=== PATIENT | male | born 1970 | race Hispanic/Latino ===

== ENCOUNTER 2020-02-16 02:05 | Emergency (ER) | payer SELFPAY, OTHER ==
[2020-02-16 03:30] LABS: Absolute Lymphocytes (CBC) 2.7 K/uL (0.7-4.9); Basophils % 0.9 % (0-1.3); Hematocrit 44.5 % (39.6-49.0); Lymphocytes % 39.4 % (15.3-44.8); MPV 8.4 fL (7.6-11.3); RBC Red Blood Cell Count 5.27 M/uL (4.33-5.43)
[2020-02-16 04:00] LABS: Arterial Blood Carboxyhemoglob 1.2 % (0-1.5); Blood Gas Oxyhemoglobin 93.9 % (94-97); Blood O2 Saturation 96.7 % (92-98.5)
[2020-02-16] MEDS ORDERED: DIPHENOX/ATROP SULF 1 TAB PO ONE (04:16)
[2020-02-16] MEDS ORDERED: NA CHLORIDE 0.9% 1,000 ML ONE (04:17)
--- NOTE | 2020-02-16 05:28 | ER ---
Nurse's Notes [facility] Name: Randolph Javier Age: 49 yrs Sex: Male : 1970 Arrival Date: 02/16/2020 Time: 02:11 Bed 5 Private MD: Diagnosis: Other viral enteritis Presentation: 02/15 02:49 Chief complaint: Patient states: having abdominal pain , diarrhea 10x today, nauseous rr5 and Shortness of breath started 3 days ago. Coronavirus screen: Surgical mask placed on patient. Patient moved to private room, placed in contact and droplet isolation with eye protection until further assessment. Patient reports shortness of breath or difficulty breathing. Patient reports contact with known and/or suspected case of COVID-19. Prior COVID test collected on: 02-09-20 covid result negative. Ebola Screen: Patient negative for fever greater than or equal to 101.5 degrees Fahrenheit, and additional compatible Ebola Virus Disease symptoms Patient denies exposure to infectious person. Patient denies travel to an Ebola-affected area in the 21 days before illness onset. Initial Sepsis Screen: Does the patient meet any 2 criteria? No. Patient's initial sepsis screen is negative. Does the patient have a suspected source of infection? Yes: Acute abdominal pain. Risk Assessment: Do you want to hurt yourself or someone else? Patient reports no desire to harm self or others. Onset of symptoms was February 13, 2020. 02:49 Method Of Arrival: Ambulatory rr5 02:49 Acuity: SHILPI 3 rr5 Historical: - Allergies: 02:53 No Known Allergies; rr5 - Home Meds: 02:53 for gout medication [Active]; rr5 - PMHx: 02:53 Gout; rr5 - PSHx: 02:53 polyps removal; rr5 - Immunization history:: Adult Immunizations up to date. - Social history:: Smoking status: unknown Patient/guardian denies using alcohol, street drugs, tobacco products. Screenin:15 Abuse screen: Denies threats or abuse. Denies injuries from another. Nutritional rr5 screening: No deficits noted. Tuberculosis screening: No symptoms or risk factors identified. Fall Risk IV access (20 points). Total Gorman Fall Scale indicates No Risk (0-24 pts). Assessment: 02:40 General: Appears in no apparent distress. comfortable, Behavior is calm, cooperative, rr5 appropriate for age. Pain: Complains of pain in epigastric area Pain radiates to abdomen Pain currently is 4 out of 10 on a pain scale. Quality of pain is described as aching, Pain began gradually, Is intermittent. Neuro: Level of Consciousness is awake, alert, obeys commands, Oriented to person, place, time, situation, Appropriate for age. Cardiovascular: Capillary refill < 3 seconds Patient's skin is warm and dry. Respiratory: Reports shortness of breath cough that is Airway is patent Respiratory effort is even, unlabored, Respiratory pattern is regular, symmetrical. GI: Abdomen is round non-distended, Reports lower abdominal pain, upper abdominal pain, diarrhea, intolerance of fluids, intolerance of food, nausea. : No signs and/or symptoms were reported regarding the genitourinary system. EENT: No signs and/or symptoms were reported regarding the EENT system. Derm: Skin is intact, is healthy with good turgor, Skin temperature is warm. Musculoskeletal: Circulation, motion, and sensation intact. Capillary refill < 3 seconds. 03:45 Reassessment: Patient appears in no apparent distress at this time. No changes from rr5 previously documented assessment. Patient is alert, oriented x 3, equal unlabored respirations, skin warm/dry/pink. awaiting for results. 04:30 Reassessment: Patient appears in no apparent distress at this time. Patient and/or rr5 family updated on plan of care and expected duration. Pain level reassessed. Patient is alert, oriented x 3, equal unlabored respirations, skin warm/dry/pink. Patient states symptoms have improved. 05:30 Reassessment: Patient appears in no apparent distress at this time. Patient is alert, rr5 oriented x 3, equal unlabored respirations, skin warm/dry/pink. discharge instruction given and explained without complaints made. Patient states feeling better. Patient states symptoms have improved. Vital Signs: 02:49 BP 141 / 112; Pulse 90; Resp 19; Temp 98.4; Pulse Ox 100% ; Weight 95.25 kg; Height 5 rr5 ft. 6 in. (167.64 cm); Pain 4/10; 03:55 BP 125 / 99; Pulse 88; Resp 18; Pulse Ox 99% on R/A; rv 04:30 BP 131 / 84; Pulse 79; Resp 15; Pulse Ox 98% on R/A; rr5 05:30 BP 121 / 75; Pulse 85; Resp 19; Temp 98.6; Pulse Ox 99% ; rr5 02:49 Body Mass Index 33.89 (95.25 kg, 167.64 cm) rr5 ED Course: 02:11 Patient arrived in ED. ag3 02:37 Gerber Prieto, RN is Primary Nurse. rr5 02:50 Patient has correct armband on for positive identification. Bed in low position. Call rr5 light in reach. Pulse ox on. NIBP on. 02:52 Triage completed. rr5 02:53 Arm band placed on right wrist. rr5 03:07 Chau Harrison MD is Attending Physician. tw4 03:15 Flu and/or RSV swab sent to lab. Strep swab sent to lab. covid 19. rr5 03:19 Inserted saline lock: 18 gauge in right antecubital area, using aseptic technique. rr5 Blood collected. 03:38 CXR XRAY In Process Unspecified. EDMS 04:05 ABG drawn. by RT staff, on room air. rr5 05:41 No provider procedures requiring assistance completed. IV discontinued, intact, rr5 bleeding controlled, No redness/swelling at site. Pressure dressing applied. Administered Medications: 04:16 Drug: NS 0.9% 1000 ml Route: IV; Rate: 1 bolus; Site: right antecubital; rr5 05:10 Follow up: Response: No adverse reaction rr5 05:30 Follow up: IV Status: Completed infusion; IV Intake: 1000ml rr5 04:16 Drug: LoMOTIL 2 tabs Route: PO; rr5 05:41 Follow up: Response: No adverse reaction rr5 Intake: 05:30 IV: 1000ml; Total: 1000ml. rr5 Outcome: 05:27 Discharge ordered by . tw4 05:30 Discharged to home ambulatory. rr5 05:30 Condition: stable 05:30 Discharge instructions given to patient, Instructed on discharge instructions, follow up and referral plans. medication usage, Demonstrated understanding of instructions, follow-up care, medications, Prescriptions given X 2. 05:43 Patient left the ED. rr5 Addendum: 02/21/2020 09:39 Addendum: COVID-19 Result: Negative result given to RN to notify pt. Notified pt of e b negative COVID 19 swab results. Pt advised that even with a negative test result they should remain in isolation until symptom free for 3 days without medication. Pt also advised to return to the ED for worsening symptoms. Signatures: Dispatcher [employer] Chau España MD MD tw4 Beth Rivera Ronaldo RN RN rv Seay, Emelina [email or web address] Gerber Prieto RN RN rr5
--- NOTE | 2020-02-16 05:28 | EDPHYS ---
Physician Documentation [facility] Name: Randolph Javier Age: 49 yrs Sex: Male : 1970 Arrival Date: 02/16/2020 Time: 02:11 Bed 5 Private MD: ED Physician Chau Harrison HPI: 02/15 03:57 This 49 yrs old Male presents to ER via Ambulatory with complaints of Diarrhea.tw4 03:57 The patient presents to the emergency department with diarrhea, 10 times since the tw4 onset of symptoms. Onset: The symptoms/episode began/occurred today. Possible causes: unknown. The symptoms are aggravated by nothing. The symptoms are alleviated by nothing. Associated signs and symptoms: Pertinent positives: SOB. Severity of symptoms: At their worst the symptoms were moderate in the emergency department the symptoms are unchanged. The patient has not experienced similar symptoms in the past. Historical: - Allergies: 02:53 No Known Allergies; rr5 - Home Meds: 02:53 for gout medication [Active]; rr5 - PMHx: 02:53 Gout; rr5 - PSHx: 02:53 polyps removal; rr5 - Immunization history:: Adult Immunizations up to date. - Social history:: Smoking status: unknown Patient/guardian denies using alcohol, street drugs, tobacco products. ROS: 03:57 Constitutional: Negative for fever, chills, and weight loss, Eyes: Negative for injury, tw4 pain, redness, and discharge, Cardiovascular: Negative for chest pain, palpitations, and edema, Back: Negative for injury and pain, MS/Extremity: Negative for injury and deformity, Skin: Negative for injury, rash, and discoloration, Neuro: Negative for headache, weakness, numbness, tingling, and seizure. 03:57 Respiratory: Positive for shortness of breath. 03:57 Abdomen/GI: Positive for diarrhea, Negative for abdominal pain, nausea and vomiting, nausea, vomiting, and diarrhea, nausea, vomiting, abdominal cramps, abdominal distension, anorexia, dysphagia, hematemesis, black/tarry stool, rectal pain, rectal bleeding. Exam: 03:57 Constitutional: This is a well developed, well nourished patient who is awake, alert, tw4 and in no acute distress. Head/Face: Normocephalic, atraumatic. Chest/axilla: Normal chest wall appearance and motion. Nontender with no deformity. No lesions are appreciated. Cardiovascular: Regular rate and rhythm with a normal S1 and S2. No gallops, murmurs, or rubs. Normal PMI, no JVD. No pulse deficits. Respiratory: Lungs have equal breath sounds bilaterally, clear to auscultation and percussion. No rales, rhonchi or wheezes noted. No increased work of breathing, no retractions or nasal flaring. Abdomen/GI: Soft, non-tender, with normal bowel sounds. No distension or tympany. No guarding or rebound. No evidence of tenderness throughout. Back: No spinal tenderness. No costovertebral tenderness. Full range of motion. MS/ Extremity: Pulses equal, no cyanosis. Neurovascular intact. Full, normal range of motion. Neuro: Awake and alert, GCS 15, oriented to person, place, time, and situation. Cranial nerves II-XII grossly intact. Motor strength 5/5 in all extremities. Sensory grossly intact. Cerebellar exam normal. Normal gait. Vital Signs: 02:49 BP 141 / 112; Pulse 90; Resp 19; Temp 98.4; Pulse Ox 100% ; Weight 95.25 kg; Height 5 rr5 ft. 6 in. (167.64 cm); Pain 4/10; 03:55 BP 125 / 99; Pulse 88; Resp 18; Pulse Ox 99% on R/A; rv 04:30 BP 131 / 84; Pulse 79; Resp 15; Pulse Ox 98% on R/A; rr5 05:30 BP 121 / 75; Pulse 85; Resp 19; Temp 98.6; Pulse Ox 99% ; rr5 02:49 Body Mass Index 33.89 (95.25 kg, 167.64 cm) rr5 MDM: 03:36 Patient medically screened. tw4 03:57 Differential diagnosis: Nonspecific abd pain, gastritis, cholecystitis, pancreatitis, tw4 diverticulitis. Data reviewed: vital signs, nurses notes. Data interpreted: Pulse oximetry: Interpretation: normal. Counseling: I had a detailed discussion with the patient and/or guardian regarding: the historical points, exam findings, and any diagnostic results supporting the discharge/admit diagnosis, lab results. 05:26 Medication response: lomotil. Response to treatment: the patient's symptoms have tw4 resolved after treatment, and as a result, I will discharge patient. Special discussion: Based on the patient's Hx, exam, and Dx evaluation, there is no indication for emergent surgery or inpatient Tx. It is understood by the patient/guardian that if the Sx's persist or worsen they need to return immediately for re-evaluation. I discussed with the patient/guardian in detail that at this point there is no indication for admission to the hospital. It is understood, however, that if the symptoms persist or worsen the patient needs to return immediately for re-evaluation. 02/15 03:04 Order name: Basic Metabolic Panel tw4 02/15 03:04 Order name: CBC with Diff tw4 02/15 03:04 Order name: Hepatic Function tw4 02/15 03:04 Order name: Lipase tw4 02/15 03:07 Order name: Flu 5 02/15 03:07 Order name: Strep [facility] 02/15 03:09 Order name: CXR XRAY tw4 02/15 03:09 Order name: COVID-19 tw4 02/15 03:10 Order name: Influenza Screen (A EDOH 02/15 03:42 Order name: ABG sg 02/15 04:11 Order name: Throat Culture EDOH 02/15 03:04 Order name: IV Saline Lock; Complete Time: 03:19 tw4 02/15 03:04 Order name: Labs collected and sent; Complete Time: 03:19 tw4 02/15 03:07 Order name: Document PUI#; Complete Time: 03:56 rr5 02/15 03:07 Order name: Droplet/Contact Precautions; Complete Time: 03:08 rr5 02/15 03:07 Order name: Labs collected and sent; Complete Time: 03:57 rr5 02/15 03:07 Order name: Notify Health Dept [phone]/ ; Complete Time: 03:57 rr5 02/15 03:07 Order name: O2 Per Protocol; Complete Time: 03:08 rr5 Administered Medications: 04:16 Drug: NS 0.9% 1000 ml Route: IV; Rate: 1 bolus; Site: right antecubital; rr5 05:10 Follow up: Response: No adverse reaction rr5 05:30 Follow up: IV Status: Completed infusion; IV Intake: 1000ml rr5 04:16 Drug: LoMOTIL 2 tabs Route: PO; rr5 05:41 Follow up: Response: No adverse reaction rr5 Disposition: 02/16/20 05:27 Discharged to Home. Impression: Other viral enteritis. - Condition is Stable. - Discharge Instructions: Food Choices to Help Relieve Diarrhea, Adult, Diarrhea, Adult, Viral Gastroenteritis, Adult, [id number]. - Prescriptions for Bentyl 20 mg Oral Tablet - take 1 tablet by ORAL route every 6 hours As needed; 20 tablet. Lomotil 2.5- 0.025 mg Oral Tablet - take 2 tablet by ORAL route once daily As needed; 20 tablet. - Medication Reconciliation Form, Thank You Letter, Antibiotic Education, Prescription Opioid Use form. - Follow up: Private Physician; When: Upon discharge from the Emergency Department; Reason: Recheck today's complaints, Continuance of care, Re-evaluation by your physician. - Problem is new. - Symptoms have improved. Signatures: Dispatcher [employer] EDChau Lance MD MD tw4 Gerber Prieto RN RN rr5 Corrections: (The following items were deleted from the chart) 05:43 05:27 02/16/2020 05:27 Discharged to Home. Impression: Other viral enteritis. Condition rr5 is Stable. Forms are Medication Reconciliation Form, Thank You Letter, Antibiotic Education, Prescription Opioid Use. Follow up: Private Physician; When: Upon discharge from the Emergency Department; Reason: Recheck today's complaints, Continuance of care, Re-evaluation by your physician. Problem is new. Symptoms have improved. tw4
[2020-02-16 05:52] LABS: ALT/SGPT 225 U/L (12-78); AST/SGOT 65 U/L (15-37); Albumin 3.4 g/dL (3.4-5.0); Alkaline Phosphatase 101 U/L (45-117); BUN Blood Urea Nitrogen 16 mg/dL (7-18); Bicarbonate 21 mmol/L (21-32); Bilirubin Direct < 0.1 mg/dL (0-0.2); Bilirubin Total 0.2 mg/dL (0.2-1.0); Glucose Level 173 mg/dL (74-106); Lipase 195 U/L (73-393); Potassium 4.1 mmol/L (3.5-5.1); Protein, Total 7.9 g/dL (6.4-8.2); Sodium Level 137 mmol/L (136-145)
[2020-02-16 05:56] VITALS: BP 121/75; TEMP 98.6; O2SAT 99
--- NOTE | 2020-02-16 11:57 | RAD REPORT ---
EXAM DESCRIPTION: RAD - Chest Single View - 02/16/2020 3:38 am CLINICAL HISTORY: COUGH Chest pain. COMPARISON: CHEST SINGLE VIEW dated 06/03/2010 FINDINGS: Portable technique limits examination quality. The lungs are grossly clear. The heart is normal in size. No displaced fractures. IMPRESSION: No acute intrathoracic process suspected.
== END 2020-02-16 05:43 | disposition home or self-care (01) ==
LOC: ER 02:05
DX: A08.39 Other viral enteritis (principal); Z20.828 Contact with and (suspected) exposure to other viral communicable diseases
CPT/HCPCS: 36415; 71045; 80048; 80076; 82805; 83690; 85025; 87070; 87081; 87804; 96360; 99284; J7030; U0001

== ENCOUNTER 2020-09-17 23:19 | Inpatient (IN) | payer SELFPAY, OTHER ==
--- OUTSIDE RECORDS SUMMARY | 2020-09-17 23:20 | XMS REPORT | Continuity of Care Document ---
:1970 Author Organization [facility] t Address [address] [place] [address] Care Team Providers Name Role Phone José Miguel GIL, Burke Attending Clinician Unavailable Pamela RODNEY Attending Clinician Omari RODNEY Attending Clinician Geovanni RODNEY Attending Clinician Diego GIL Attending Clinician Unavailable Yandy Gallego Attending Clinician Doctor Unassigned, Name Attending Clinician Unavailable Michela Sena Attending Clinician Grey GIL, T Attending Clinician Unavailable Geovanni RODNEY Admitting Clinician Problems This patient has no known problems. Allergies, Adverse Reactions, Alerts This patient has no known allergies or adverse reactions. Medications This patient has no known medications. Procedures This patient has no known procedures. Encounters Start End Encounter Admission Attending Care Care Encounter Source Date/Time Date/Time Type Type Clinicians Facility Department ID 2020-05-23 2020-05-23 Nurse VISHNU Valdez [id number] 00:00:00 00:00:00 Triage Jeannette SANTAMARIA [id number] [facility] [id number] [id number] 2020-05-19 2020-05-19 Telemedici RICARDO Santiago [id number] 09:12:55 09:27:55 ne Visit Ck Floyd1.13.10 [facility] 4.2.7.2.68[facility] [id number] BLDG. 144 2020-05-17 2020-05-18 Emergency Joseph Salcido [facility] 1.2.840. [id number] 07:55:00 13:15:00 Kuldeep Galarza [id number] [place] 4.2.7.2.686 [place] [address] [id number] 2020-05-17 2020-05-17 Nurse Wanda Cortez [id number] 00:00:00 00:00:00 Triage HINA [id number]68[facility] [id number] 2020-03-18 2020-03-18 Wanda Art [id number] 00:00:00 00:00:00 Triage HINA [id number]68[facility] [id number] 2020-02-09 2020-02-09 Emergency [facility] [id number] 00:28:27 01:06:00 Shira Dowling [id number]686 [place] [address] [id number] 2020-02-09 2020-02-09 Orders Doctor MARES [id number] 00:00:00 00:00:00 Only Unassigned, HINA [id number] [place] [facility] [id number] [id number] 2020-02-04 2020-02-04 Emergency Ja Ellis [facility] [id number] 15:18:35 19:14:00 Michela Dowling [id number] [place] 4.2.7.2.686 [place] [address] [id number] 2020-02-04 2020-02-04 Nurse VISHNU Edmonds [id number] 00:00:00 00:00:00 Triage Martha [place] HINA [id number] [facility] [id number] [id number] 2019-10-02 2019-10-02 Telephone Pamela [facility] [id number] 00:00:00 00:00:00 [facility] [id number] [place] 4.2.7.2.686 [facility] [id number] Primary & 144 Specialty Care Results This patient has no known results.
[2020-09-17] MEDS ORDERED: FAMOTIDINE 20 MG/2 ML VIAL IV ONE (23:54)
[2020-09-17] MEDS ORDERED: NA CHLORIDE 0.9% 500 ML ONE (23:54)
[2020-09-17] MEDS ORDERED: ASPIRIN 81 MG CHEWABLE TABLET ONE (23:54)
[2020-09-18 00:08] LABS: Absolute Lymphocytes (CBC) 1.7 K/uL (0.7-4.9); Basophils % 0.9 % (0-1.3); Hematocrit 42.8 % (39.6-49.0); Lymphocytes % 31.3 % (15.3-44.8); MPV 8.8 fL (7.6-11.3); RBC Red Blood Cell Count 5.09 M/uL (4.33-5.43)
[2020-09-18 00:10] LABS: Protime INR 0.97
[2020-09-18 00:30] LABS: ALT/SGPT 96 U/L (12-78); Albumin 3.4 g/dL (3.4-5.0); Alkaline Phosphatase 84 U/L (45-117); BUN Blood Urea Nitrogen 21 mg/dL (7-18); Bicarbonate 27 mmol/L (21-32); Bilirubin Direct < 0.1 mg/dL (0-0.2); Bilirubin Total 0.4 mg/dL (0.2-1.0); Glucose Level 241 mg/dL (74-106); Lipase 180 U/L (73-393); NT PRO-BNP 51 pg/mL (<125); Protein, Total 7.3 g/dL (6.4-8.2); Sodium Level 139 mmol/L (136-145); Troponin (Emerg Dept Use Only) < 0.02 ng/mL (0.0-0.045)
[2020-09-18] MEDS ORDERED: METOPROLOL TAR 50 MG TAB ONE (00:31)
[2020-09-18] MEDS ORDERED: ENOXAPARIN 100 MG/ML SYR SQ ONE (00:32)
[2020-09-18 00:34] LABS: AST/SGOT 41 U/L (15-37); Potassium 3.5 mmol/L (3.5-5.1)
--- NOTE | 2020-09-18 00:52 | ER ---
Nurse's Notes [facility] Name: Randolph Javier Age: 49 yrs Sex: Male : 1970 Arrival Date: 09/17/2020 Time: 23:22 Bed 5 Private MD: Diagnosis: Chest pain, unspecified;Obesity, unspecified;Type 2 diabetes mellitus Presentation: 09/17 23:26 Chief complaint: Patient states: SHARP CHEST PAINS ON THE LEFT SIDE, WITH NAUSEA AND rv LIGHT HEADEDNESS. FAMILY CHECKED BLOOD PRESSURE, WITH SYSTOLIC OF 156. CLAIMS TO HAVE HISTORY OF ANXIETY. PATIENT DENIES CHEST PAIN UPON ARRIVAL. Coronavirus screen: Client denies travel out of the [place] in the last 14 days. At this time, the client does not indicate any symptoms associated with coronavirus-19. Ebola Screen: Patient negative for fever greater than or equal to 101.5 degrees Fahrenheit, and additional compatible Ebola Virus Disease symptoms Patient denies exposure to infectious person. Patient denies travel to an Ebola-affected area in the 21 days before illness onset. Initial Sepsis Screen: Does the patient meet any 2 criteria? No. Patient's initial sepsis screen is negative. Does the patient have a suspected source of infection? No. Patient's initial sepsis screen is negative. Risk Assessment: Do you want to hurt yourself or someone else? Patient reports no desire to harm self or others. Onset of symptoms was September 17, 2020. 23:26 Method Of Arrival: EMS: [facility] 23:26 Acuity: SHILPI 3 rv Triage Assessment: 23:29 General: Appears comfortable, Behavior is calm, cooperative. Pain: Complains of pain in rv chest Pain does not radiate. Pain currently is 0 out of 10 on a pain scale. Quality of pain is described as sharp, Pain began 1 hour ago. EENT: No signs and/or symptoms were reported regarding the EENT system. Neuro: Level of Consciousness is awake, alert, obeys commands, Oriented to person, place, time, situation. Cardiovascular: Patient's skin is warm and dry. Respiratory: Airway is patent Respiratory effort is even, unlabored, Breath sounds are clear bilaterally. Derm: Skin is intact. Historical: - Allergies: 23:29 No Known Allergies; rv - PMHx: : Gout; Anxiety; rv - PSHx: 23:29 None; rv - Immunization history:: Adult Immunizations up to date. - Social history:: Smoking status: Patient denies any tobacco usage or history of. - Family history:: not pertinent. Screenin:31 Abuse screen: Denies threats or abuse. Denies injuries from another. Nutritional rv screening: No deficits noted. Tuberculosis screening: No symptoms or risk factors identified. Fall Risk None identified. Assessment: 23:30 General: Appears in no apparent distress. Behavior is calm, cooperative, appropriate wh for age. Pain: Complains of pain in chest Pain does not radiate. Neuro: Level of Consciousness is awake, alert, obeys commands, Oriented to person, place, time, situation, Appropriate for age. Cardiovascular: Heart tones S1 S2. Cardiovascular: Rhythm is regular. Respiratory: Reports shortness of breath Airway is patent Respiratory effort is even, unlabored, Respiratory pattern is regular, symmetrical, Breath sounds are clear bilaterally. GI: Abdomen is round non-distended. : No signs and/or symptoms were reported regarding the genitourinary system. EENT: No signs and/or symptoms were reported regarding the EENT system. Derm: Skin is intact, is healthy with good turgor, Skin is pink, warm \T\ dry. normal. Musculoskeletal: Circulation, motion, and sensation intact. 09/18 01:00 Reassessment: Patient appears in no apparent distress at this time. No changes from previously documented assessment. Patient and/or family updated on plan of care and expected duration. Pain level reassessed. Patient is alert, oriented x 3, equal unlabored respirations, skin warm/dry/pink. 01:30 Reassessment: Hospitalist at bedside explaining POC need for admit. 02:30 Reassessment: Patient appears in no apparent distress at this time. Patient and/or family updated on plan of care and expected duration. Pain level reassessed. Patient is alert, oriented x 3, equal unlabored respirations, skin warm/dry/pink. Vital Signs: 09/17 23:26 BP 128 / 96; Pulse 95; Resp 18; Temp 98.6; Pulse Ox 94% ; Weight 104.33 kg; Pain 0/10; rv 04 00:33 BP 118 / 89; Pulse 93; Resp 18; Pulse Ox 96% ; rv 01:30 BP 130 / 89; Pulse 82; Resp 18; Pulse Ox 96% on R/A; 02:30 BP 109 / 92; Pulse 70; Resp 18; Pulse Ox 98% on R/A; ED Course: 03 23:22 Patient arrived in ED. mw2 23:26 Yousuf Galo, LOUISE is Primary Nurse. rv 23:27 Troy Urbano MD is Attending Physician. jd 23:29 Triage completed. rv 23:30 Arm band placed on right wrist. Patient placed in the treatment room, on a stretcher, rv Patient notified of wait time. 23:31 Patient has correct armband on for positive identification. bottom polisher on. Pulse rv ox on. NIBP on. 23:31 No provider procedures requiring assistance completed. Maintain EMS IV. Dressing rv intact. Good blood return noted. Site clean \T\ dry. Gauge \T\ site: G20 RIGHT ARM. 23:48 XRAY Chest (1 view) In Process Unspecified. EDMS 09/18 00:46 Gerber Reynaga MD is Hospitalizing Provider. jd 02:57 Patient admitted, IV remains in place. Administered Medications: 09/17 23:42 Drug: NS 0.9% 1000 ml Route: IV; Rate: 125 ml/hr; Site: right antecubital; rv 02/04 02:51 Follow up: Response: No adverse reaction; IV Status: Completed infusion 09/17 23:42 Drug: Pepcid 20 mg Route: IVP; Site: right antecubital; rv 02/04 02:51 Follow up: Response: No adverse reaction / 23:43 Drug: Aspirin Chewable Tablet 324 mg Route: PO; rv 02/04 02:51 Follow up: Response: No adverse reaction 00:22 Drug: Lopressor (metoprolol TARTRATE) 50 mg Route: PO; 00:33 Follow up: Response: No adverse reaction rv 02:52 Follow up: Response: No adverse reaction 00:23 Drug: Lovenox 100 mg Route: Sub-Q; Site: left lower abdomen; 02:52 Follow up: Response: No adverse reaction Outcome: 00:51 Decision to Hospitalize by Provider. jd 02:56 Admitted to Med/surg accompanied by tech, via wheelchair, room 232, with chart, Report called to Iram Mills RN 02:56 Condition: stable 02:56 Instructed on the need for admit. 03:00 Patient left the ED. Signatures: Dispatcher [employer] Troy Hodge MD MD cha Habalo, Winsy, RN RN Fidelina Matute 2 Yousuf Galo RN RN rv Corrections: (The following items were deleted from the chart) 02:54 02 23:30 Respiratory: Airway is patent Respiratory effort is even, unlabored, Respiratory pattern is regular, symmetrical, Breath sounds are clear bilaterally.
--- NOTE | 2020-09-18 00:52 | EDPHYS ---
Physician Documentation [facility] Name: Randolph Javier Age: 49 yrs Sex: Male : 1970 Arrival Date: 09/17/2020 Time: 23:22 Bed 5 Private MD: ED Physician Troy Urbano HPI: 09/18 00:02 This 49 yrs old Male presents to ER via EMS with complaints of chest pain and jd sob. 00:02 The patient has shortness of breath at rest, with light activity. Onset: The jd symptoms/episode began/occurred just prior to arrival. Duration: The symptoms are continuous, but are steadily getting better. The patient's shortness of breath has no apparent modifying factors. The patient or guardian reports chest pain that is located primarily in the substernal area, anterior chest wall, left. Onset: just prior to arrival. The pain does not radiate. Associated signs and symptoms: Pertinent positives: diaphoresis, dizziness. Severity of symptoms: At their worst the symptoms were mild in the emergency department the symptoms are unchanged. The chest pain is described as sharp. Historical: - Allergies: 09/17 23:29 No Known Allergies; rv - PMHx: 23:29 Gout; Anxiety; rv - PSHx: 23:29 None; rv - Immunization history:: Adult Immunizations up to date. - Social history:: Smoking status: Patient denies any tobacco usage or history of. - Family history:: not pertinent. ROS: 09/18 00:02 Constitutional: Negative for fever, chills, and weight loss, Eyes: Negative for injury, jd pain, redness, and discharge, ENT: Negative for injury, pain, and discharge, Neck: Negative for injury, pain, and swelling, Respiratory: Negative for shortness of breath, cough, wheezing, and pleuritic chest pain, Abdomen/GI: Negative for abdominal pain, nausea, vomiting, diarrhea, and constipation, Back: Negative for injury and pain, : Negative for injury, bleeding, discharge, and swelling, MS/Extremity: Negative for injury and deformity, Skin: Negative for injury, rash, and discoloration, Neuro: Negative for headache, weakness, numbness, tingling, and seizure. Cardiovascular: Positive for chest pain. Exam: 00:02 Constitutional: This is a well developed, well nourished patient who is awake, alert, jd and in no acute distress. Head/Face: Normocephalic, atraumatic. Eyes: Pupils equal round and reactive to light, extra-ocular motions intact. Lids and lashes normal. Conjunctiva and sclera are non-icteric and not injected. Cornea within normal limits. Periorbital areas with no swelling, redness, or edema. ENT: Nares patent. No nasal discharge, no septal abnormalities noted. Tympanic membranes are normal and external auditory canals are clear. Oropharynx with no redness, swelling, or masses, exudates, or evidence of obstruction, uvula midline. Mucous membranes moist. Neck: Trachea midline, no thyromegaly or masses palpated, and no cervical lymphadenopathy. Supple, full range of motion without nuchal rigidity, or vertebral point tenderness. No Meningismus. Chest/axilla: Normal chest wall appearance and motion. Nontender with no deformity. No lesions are appreciated. Cardiovascular: Regular rate and rhythm with a normal S1 and S2. No gallops, murmurs, or rubs. Normal PMI, no JVD. No pulse deficits. Respiratory: Lungs have equal breath sounds bilaterally, clear to auscultation and percussion. No rales, rhonchi or wheezes noted. No increased work of breathing, no retractions or nasal flaring. Abdomen/GI: Soft, non-tender, with normal bowel sounds. No distension or tympany. No guarding or rebound. No evidence of tenderness throughout. Back: No spinal tenderness. No costovertebral tenderness. Full range of motion. Skin: Warm, dry with normal turgor. Normal color with no rashes, no lesions, and no evidence of cellulitis. MS/ Extremity: Pulses equal, no cyanosis. Neurovascular intact. Full, normal range of motion. Neuro: Awake and alert, GCS 15, oriented to person, place, time, and situation. Cranial nerves II-XII grossly intact. Motor strength 5/5 in all extremities. Sensory grossly intact. Cerebellar exam normal. Normal gait. Psych: Awake, alert, with orientation to person, place and time. Behavior, mood, and affect are within normal limits. 00:02 Musculoskeletal/extremity: ROM: no acute changes, intact in all extremities, Circulation is intact in all extremities. Sensation intact. Compartment Syndrome exam of affected extremity: is normal. DVT Exam: No signs of deep vein thrombosis. no pain, no swelling, no tenderness, negative Homans' sign noted on exam, no appreciated bluish discoloration, no erythema, no increased warmth. Vital Signs: 09/17 23:26 BP 128 / 96; Pulse 95; Resp 18; Temp 98.6; Pulse Ox 94% ; Weight 104.33 kg; Pain 0/10; rv 09/18 00:33 BP 118 / 89; Pulse 93; Resp 18; Pulse Ox 96% ; rv 01:30 BP 130 / 89; Pulse 82; Resp 18; Pulse Ox 96% on R/A; wh 02:30 BP 109 / 92; Pulse 70; Resp 18; Pulse Ox 98% on R/A; wh MDM: 09/17 23:28 Patient medically screened. jd 09/18 00:07 Differential diagnosis: Anxiety Reaction CHF exacerbation, acute myocardial infarction, jd anxiety, cholecystitis, Cholelithiasis gastritis, hiatal hernia, pancreatitis, pneumonia, pulmonary embolus, stable angina, Myocardial Infarction pulmonary edema, Pulmonary Embolism reactive airway disease. Antibiotic administration: Not indicated. HEART Score: History: Slightly Suspicious (0), ECG: Normal (0), Age: > 45 and < 65 years (1), Risk Factors: > or = 3 Risk factors for atherosclerotic disease (2), [Hypercholesterolemia] [Hypertension] [DM] [+ Family HX] [Obesity] Troponin: < or = 1 x Normal Limit (0). The patient was given aspirin in the Emergency Department. The patient's Wells Deep Vein Thrombosis Score was calculated as follows: Total Score: 0. This patient was found to be at low risk for a deep vein thrombosis by using the Well's assessment criteria Total Score: 0-2 Pts- Low Risk. The patient's pulmonary embolism risk score was calculated as follows: Total Score: 0-2 points. This patient was found to be at low risk for a pulmonary embolism by using the Well's assessment criteria Total Score: 0-2 points. This patient was found to be at low risk for a pulmonary embolism by using the Well's assessment criteria. AZAR Risk Score: 1 - Three or more CAD risk factors, TOTAL SCORE = 1. Immunization status: Influenza vaccine: Not up to date. Data reviewed: vital signs, nurses notes, lab test result(s), EKG, radiologic studies. Data interpreted: playground monitor: rate is 95 beats/min, rhythm is regular, Pulse oximetry: on room air is 94 %. Test interpretation: by ED physician or midlevel provider: ECG, plain radiologic studies. 09/17 23:28 Order name: Basic Metabolic Panel [facility] 09/17 23:28 Order name: CBC with Diff [facility] 09/17 23:28 Order name: LFT's [facility] 09/17 23:28 Order name: Magnesium [facility] 09/17 23:28 Order name: NT PRO-BNP; Complete Time: 00:46 [facility] 09/17 23:28 Order name: PT-INR; Complete Time: 00:23 [facility] 09/17 23:28 Order name: Troponin (emerg Dept Use Only); Complete Time: 00:46 [facility] 09/17 23:28 Order name: Lipase; Complete Time: 00:46 [facility] 09/17 23:28 Order name: D-Dimer; Complete Time: 00:23 [facility] 09/17 23:28 Order name: Basic Metabolic Panel; Complete Time: 00:45 [facility] 09/17 23:28 Order name: CBC with Automated Diff; Complete Time: 00:23 [facility] 09/17 23:28 Order name: Liver (Hepatic) Function; Complete Time: 00:45 [facility] 09/17 23:28 Order name: Magnesium; Complete Time: 00:46 [facility] 09/17 23:28 Order name: XRAY Chest (1 view) [facility] 09/17 23:28 Order name: EKG; Complete Time: 23:29 [facility] 09/17 23:28 Order name: Cardiac monitoring; Complete Time: 23:32 [facility] 09/17 23:28 Order name: EKG - Nurse/Tech; Complete Time: 23:32 [facility] 09/17 23:28 Order name: IV Saline Lock; Complete Time: 23:32 [facility] 09/17 23:28 Order name: Labs collected and sent; Complete Time: 23:32 [facility] 09/17 23:28 Order name: O2 Per Protocol; Complete Time: 23:32 [facility] 09/17 23:28 Order name: O2 Sat Monitoring; Complete Time: 23:32 [facility] 09/18 00:09 Order name: Thyroid Stimulating Hormone; Complete Time: 00:46 [facility] 09/18 01:47 Order name: SARS-COV-2 RT PCR EDMS Administered Medications: 09/17 23:42 Drug: NS 0.9% 1000 ml Route: IV; Rate: 125 ml/hr; Site: right antecubital; rv 09/18 02:51 Follow up: Response: No adverse reaction; IV Status: Completed infusion 09/17 23:42 Drug: Pepcid 20 mg Route: IVP; Site: right antecubital; rv 09/18 02:51 Follow up: Response: No adverse reaction 09/17 23:43 Drug: Aspirin Chewable Tablet 324 mg Route: PO; rv 09/18 02:51 Follow up: Response: No adverse reaction 00:22 Drug: Lopressor (metoprolol TARTRATE) 50 mg Route: PO; 00:33 Follow up: Response: No adverse reaction rv 02:52 Follow up: Response: No adverse reaction 00:23 Drug: Lovenox 100 mg Route: Sub-Q; Site: left lower abdomen; 02:52 Follow up: Response: No adverse reaction Disposition: 09/18/20 00:51 Hospitalization ordered by Gerber Reynaga for Observation. Preliminary diagnosis are Chest pain, unspecified, Obesity, unspecified, Type 2 diabetes mellitus. - Bed requested for Telemetry/MedSurg (observation). - Status is Observation. - Condition is Stable. - Problem is new. - Symptoms have improved. Signatures: Dispatcher [employer] EDSandy Nye RN RN Troy Austin MD MD cha Habalo, Winsy, RN RN Yousuf Galo RN RN rv Corrections: (The following items were deleted from the chart) 00:08 00:02 THYROID STIMULAT HORMONE+C.LAB.BRZ ordered. [facility] EDMS 00:40 00:02 CORONAVIRUS+MR.LAB.BRZ ordered. [facility] 02:37 00:51 Hospitalization Ordered by Gerber Reynaga MD for Observation. Preliminary diagnosis is Chest pain, unspecified; Obesity, unspecified; Type 2 diabetes mellitus. Bed requested for Telemetry/MedSurg (observation). Status is Observation. Condition is Stable. Problem is new. Symptoms have improved. [facility] 03:00 02:37 09/18/2020 00:51 Hospitalization Ordered by Gerber Reynaga MD for Observation. Preliminary diagnosis is Chest pain, unspecified; Obesity, unspecified; Type 2 diabetes mellitus. Bed requested for Telemetry/MedSurg (observation). Status is Observation. Condition is Stable. Problem is new. Symptoms have improved. dw
--- NOTE | 2020-09-18 01:15 | P.HP ---
Certification for Inpatient Patient admitted to: Observation With expected LOS: <2 Midnights Patient will require the following post-hospital care: None Practitioner: I am a practitioner with admitting privileges, knowledge of patient current condition, hospital course, and medical plan of care. Services: Services provided to patient in accordance with Admission requirements found in Title 42 Section 412.3 of the Code of Federal Regulations <Jamshid Macedo - Last Filed: 09/18/20 01:12> Patient History Date of Service: 09/18/20 Primary Care Provider: none Reason for admission: Chest pain History of Present Illness: 49-year-old male with history of gout, anxiety presents to the emergency department for chest pain, shortness of breath. Patient reports that last night while he was at home relaxing speaking with his son he developed chest pain, describes pain as sharp, nonradiating with some associated shortness of breath. The patient was evaluated in the emergency department, chest x-ray unremarkable. EKG without acute changes labs significant for elevated blood glucose 241, not previously known diabetic, initial troponin negative. Patient with family history, father with heart disease. ED provider wishes to admit patient for further evaluation and management. When I saw the patient in the ER he was awake, alert, oriented x3. Patient not currently having any chest pain. - Past Medical/Surgical History -: Gout -: Anxiety -: Suspect diabetes mellitus type 2 -: none Psychosocial/ Personal History: Patient currently unemployed, lives with family. - Family History Father -: Heart disease - Social History Smoking Status: Never smoker Alcohol use: No CD- Drugs: No Caffeine use: Yes Place of Residence: Home <Jamshid Macedo - Last Filed: 09/18/20 01:12> Date of Service: 09/29/20 <Gerber Reynaga - Last Filed: 09/29/20 20:33> Allergies No Known Allergies Allergy (Unverified 09/18/20 03:24) Home Medications: Colchicine [Colcrys *] 0.6 mg PO DAILY 09/18/20 Fenofibrate [Tricor] 48 mg PO DAILY 30 Days #30 tab 09/18/20 Metformin HCl [Glucophage] 500 mg PO BID 30 Days #60 tablet 09/18/20 Review of Systems 10-point ROS is otherwise unremarkable Respiratory: Shortness of Breath Cardiovascular: Chest Pain <Jamshid Macedo - Last Filed: 09/18/20 01:12> Physical Examination - Physical Exam General: Alert, In no apparent distress HEENT: Atraumatic, PERRLA, Mucous membr. moist/pink Neck: Supple, 2+ carotid pulse no bruit, No LAD Respiratory: Clear to auscultation bilaterally, Normal air movement Cardiovascular: Regular rate/rhythm, Normal S1 S2 Gastrointestinal: Normal bowel sounds, No tenderness Musculoskeletal: No tenderness Integumentary: No rashes Neurological: Normal speech, Normal strength at 5/5 x4 extr, Normal tone, Normal affect - Studies Laboratory Data (last 24 hrs) 09/17/20 23:35: PT 11.2, INR 0.97 09/17/20 23:35: WBC 5.60, Hgb 14.5, Hct 42.8, Plt Count 211 09/17/20 23:35: Sodium 139, Potassium 3.5, BUN 21 H, Creatinine 1.27, Glucose 241 H, Magnesium 2.0, Total Bilirubin 0.4, AST 41 H, ALT 96 H, Alkaline Phosphatase 84, Lipase 180 <Jamshid Macedo - Last Filed: 09/18/20 01:12> Assessment and Plan - Plan Assessment Chest pain rule out ACS Hyperglycemia suspect underlying diabetes mellitus type 2-undiagnosed Plan Chest pain rule out ACS: Monitor on telemetry, trend troponins, cardiology consult in place. Continue daily aspirin, metoprolol. NPO until evaluation by cardiology. DVT prophylaxis Lovenox 40 mg subcutaneous once daily. Appreciate further input from cardiology Hyperglycemia suspect underlying diabetes mellitus type 2-undiagnosed: Blood sugar 241, patient not known diabetic, A1c with morning labs. A.c. HS Accu- Cheks, sliding scale insulin therapy. Discharge Plan: Home Plan to discharge in: 24 Hours - Advance Directives Does patient have a Living Will: No Does patient have a Durable POA for Healthcare: No - Code Status/Comfort Care Code Status Assessed: Yes (Full code) Critical Care: No Time Spent Managing Pts Care (In Minutes): 55 <Jamshid Macedo - Last Filed: 09/18/20 01:12> - Plan Plan of care discussed with Jamshid Macedo, and I agree with the management plan as noted above. <Gerber Reynaga - Last Filed: 09/29/20 20:33>
[2020-09-18] MEDS ORDERED: ONDANSETRON 4 MG/2 ML VIAL IV PRN (02:54)
[2020-09-18 03:56] VITALS: BMI 34.3
[2020-09-18] MEDS ORDERED: METOPROLOL TAR 25 MG TAB PO SCH (06:00)
[2020-09-18 06:55] LABS: HDL Cholesterol 26 mg/dL (40-60); Troponin I < 0.02 ng/mL (0.0-0.045)
[2020-09-18 07:09] LABS: LDL, Direct 97 mg/dL (100-129)
[2020-09-18] MEDS: INSULIN -REGULAR HUMAN 50 UNIT/0.5 ML ML SQ SCH ×2 (07:30→11:30)
--- NOTE | 2020-09-18 07:42 | RAD REPORT ---
EXAM DESCRIPTION: Víctor Single View09/17/2020 11:48 pm CLINICAL HISTORY: Chest pain COMPARISON: February 2020 FINDINGS: The lungs appear clear of acute infiltrate. The heart is normal size IMPRESSION: No acute abnormalities displayed
[2020-09-18] MEDS ORDERED: ENOXAPARIN 40 MG/0.4 ML SQ SCH (09:00)
[2020-09-18] MEDS ORDERED: ASPIRIN EC 81 MG TAB PO SCH (09:00)
[2020-09-18] MEDS ORDERED: INFLUENZA VACCINE (for 3y+) 0.5 ML DOSE IMVAC ONE (09:00)
[2020-09-18 13:53] VITALS: TEMP 97.8
[2020-09-18 17:06] VITALS: BP 131/77
[2020-09-18 18:40] VITALS: O2SAT 100
--- NOTE | 2020-09-18 20:57 | P.DS ---
Admission Date: 09/18/20 Discharge Date: 09/18/20 Primary Care Provider: none Disposition: ROUTINE DISCHARGE Discharge Condition: GOOD Reason for Admission: Chest pain Consultations: Cardiology - Dr. Peralta Procedures: CXR (09/18): no acute abnormalities Problem List: Chest Pain Hypertriglyceridemia Hyperglycemia suspect underlying diabetes mellitus type 2-undiagnosed Brief History of Present Illness: 49-year-old male with history of gout, anxiety presents to the emergency department for chest pain, shortness of breath. Patient reports that last night while he was at home relaxing speaking with his son he developed chest pain, describes pain as sharp, nonradiating with some associated shortness of breath. Pian lasted a few seconds. The patient was evaluated in the emergency department, chest x-ray unremarkable. EKG without acute changes labs significant for elevated blood glucose 241, not previously known diabetic, initial troponin negative. Patient with family history, father with heart disease. ED provider wishes to admit patient for further evaluation and management. Hospital Course: Cardiology was consulted. Troponins were negative x 3. HgbA1c: 7.0, Triglycerides: 1125. He did not have recurrence of his pain. He was discharged home. He is to f/u with Cardiology next week for stress test. He was discharged with metformin and Tricor. He was advised on strict low fat diet. Vital Signs/Physical Exam: Temp Pulse Resp BP Pulse Ox 97.8 F 79 18 131/77 95 09/18/20 16:00 09/18/20 16:00 09/18/20 16:00 09/18/20 16:00 09/18/20 16:00 General: Alert, In no apparent distress, Oriented x3 HEENT: Sclerae nonicteric Respiratory: Clear to auscultation bilaterally, Normal air movement Cardiovascular: No edema, Regular rate/rhythm, No murmurs Gastrointestinal: Soft and benign, Non-distended, No tenderness Musculoskeletal: No tenderness Integumentary: No rashes Neurological: Normal speech, Normal affect Laboratory Data at Discharge: WBC 5.60 K/uL (4.3-10.9) 09/17/20 23:35 Hgb 14.5 g/dL (13.6-17.9) 09/17/20 23:35 Hct 42.8 % (39.6-49.0) 09/17/20 23:35 Plt Count 211 K/uL (152-406) 09/17/20 23:35 PT 11.2 SECONDS (9.5-12.5) 09/17/20 23:35 INR 0.97 09/17/20 23:35 Sodium 139 mmol/L (136-145) 09/17/20 23:35 Potassium 3.5 mmol/L (3.5-5.1) 09/17/20 23:35 BUN 21 mg/dL (7-18) H 09/17/20 23:35 Creatinine 1.27 mg/dL (0.55-1.3) 09/17/20 23:35 Glucose 241 mg/dL (74-106) H 09/17/20 23:35 Magnesium 2.0 mg/dL (1.8-2.4) 09/17/20 23:35 Total Bilirubin 0.4 mg/dL (0.2-1.0) 09/17/20 23:35 AST 41 U/L (15-37) H 09/17/20 23:35 ALT 96 U/L (12-78) H 09/17/20 23:35 Alkaline Phosphatase 84 U/L (45-117) 09/17/20 23:35 Troponin I < 0.02 ng/mL (0.0-0.045) 09/18/20 11:59 Triglycerides 1125 mg/dL (<150) H 09/18/20 06:03 Cholesterol 259 mg/dL (<200) H 09/18/20 06:03 LDL Cholesterol Direct 97 mg/dL (100-129) L 09/18/20 06:03 HDL Cholesterol 26 mg/dL (40-60) L 09/18/20 06:03 Cholesterol/HDL Ratio 9.96 09/18/20 06:03 Lipase 180 U/L (73-393) 09/17/20 23:35 Home Medications: Colchicine [Colcrys *] 0.6 mg PO DAILY 09/18/20 Fenofibrate [Tricor] 48 mg PO DAILY 30 Days #30 tab 09/18/20 Metformin HCl [Glucophage] 500 mg PO BID 30 Days #60 tablet 09/18/20 New Medications: Metformin HCl [Glucophage] 500 mg PO BID 30 Days #60 tablet Fenofibrate [Tricor] 48 mg PO DAILY 30 Days #30 tab Physician Discharge Instructions: Your chest pain was evaluated, you had normal EKG and troponins (cadiac enzymes), which makes it unlikely to be due to your heart. You will need to follow up with Cardiology (Dr. Peralta) in the next 1-2 weeks to have a stress test done for further evaluation. You were found to have a Hgb A1c of 7.0, which meets criteria for diabetes. You also had a high level of triglycerides: 1125 (fat/cholesterol) in your blood. You are discharged with 2 medications: TriCor and metformin. You will also need to follow up with her PCP in the next 1-2 weeks. You will need to follow a diabetic and low fat diet. Diet: ADA (low fat) Activity: Ad emmanuelle Followup: NONE,NONE [Primary Care Provider] - Gaurav Peralta MD [ACTIVE - CAN ADMIT] - Time spent managing pt's care (in minutes): 40
== END 2020-09-18 18:39 | disposition home or self-care (01) | DRG 313 ==
LOC: ER 23:19 → ERHOLD 09-18 01:11 → OBSVTOIN 09-18 01:11 → 2ND 09-18 02:53
PROVIDERS: ADMIT Hospitalist; ATTEND Hospitalist
DX: R07.9 Chest pain, unspecified (principal); E11.65 Type 2 diabetes mellitus with hyperglycemia; E78.1 Pure hyperglyceridemia; M10.9 Gout, unspecified; Z56.0 Unemployment, unspecified; Z79.84 Long term (current) use of oral hypoglycemic drugs; Z79.899 Other long term (current) drug therapy; Z20.822 Contact with and (suspected) exposure to COVID-19
CPT/HCPCS: 36415; 71045; 80048; 80061; 80076; 82947; 83036; 83690; 83735; 83880; 84443; 84484; 85025; 85379; 85610; 93005; 96361; 96372; 96374; 99285; J1650; J7040; U0003

== ENCOUNTER 2020-10-15 13:32 | Inpatient (IN) | payer OTHER, SELFPAY ==
--- OUTSIDE RECORDS SUMMARY | 2020-10-15 13:36 | XMS REPORT | Continuity of Care Document ---
:1970 Author Organization [facility] t Address [address] [place] [address] Care Team Providers Name Role Phone José [...] ID 2020-05-23 2020-05-23 Nurse VISHNU Valdez [id number] 00:00:00 00:00:00 Triage Jeannette SANTAMARIA [id number] [facility] [id number] 2020-05-19 2020-05-19 Telemedici RICARDO Santiago [id number] 09:12:55 09:27:55 ne Visit Ck Floyd1.13.10 [facility] [id number] [id number] BLDG. 144 2020-05-17 2020-05-18 Emergency Joseph Salcido [facility] [id number]. [id number] 07:55:00 13:15:00 Kuldeep Galarza [id number] [place] [id number] [place] [address] [id number] 2020-05-17 2020-05-17 Nurse Wanda Cortez [id number] 00:00:00 00:00:00 Triage HINA [id number]68[facility] [id number] 2020-03-18 2020-03-18 Wanda Art [id number] 00:00:00 00:00:00 Triage HINA [id number]68[facility] [id number] 2020-02-09 2020-02-09 Emergency [facility] [id number] 00:28:27 01:06:00 Shira Dowling [id number]2.686 [place] [address] [id number] 2020-02-09 2020-02-09 Orders Doctor MARES [id number] 00:00:00 00:00:00 Only Unassigned, HINA [id number] [place] [facility] [id number] [id number] 2020-02-04 2020-02-04 Emergency Ja Ellis [facility] [id number] 15:18:35 19:14:00 Michela Dowling [id number] [place] [id number] [place] [address] [id number] 2020-02-04 2020-02-04 Nurse VISHNU Edmonds [id number] 00:00:00 00:00:00 Triage Martha [place] HINA [id number] [facility] [id number] [id number] 2019-10-02 2019-10-02 Telephone Pamela [facility] [id number] 00:00:00 00:00:00 [facility] [id number] [place] [id number] [facility] [id number] Primary & 144 Specialty Care Results This patient has no known results.
[2020-10-15 14:11] LABS: Basophils % 0.6 % (0-1.3); Lymphocytes % 43.8 % (15.3-44.8); MPV 8.6 fL (7.6-11.3); RBC Red Blood Cell Count 5.37 M/uL (4.33-5.43)
[2020-10-15] MEDS ORDERED: ASPIRIN 81 MG CHEWABLE TABLET ONE (14:17)
[2020-10-15 14:19] LABS: Protime INR 0.96
[2020-10-15] MEDS ORDERED: ONDANSETRON 4 MG/2 ML VIAL ONE (14:21)
[2020-10-15] MEDS ORDERED: MORPHINE 4 MG/ML SYR ONE (14:21)
--- NOTE | 2020-10-15 14:43 | RAD REPORT ---
EXAM DESCRIPTION: Víctor Single View10/15/2020 2:30 pm CLINICAL HISTORY: Chest pain COMPARISON: September 2020 FINDINGS: The lungs appear clear of acute infiltrate. The heart is normal size IMPRESSION: No acute abnormalities displayed
[2020-10-15 14:59] LABS: ALT/SGPT 59 U/L (12-78); Albumin 3.7 g/dL (3.4-5.0); Alkaline Phosphatase 69 U/L (45-117); BUN Blood Urea Nitrogen 20 mg/dL (7-18); Bicarbonate 27 mmol/L (21-32); Bilirubin Direct < 0.1 mg/dL (0-0.2); Bilirubin Total 0.3 mg/dL (0.2-1.0); Glucose Level 115 mg/dL (74-106); NT PRO-BNP 54 pg/mL (<125); Protein, Total 7.7 g/dL (6.4-8.2); Sodium Level 140 mmol/L (136-145); Troponin (Emerg Dept Use Only) < 0.02 ng/mL (0.0-0.045)
[2020-10-15 15:01] LABS: AST/SGOT 26 U/L (15-37); Magnesium 1.9 mg/dL (1.8-2.4); Potassium 4.2 mmol/L (3.5-5.1)
--- NOTE | 2020-10-15 16:37 | EDPHYS ---
Physician Documentation [facility] Name: Randolph Javier Age: 49 yrs Sex: Male : 1970 Arrival Date: 10/15/2020 Time: 13:34 Bed 5 Private MD: ED Physician Raffaele Emanuel HPI: 10/15 13:56 This 49 yrs old Male presents to ER via Ambulatory with complaints of Chest jmm Pain. 13:56 The patient or guardian reports chest pain that is located primarily in the substernal jmm area. Onset: acutely, today, .5 hour(s) ago. The pain radiates to the left arm, the left shoulder. The chest pain is described as aching, a pressure. Duration: The patient or guardian reports a single episode, that is still ongoing, that lasted 20 minute(s). Modifying factors: The symptoms are alleviated by nothing. the symptoms are aggravated by nothing. This is a 49 year old male with a history of anxiety, gout that presents to the ED with complaints of left sided chest pain which began approx 20 minutes ago. Pain is worse than previous episode. . Historical: - Allergies: 13:46 No Known Allergies; ll1 - PMHx: 13:46 Anxiety; Gout; ll1 - PSHx: 13:46 None; ll1 - Immunization history:: Flu vaccine is up to date. - Social history:: Smoking status: Patient denies any tobacco usage or history of. ROS: 13:56 Constitutional: Negative for fever, chills, and weight loss, Respiratory: Negative for jmm shortness of breath, cough, wheezing, and pleuritic chest pain. 13:56 Cardiovascular: Positive for chest pain. 13:56 All other systems are negative. Exam: 13:56 Constitutional: This is a well developed, well nourished patient who is awake, alert, jmm and in no acute distress. Head/Face: atraumatic. Eyes: EOMI, no conjunctival erythema appreciated ENT: Moist Mucus Membranes Neck: Trachea midline, Supple Chest/axilla: Normal chest wall appearance and motion. Cardiovascular: Regular rate and rhythm. No edema appreciated Respiratory: Normal respirations, no respiratory distress appreciated Abdomen/GI: Non distended, soft Back: Normal ROM Skin: General appearance color normal MS/ Extremity: Moves all extremities, no obvious deformities appreciated, no edema noted to the lower extremities Neuro: Awake and alert, normal gait Psych: Behavior is normal, Mood is normal, Patient is cooperative and pleasant 14:05 ECG was reviewed by the Attending Physician. [facility] Vital Signs: 13:45 BP 155 / 111; Pulse 89; Resp 17; Temp 98.3; Pulse Ox 98% ; Weight 97.52 kg; Height 5 ll1 ft. 7 in. (170.18 cm); Pain 8/10; 14:06 BP 135 / 98; Pulse 82; Resp 20; Pulse Ox 98% on R/A; mh5 14:45 BP 124 / 95; Pulse 83; Resp 16; Pulse Ox 99% on R/A; Pain 6/10; ss 13:45 Body Mass Index 33.67 (97.52 kg, 170.18 cm) ll1 MDM: 13:55 Patient medically screened. [facility] 16:36 The patient was given aspirin in the Emergency Department. Data reviewed: vital signs, [facility] nurses notes, lab test result(s), EKG, radiologic studies, plain films. ED course: I discussed the patient with Dr. Santos whom accepted admission. . 10/15 13:56 Order name: Basic Metabolic Panel [facility] 10/15 13:56 Order name: CBC with Diff [facility] 10/15 13:56 Order name: LFT's [facility] 10/15 13:56 Order name: Magnesium [facility] 10/15 13:56 Order name: NT PRO-BNP [facility] 10/15 13:56 Order name: PT-INR [facility] 10/15 13:56 Order name: Troponin (emerg Dept Use Only) [facility] 10/15 14:12 Order name: CBC with Automated Diff; Complete Time: 14:15 [facility] 10/15 14:20 Order name: Protime (+INR); Complete Time: 14:25 [facility] 10/15 15:01 Order name: Basic Metabolic Panel; Complete Time: 15:03 [facility] 10/15 15:01 Order name: Liver (Hepatic) Function; Complete Time: 15:03 [facility] 10/15 15:01 Order name: Troponin (Emerg Dept Use Only); Complete Time: 15:03 [facility] 10/15 15:01 Order name: NT PRO-BNP; Complete Time: 15:03 [facility] 10/15 15:01 Order name: Magnesium; Complete Time: 15:03 [facility] 10/15 13:56 Order name: XRAY Chest (1 view) [facility] 10/15 13:56 Order name: EKG; Complete Time: 13:57 [facility] 10/15 13:56 Order name: Cardiac monitoring; Complete Time: 14:02 [facility] 10/15 13:56 Order name: EKG - Nurse/Tech; Complete Time: 14:02 [facility] 10/15 13:56 Order name: IV Saline Lock; Complete Time: 14:02 [facility] 10/15 13:56 Order name: Labs collected and sent; Complete Time: 14:03 [facility] 10/15 13:56 Order name: O2 Per Protocol; Complete Time: 14:03 [facility] 10/15 13:56 Order name: O2 Sat Monitoring; Complete Time: 14:03 [facility] 10/15 14:43 Order name: RAD; Complete Time: 14:44 [facility] 10/15 15:18 Order name: CORONAVIRUS [facility] 10/15 15:57 Order name: SARS-COV-2 RT PCR; Complete Time: 15:58 [facility] EC:05 Rate is 79 beats/min. Rhythm is regular, RBBB. Left axis deviation noted. SC interval jmm is normal. QRS interval is normal. QT interval is normal. Q waves are Present in leads aVL, V2. T waves are Inverted in leads III, aVF, aVR. No ST changes noted. Reviewed by me. Administered Medications: 14:02 Drug: Aspirin Chewable Tablet 324 mg Route: PO; ss 18:15 Follow up: Response: No adverse reaction ss 14:08 Drug: Zofran (Ondansetron) 4 mg Route: IVP; Site: right antecubital; ss 18:15 Follow up: Response: No adverse reaction ss 14:09 Drug: morphine 4 mg Route: IVP; Site: right antecubital; ss 18:15 Follow up: Response: No adverse reaction; Pain is decreased ss Disposition: 10/16 07:20 Co-signature as Attending Physician, Raffaele Emanuel MD I agree with the assessment and kdr plan of care. Disposition: 10/15/20 16:37 Hospitalization ordered by Delano Santos for Observation. Preliminary diagnosis is Chest pain, unspecified. - Bed requested for Telemetry/MedSurg (observation). - Status is Observation. ss - Condition is Stable. - Problem is an acute exacerbation. - Symptoms have improved. Signatures: Dispatcher [employer] EDNM Sandy Pope, LOUISE GIL Raffaele Emanuel MD MD kdr Mickail, Joel, PA PA [facility] Mayra Mcgraw RN RN ss Shabbir Murphy RN RN ll1 Corrections: (The following items were deleted from the chart) 10/15 16:15 15:06 CORONAVIRUS+MR.LAB.BRZ ordered. [facility] EDNM 17:38 16:37 Hospitalization Ordered by Delano Santos DO for Observation. Preliminary dw diagnosis is Chest pain, unspecified. Bed requested for Telemetry/MedSurg (observation). Status is Observation. Condition is Stable. Problem is an acute exacerbation. Symptoms have improved. [facility] 18:35 17:38 10/15/2020 16:37 Hospitalization Ordered by Delano Santos DO for Observation. Preliminary diagnosis is Chest pain, unspecified. Bed requested for Telemetry/MedSurg (observation). Status is Observation. Condition is Stable. Problem is an acute exacerbation. Symptoms have improved. dw
--- NOTE | 2020-10-15 16:37 | ER ---
Nurse's Notes [facility] Name: Randolph Javier Age: 49 yrs Sex: Male : 1970 Arrival Date: 10/15/2020 Time: 13:34 Bed 5 Private MD: Diagnosis: Chest pain, unspecified Presentation: 10/15 13:45 Chief complaint: Patient states: L CP for 15 min [employer] while waiting for a haircut. + ll1 SOB. Had stress test ordered last week, skipped appointment. Coronavirus screen: Client denies travel out of the [place] in the last 14 days. At this time, the client does not indicate any symptoms associated with coronavirus-19. Ebola Screen: Patient denies travel to an Ebola-affected area in the 21 days before illness onset. Initial Sepsis Screen: Does the patient meet any 2 criteria? No. Patient's initial sepsis screen is negative. Does the patient have a suspected source of infection? Yes: Other: chest pain. Risk Assessment: Do you want to hurt yourself or someone else? Patient reports no desire to harm self or others. Onset of symptoms was October 15, 2020. 13:45 Method Of Arrival: Ambulatory ll1 13:45 Acuity: SHILPI 3 ll1 Historical: - Allergies: 13:46 No Known Allergies; ll1 - PMHx: 13:46 Anxiety; Gout; ll1 - PSHx: 13:46 None; ll1 - Immunization history:: Flu vaccine is up to date. - Social history:: Smoking status: Patient denies any tobacco usage or history of. Screenin:45 Abuse screen: Denies threats or abuse. Denies injuries from another. Nutritional ss screening: No deficits noted. Tuberculosis screening: Never had TB. Fall Risk None identified. Assessment: 13:50 General: Appears uncomfortable, Behavior is calm, cooperative, Denies fever, feeling ss ill, fatigue, chills. Pain: Complains of pain in chest Pain radiates to left arm Pain currently is 7 out of 10 on a pain scale. Quality of pain is described as pressure, squeezing, Pain began just prior to arrival, approximately 20 minutes [employer] Is continuous. Neuro: Level of Consciousness is awake, alert, obeys commands, Oriented to person, place, time, situation, Bolt Man are equal bilaterally. Cardiovascular: Capillary refill < 3 seconds is brisk in bilateral fingers Patient's skin is warm and dry. Respiratory: Airway is patent Respiratory effort is even, unlabored, Respiratory pattern is regular, symmetrical. GI: No signs and/or symptoms were reported involving the gastrointestinal system. Patient currently denies diarrhea, nausea, vomiting. : No signs and/or symptoms were reported regarding the genitourinary system. Derm: Skin is intact, is healthy with good turgor, Skin is pink, warm \T\ dry. normal. 14:45 Reassessment: Patient appears in no apparent distress at this time. Patient and/or ss family updated on plan of care and expected duration. Pain level reassessed. Patient is alert, oriented x 3, equal unlabored respirations, skin warm/dry/pink. Patient states feeling better. Patient states symptoms have improved. Vital Signs: 13:45 BP 155 / 111; Pulse 89; Resp 17; Temp 98.3; Pulse Ox 98% ; Weight 97.52 kg; Height 5 ll1 ft. 7 in. (170.18 cm); Pain 8/10; 14:06 BP 135 / 98; Pulse 82; Resp 20; Pulse Ox 98% on R/A; mh5 14:45 BP 124 / 95; Pulse 83; Resp 16; Pulse Ox 99% on R/A; Pain 6/10; ss 13:45 Body Mass Index 33.67 (97.52 kg, 170.18 cm) ll1 ED Course: 13:34 Patient arrived in ED. am2 13:46 Triage completed. ll1 13:46 Arm band placed on Patient placed in an exam room, on a stretcher. 1 13:48 Iron Nicholas PA is PHCP. [facility] 13:48 Raffaele Emanuel MD is Attending Physician. [facility] 13:52 Mayra Mcgraw RN is Primary Nurse. ss 14:05 Initial lab(s) drawn, by md, sent to lab. EKG done, by ED staff, reviewed by Raffaele Emanuel MD. Inserted saline lock: 20 gauge in right antecubital area, using aseptic technique. Blood collected. 14:06 Patient has correct armband on for positive identification. Placed in gown. Bed in low mh5 position. Call light in reach. Side rails up X 1. Warm blanket given. Pillow given. court recording monitor on. Pulse ox on. NIBP on. 14:45 Patient maintains SpO2 saturation greater than 95% on room air. ss 16:15 CORONAVIRUS Sent. sv 16:15 Basic Metabolic Panel Sent. sv 16:15 CBC with Diff Sent. sv 16:15 LFT's Sent. sv 16:15 Magnesium Sent. sv 16:15 NT PRO-BNP Sent. sv 16:15 PT-INR Sent. sv 16:15 Troponin (emerg Dept Use Only) Sent. sv 16:15 XRAY Chest (1 view) Sent. sv 16:36 Delano Santos DO is Hospitalizing Provider. luis Administered Medications: 14:02 Drug: Aspirin Chewable Tablet 324 mg Route: PO; ss 18:15 Follow up: Response: No adverse reaction ss 14:08 Drug: Zofran (Ondansetron) 4 mg Route: IVP; Site: right antecubital; ss 18:15 Follow up: Response: No adverse reaction ss 14:09 Drug: morphine 4 mg Route: IVP; Site: right antecubital; ss 18:15 Follow up: Response: No adverse reaction; Pain is decreased Outcome: 16:37 Decision to Hospitalize by Provider. [facility] 18:35 Patient left the ED. Signatures: Letha Asher RN RN Iron Nicholas PA PA jmm Smirch, Shelby RN [facility] Whitley Gardner 2 Shabbir Murphy RN RN ll1 Corrections: (The following items were deleted from the chart) 13:47 13:45 Chief complaint: Patient states: L CP for 15 min [employer] while waiting for a haircut. ll1 + SOB. ll1
--- NOTE | 2020-10-15 17:08 | P.HP ---
Certification for Inpatient Patient admitted to: Observation With expected LOS: <2 Midnights Patient will require the following post-hospital care: None Practitioner: I am a practitioner with admitting privileges, knowledge of patient current condition, hospital course, and medical plan of care. Services: Services provided to patient in accordance with Admission requirements found in Title 42 Section 412.3 of the Code of Federal Regulations Patient History Date of Service: 10/15/20 Primary Care Provider: None Reason for admission: Chest pain History of Present Illness: 49-year-old male with history of diabetes, hypertriglyceridemia. Patient presented with left-sided chest pain. Pain radiated to the left shoulde r. Pain was 8/10 in intensity. He was at the [employer] shop at that time. He was associated with some shortness of breath. He had reported increasing blood pressures at home. Patient was recently hospitalized in early September. He was seen for chest pain at that time. He was to follow up with cardiology for cardiac stress test. Patient has not been able to get this done.Patient denies any fever, chills. No sick contacts noted. In the ER patient was evaluated. EKG shows no significant ST elevation. Initial cardiac enzymes unremarkable. Lab reviewed. Patient admitted for further evaluation and treatment. I saw the patient ER, patient reports he is taking aspirin, blood sugar medication and medication for cholesterol. He does not smoke. Patient stop drinking 6 months ago. Patient reports increase anxiety with chest pain. Family history of heart disease noted. Allergies No Known Allergies Allergy (Unverified 09/18/20 03:24) Home medications list reviewed: Yes Home Medications: Colchicine [Colcrys *] 0.6 mg PO DAILY 09/18/20 Fenofibrate [Tricor] 48 mg PO DAILY 30 Days #30 tab 09/18/20 Metformin HCl [Glucophage] 500 mg PO BID 30 Days #60 tablet 09/18/20 - Past Medical/Surgical History Diabetic: Yes -: Gout -: Anxiety -: Diabetes mellitus type 2 -: Hypertriglyceridemia -: none Psychosocial/ Personal History: Patient currently unemployed, lives with family. - Family History Father -: Heart disease - Social History Smoking Status: Never smoker Alcohol use: Yes CD- Drugs: No Caffeine use: Yes Place of Residence: Home Review of Systems General: As per HPI Eyes: Unremarkable ENT: Unremarkable Respiratory: Shortness of Breath, As per HPI Cardiovascular: Chest Pain, As per HPI Gastrointestinal: Unremarkable Genitourinary: Unremarkable Musculoskeletal: Unremarkable Integumentary: Unremarkable Neurological: Unremarkable Lymphatics: Unremarkable Physical Examination - Physical Exam General: Alert, In no apparent distress, Oriented x3, Oriented x1 HEENT: Atraumatic, Normocephalic, Mucous membr. moist/pink Neck: Supple Respiratory: Clear to auscultation bilaterally, Normal air movement Cardiovascular: Normal pulses, Regular rate/rhythm Gastrointestinal: Normal bowel sounds, Soft and benign, Non-distended, No tende rness, No masses, No rebound, No guarding Musculoskeletal: No erythema, No tenderness, No warmth Integumentary: No tenderness/swelling, No erythema, No warmth, No cyanosis Neurological: Normal speech, Normal strength at 5/5 x4 extr, Normal tone, Normal affect Assessment and Plan - Plan Impression: Chest pain with shortness of breath Hypertension: Diabetes mellitus type 2 Hypertriglyceridemia Plan: Chest pain with shortness of breath: Patient will admitted for further evaluation and treatment. Patient was to have outpatient cardiac stress test as an outpatient but not able to. Will order cardiac stress test while in the hospital to further evaluate. Will also order echocardiogram to further address. Continue monitor cardiac enzymes and telemetry. Will consult cardiology for further recommendation. Blood pressure elevated. Will start metoprolol. Continue aspirin, metoprolol, cholesterol medication. Hold metformin. Will provide sliding scale. DVT prophylaxis in place. Will also p rovide Protonix. Anticipate improvement over the next 24 hr with possible discharge tomorrow if workup unremarkable. Hypertension: Blood pressure elevated in the emergency room. Will start metoprolol. Will monitor and adjust appropriately. Diabetes mellitus type 2: Hold metformin. Will provide insulin sliding scale. Monitor Accu-Cheks. Hypertriglyceridemia: Will check fasting lipid panel. Continue Lopid and fish oil. Discharge Plan: Home Plan to discharge in: 24 Hours - Advance Directives Does patient have a Living Will: No Does patient have a Durable POA for Healthcare: No - Code Status/Comfort Care Code Status Assessed: Yes (Patient is full code) Time Spent Managing Pts Care (In Minutes): 55
[2020-10-15] MEDS ORDERED: ONDANSETRON 4 MG/2 ML VIAL IV PRN (18:35)
[2020-10-15] MEDS ORDERED: TRAMADOL HCL 50 MG TAB PO PRN (18:35)
[2020-10-15] MEDS ORDERED: NITROGLYCERIN 0.4 MG/TAB SL PRN (18:35)
[2020-10-15] MEDS: METOPROLOL TAR 25 MG TAB PO SCH (20:15)
[2020-10-15] MEDS: gemfibroziL 600 MG TAB PO SCH (20:15)
[2020-10-15] MEDS: DOCOSAHEXANOIC AC/EPA 1000 MG PO SCH (20:15)
[2020-10-15 20:36] LABS: CKMB Creatine Kinase MB 1.2 ng/mL (0.3-3.6); Creatine Phosphokinase 74 U/L (39-308); Troponin I < 0.02 ng/mL (0.0-0.045)
[2020-10-15] MEDS: INSULIN -REGULAR HUMAN 50 UNIT/0.5 ML ML SQ SCH (21:00)
[2020-10-16] MEDS: ACETAMINOPHEN 500 MG TAB PO PRN ×3 (00:35→22:03)
[2020-10-16 01:13] LABS: Creatine Phosphokinase 76 U/L (39-308); Troponin I < 0.02 ng/mL (0.0-0.045)
[2020-10-16] MEDS: METOPROLOL TAR 25 MG TAB PO SCH ×2 (06:00→17:21)
[2020-10-16] MEDS: PANTOPRAZOLE 40MG TABLET PO SCH (06:11)
[2020-10-16 06:35] LABS: Absolute Lymphocytes (CBC) 2.4 K/uL (0.7-4.9); Basophils % 0.7 % (0-1.3); Hematocrit 44.5 % (39.6-49.0); Lymphocytes % 47.6 % (15.3-44.8); MPV 8.8 fL (7.6-11.3); RBC Red Blood Cell Count 5.21 M/uL (4.33-5.43)
[2020-10-16] MEDS: INSULIN -REGULAR HUMAN 50 UNIT/0.5 ML ML SQ SCH ×4 (07:30→20:33)
[2020-10-16 07:31] LABS: Blood Morphology Comment NOT SEEN (NOT SEEN); Platelet Estimate ADEQ
[2020-10-16 07:35] LABS: BUN Blood Urea Nitrogen 17 mg/dL (7-18); Bicarbonate 28 mmol/L (21-32); Glucose Level 110 mg/dL (74-106); HDL Cholesterol 28 mg/dL (40-60); Magnesium 1.9 mg/dL (1.8-2.4); Potassium 4.1 mmol/L (3.5-5.1); Sodium Level 139 mmol/L (136-145)
[2020-10-16 07:47] LABS: LDL, Direct 77 mg/dL (100-129)
[2020-10-16] MEDS: ENOXAPARIN 40 MG/0.4 ML SQ SCH (09:18)
[2020-10-16] MEDS: gemfibroziL 600 MG TAB PO SCH ×2 (09:19→20:30)
[2020-10-16] MEDS: ASPIRIN EC 81 MG TAB PO SCH (09:19)
[2020-10-16] MEDS: DOCOSAHEXANOIC AC/EPA 1000 MG PO SCH ×2 (09:19→20:30)
[2020-10-16] MEDS ORDERED: REGADENOSON 0.4 MG/5 ML SYR IV ONE (09:37)
--- NOTE | 2020-10-16 09:48 | P.DS ---
Admission Date: 10/16/20 Discharge Date: 10/16/20 Primary Care Provider: None Disposition: ROUTINE DISCHARGE Discharge Condition: GOOD Reason for Admission: Chest pain Consultations: Cardiology-Dr. Cosme Procedures: COVID: Negative Cardiac Stress test: Medical Problem List: Chest pain with shortness of breath Hypertension: Diabetes mellitus type 2 Hypertriglyceridemia Brief History of Present Illness: 49-year-old male with history of diabetes, hypertriglyceridemia. Patient presented with left-sided chest pain. Pain radiated to the left shoulder. Pain was 8/10 in intensity. He was at the [employer] at that time. He was associated with some shortness of breath. He had reported increasing blood pressures at home. Patient was recently hospitalized in early September. He was seen for chest pain at that time. He was to follow up with cardiology for cardiac stress test. Patient has not been able to get this done.Patient denies any fever, chills. No sick contacts noted. In the ER patient was evaluated. EKG shows no significant ST elevation. Initial cardiac enzymes unremarkable. Lab reviewed. Patient admitted for further evaluation and treatment. I saw the patient ER, patient reports he is taking aspirin, blood sugar medication and medication for cholesterol. He does not smoke. Patient stop drinking 6 months ago. Patient reports increase anxiety with chest pain. Family history of heart disease noted. Hospital Course: Patient presented with Chest pain with shortness of breath. Patient had been seen in September for similar reasons. He was to have follow up as an outpatient for cardiac stress test. He has not been able to do this. Patient presented with chest pain yesterday and admitted for further evaluation. Cardiac enzymes unremarkable. Patient seen and evaluated by Cardiology. Cardiology recommended cardiac stress test at this time. Cardiac stress test performed. Patient also had elevated blood pressure. Metoprolol was started. Blood pressure now improved. No further intervention required at this time. At discharge patient will continue with aspirin 81 mg daily and metoprolol 12.5 mg 1 pill twice daily. Recommend to maintain blood pressure less than 130/80. Recommend to monitor blood pressure daily. If blood pressure remains above 140/90 further adjustment may be required. This can be done with the help of his PCP. Patient will be given a list of PCPs to establish care and follow up. Recommend follow up with cardiology in 2-4 weeks. Patient with diabetes mellitus type 2. This seems to be better controlled. At discharge patient will continue with metformin 500 mg 1 pill twice daily. Recommend to maintain blood sugar less than 140 fasting and less than 200 after meals. Further adjustment can be done by his PCP. Patient with hypertriglyceridemia. This has improved. At discharge medications have been adjusted. Patient will no longer take fenofibrate. At discharge patient will continue with Lopid 600 mg twice daily and fish oil 2000 mg twice daily. Recommend to recheck fasting lipid panel in 6-8 weeks to monitor his progress. Further adjustment can be done by his PCP. Patient will continue with 2000 ADA diet. Patient likely with GERD. At discharge patient will continue with Protonix 40 mg daily. Patient would benefit with EGD as an outpatient. This can be done with the help of his PCP. Vital Signs/Physical Exam: Temp Pulse Resp BP Pulse Ox 97.5 F 82 16 125/82 96 10/16/20 08:00 10/16/20 08:00 10/16/20 08:00 10/16/20 08:00 10/16/20 08:00 General: Alert, In no apparent distress, Oriented x3, Cooperative HEENT: Atraumatic Neck: Supple Respiratory: Clear to auscultation bilaterally, Normal air movement Cardiovascular: Normal pulses, Regular rate/rhythm Gastrointestinal: Normal bowel sounds, No tenderness, No masses, No rebound, No guarding Musculoskeletal: No erythema, No tenderness, No warmth Integumentary: No tenderness/swelling, No erythema, No warmth, No cyanosis Neurological: Normal speech, Normal strength at 5/5 x4 extr, Normal tone, Normal affect Laboratory Data at Discharge: WBC 5.00 K/uL (4.3-10.9) 10/16/20 05:55 Hgb 14.5 g/dL (13.6-17.9) 10/16/20 05:55 Hct 44.5 % (39.6-49.0) 10/16/20 05:55 Plt Count 203 K/uL (152-406) 10/16/20 05:55 PT 11.0 SECONDS (9.5-12.5) 10/15/20 14:02 INR 0.96 10/15/20 14:02 Sodium 139 mmol/L (136-145) 10/16/20 07:00 Potassium 4.1 mmol/L (3.5-5.1) 10/16/20 07:00 BUN 17 mg/dL (7-18) 10/16/20 07:00 Creatinine 1.02 mg/dL (0.55-1.3) 10/16/20 07:00 Glucose 110 mg/dL (74-106) H 10/16/20 07:00 Magnesium 1.9 mg/dL (1.8-2.4) 10/16/20 07:00 Total Bilirubin 0.3 mg/dL (0.2-1.0) 10/15/20 14:02 AST 26 U/L (15-37) 10/15/20 14:02 ALT 59 U/L (12-78) 10/15/20 14:02 Alkaline Phosphatase 69 U/L (45-117) 10/15/20 14:02 Troponin I < 0.02 ng/mL (0.0-0.045) 10/16/20 00:43 Triglycerides 508 mg/dL (<150) H 10/16/20 07:00 Cholesterol 202 mg/dL (<200) H 10/16/20 07:00 LDL Cholesterol Direct 77 mg/dL (100-129) L 10/16/20 07:00 HDL Cholesterol 28 mg/dL (40-60) L 10/16/20 07:00 Cholesterol/HDL Ratio 7.21 10/16/20 07:00 Home Medications: Aspirin [Aspirin EC 81 MG] 81 mg PO DAILY #90 tablet. 10/16/20 Docosahexanoic AC/Epa [Fish Oil 1,000 MG CAP] 2 cap PO BID #120 cap 10/16/20 Metformin HCl [Glucophage] 500 mg PO BID #60 tablet 10/16/20 Metoprolol Tartrate [Lopressor*] 12.5 mg PO BID 6AM 6PM #60 tab 10/16/20 Pantoprazole [Protonix Tab*] 40 mg PO DAILYAC #30 tab 10/16/20 gemfibroziL [Lopid*] 600 mg PO BID #60 tab 10/16/20 New Medications: Aspirin [Aspirin EC 81 MG] 81 mg PO DAILY #90 tablet. Docosahexanoic AC/Epa [Fish Oil 1,000 MG CAP] 2 cap PO BID #120 cap Metformin HCl [Glucophage] 500 mg PO BID #60 tablet gemfibroziL [Lopid*] 600 mg PO BID #60 tab Metoprolol Tartrate [Lopressor*] 12.5 mg PO BID 6AM 6PM #60 tab Pantoprazole [Protonix Tab*] 40 mg PO DAILYAC #30 tab Physician Discharge Instructions: Patient presented with Chest pain with shortness of breath. Patient had been seen in September for similar reasons. He was to have follow up as an outpatient for cardiac stress test. He has not been able to do this. Patient presented with chest pain yesterday and admitted for further evaluation. Cardiac enzymes unremarkable. Patient seen and evaluated by Cardiology. Cardiology recommended cardiac stress test at this time. Cardiac stress test performed. Patient also had elevated blood pressure. Metoprolol was started. Blood pressure now improved. No further intervention required at this time. At discharge patient will continue with aspirin 81 mg daily and metoprolol 12.5 mg 1 pill twice daily. Recommend to maintain blood pressure less than 130/80. Recommend to monitor blood pressure daily. If blood pressure remains above 140/90 further adjustment may be required. This can be done with the help of his PCP. Patient will be given a list of PCPs to establish care and follow up. Recommend follow up with cardiology in 2-4 weeks. Patient with diabetes mellitus type 2. This seems to be better controlled. At discharge patient will continue with metformin 500 mg 1 pill twice daily. Recommend to maintain blood sugar less than 140 fasting and less than 200 after meals. Further adjustment can be done by his PCP. Patient with hypertriglyceridemia. This has improved. At discharge medications have been adjusted. Patient will no longer take fenofibrate. At discharge patient will continue with Lopid 600 mg twice daily and fish oil 2000 mg twice daily. Recommend to recheck fasting lipid panel in 6-8 weeks to monitor his progress. Further adjustment can be done by his PCP. Patient will continue with 2000 ADA diet. Patient likely with GERD. At discharge patient will continue with Protonix 40 mg daily. Patient would benefit with EGD as an outpatient. This can be done with the help of his PCP. Diet: ADA Activity: Ad emmanuelle Followup: NONE,NONE [Primary Care Provider] - Time spent managing pt's care (in minutes): 55
[2020-10-16 10:20] VITALS: BMI 33.6
--- NOTE | 2020-10-16 11:37 | RAD REPORT ---
EXAM DESCRIPTION: NM - Rest Stress Cardiac Imaging - 10/16/2020 11:20 am CLINICAL HISTORY: Chest pain COMPARISON: None. TECHNIQUE: The patient was administered 9.9 mCi of Tc 99m Sestamibi prior to resting SPECT imaging o f the heart. The patient was then administered 31.9 mCi of Tc 99m Sestamibi following exercise or pha rmacologic stress. Multiplanar SPECT images were reviewed. FINDINGS: The end diastolic volume is 154 ml, the end systolic volume is 86 ml, and the ejection fra ction is 44 %. A fixed, diminished activity pattern is seen involving the inferior wall base and midportion. This is typically diaphragm attenuation artifact. Scarring is possible. Diminished activity slightly more pr onounced in the inferior apex on stress imaging relative to the rest sequencing. Septal, lateral and anterior grissom show no suspicious findings. IMPRESSION: Small focus of stress-induced ischemia suspected involving the inferior wall apex. Fixed diminished activity in the base and midportion of the inferior wall could be attenuation artifa ct from diaphragm, scarring or a combination. End-diastolic volume 154 milliliters with 44% EF.
--- NOTE | 2020-10-16 11:51 | P.PN ---
Subjective Date of Service: 10/16/20 Primary Care Provider: None Chief Complaint: Chest pain Subjective: Other (Blood pressure improved. Patient without significant chest pain.) Physical Examination - Vital Signs Temperature: 97.5 F Blood Pressure: 125/82 Pulse: 82 Respirations: 16 Pulse Ox (%): 96 - Studies Laboratory Data (last 24 hrs) 10/16/20 07:00: Sodium 139, Potassium 4.1, BUN 17, Creatinine 1.02, Glucose 110 H, Magnesium 1.9, Triglycerides 508 H, Cholesterol 202 H, LDL Cholesterol Direct 77 L, HDL Cholesterol 28 L, Cholesterol/HDL Ratio 7.21 10/16/20 05:55: WBC 5.00, Hgb 14.5, Hct 44.5, Plt Count 10/16/20 00:43: Troponin I < 0.02 10/15/20 19:49: Troponin I < 0.02 10/15/20 14:02: PT 11.0, INR 0.96 10/15/20 14:02: WBC 4.50, Hgb 14.8, Hct 45.0, Plt Count 203 10/15/20 14:02: Sodium 140, Potassium 4.2, BUN 20 H, Creatinine 0.96, Glucose 115 H, Magnesium 1.9, Total Bilirubin 0.3, AST 26, ALT 59, Alkaline Phosphatase 69 Assessment & Plan Discharge Plan: Home Plan to discharge in: 24 Hours Physician Review Additional Text: Physical exam: Patient alert, cooperative. No focal deficits noted. Heart: Regular rate rhythm Lungs: clear to auscultation GI: Soft nontender nondistended Extremities: Good range of motion to the lower extremities. No edema. Impression: Chest pain with shortness of breath, abnormal stress test. Hypertension: Diabetes mellitus type 2 Hypertriglyceridemia Plan: Chest pain with shortness of breath, abnormal stress test: Patient had abnormal stress test showing small focus of stress-induced ischemia to the inferior wall apex. Will discuss stress test findings with cardiology. Patient will require heart catheterization. Will determine with cardiology if this could be done inpatient versus outpatient. Await further recommendations from cardiology. Continue metoprolol. Continue aspirin. Await recommendations by Cardiology. Hypertension: Continue metoprolol. Diabetes mellitus type 2: Continue Accu-Cheks. Sliding scale in place. Hypertriglyceridemia: Continue current medication-Lopid and fish oil. GERD: Continue Protonix. Time Spent Managing Pts Care (In Minutes): 55
--- NOTE | 2020-10-16 20:34 | CON ---
Date of Consultation: 10/16/2020 Reason For Consultation: Chest pain, abnormal stress test. History Of Present Illness: A 50-year-old male with history of diabetes, hypertriglyceridemia, prese nted with chest pain, left-sided, radiates to the left shoulder, 8/10, sharp in nature with some shor tness of breath. This is his second admission to the hospital. He had a stress test with abnormal r esults. Past Medical History: As outlined above in the HPI. Medications: Refer consultation sheet for detailed list. Allergies: NO KNOWN DRUG ALLERGIES. Family History: No premature coronary artery disease or cancer. Social History: He is . Does not smoke. Drinks alcohol on occasion. Does not use any drugs . Family History: No premature coronary artery disease, cancer. Review of Systems: All systems were reviewed and they were negative except what mentioned in the HPI. Physical Examination: Vital Signs: Reviewed. Head and Neck: Pupils are equal, reactive to light. Intact eye movements. No JVD. No cervical lym phadenopathy. Neck: Supple. Thyroid is not enlarged. Lungs: Clear to auscultation bilaterally. Good muscle use. Lungs: Clear to auscultation bilaterally. No rhonchi, rales, or crackles. No accessory muscle use. Heart: Regular rate and rhythm. No extra sounds. Abdomen: Soft, nontender. Bowel sounds positive. No organomegaly. No rigidity or rebound. Extremities: No clubbing or cyanosis. Intact pulses. Skin: No rashes. Neurologic: Alert and oriented x3. No acute focal deficits appreciate. Lymph Nodes: No cervical lymphadenopathy. Investigations: Troponins are negative. Creatinine is 0.69. Assessment And Plan: Unstable angina. Abnormal stress test. Keep n.p.o. Schedule coronary angiogr am tomorrow. Continue aspirin and nitroglycerin for pain control as well as morphine sulfate if need ed. Further plan is to follow post coronary angiogram. Thank you for consultation. /KARO Voice ID: [id number] Report ID: [id number]
[2020-10-17] MEDS: PANTOPRAZOLE 40MG TABLET PO SCH (05:46)
[2020-10-17] MEDS: METOPROLOL TAR 25 MG TAB PO SCH (06:21)
[2020-10-17] MEDS: ASPIRIN EC 81 MG TAB PO SCH (06:23)
[2020-10-17] MEDS: INSULIN -REGULAR HUMAN 50 UNIT/0.5 ML ML SQ SCH ×2 (07:30→11:30)
[2020-10-17] MEDS ORDERED: NA CHLORIDE 0.9% 500 ML ONE (07:50)
[2020-10-17] MEDS ORDERED: LIDOCAINE 1% 20 ML MDV ONE (08:41)
[2020-10-17] MEDS ORDERED: HEPA 1000U/500MLS 2,000 UNIT/1,000 ML BAG IV ONE (08:41)
[2020-10-17] MEDS ORDERED: FENTANYL CITR 100 MCG/2 ML ONE (08:42)
[2020-10-17] MEDS ORDERED: MIDAZOLAM HCL 2 MG/2 ML INJ ONE (08:42)
[2020-10-17] MEDS ORDERED: VERAPAMIL HCL 10 MG/4 ML VIAL IV ONE (08:42)
[2020-10-17] MEDS ORDERED: HEPARIN 5000 UNIT/ML 1 ML VIAL ONE (08:42)
[2020-10-17] MEDS ORDERED: ATROPINE SULF 1 MG/10 ML SYR IV ONE (08:43)
--- NOTE | 2020-10-17 09:54 | P.DS ---
Admission Date: 10/16/20 Discharge Date: 10/17/20 Primary Care Provider: None Disposition: ROUTINE DISCHARGE Discharge Condition: GOOD Reason for Admission: Chest pain Consultations: Cardiology-Dr. Peralta Procedures: COVID: Negative Cardiac Stress Test: FINDINGS: The end diastolic volume is 154 ml, the end systolic volume is 86 ml, and the ejection fraction is 44 %. A fixed, diminished activity pattern is seen involving the inferior wall base and midportion. This is typically diaphragm attenuation artifact. Scarring is possible. Diminished activity slightly more pronounced in the inferior apex on stress imaging relative to the rest sequencing. Septal, lateral and anterior grissom show no suspicious findings. IMPRESSION: Small focus of stress-induced ischemia suspected involving the inferior wall apex. Fixed diminished activity in the base and midportion of the inferior wall could be attenuation artifact from diaphragm, scarring or a combination. End-diastolic volume 154 milliliters with 44% EF. Heart Cath: Normal coronaries Impression: Chest pain with shortness of breath and abnormal cardiac stress test status post heart catheterization showing normal coronaries Hypertension: Diabetes mellitus type 2 Hypertriglyceridemia Suspect underlying obstructive sleep apnea Obesity, BMI 33.7 Brief History of Present Illness: 49-year-old male with history of diabetes, hypertriglyceridemia. Patient presented with left-sided chest pain. Pain radiated to the left s houlder. Pain was 8/10 in intensity. He was at the [employer] at that time. He was associated with some shortness of breath. He had reported increasing blood pressures at home. Patient was recently hospitalized in early September. He was seen for chest pain at that time. He was to follow up with cardiology for cardiac stress test. Patient has not been able to get this done.Patient denies any fever, chills. No sick contacts noted. In the ER patient was evaluated. EKG shows no significant ST elevation. Initial cardiac enzymes unremarkable. Lab reviewed. Patient admitted for further evaluation and treatment. I saw the patient ER, patient reports he is taking aspirin, blood sugar medication and medication for cholesterol. He does not smoke. Patient stop drinking 6 months ago. Patient reports increase anxiety with chest pain. Family history of heart disease noted. Hospital Course: Patient presented with Chest pain with shortness of breath. Patient had been seen in September for similar reasons. He was to have follow up as an outpatient for cardiac stress test. He has not been able to do this. Patient presented with chest pain yesterday and admitted for further evaluation. Cardiac enzymes unremarkable. Patient seen and evaluated by Cardiology. Cardiology recommended cardiac stress test at this time. Cardiac stress test performed, showed stress- induced ischemia to the inferior wall. Patient remained in the hospital for heart catheterization. Heart catheterization performed showed normal coronaries. No need for further intervention. Patient also had elevated blood pressure. Metoprolol was started. Blood pressure now improved. No further intervention required at this time. At discharge patient will continue with aspirin 81 mg daily and metoprolol 12.5 mg 1 pill twice daily. Recommend to maintain blood pressure less than 130/80. Recommend to monitor blood pressure daily. If blood pressure remains above 140/90 further adjustment may be required. This can be done with the help of his PCP. Patient will be given a list of PCPs to establish care and follow up. Recommend follow up with cardiology in 2-4 weeks. Education on hypertension will be provided. Patient with diabetes mellitus type 2. This seems to be better controlled. At discharge patient will continue with metformin 500 mg 1 pill twice daily. Rec ommend to maintain blood sugar less than 140 fasting and less than 200 after meals. Further adjustment can be done by his PCP. The on diabetes will be provided. Patient with hypertriglyceridemia. This has improved. At discharge medications have been adjusted. Patient will no longer take fenofibrate. At discharge patient will continue with Lopid 600 mg twice daily and fish oil 2000 mg twice daily. Recommend to recheck fasting lipid panel in 6-8 weeks to monitor his progress. Further adjustment can be done by his PCP. Patient will continue with 2000 ADA diet. Education on hypertriglyceridemia will be provided. Patient likely with GERD. At discharge patient will continue with Protonix 40 mg daily. Patient would benefit with EGD as an outpatient. This can be done with the help of his PCP. Patient with obesity, BMI 33.7. Lifestyle modification education provided. Patient may have underlying obstructive sleep apnea. Will recommend evaluation with pulmonology as an outpatient to further evaluate. Vital Signs/Physical Exam: Temp Pulse Resp BP Pulse Ox 97.0 F 77 16 122/79 94 10/17/20 07:57 10/17/20 07:57 10/17/20 07:57 10/17/20 07:57 10/17/20 04:00 General: Alert, In no apparent distress, Oriented x3, Cooperative HEENT: Atraumatic Neck: Supple Respiratory: Clear to auscultation bilaterally, Normal air movement Cardiovascular: Normal pulses, Regular rate/rhythm Gastrointestinal: Normal bowel sounds, Soft and benign, Non-distended, No guarding Neurological: Normal speech, Normal strength at 5/5 x4 extr, Normal tone, Normal affect Laboratory Data at Discharge: WBC 5.00 K/uL (4.3-10.9) 10/16/20 05:55 Hgb 14.5 g/dL (13.6-17.9) 10/16/20 05:55 Hct 44.5 % (39.6-49.0) 10/16/20 05:55 Plt Count 203 K/uL (152-406) 10/16/20 05:55 PT 11.0 SECONDS (9.5-12.5) 10/15/20 14:02 INR 0.96 10/15/20 14:02 Sodium 139 mmol/L (136-145) 10/16/20 07:00 Potassium 4.1 mmol/L (3.5-5.1) 10/16/20 07:00 BUN 17 mg/dL (7-18) 10/16/20 07:00 Creatinine 1.02 mg/dL (0.55-1.3) 10/16/20 07:00 Glucose 110 mg/dL (74-106) H 10/16/20 07:00 Magnesium 1.9 mg/dL (1.8-2.4) 10/16/20 07:00 Total Bilirubin 0.3 mg/dL (0.2-1.0) 10/15/20 14:02 AST 26 U/L (15-37) 10/15/20 14:02 ALT 59 U/L (12-78) 10/15/20 14:02 Alkaline Phosphatase 69 U/L (45-117) 10/15/20 14:02 Troponin I < 0.02 ng/mL (0.0-0.045) 10/16/20 00:43 Triglycerides 508 mg/dL (<150) H 10/16/20 07:00 Cholesterol 202 mg/dL (<200) H 10/16/20 07:00 LDL Cholesterol Direct 77 mg/dL (100-129) L 10/16/20 07:00 HDL Cholesterol 28 mg/dL (40-60) L 10/16/20 07:00 Cholesterol/HDL Ratio 7.21 10/16/20 07:00 Home Medications: Aspirin [Aspirin EC 81 MG] 81 mg PO DAILY #90 tablet. 10/16/20 Docosahexanoic AC/Epa [Fish Oil 1,000 MG CAP] 2 cap PO BID #120 cap 10/16/20 Metformin HCl [Glucophage] 500 mg PO BID #60 tablet 10/16/20 Metoprolol Tartrate [Lopressor*] 12.5 mg PO BID 6AM 6PM #60 tab 10/16/20 Pantoprazole [Protonix Tab*] 40 mg PO DAILYAC #30 tab 10/16/20 gemfibroziL [Lopid*] 600 mg PO BID #60 tab 10/16/20 New Medications: Aspirin [Aspirin EC 81 MG] 81 mg PO DAILY #90 tablet. Docjeffryhexanoic AC/Epa [Fish Oil 1,000 MG CAP] 2 cap PO BID #120 cap Metformin HCl [Glucophage] 500 mg PO BID #60 tablet gemfibroziL [Lopid*] 600 mg PO BID #60 tab Metoprolol Tartrate [Lopressor*] 12.5 mg PO BID 6AM 6PM #60 tab Pantoprazole [Protonix Tab*] 40 mg PO DAILYAC #30 tab Physician Discharge Instructions: Patient presented with Chest pain with shortness of breath. Patient had been seen in September for similar reasons. He was to have follow up as an outpatient for cardiac stress test. He has not been able to do this. Patient presented with chest pain yesterday and admitted for further evaluation. Cardiac enzymes unremarkable. Patient seen and evaluated by Cardiology. Cardiology recommended cardiac stress test at this time. Cardiac stress test performed, showed stress-induced ischemia to the inferior wall. Patient remained in the hospital for heart catheterization. Heart catheterization performed showed normal coronaries. No need for further intervention. Patient also had elevated blood pressure. Metoprolol was started. Blood pressure now improved. No further intervention required at this time. At discharge patient will continue with aspirin 81 mg daily and metoprolol 12.5 mg 1 pill twice daily. Recommend to maintain blood pressure less than 130/80. Recommend to monitor blood pressure daily. If blood pressure remains above 140/90 further adjustment may be required. This can be done with the help of his PCP. Patient will be given a list of PCPs to establish care and follow up. Recommend follow up with cardiology in 2-4 weeks. Education on hypertension will be provided. Patient with diabetes mellitus type 2. This seems to be better controlled. At discharge patient will continue with metformin 500 mg 1 pill twice daily. Recommend to maintain blood sugar less than 140 fasting and less than 200 after meals. Further adjustment can be done by his PCP. The on diabetes will be provided. Patient with hypertriglyceridemia. This has improved. At discharge medications have been adjusted. Patient will no longer take fenofibrate. At discharge patient will continue with Lopid 600 mg twice daily and fish oil 2000 mg twice daily. Recommend to recheck fasting lipid panel in 6-8 weeks to monitor his progress. Further adjustment can be done by his PCP. Patient will continue with 2000 ADA diet. Education on hypertriglyceridemia will be provided. Patient likely with GERD. At discharge patient will continue with Protonix 40 mg daily. Patient would benefit with EGD as an outpatient. This can be done with the help of his PCP. Will recommend patient to see pulmonology as an outpatient to consider evaluation for sleep apnea in the future. Diet: ADA Activity: Ad emmanuelle Followup: NONE,NONE [Primary Care Provider] - Time spent managing pt's care (in minutes): 55
--- NOTE | 2020-10-17 09:58 | ECHO ---
HEIGHT: 5 ft 7 in WEIGHT: 215 lb 0 oz DATE OF STUDY: 10/16/[address]: Delano Santos DO 2-DIMENSIONAL: YES M.MODE: YES DOPPLER: YES COLOR FLOW: YES TDS: PORTABLE: DEFINITY: BUBBLE STUDY: DIAGNOSIS: CHEST PAIN CARDIAC HISTORY: CATHERIZATION: NO SURGERY: NO PROSTHETIC VALVE: NO PACEMAKER: NO MEASUREMENTS (cm) DIASTOLIC (NORMALS) SYSTOLIC (NORMALS) IVSd (0.6-1.2) LA Diam (1.9-4.0) LVEF 55-60% LVIDd (3.5-5.7) LVIDs (2.0-3.5) %FS % LVPWd (0.6-1.2) Ao Diam (2.0-3.7) 2 DIMENSIONAL ASSESSMENT: RIGHT ATRIUM: NORMAL LEFT ATRIUM: NORMAL RIGHT VENTRICLE: NORMAL LEFT VENTRICLE: NORMAL TRICUSPID VALVE: NORMAL MITRAL VALVE: NORMAL PULMONIC VALVE: NORMAL AORTIC VALVE: NORMAL PERICARDIAL EFFUSION: NONE AORTIC ROOT: NORMAL LEFT VENTRICULAR WALL MOTION: NORMAL DOPPLER/COLOR FLOW: NORMAL COMMENTS: NORMAL LEFT VENTRICULAR EJECTION FRACTION 55-60%. MILD DIASTOLIC DYSFUNCTION. POOR WINDOWS. TECHNOLOGIST: SASHA MOURA
--- NOTE | 2020-10-17 10:03 | TREADPHA ---
DX: CHEST PAIN Date of Study: 10/16/2020 Ht: 5' 7 " Wt: 215 lb 0 oz Consulting Physician: HAILEE GUDINO MD MEDICATIONS: TYLENOL, ASPIRIN, NOVOLIN-R, LOPRESSOR, NITROSTAT, ZOFRAN, ULTRAM HISTORY: DIABETES MELLITUS, HYPERTENSION, HIGH CHOLESTEROL PHYSICIAL EXAMINATION: RESTING B.P.: 120/88 RESTING H.R.: 75 RESTING EKG: NORMAL SINUS RHYTHM WITH INFERIOR T PROTOCOL: PHARMACOLOGIC EXERCISE TIME: 3:30 B.P. AT PEAK STRESS: 111/78 IMPRESSION: LEXISCAN INJECTED. CARDIOLITE INJECTED. SEE NUCLEAR MEDICINE REPORT. FOUR OUT OF TEN CHEST PAIN. COMPLAINTS OF NAUSEA, SHORTNESS OF BREATH AND HEADACHE. NO SUPRAVENTRICULAR TACHYCARDIA. NO ARRHYTHMIA NOTED. NO ELECTROCARDIOGRAM CHANGES WITH LEXISCAN.
[2020-10-17 10:04] VITALS: TEMP 97.1
--- NOTE | 2020-10-17 10:05 | OP ---
Date of Procedure: 10/17/2020 Surgeon: HAILEE GUDINO Procedure Performed: Selective coronary angiogram. Indication: Unstable angina with abnormal stress test. Access: Right radial artery 6-Greek, closed with TR band. Complications: None. Bleeding: Less than 5 mL. Description Of Procedure: After risks, benefits, and alternatives were explained, the patient agreed to the procedure and signed informed consent. The patient was brought into the cardiac catheterizat ion laboratory, prepped and draped in usual sterile fashion. Then used fentanyl and versed in increm ental doses to achieve adequate moderate sedation. We accessed right radial artery using a pediatric micropuncture kit and then placed a 6-Greek slender sheath and took a 5-Greek Stapleton catheter to th e aortic root over a J-wire, engaged the right coronary artery and then exchanged for 6-Greek JL3.5 catheter over the J-wire and engaged the left main coronary artery, took standard views and then antwan addie the catheter over the wire. Sheath was removed and placed TR band with good hemostasis. Findings: 1.Left main, large and normal. 2.LAD, jsrbkhce-bs-jpyiq size and normal. 3.Left circumflex, moderate-sized vessel, normal. 4.RCA, moderate-sized dominant vessel and normal. Impression: Normal coronary arteries. Noncardiac chest pain. A falsely positive stress test. Plan: Medical management. The patient can be discharged from cardiac standpoint. Follow up with [facility] care physician. /MODL Voice ID: [id number] Report ID: [id number]
[2020-10-17] MEDS: gemfibroziL 600 MG TAB PO SCH (12:00)
[2020-10-17] MEDS: ENOXAPARIN 40 MG/0.4 ML SQ SCH (12:02)
[2020-10-17] MEDS: DOCOSAHEXANOIC AC/EPA 1000 MG PO SCH (12:02)
[2020-10-17 12:17] VITALS: BP 106/76
[2020-10-17 12:47] VITALS: O2SAT 100
== END 2020-10-17 14:06 | disposition home or self-care (01) | DRG 287 ==
LOC: ER 13:32 → ERHOLD 16:53 → 2ND 18:16 → OBSVTOIN 10-16 09:23
PROVIDERS: ADMIT Family Medicine; ATTEND Family Medicine
PROC: 4A023N7 Measurement of Cardiac Sampling and Pressure, Left Heart, Percutaneous Approach (ICD-10-PCS; principal; 2020-10-17)
PROC: B2111ZZ Fluoroscopy of Multiple Coronary Arteries using Low Osmolar Contrast (ICD-10-PCS; 2020-10-17)
DX: R07.9 Chest pain, unspecified (principal); I20.0 Unstable angina; E11.9 Type 2 diabetes mellitus without complications; M10.9 Gout, unspecified; G47.33 Obstructive sleep apnea (adult) (pediatric); K21.9 Gastro-esophageal reflux disease without esophagitis; E78.1 Pure hyperglyceridemia; E66.9 Obesity, unspecified; Z68.33 Body mass index [BMI] 33.0-33.9, adult; Z79.84 Long term (current) use of oral hypoglycemic drugs; Z79.899 Other long term (current) drug therapy; Z56.0 Unemployment, unspecified; Z20.822 Contact with and (suspected) exposure to COVID-19
CPT/HCPCS: 36415; 71045; 78452; 80048; 80061; 80076; 82550; 82553; 82947; 83735; 83880; 84484; 85025; 85610; 93005; 93017; 93306; 93458; 96374; 96375; 99285; A9500; C1893; G0378; J1644; J1650; J2250; J2405; J2785; J3010; J7040; U0003

== ENCOUNTER 2021-01-07 15:29 | Emergency (ER) | payer SELFPAY ==
--- OUTSIDE RECORDS SUMMARY | 2021-01-07 15:31 | XMS REPORT | Continuity of Care Document ---
:1970 Author Organization [facility] t Address [address] [place] [address] Care Team Providers Name Role Phone Carl Ramirez NP Attending Clinician Yandy Gallego Attending Clinician Arian Browne DO Attending Clinician José Miguel GIL, A Attending Clinician Unavailable Pamela RODNEY Attending Clinician Omari RODNEY Attending Clinician Geovanni RODNEY Attending Clinician Diego GIL Attending Clinician Unavailable Doctor Unassigned, Name Attending Clinician Unavailable Michela [...] Date/Time Type Type Clinicians Facility Department ID 2020-12-01 2020-12-01 Emergency Nuria Ramirezjuwan Henry [facility] 1.2.840 .114 [id number] 20:15:00 23:30:00 Shira Vargas [id number] [place] [id number] [place] [id number] 2020-10-28 2020-10-28 Patient [facility] [id number] 00:00:00 00:00:00 Outreach Anthony ALEJANDRO [id number] [facility] [id number] [facility] [id number] 2020-05-23 2020-05-23 Nurse VISHNU Valdez [id number] 00:00:00 00:00:00 Triage Jeannette SANTAMARIA [id number] [facility] [id number] [id number] 2020-05-19 2020-05-19 Telemedici Pamela [facility] [id number] 09:12:55 09:27:55 ne Visit Ck [place] [id number] [facility] 4.2.7.2.68[facility] [id number] BLDG. [id number] 2020-05-17 2020-05-18 Emergency Joseph Salcido [facility] 1.2.840. 114 [id number] 07:55:00 13:15:00 Kuldeep Galarza [id number] [place] 4.2.7.2.6 [place] [address] [id number] 2020-05-17 2020-05-17 Wanda Art 1.2.840.114 [id number] 00:00:00 00:00:00 Triage HINA [id number] [facility] 42.7.2.686 [id number] 2020-03-18 2020-03-18 Wanda Art 1.2.840.114 [id number] 00:00:00 00:00:00 Triage HINA [id number] [facility] 4.2.7.2.686 [id number] 2020-02-09 2020-02-09 Emergency [facility] [id number] 00:28:27 01:06:00 Shira Dowling [id number] [place] 4.2.7.2.686 [place] [address] [id number] 2020-02-09 2020-02-09 Orders Doctor VISHNU 1.2.840.114 [id number] 00:00:00 00:00:00 Only Unassigned, HINA [id number] [place] [address].686 [id number] 2020-02-04 2020-02-04 Emergency CalebJa [facility] 1.2.840.114 [id number] 15:18:35 19:14:00 Michela Dowling [id number] [place] 42.7.2.686 [place] [id number] 2020-02-04 2020-02-04 Nurse VISHNU Edmonds 1.2.840.114 [id number] 00:00:00 00:00:00 Triage Martha CHRISY [id number] [id number] 019 2019-10-02 2019-10-02 Telephone Pamela [facility] 1.2.840.114 [id number] 00:00:00 00:00:00 [facility] [id number] [facility] [phone] Primary & 144 Specialty Care Results This patient has no known results.
--- NOTE | 2021-01-07 16:20 | ER ---
Nurse's Notes [facility] Name: Randolph Javier Age: 50 yrs Sex: Male : 1970 Arrival Date: 01/07/2021 Time: 15:31 Bed 20 Private MD: Diagnosis: Pain in left foot Presentation: 01/07 15:42 Chief complaint: Patient states: left foot pain that started last night, hx of gout, em usually goes to the ED when pain starts and is given medication, denies trauma. Coronavirus screen: Client denies travel out of the [place] in the last 14 days. Ebola Screen: Patient negative for fever greater than or equal to 101.5 degrees Fahrenheit, and additional compatible Ebola Virus Disease symptoms Patient denies exposure to infectious person. Patient denies travel to an Ebola-affected area in the 21 days before illness onset. No symptoms or risks identified at this time. Initial Sepsis Screen: Does the patient meet any 2 criteria? No. Patient's initial sepsis screen is negative. Does the patient have a suspected source of infection? No. Patient's initial sepsis screen is negative. Risk Assessment: Do you want to hurt yourself or someone else? Patient reports no desire to harm self or others. Onset of symptoms was January 07, 2021. 15:42 Method Of Arrival: Ambulatory em 15:42 Acuity: SHILPI 4 em Historical: - Allergies: 15:44 No Known Allergies; em - Home Meds: 15:44 for gout medication [Active]; em - PMHx: 15:44 Anxiety; Gout; em - PSHx: 15:44 None; em - Immunization history:: Adult Immunizations up to date. - Social history:: Smoking status: Patient denies any tobacco usage or history of. Screenin:59 Abuse screen: Denies threats or abuse. Nutritional screening: No deficits noted. ap3 Tuberculosis screening: No symptoms or risk factors identified. Fall Risk No fall in past 12 months (0 pts). No secondary diagnosis (0 pts). No IV (0 pts). Ambulatory Aid- None/Bed Rest/Nurse Assist (0 pts). Gait- Weak (10 pts.). Mental Status- Oriented to own ability (0 pts). Total Gorman Fall Scale indicates No Risk (0-24 pts). Assessment: 15:57 General: Appears in no apparent distress. comfortable, Behavior is calm, cooperative, ap3 appropriate for age. Pain: Complains of pain in left foot Pain radiates to left leg Pain currently is 6 out of 10 on a pain scale. Quality of pain is described as aching, Pain began gradually, 2-3 days ago. Alleviated by rest, Aggravated by increased activity. Neuro: Level of Consciousness is awake, alert, obeys commands, Oriented to person, place, time, situation. Cardiovascular: Capillary refill < 3 seconds Patient's skin is warm and dry. Respiratory: Airway is patent Respiratory effort is even, unlabored, Respiratory pattern is regular, symmetrical. GI: No signs and/or symptoms were reported involving the gastrointestinal system. : No signs and/or symptoms were reported regarding the genitourinary system. EENT: No signs and/or symptoms were reported regarding the EENT system. Derm: No signs and/or symptoms reported regarding the dermatologic system. Musculoskeletal: Reports pain in left foot since 2-3 days. Vital Signs: 15:42 BP 140 / 100; Pulse 85; Resp 16; Temp 98.0; Pulse Ox 98% on R/A; Weight 105.69 kg; em Height 5 ft. 7 in. (170.18 cm); Pain 9/10; 15:42 Body Mass Index 36.49 (105.69 kg, 170.18 cm) em ED Course: 15:31 Patient arrived in ED. ds1 15:39 Margarita Aguirre F[facility]-C [facility]. kb 15:39 Raffaele Emanuel MD is Attending Physician. kb 15:44 Triage completed. em 15:44 Arm band placed on. em 15:57 Whitley King, LOUISE is Primary Nurse. ap3 15:59 Patient has correct armband on for positive identification. Bed in low position. Call ap3 light in reach. Side rails up X 1. Pulse ox on. NIBP on. Door closed. Noise minimized. 16:23 No provider procedures requiring assistance completed. Patient did not have IV access ap3 during this emergency room visit. Administered Medications: 16:10 Drug: TORadol (ketorolac) 60 mg Route: IM; Site: left gluteus; ap3 16:24 Follow up: Response: No adverse reaction; Pain is decreased ap3 16:11 Drug: Colcrys (colchicine) 0.6 mg Route: PO; ap3 16:24 Follow up: Response: No adverse reaction ap3 Outcome: 16:19 Discharge ordered by MD. diggs 16:23 Discharged to home ambulatory. ap3 16:23 Condition: good 16:23 Discharge instructions given to patient, Instructed on discharge instructions, follow up and referral plans. medication usage, Demonstrated understanding of instructions, follow-up care, medications, Prescriptions given X 1. 16:24 Patient left the ED. ap3 Signatures: Margarita Aguirre FNP-C FNP-Blayne Kemp, RN RN Yesenia Li ds1 Whitley King RN RN ap3
--- NOTE | 2021-01-07 16:20 | EDPHYS ---
Physician Documentation [facility] Name: Randolph Javier Age: 50 yrs Sex: Male : 1970 Arrival Date: 01/07/2021 Time: 15:31 Bed 20 Private MD: ED Physician Raffaele Emanuel HPI: 01/07 17:13 This 50 yrs old Male presents to ER via Ambulatory with complaints of Foot kb Pain. 17:13 The patient has not recently seen a physician. kb 17:13 The patient presents with pain, that is acute, tenderness. The complaints affect the kb left foot. Context: The problem was sustained at home, resulted from a chronic condition, "gout", the patient can fully bear weight, the patient is able to ambulate. Onset: The symptoms/episode began/occurred yesterday. Modifying factors: The symptoms are alleviated by nothing, the symptoms are aggravated by weight bearing. Associated signs and symptoms: The patient has no apparent associated signs or symptoms. Severity of symptoms: At their worst the symptoms were moderate, in the emergency department the symptoms are unchanged. The patient has experienced similar episodes in the past, multiple times. Pt reports pain to top of foot that starts at toes and radiates to ankle. States he has had this multiple times before and knows it is gout. States he was diagnosed with gout 4-5 years ago and this is the exact same pain/symptoms. . Historical: - Allergies: 15:44 No Known Allergies; em - Home Meds: 15:44 for gout medication [Active]; em - PMHx: 15:44 Anxiety; Gout; em - PSHx: 15:44 None; em - Immunization history:: Adult Immunizations up to date. - Social history:: Smoking status: Patient denies any tobacco usage or history of. ROS: 17:11 Constitutional: Negative for fever, chills, and weight loss. kb 17:11 MS/extremity: Positive for pain, of the dorsum of left foot, Negative for injury or acute deformity. 17:11 All other systems are negative. Exam: 17:12 Constitutional: This is a well developed, well nourished patient who is awake, alert, kb and in no acute distress. ENT: Moist Mucous membranes Respiratory: Respirations even and unlabored. No increased work of breathing, no retractions or nasal flaring. Skin: Warm, dry with normal turgor. Normal color. Neuro: Awake and alert, GCS 15, oriented to person, place, time, and situation. Moves all extremities. Normal gait. Psych: Awake, alert, with orientation to person, place and time. Behavior, mood, and affect are within normal limits. 17:12 Musculoskeletal/extremity: Extremities: grossly normal except: noted in the dorsum of left foot: pain, tenderness, ROM: intact in all extremities, Circulation is intact in all extremities. Sensation intact. Weight bearing: able to fully bear weight. Vital Signs: 15:42 BP 140 / 100; Pulse 85; Resp 16; Temp 98.0; Pulse Ox 98% on R/A; Weight 105.69 kg; em Height 5 ft. 7 in. (170.18 cm); Pain 9/10; 15:42 Body Mass Index 36.49 (105.69 kg, 170.18 cm) em MDM: 15:47 Patient medically screened. kb 17:09 Data reviewed: vital signs, nurses notes. Data interpreted: Pulse oximetry: on room air kb is 98 %. Interpretation: normal. Counseling: I had a detailed discussion with the patient and/or guardian regarding: the historical points, exam findings, and any diagnostic results supporting the discharge/admit diagnosis, the need for outpatient follow up, a orthopedic surgeon, to return to the emergency department if symptoms worsen or persist or if there are any questions or concerns that arise at home. Administered Medications: 16:10 Drug: TORadol (ketorolac) 60 mg Route: IM; Site: left gluteus; ap3 16:24 Follow up: Response: No adverse reaction; Pain is decreased ap3 16:11 Drug: Colcrys (colchicine) 0.6 mg Route: PO; ap3 16:24 Follow up: Response: No adverse reaction ap3 Disposition: 18:17 Co-signature as Attending Physician, Raffaele Emanuel MD I agree with the assessment and kdr plan of care. Disposition: 01/07/21 16:19 Discharged to Home. Impression: Pain in left foot. - Condition is Stable. - Discharge Instructions: Musculoskeletal Pain, Gout, [id number]. - Prescriptions for indomethacin 25 mg Oral capsule - take 1 capsule by ORAL route 3 times per day As needed with food; 21 capsule. - Medication Reconciliation Form, Thank You Letter, Antibiotic Education, Prescription Opioid Use form. - Follow up: Emergency Department; When: As needed; Reason: Worsening of condition. Follow up: Private Physician; When: 2 - 3 days; Reason: Recheck today's complaints, Continuance of care, Re-evaluation by your physician. Signatures: Margarita Aguirre, FELIBERTO-C AURIST-Raffaele Wooten MD MD kdr Munoz, Edgar, RN RN em Prokisch, Amanda, RN RN ap3 Corrections: (The following items were deleted from the chart) 16:24 16:19 01/07/2021 16:19 Discharged to Home. Impression: Pain in left foot. Condition is ap3 Stable. Forms are Medication Reconciliation Form, Thank You Letter, Antibiotic Education, Prescription Opioid Use. Follow up: Emergency Department; When: As needed; Reason: Worsening of condition. Follow up: Private Physician; When: 2 - 3 days; Reason: Recheck today's complaints, Continuance of care, Re-evaluation by your physician. kb
[2021-01-07] MEDS ORDERED: COLCHICINE 0.6 MG TAB ONE (16:23)
[2021-01-07] MEDS ORDERED: KETOROLAC 30 MG/ML INJ ONE (16:23)
[2021-01-07 18:44] VITALS: BP 140/100; TEMP 98; O2SAT 98
== END 2021-01-07 16:24 | disposition home or self-care (01) ==
LOC: ER 15:29
DX: M79.672 Pain in left foot (principal); F41.9 Anxiety disorder, unspecified; M10.9 Gout, unspecified
CPT/HCPCS: 96372; 99283

== ENCOUNTER 2024-02-16 22:17 | Inpatient (IN) | payer OTHER, SELFPAY ==
--- OUTSIDE RECORDS SUMMARY | 2024-02-16 22:22 | XMS REPORT | Continuity of Care Document ---
Author Name Unknown Address [address] [facility] [address] [place] [address] [facility] Address [address] [facility] [address] [place] [address] Care Team Providers Care Earth Observations Chief Scientist Name Role Phone PCP, PATIENT DOES NOT HAVE A Primary Care Physic minerva Unavailable JUAN LUIS ARELLANO Attending Clinician Unavailable GATITO COPPOLA Attending Clinician Unavailable Gatito Mccartney Attending Clinician +[phone] Doctor Unassigned, [place] Attending Clinician U genevieveailPERCY Shoemaker Attending Clinician Unavailable Percy Ramos MD Attending Clinician [phone] KIMBERLY SORENSON Attending Clinician UnavailKimberly Wagner DO Attending Clinician [phone] RINA MEREDITH Attending Clinician Unavailable EDDI SAHA Attending Clinician Unavailable Eddi Saha DO Attending Clinician +[phone] TERESA JOSEPH Attending Clinician Unava ilable FELI LAYNE Attending Clinician Unavailable Feli Hatfield Attending Clinician [phone] Ana Mello Attending Clinician [phone] Denise Ramirez NP Attending Clinician [phone] Shira Gallego Attending Clinician [phone] Pavan KEANEAnthony Arian Attending Clinician [phone] José Miguel RN, Jeannette Turk Attending Clinician Unavailab janice Arellano MD, Juan Luis Attending Clinician [phone] Joseph Salcido MD Attending Clinician [phone] Geovanni RODNEY, Kuldeep Attending Clinician [phone] Wanda Cortez RN Attending Clinician Unavailable GLORIA LIRIANO Attending Clinician Unavailable Ja Sena Attending Clinician [phone] Grey GIL, Martha [place] Attending Clinician Unavailab janice Mishra Attending Clinician Unavailable REYNA SABA Attending Clinician Christin vailable Tom ACEVEDO, Reyna Salcido Attending Clinician Miriam Hairston MD Attending Clinician [phone] JUAN LUIS ARELLANO Admitting Clinician Unavailable GATITO COPPOLA Admitting Clinician Unavailable PERCY RAMOS Admitting Clinician Unavailable KIMBERLY SORENSON Admitting Clinician Unavailab RINA Damon Admitting Clinician Unavailable FELI LAYNE Admitting Clinician Unavailable Kuldeep Galarza MD Admitting Clinician [phone] Tad Admitting Clinician Unavailable REYNA SABA Admitting Clinician Christin vailable Payers Payer Name Policy Type Policy Number Effective Date Expirati on Date Source MARLOW RULE [id number] 2019 00:00:00 [employer] [id number] 2023 00:00:00 [employer] [id number] 2023 00:00:00 Problems Condition Name Condition Details Condition Category Status Onset Date Resolution Date Last Treatment Date Treating Clinician Comments Source Essential hypertensi on Essential hypertensi on Disease Active 03-03 00:00: 00 [facility] Mixed hyperlipid emia Mixed hyperlipid emia Disease Active 03-03 00:00: 00 [facility] Type 2 diabetes mellitus without complicati on, without long-term current use of insulin Type 2 diabetes mellitus without complicati on, without long-term current use of insulin Disease Active 03-03 00:00: 00 [facility] Chest pain Chest pain Disease Active 03-02 00:00: 00 [facility] COVID-19 virus infection COVID-19 virus infection Disease Active 2019-08 0 00:00: 00 [facility] Cerebral venous sinus thrombosis , acute Cerebral venous sinus thrombosis , acute Disease Active 11-16 00:00: 00 [facility] Obesity (BMI 30-39.9) Obesity (BMI 30-39.9) Disease Active 11-16 00:00: 00 [facility] Respirator y abnormalit y Respirator y abnormalit y Disease Active 11-30 00:00: 00 Overview: Formattin g of this note might be different from the original. 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 Headache Headache Disease Active 11-30 00:00: 00 Overview: Formattin g of this note might be different from the original. 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 Allergies, Adverse Reactions, Alerts Allergy Name Allergy Type Status Severity Reaction(s) Onset Date Inactive Date Treating Clinician Comments Source NO KNOWN ALLERGIE S Drug Class Active [facility] Social History Social Habit Start Date Stop Date Quantity Comments Source Exposure to SARS-CoV-2 (event) Not sure [facility] History SDOH Alcohol Frequency [facility] History SDOH Alcohol Std Drinks [facility] History SDOH Alcohol Binge [facility] Gender identity [facility] Sexual orientation [facility] Alcohol intake 2023-08-11 00:00:00 2023-08-11 00:00:00 Current non-drinker of alcohol (finding) [facility] History of Social function 2020-03-18 00:00:00 2020-03-18 00:00:00 [facility] Tobacco use and exposure 2018-11-16 00:00:00 2018-11-16 00:00:00 Smokeless tobacco non-user [facility] Alcohol Comment 2018-11-16 00:00:00 2018-11-16 00:00:00 one drink every 2-3 months [facility] Sex Assigned At 1970 00:00:00 1970 00:00:00 [facility] Smoking Status Start Date Stop Date Source Never smoked tobacco [facility] Medications Ordered Medication Name Filled Medication Name Start Date Stop Date Current Medication? Ordering Clinician Indication Dosage Frequency Signature (SIG) Comments Components Source cyclobenzap rine (FLEXERIL) tablet 10 mg 10-09 05:05: 00 10-09 05:15 :00 No 10mg 10 mg, Oral, ONCE, 1 dose, On 10/08/23 at 2315, [facility] FENTanyl PF (SUBLIMAZE (PF)) injection 50 mcg 10-09 02:10: 00 10-09 02:39 :00 No 50ug 50 mcg, Slow IV Push, ONCE, 1 dose, On 10/08/23 at 2015, [facility] ketorolac (TORADOL) injection 30 mg 10-09 00:43: 00 10-09 01:36 :00 No 30mg 30 mg, Slow IV Push, ONCE, 1 dose, On 10/08/23 at 1845, [facility] NaCl 0.9% (NS) IV infusion 1,000 mL 10-09 00:30: 00 10-09 02:42 :00 No 1000mL at 999 mL/hr, Intravenou s, ONCE, 1 dose, On 10/08/23 at 1845, [facility] ibuprofen 600 mg tablet 10-08 00:00: 00 Yes [id number] 600mg Take 1 tablet by mouth every 8 (eight) hours as needed for Pain (scale 4-6). [facility] cyclobenzap rine 10 mg tablet 10-08 00:00: 00 Yes [id number] 10mg Take 1 tablet by mouth 2 (two) times daily as needed for Muscle Spasms. [facility] lidocaine 5 % (700 mg/patch) patch 10-08 00:00: 00 Yes [id number] 1{patch } Apply 1 Patch to area(s) in the morning. [facility] ketorolac (TORADOL) injection 30 mg 08-24 19:30: 00 08-24 18:43 :00 No 30mg 30 mg, Intramuscu lar, ONCE, 1 dose, On Tue08/24/23 at 1330, Routine [facility] methocarbam oL (ROBAXIN) tablet 1,000 mg 08-22 20:45: 00 08-22 20:38 :00 No 1000mg 1,000 mg, Oral, ONCE, 1 dose, On Tue08/22/23 at 1445, [facility] HYDROcodone -acetaminop hen (NORCO 5) 5-325 mg tablet 1 tablet 08-22 20:45: 00 08-22 20:39 :00 No 1{tbl} 1 tablet, Oral, ONCE, 1 dose, On Tue08/22/23 at 1445, [facility] methocarbam oL 750 mg tablet 08-22 00:00: 00 Yes [id number] 750mg Take 1 tablet by mouth every 6 (six) hours as needed for Pain (scale 1-3). [facility] indomethaci n (INDOCIN) capsule 50 mg 2022-08 23:15: 00 08-11 22:55 :00 No 50mg 50 mg, Oral, ONCE, 1 dose, On Marry 08/11/23 at 1715, Routine [facility] colchicine (COLCRYS) tablet 1.2 mg 2022-08 23:15: 00 08-11 22:55 :00 No 1.2mg 1.2 mg, Oral, ONCE, 1 dose, On Tue08/11/23 at 1715, Routine [facility] traMADoL (ULTRAM) tablet 50 mg 2022-08 22:30: 00 08-11 22:00 :00 No 50mg 50 mg, Oral, ONCE, 1 dose, On Tue08/11/23 at 1630, Routine [facility] colchicine 0.6 mg tablet 2022-08 00:00: 00 Yes [id number] Colchicine 0.6 mg x 1 dose after picking up your medication today [facility] indomethaci n 50 mg capsule 2022-08 00:00: 00 Yes [id number] 50mg Take 1 capsule by mouth 3 (three) times daily as needed for Pain for up to [address] [facility] allopurinoL 100 mg tablet 2022-08 00:00: 00 09-11 05:59 :00 No [id number] 100mg Take 1 tablet by mouth in the morning for [address] [facility] allopurinoL 100 mg tablet 04-09 00:00: 00 08-11 00:00 :00 No [id number] 100mg Take 1 tablet by mouth in the morning. [facility] colchicine (COLCRYS) tablet 1.2 mg 04-07 14:00: 00 Yes 1.2mg 1.2 mg, Oral, DAILY, First dose on Tue04/07/23 at 0900, Until Discontinu ed, Routine [facility] indomethaci n 50 mg capsule 04-06 00:00: 00 04-12 04:59 :00 No [id number] 50mg Take 1 capsule by mouth in the morning and 1 capsule at noon and 1 capsule in the evening. Take with meals. Do all this for [address] [facility] HYDROcodone -acetaminop hen (NORCO 5) 5-325 mg tablet 1 tablet 09-05 05:00: 00 09-05 04:02 :00 No 1{tbl} 1 tablet, Oral, ONCE, 1 dose, On Tue09/04/21 at 2300, [facility] dexamethaso ne (DECADRON PHOSPHATE) injection 10 mg 09-05 05:00: 00 09-05 04:00 :00 No 10mg 10 mg, Oral, ONCE, 1 dose, On Tue09/04/21 at 2300, [facility] cefdinir (OMNICEF) capsule 300 mg 09-05 05:00: 00 09-05 04:02 :00 No 300mg 300 mg, Oral, ONCE, 1 dose, On Tue09/04/21 at 2300, [facility]
Re ason for Anti-Infec tive: Documented Infection< br>Documen chet Infection Site: Skin / Soft Tissue
Duration of Therapy: Other (see Comments) [facility] FENTanyl PF (SUBLIMAZE (PF)) injection 25 mcg 09-05 02:45: 00 09-05 01:50 :00 No 25ug 25 mcg, Slow IV Push, ONCE, 1 dose, On Tue09/04/21 at 2045, STAT [facility] ketorolac (TORADOL) injection 30 mg 09-05 02:45: 00 09-05 01:50 :00 No 30mg 30 mg, Slow IV Push, ONCE, 1 dose, On Tue09/04/21 at 2045, [facility] predniSONE 20 mg tablet 09-05 00:00: 00 08-11 00:00 :00 No [id number] 40mg Take 2 tablets by mouth daily. [facility] cefdinir 300 mg capsule 09-04 00:00: 00 08-11 00:00 :00 No [id number] 9107 300mg Take 1 capsule by mouth 2 (two) times daily. [facility] ibuprofen 600 mg tablet 09-04 00:00: 00 08-11 00:00 :00 No [id number] 9107 600mg Take 1 tablet by mouth every 6 (six) hours as needed for Pain (scale 4-6). [facility] traMADoL 50 mg tablet 09-04 00:00: 00 08-11 00:00 :00 No [id number] 50mg Take 1 tablet by mouth every 8 (eight) hours as needed for Pain (scale 7-10). Indication s: acute pain [facility] aspirin 81 mg chewable tablet 03-05 00:00: 00 Yes [id number] 81mg Take 1 tablet by mouth daily. [facility] fenofibrate micronized 134 mg capsule 03-05 00:00: 00 04-05 04:59 :00 No [id number] 134mg Take 1 capsule by mouth daily for [address] [facility] lisinopriL 20 mg tablet 03-05 00:00: 00 04-05 04:59 :00 No [id number] 20mg Take 1 tablet by mouth daily for [address] [facility] atorvastati n 40 mg tablet 03-04 00:00: 00 04-04 04:59 :00 No [id number] 40mg Take 1 tablet by mouth at bedtime for [address] [facility] metoprolol tartrate 25 mg tablet 03-04 00:00: 00 04-04 04:59 :00 No [id number] 25mg Take 1 tablet by mouth 2 (two) times daily for [address] [facility] aspirin tablet 325 mg 02-18 05:00: 00 02-18 04:12 :00 No 325mg 325 mg, Oral, ONCE, 1 dose, Tue02/18/21 at 0000, STAT [facility] aspirin chewable tablet 324 mg 12-02 14:00: 00 Yes 324mg 324 mg, Oral, DAILY, First dose on Tue12/02/20 at 0900, Until Discontinu ed, Routine [facility] hydralAZINE (APRESOLINE ) injection 10 mg 12-02 04:15: 00 12-02 03:14 :00 No 10mg 10 mg, Slow IV Push, ONCE, 1 dose, Tue12/01/20 at 2315, STAT
In dication: Hypertensi ve Emergency [facility] metoprolol (LOPRESSOR) injection 5 mg 12-02 03:00: 00 12-02 02:06 :00 No 5mg 5 mg, Slow IV Push, ONCE, 1 dose, Tue12/01/20 at 2200, [facility] ergocalcife rol, vitamin d2, 1,250 mcg (50,000 unit) capsule 2019-0811 00:00: 00 Yes [id number] Take 1 capsule by mouth weekly. [facility] dexAMETHaso ne 6 mg tablet 2019-08 0-05 00:00: 00 05-28 04:59 :00 No [id number] 6mg Take 1 tablet by mouth daily for [address] [facility] HYDROCODONE -ACETAMINOP HEN 7.5-325 MG/15 ML ORAL SOLN 2019-08 0 16:43: 46 05-18 00:00 :00 No 1-[address] [facility] ergocalcife rol (vitamin d2) (CALCIFEROL ) capsule 50,000 Units 2019-08 14:00: 00 Yes [id number] 50,000 Units, Oral, QWEEKLY, First dose on 05/18/20 at 0900, Until Discontinu ed, Routine [facility] ascorbic acid, vitamin C, 500 mg tablet 2019-08 00:00: 00 Yes [id number] 500mg Take 1 tablet by mouth daily. [facility] zinc sulfate 220 (50) mg capsule 2019-08 00:00: 00 Yes [id number] 220mg Take 1 capsule by mouth 2 (two) times daily. [facility] codeine-gua ifenesin 10-100 mg/5 mL solution 2019-08 00:00: 00 05-26 04:59 :00 No 10mL Take 10 mL by mouth every 4 (four) hours as needed for Cough for up to 7 days. Indication s: cough [facility] enoxaparin (LOVENOX) injection 40 mg 2019-08 0 22:00: 00 Yes 40mg 40 mg, Subcutaneo us, DAILY, First dose on 05/17/20 at 1700, Until Discontinu ed, [facility] io[facility] (OMNIPAQUE 350 BULK-100 mL) injection 114 mL 2019-08 0 18:45: 00 05-17 18:33 :00 No 114mL 114 mL, Intravenou s, ONCE, 1 dose, 05/17/20 at 1345, Routine [facility] zinc sulfate (ORAZINC) capsule 220 mg 2019-08 15:00: 00 Yes 220mg 220 mg, Oral, BID, First dose on 05/17/20 at 1000, Until Discontinu ed, Routine [facility] ascorbic acid (vitamin C) (VITAMIN C) tablet 500 mg 2019-08 15:00: 00 Yes 500mg 500 mg, Oral, BID, First dose on 05/17/20 at 1000, Until Discontinu ed, Routine [facility] dexAMETHaso ne (DECADRON) tablet 6 mg 2019-08 15:00: 00 Yes 6mg 6 mg, Oral, DAILY, First dose on 05/17/20 at 1000, Until Discontinu ed, Routine [facility] codeine-gua ifenesin (ROBITUSSIN AC) 10-100 mg/5 mL solution 10 mL 2019-08 14:54: 58 Yes 10mL 10 mL, Oral, Q4HPRN, Starting 05/17/20 at 0954, Until Discontinu ed, Routine, Cough [facility] traMADoL (ULTRAM) tablet 50 mg 2019-08 14:54: 37 05-19 14:53 :37 No 50mg 50 mg, Oral, Q6HPRN, Starting 05/17/20 at 0954, Until 05/19/20 at 0953, Routine, Pain (scale 4-6) [facility] acetaminoph en (TYLENOL) tablet 650 mg 2019-08 14:54: 31 Yes 650mg 650 mg, Oral, Q6HPRN, Starting 05/17/20 at 0954, Until Discontinu ed, Routine, Pain (scale 1-3) [facility] NaCl 0.9% (NS) bolus infusion 1,000 mL 2019-08 14:30: 00 05-17 14:44 :00 No 1000mL at 999 mL/hr, 1,000 mL, IV Piggyback, ONCE, 1 dose, 10/3/20 at 0930, STAT [facility] HYDROcodone -acetaminop hen (NORCO) 10-325 mg tablet 1 tablet 02-04 01:00: 00 02-04 00:06 :00 No 1{tbl} 1 tablet, Oral, ONCE, 1 dose, Tue02/04/20 at 2000, Routine [facility] clindamycin (CLEOCIN HCL) capsule 300 mg 02-04 01:00: 00 02-04 00:06 :00 No 300mg 300 mg, Oral, ONCE, 1 dose, Tue02/04/20 at 2000, [facility]
Re ason for Anti-Infec tive: Empiric Therapy for Suspected Infection< br>Empiric Therapy Site: Skin / Soft tissue
Duration of therapy: 7 days
Re stricted use approved by: ADC PROVIDER [facility] predniSONE (DELTASONE) tablet 40 mg 02-04 01:00: 02-04 00:06 :00 No 40mg 40 mg, Oral, ONCE, 1 dose, Tue02/04/20 at 2000, [facility] ketorolac (TORADOL) injection 60 mg 02-03 22:30: 00 02-03 22:30 :00 No 60mg 60 mg, Intramuscu lar, ONCE, 1 dose, Tue02/04/20 at 1730, [facility]
Fa culty member approving Restricted medication : Ja CAMARENA [facility] clindamycin 150 mg capsule 02-03 00:00: 00 02-14 04:59 :00 No [id number] 300mg Take 2 capsules by mouth 4 (four) times daily for [address] [facility] predniSONE 10 mg tablet 02-03 00:00: 00 02-12 04:59 :00 No [id number] Take 2 tablets by mouth 2 (two) times daily for 2 days, THEN 1 tablet 2 (two) times daily for 3 days, THEN 1 tablet daily for [address] [facility] cefdinir 300 mg capsule 09-06 00:00: 00 05-18 00:00 :00 No [id number] 300mg Take 1 capsule by mouth 2 (two) times daily. [facility] doxycycline 100 mg tablet 09-05 00:00: 00 09-20 05:59 :00 No [id number] 100mg Take 1 tablet by mouth 2 (two) times daily for [address] [facility] indomethaci n (INDOCIN) capsule 50 mg 09-04 08:00: 00 09-04 07:57 :00 No 50mg 50 mg, Oral, ONCE, 1 dose, 09/04/19 at 0200, Routine [facility] colchicine (COLCRYS) tablet 1.2 mg 09-04 07:00: 00 09-04 06:06 :00 No 1.2mg 1.2 mg, Oral, ONCE, 1 dose, 09/04/19 at 0100, Routine [facility] dexamethaso ne (DECADRON PHOSPHATE) injection 10 mg 09-04 07:00: 00 09-04 06:06 :00 No 10mg 10 mg, IV Push, ONCE, 1 dose, 09/04/19 at 0100, STAT [facility] ketorolac (TORADOL) injection 30 mg 09-04 07:00: 00 09-04 06:06 :00 No 30mg 30 mg, Slow IV Push, ONCE, 1 dose, 09/04/19 at 0100, Routine
vulcan crewmember approving Restricted medication : EMERGENCY ROOM, [facility] ondansetron (ZOFRAN (PF)) injection 4 mg 09-04 06:45: 00 09-04 05:46 :00 No 4mg 4 mg, Slow IV Push, ONCE, 1 dose, 09/04/19 at 0045, [facility] morpHINE injection 4 mg 09-04 06:45: 00 09-04 05:47 :00 No 4mg 4 mg, Slow IV Push, ONCE, 1 dose, 09/04/19 at 0045, STAT [facility] acetaminoph en (TYLENOL) tablet 1,000 mg 09-04 05:30: 00 09-04 04:37 :00 No 1000mg 1,000 mg, Oral, ONCE, 1 dose, 09/03/19 at 2330, Routine [facility] diphenhydrA MINE (BENADRYL) injection 25 mg 09-04 05:30: 00 09-04 04:37 :00 No 25mg 25 mg, Slow IV Push, ONCE, 1 dose, 09/03/19 at 2330, STAT [facility] metoclopram nayana HCl (REGLAN) injection 10 mg 09-04 05:30: 00 09-04 04:36 :00 No 10mg 10 mg, Slow IV Push, ONCE, 1 dose, 09/03/19 at 2330, [facility] NaCl 0.9% (NS) bolus infusion 1,000 mL 09-04 05:30: 00 09-04 06:05 :00 No 1000mL at 999 mL/hr, 1,000 mL, IV Infusion, ONCE, 1 dose, 09/03/19 at 2330, STAT [facility] colchicine 0.6 mg tablet 09-04 00:00: 00 Yes [id number] 105 .6mg Take 1 tablet by mouth daily. [facility] indomethaci n 50 mg capsule 09-04 00:00: 00 05-18 00:00 :00 No [id number] 105 50mg Take 1 capsule by mouth 3 (three) times daily with meals. [facility] acetaminoph en-codeine 300-30 mg tablet 09-04 00:00: 00 05-18 00:00 :00 No [id number] 105 1{tbl} Take 1-2 tablets by mouth every 6 (six) hours as needed for Pain (scale 1-3). [facility] amLODIPine 5 mg tablet 11-18 00:00: 00 Yes [id number] 5mg Take 1 tablet by mouth daily. [facility] HYDROCODONE -ACETAMINOP HEN 7.5-325 MG/15 ML ORAL SOLN 11-17 22:26: 04 Yes 1-[address] [facility] valACYclovi r 500 mg tablet 11-17 00:00: 00 Yes [id number] 1g Take 2 tablets by mouth 3 (three) times daily. [facility] artificial tears,hypro mellose, 0.5 % ophthalmic drops 11-17 00:00: 00 Yes [id number] 1[drp] Place 1 Drop in both eyes 4 (four) times daily as needed for Dry eyes. [facility] white petrolatum- mineral oil (PURALUBE) 85-15 % ophthalmic ointment 11-17 00:00: 00 Yes [id number] .5[in_u s] Place 0.5 Inches in both eyes at bedtime. [facility] bacitracin 500 unit/gram ointment 11-17 00:00: 00 05-18 00:00 :00 No [id number] Apply to area(s) 2 (two) times daily. [facility] traMADOL (ULTRAM) 50 mg tablet 2016-08 030 00:00: 00 Yes 50mg Take 1 tablet by mouth every 6 (six) hours as needed for Pain (scale 7-10). [facility] acetaminoph en-codeine (TYLENOL-CO DEINE #3) 300-30 mg tablet 04-26 00:00: 00 05-18 00:00 :00 No 1{tbl} Take 1 Tab by mouth every 4 (four) hours as needed for Pain (scale 4-6). [facility] Vital Signs Vital Name Observation Time Observation Value Comments S ource Systolic blood pressure 2023-10-09 05:00:00 148 mm[Hg] [facility] Diastolic blood pressure 2023-10-09 05:00:00 96 mm[Hg] [facility] Heart rate 2023-10-09 05:00:00 50 /min [facility] Respiratory rate 2023-10-09 05:00:00 17 /min [facility] Oxygen saturation in Arterial blood by Pulse oximetry 2023-10-09 05:00:00 95 /min [facility] Body temperature 2023-10-09 03:00:00 36.78 Kerri [facility] Body height 2023-10-09 00:15:00 170.2 cm [facility] Body weight 2023-10-09 00:15:00 95.255 kg [facility] BMI 2023-10-09 00:15:00 32.89 kg/m2 [facility] Systolic blood pressure 2023-08-24 19:38:53 132 mm[Hg] [facility] Diastolic blood pressure 2023-08-24 19:38:53 87 mm[Hg] [facility] Heart rate 2023-08-24 19:38:53 97 /min [facility] Body temperature 2023-08-24 19:38:53 37 Kerri [facility] Respiratory rate 2023-08-24 19:38:53 20 /min [facility] Oxygen saturation in Arterial blood by Pulse oximetry 2023-08-24 19:38:53 98 /min [facility] Body weight 2023-08-24 16:11:00 95.255 kg [facility] BMI 2023-08-24 16:11:00 32.89 kg/m2 [facility] Systolic blood pressure 2023-08-22 20:27:00 156 mm[Hg] [facility] Diastolic blood pressure 2023-08-22 20:27:00 108 mm[Hg] [facility] Heart rate 2023-08-22 20:27:00 84 /min [facility] Body temperature 2023-08-22 20:27:00 36.5 Kerri [facility] Respiratory rate 2023-08-22 20:27:00 19 /min [facility] Body height 2023-08-22 20:27:00 170.2 cm [facility] Body weight 2023-08-22 20:27:00 95.255 kg [facility] BMI 2023-08-22 20:27:00 32.89 kg/m2 [facility] Oxygen saturation in Arterial blood by Pulse oximetry 2023-08-22 20:27:00 99 /min [facility] Systolic blood pressure 2023-08-11 21:33:00 154 mm[Hg] [facility] Diastolic blood pressure 2023-08-11 21:33:00 99 mm[Hg] [facility] Heart rate 2023-08-11 21:33:00 94 /min [facility] Body temperature 2023-08-11 21:33:00 36.39 Kerri [facility] Respiratory rate 2023-08-11 21:33:00 18 /min [facility] Body height 2023-08-11 21:33:00 170.2 cm [facility] Body weight 2023-08-11 21:33:00 97.523 kg [facility] BMI 2023-08-11 21:33:00 33.67 kg/m2 [facility] Oxygen saturation in Arterial blood by Pulse oximetry 2023-08-11 21:33:00 99 /min [facility] [facility] Systolic blood pressure 2023-04-06 18:58:00 140 mm[Hg] [facility] Diastolic blood pressure 2023-04-06 18:58:00 98 mm[Hg] [facility] Heart rate 2023-04-06 18:58:00 96 /min [facility] Body temperature 2023-04-06 18:58:00 36.78 Kerri [facility] Respiratory rate 2023-04-06 18:58:00 18 /min [facility] Body height 2023-04-06 18:58:00 170.2 cm [facility] Body weight 2023-04-06 18:58:00 95.255 kg [facility] BMI 2023-04-06 18:58:00 32.89 kg/m2 [facility] Oxygen saturation in Arterial blood by Pulse oximetry 2023-04-06 18:58:00 98 /min [facility] Systolic blood pressure 2021-09-05 04:03:51 130 mm[Hg] [facility] Diastolic blood pressure 2021-09-05 04:03:51 82 mm[Hg] [facility] Heart rate 2021-09-05 04:03:51 85 /min [facility] Respiratory rate 2021-09-05 04:03:51 20 /min [facility] Oxygen saturation in Arterial blood by Pulse oximetry 2021-09-05 04:03:51 97 /min [facility] Body temperature 2021-09-05 01:31:00 37.33 Kerri [facility] Body height 2021-09-05 01:31:00 170.2 cm [facility] Body weight 2021-09-05 01:31:00 97.342 kg [facility] BMI 2021-09-05 01:31:00 33.61 kg/m2 [facility] Systolic blood pressure 2021-02-18 05:42:00 130 mm[Hg] [facility] Diastolic blood pressure 2021-02-18 05:42:00 83 mm[Hg] [facility] Heart rate 2021-02-18 05:42:00 91 /min [facility] Respiratory rate 2021-02-18 05:42:00 19 /min [facility] Oxygen saturation in Arterial blood by Pulse oximetry 2021-02-18 05:42:00 94 /min [facility] Body temperature 2021-02-18 03:46:00 36.89 Kerri [facility] Body height 2021-02-18 03:46:00 170.2 cm [facility] Body weight 2021-02-18 03:46:00 97.523 kg [facility] BMI 2021-02-18 03:46:00 33.67 kg/m2 [facility] Systolic blood pressure 2020-12-02 04:10:00 108 mm[Hg] [facility] Diastolic blood pressure 2020-12-02 04:10:00 80 mm[Hg] [facility] Heart rate 2020-12-02 04:10:00 77 /min [facility] Respiratory rate 2020-12-02 04:10:00 20 /min [facility] Oxygen saturation in Arterial blood by Pulse oximetry 2020-12-02 04:10:00 96 /min [facility] Body temperature 2020-12-02 01:13:00 36.72 Kerri [facility] Body height 2020-12-02 01:13:00 170.2 cm [facility] Body weight 2020-12-02 01:13:00 95.255 kg [facility] BMI 2020-12-02 01:13:00 32.89 kg/m2 [facility] Systolic blood pressure 2020-12-02 04:10:00 108 mm[Hg] [facility] Diastolic blood pressure 2020-12-02 04:10:00 80 mm[Hg] [facility] Heart rate 2020-12-02 04:10:00 77 /min [facility] Respiratory rate 2020-12-02 04:10:00 20 /min [facility] Oxygen saturation in Arterial blood by Pulse oximetry 2020-12-02 04:10:00 96 /min [facility] Body temperature 2020-12-02 01:13:00 36.72 Kerri [facility] Body height 2020-12-02 01:13:00 170.2 cm [facility] Body weight 2020-12-02 01:13:00 95.255 kg [facility] BMI 2020-12-02 01:13:00 32.89 kg/m2 [facility] Systolic blood pressure 2020-05-18 17:26:00 117 mm[Hg] [facility] Diastolic blood pressure 2020-05-18 17:26:00 97 mm[Hg] [facility] Heart rate 2020-05-18 17:26:00 81 /min [facility] Respiratory rate 2020-05-18 17:26:00 21 /min [facility] Oxygen saturation in Arterial blood by Pulse oximetry 2020-05-18 17:26:00 95 /min [facility] Body temperature 2020-05-18 17:00:00 36.33 Kerri [facility] Body weight 2020-05-18 08:05:00 93.486 kg [facility] BMI 2020-05-18 08:05:00 32.28 kg/m2 [facility] Body height 2020-05-17 15:00:00 170.2 cm [facility] Systolic blood pressure 2020-05-18 17:26:00 117 mm[Hg] [facility] Diastolic blood pressure 2020-05-18 17:26:00 97 mm[Hg] [facility] Heart rate 2020-05-18 17:26:00 81 /min [facility] Respiratory rate 2020-05-18 17:26:00 21 /min [facility] Oxygen saturation in Arterial blood by Pulse oximetry 2020-05-18 17:26:00 95 /min [facility] Body temperature 2020-05-18 17:00:00 36.33 Kerri [facility] Body weight 2020-05-18 08:05:00 93.486 kg [facility] BMI 2020-05-18 08:05:00 32.28 kg/m2 [facility] Body height 2020-05-17 15:00:00 170.2 cm [facility] Systolic blood pressure 2020-02-09 04:41:00 145 mm[Hg] [facility] Diastolic blood pressure 2020-02-09 04:41:00 85 mm[Hg] [facility] Heart rate 2020-02-09 04:41:00 97 /min [facility] Body temperature 2020-02-09 04:41:00 35.72 Kerri [facility] Respiratory rate 2020-02-09 04:41:00 20 /min [facility] Body weight 2020-02-09 04:41:00 95.255 kg [facility] BMI 2020-02-09 04:41:00 32.89 kg/m2 [facility] Oxygen saturation in Arterial blood by Pulse oximetry 2020-02-09 04:41:00 99 /min [facility] Systolic blood pressure 2020-02-09 04:41:00 145 mm[Hg] [facility] Diastolic blood pressure 2020-02-09 04:41:00 85 mm[Hg] [facility] Heart rate 2020-02-09 04:41:00 97 /min [facility] Body temperature 2020-02-09 04:41:00 35.72 Kerri [facility] Respiratory rate 2020-02-09 04:41:00 20 /min [facility] Body weight 2020-02-09 04:41:00 95.255 kg [facility] BMI 2020-02-09 04:41:00 32.89 kg/m2 [facility] Oxygen saturation in Arterial blood by Pulse oximetry 2020-02-09 04:41:00 99 /min [facility] Systolic blood pressure 2020-02-05 00:03:00 150 mm[Hg] [facility] Diastolic blood pressure 2020-02-05 00:03:00 99 mm[Hg] [facility] Heart rate 2020-02-05 00:03:00 84 /min [facility] Respiratory rate 2020-02-05 00:03:00 20 /min [facility] Oxygen saturation in Arterial blood by Pulse oximetry 2020-02-05 00:03:00 95 /min [facility] Body temperature 2020-02-04 20:16:00 36.83 Kerri [facility] Body height 2020-02-04 20:16:00 170.2 cm [facility] Body weight 2020-02-04 20:16:00 95.255 kg [facility] BMI 2020-02-04 20:16:00 32.89 kg/m2 [facility] Systolic blood pressure 2020-02-05 00:03:00 150 mm[Hg] [facility] Diastolic blood pressure 2020-02-05 00:03:00 99 mm[Hg] [facility] Heart rate 2020-02-05 00:03:00 84 /min [facility] Respiratory rate 2020-02-05 00:03:00 20 /min [facility] Oxygen saturation in Arterial blood by Pulse oximetry 2020-02-05 00:03:00 95 /min [facility] Body temperature 2020-02-04 20:16:00 36.83 Kerri [facility] Body height 2020-02-04 20:16:00 170.2 cm [facility] Body weight 2020-02-04 20:16:00 95.255 kg [facility] BMI 2020-02-04 20:16:00 32.89 kg/m2 [facility] Body temperature 2019-09-25 19:00:00 36.06 Kerri [facility] Body height 2019-09-25 19:00:00 170.2 cm [facility] Body weight 2019-09-25 19:00:00 100.018 kg [facility] BMI 2019-09-25 19:00:00 34.54 kg/m2 [facility] Body temperature 2019-09-05 14:53:00 36 Kerri [facility] Body height 2019-09-05 14:53:00 170.2 cm [facility] Body weight 2019-09-05 14:53:00 100.018 kg [facility] BMI 2019-09-05 14:53:00 34.54 kg/m2 [facility] Systolic blood pressure 2019-09-04 06:23:45 117 mm[Hg] [facility] Diastolic blood pressure 2019-09-04 06:23:45 88 mm[Hg] [facility] Heart rate 2019-09-04 06:23:45 94 /min [facility] Body temperature 2019-09-04 06:23:45 36.5 Kerri [facility] Respiratory rate 2019-09-04 06:23:45 18 /min [facility] Oxygen saturation in Arterial blood by Pulse oximetry 2019-09-04 06:23:45 97 /min [facility] BMI 2019-09-04 04:39:48 33.67 kg/m2 [facility] Body height 2019-09-04 04:39:48 170.2 cm [facility] Body weight 2019-09-04 04:39:48 97.523 kg [facility] Procedures Procedure Date / Time Performed Performing Clinician Source CT ABDOMEN PELVIS WO CONTRAST 2023-10-09 03:45:35 Gatito Coppola [facility] URINALYSIS 2023-10-09 02:10:00 Gatito Coppola [facility] LIPASE 2023-10-09 01:30:00 [facility] HEPATIC FUNCTION PANEL (49840) (ALB,T.PRO,BILI T,BU/BC,ALT,AST,ALK PHOS) 2023-10-09 01:30:00 Gatito Coppola [facility] BASIC METABOLIC PANEL (NA, K, CL, CO2, GLUCOSE, BUN, CREATININE, CA) 2023-10-09 01:30:00 Gatito Coppola [facility] CBC WITH DIFF 2023-10-09 01:30:00 Gatito Coppola [facility] ASSIGNMENT OF BENEFITS 2023-10-09 00:54:53 Docto r Unassigned, [place] [facility] NOTICE OF PRIVACY PRACTICES 2023-10-09 00:12:46 Doctor Unassigned, [place] [facility] CONSENT/REFUSAL FOR DIAGNOSIS AND TREATMENT 2023-10-09 00:11:33 Doctor Unassigned, [place] [facility] URIC ACID 2023-08-24 18:14:00 Percy Ramos [facility] BASIC METABOLIC PANEL (NA, K, CL, CO2, GLUCOSE, BUN, CREATININE, CA) 2023-08-24 18:14:00 Percy Ramos [facility] CBC WITH DIFF 2023-08-24 18:14:00 [facility] XR ANKLE 3+ VW RIGHT 2023-08-24 18:11:40 Percy Ramos [facility] XR FOOT 3+ VW RIGHT 2023-08-24 18:11:40 Percy Ramos [facility] CONSENT/REFUSAL FOR DIAGNOSIS AND TREATMENT 2023-08-24 16:05:19 Doctor Unassigned, [place] [facility] ASSIGNMENT OF BENEFITS 2023-08-22 20:44:26 Docto r Unassigned, [place] [facility] CONSENT/REFUSAL FOR DIAGNOSIS AND TREATMENT 2023-08-22 20:17:42 Doctor Unassigned, [place] [facility] RAPID INFLUENZA A/B 2023-08-11 21:59:00 Keturah Meredith [facility] COVID-19 (ID NOW RAPID TESTING) 2023-08-11 21:59:00 Rina Meredith [facility] XR FOOT 3+ VW RIGHT 2023-08-11 21:58:33 Keturah Meredith [facility] CONSENT/REFUSAL FOR DIAGNOSIS AND TREATMENT 2023-08-11 21:32:58 Doctor Unassigned, [place] [facility] DISABILITY/FMLA 2023-05-05 05:01:00 Doctor Unass igned, [place] [facility] ASSIGNMENT OF BENEFITS 2023-04-06 20:20:21 Docto r Unassigned, [place] [facility] CONSENT/REFUSAL FOR DIAGNOSIS AND TREATMENT 2023-04-06 18:55:16 Doctor Unassigned, [place] [facility] DUPLEX VENOUS LEGS BILATERAL - BY VASCULAR LAB 2021-09-05 03:43:24 Feli Layne [facility] URIC ACID 2021-09-05 01:48:00 [facility] BASIC METABOLIC PANEL (NA, K, CL, CO2, GLUCOSE, BUN, CREATININE, CA) 2021-09-05 01:48:00 Feli Layne [facility] SEDIMENTATION RATE 2021-09-05 01:48:00 Feli Layne [facility] CBC WITH DIFF 2021-09-05 01:48:00 Feli Layne [facility] XR FOOT 3+ VW RIGHT 2021-09-05 01:43:09 Feli Layne [facility] NOTICE OF PRIVACY PRACTICES 2021-09-05 01:07:38 Doctor Unassigned, [place] [facility] CONSENT/REFUSAL FOR DIAGNOSIS AND TREATMENT 2021-09-05 01:07:20 Doctor Unassigned, [place] [facility] EXTERNAL PROVIDER RECORDS 2021-03-23 05:01:00 Doctor Unassigned, [place] [facility] XR CHEST 1 VW 2021-02-18 04:45:53 Ana Samuel [facility] TROPONIN I 2021-02-18 04:08:00 [facility] COMP. METABOLIC PANEL (48546) 2021-02-18 04:08:00 Ana Samuel [facility] CBC WITH DIFF 2021-02-18 04:08:00 Ana Samuel [facility] N-TERMINAL PRO-BNP 2021-02-18 04:08:00 Ana Samuel [facility] NOTICE OF PRIVACY PRACTICES 2021-02-18 03:31:56 Doctor Unassigned, [place] [facility] CONSENT/REFUSAL FOR DIAGNOSIS AND TREATMENT 2021-02-18 03:31:41 Doctor Unassigned, [place] [facility] TROPONIN I 2020-12-02 03:16:00 Denise Ramirez [facility] XR CHEST 1 VW 2020-12-02 02:56:58 Denise Ramirez [facility] LIPASE 2020-12-02 01:45:00 Denise Ramirez [facility] TROPONIN I 2020-12-02 01:45:00 Denise Ramirez [facility] COMP. METABOLIC PANEL (03071) 2020-12-02 01:45:00 Denise Ramirez [facility] CBC WITH DIFF 2020-12-02 01:45:00 Denise Ramirez [facility] PROTHROMBIN TIME / INR 2020-12-02 01:45:00 Nuria Ramirez ala [facility] ACTIVATED PARTIAL THRMPLAS MERY 2020-12-02 01:45:00 Denise Ramirez [facility] CONSENT/REFUSAL FOR DIAGNOSIS AND TREATMENT 2020-12-02 00:57:56 Doctor Unassigned, [place] [facility] BASIC METABOLIC PANEL (NA, K, CL, CO2, GLUCOSE, BUN, CREATININE, CA) 2020-05-18 09:35:00 Kuldeep Galarza [facility] CBC WITH DIFF 2020-05-18 08:14:00 Kuldeep Galarza [facility] LEGIONELLA URINARY ANTIGEN TST 2020-05-17 21:33:00 Kuldeep Galarza [facility] PNEUMOCOCCAL ANTIGEN 2020-05-17 21:32:00 Shahrzad Galarza [facility] CT CHEST PULMONARY ANGIOGRAM 2020-05-17 18:36:13 Kuldeep Galarza [facility] PROCALCITONIN 2020-05-17 15:35:00 Kuldeep Galarza [facility] XR CHEST 1 VW 2020-05-17 13:46:07 Joseph Salcido [facility] CREATINE KINASE 2020-05-17 13:26:00 [facility] 2020-05-17 13:26:00 [facility] HEPATIC FUNCTION PANEL ([id number]) (ALB,T.PRO,BILI T,BU/BC,ALT,AST,ALK PHOS) 2020-05-17 13:26:00 [facility] BASIC METABOLIC PANEL (NA, K, CL, CO2, GLUCOSE, BUN, CREATININE, CA) 2020-05-17 13:26:00 [facility] WITH DIFF 2020-05-17 13:26:00 Joseph Salcido [facility] PROTHROMBIN TIME / INR 2020-05-17 13:26[facility] 2020-05-17 13:26:00 [facility]uldeep [facility] ACTIVATED PARTIAL THRMPLAS MERY 2020-05-17 13:26:00 Omari [facility] N-TERMINAL PRO-BNP 2020-05-17 13:26:00 [facility] ADC,CLC OR LCC ONLY - INFLUENZA A & B DIRECT ANTIGEN 2020-05-17 13:25:00 [facility] COVID-19 (ID NOW RAPID TESTING) 2020-05-17 13:25:00 [facility]12 LEAD 2020-05-17 13:19:38 [facility] EKG-12 LEAD 2020-05-17 13:10:25 [facility] CONSENT/REFUSAL FOR DIAGNOSIS AND TREATMENT 2020-05-17 12:50:12 Doctor Unassigned, [place] [facility] NOTICE OF PRIVACY PRACTICES 2020-02-09 05:16:38 Doctor Unassigned, [place] [facility] CONSENT/REFUSAL FOR DIAGNOSIS AND TREATMENT 2020-02-09 05:16:28 Doctor Unassigned, [place] [facility] NOTICE OF PRIVACY PRACTICES 2020-02-09 04:29:20 Doctor Unassigned, [place] [facility] CONSENT/REFUSAL FOR DIAGNOSIS AND TREATMENT 2020-02-09 04:29:07 Doctor Unassigned, [place] [facility] CONSENT/REFUSAL FOR DIAGNOSIS AND TREATMENT 2020-02-04 19:58:54 Doctor Unassigned, [place] [facility] CT LANDMARK SINUS WO CONTRAST 2019-09-25 15:25:47 Reyna Saba [facility] URIC ACID 2019-09-04 05:17:00 Miriam Hairston [facility] COMP. METABOLIC PANEL (72001) 2019-09-04 05:17:00 [address] Hairst[address] [facility] CT HEAD WO CONTRAST 2019-09-04 05:04:32 Humberto Hairston [facility] XR ANKLE <3 VW RIGHT 2019-09-04 05:04:21 Mika Hairston [facility] SEDIMENTATION RATE 2019-09-04 04:38:00 Lizandro Hairston [facility] CBC WITH DIFFERENTIAL 2019-09-04 04:38:00 Ja Hairston [facility] Encounters Start Date/Time End Date/Time Encounter Type Admission Type Attending [facility] Care Department Encounter ID Source 2021-06-15 09:16:16 Emergency [facility] [id number] [facility] 2021-06-15 06:25:[address] [facility] [id number] [facility] 2021-06-14 13:56:42 Emergency [facility] [id number] [facility] 2021-06-12 20:52:31 [address] [facility] [id number] [facility] 2021-06-12 03:13:29 [address] [facility] [id number] [facility] 2021-06-12 02:13:36 Emergency [facility] [id number] [facility] 2021-06-11 10:38:23 Outpatient R JUAN LUIS ARELLANO [facility] DSU [id number] [facility] 2023-10-08 18:28:00 2023-10-08 23:55:00 Emergency X GATITO COPPOLA [facility] ERT [id number] [facility] 2023-10-08 18:28:00 2023-10-08 23:55:00 Emergency Gatito Coppola [facility] 1.2.840.114 350.1.13.10 4.2.7.2.[id number] [facility] 2023-08-29 00:00:00 2023-08-29 00:00:00 Patient Secure Msg Doctor Unassigned, [place] [facility] 1.2.840.114 350.1.13.10 4.2.7.2.[id number] [facility] 2023-08-24 10:14:00 2023-08-24 13:50:00 Emergency X PERCY RAMOS [facility] ERT [id number] [facility] 2023-08-24 10:14:00 2023-08-24 13:50:00 Emergency Percy Ramos [facility] 1.2.840.114 350.1.13.10 4.2.7.2.[id number] [facility] 2023-08-22 14:34:00 2023-08-22 16:32:00 Emergency X KIMBERLY SORENSON [facility] ERT [id number] [facility] 2023-08-22 14:34:00 2023-08-22 16:32:00 Emergency Kimberly Sorenson [facility] 1.2.840.114 350.1.13.10 4.2.7.2.[id number] [facility] 2023-08-11 15:34:00 2023-08-11 17:13:00 Emergency X RINA MEREDITH [facility] ERT [id number] [facility] 2023-08-11 15:34:00 2023-08-11 17:13:00 Emergency Rina Meredith [facility] 1.2.840.114 350.1.13.10 4.2.7.2.[id number] [facility] 2023-05-05 00:00:00 2023-05-05 00:00:00 Orders Only Doctor Unassigned, [place] [facility] 1.2.840.114 350.1.13.10 4.2.7.2.[id number] [facility] 2023-04-06 13:59:00 2023-04-06 15:26:00 Emergency X EDDI SAHA [facility] ERT [id number] [facility] 2023-04-06 13:59:00 2023-04-06 15:26:00 Emergency Eddi Saha [facility] 1.2.840.114 350.1.13.10 4.2.7.2.[id number] [facility] 2022-07-02 16:59:59 2022-07-02 16:59:59 Outpatient S[facility] [id number] Vinod Jyoti Reggie 2022-06-26 10:08:00 2022-06-26 10:08:00 Outpatient [facility] [id number] Vinod Paredes 2021-09-07 10:00:00 2021-09-07 10:00:00 Outpatient TERESA JOSEPH [id number] Barbara Lyon 2021-09-04 19:33:00 2021-09-04 22:27:00 Emergency X FELI LAYNE [facility] ERT [id number] [facility] 2021-09-04 19:33:00 2021-09-04 22:27:00 Emergency Tristan Rosamariabertram Kebede [facility] 1.2.840.114 350.1.13.10 4.2.7.2.[id number] [facility] 2021-03-23 00:00:00 2021-03-23 00:00:00 Orders Only Doctor Unassigned, [place] [facility] 1.2.840.114 350.1.13.10 4.2.7.2.[id number] [facility] 2021-02-17 22:56:00 2021-02-18 00:56:00 Emergency Ana Samuel S [facility] 1.2.840.114 350.1.13.10 4.2.7.2.[id number] [facility] 2020-12-01 20:15:00 2020-12-01 23:30:00 Emergency Denise Ramirez Megan [facility] 1.2.840.114 350.1.13.10 4.2.7.2.[id number] [facility] 2020-12-01 20:15:00 2020-12-01 23:30:00 Emergency Denise Ramirez Megan [facility] 1.2.840.114 350.1.13.10 4.2.7.2.686 [id number] 2020-10-28 00:00:00 2020-10-28 00:00:00 Patient Outreach Anthony Browne [facility] 1.2.840.114 350.1.13.10 4.2.7.2.[id number] [facility] 2020-10-28 00:00:00 2020-10-28 00:00:00 Patient Outreach Anthony Browne [facility] 1.2.840.114 350.1.13.10 4.2.7.2.686 [id number] 2020-05-27 16:15:00 2020-05-27 16:15:00 Outpatient Yandy ARELLANO [facility] [id number] [facility] 2020-05-23 00:00:00 2020-05-23 00:00:00 Nurse Triage [facility] 1.2.840.114 350.1.13.10 4.2.7.2.[id number] [facility] 2020-05-23 00:00:00 2020-05-23 00:00:00 Nurse Triage [facility] 1.2.840.114 350.1.13.10 4.2.7.2.686 [id number] 2020-05-19 11:15:00 2020-05-19 11:15:00 Outpatient Yandy ARELLANO [facility] [id number] [facility] 2020-05-19 09:12:55 2020-05-19 09:27:55 [facility] 1.2.840.114 350.1.13.10 4.2.7.2.[id number] [facility] 2020-05-19 09:12:55 2020-05-19 09:27:55 [facility] 1.2.840.114 350.1.13.10 4.2.7.2.686 [id number] 2020-05-17 07:55:00 2020-05-18 13:15:00 [facility] 1.2.840.114 350.1.13.10 4.2.7.2.[id number] [facility] 2020-05-17 07:55:00 2020-05-18 13:15:00 Emergency Joseph Salcido [facility] 1.2.840.114 350.1.13.10 4.2.7.2.686 [id number] [id number] 2020-05-17 00:00:00 2020-05-17 00:00:[facility] 1.2.840.114 350.1.13.10 4.2.7.2.[id number] [facility] 2020-05-17 00:00:00 2020-05-17 00:00[facility] 1.2.[facility].114 350.1.13.10 4.2.7.2.686 [id number] [id number] 2020-05-12 14:20:00 2020-05-12 14:20:00 Outpatient R [facility] [id number] [facility] 2020-04-28 18:00:00 2020-04-28 18:00:00 Outpatient R GLORIA LIRIANO [facility] [id number] [facility] 2020-03-18 00:00:00 2020-03-18 00:00:00 Nurse Triage [facility] 1.2.840.114 350.1.13.10 4.2.7.2.[id number] [facility] 2020-03-18 00:00:00 2020-03-18 00:00:00 Nurse Triage [facility] 1.2.840.114 350.1.13.10 4.2.7.2.686 [id number] 019 [id number] 2020-02-09 00:28:27 2020-02-09 01:06:00 Emergency Shira Vargas [facility] 1.2.840.114 350.1.13.10 4.2.7.2.[id number] [facility] 2020-02-09 00:28:27 2020-02-09 01:06:00 Emergency Epifanio Vargasn Yandy [facility] 1.2.840.114 350.1.13.10 4.2.7.2.686 [id number] [id number] 2020-02-09 00:00:00 2020-02-09 00:00:00 Orders Only Doctor Unassigned, [place] [facility] 1.2.840.114 350.1.13.10 4.2.7.2.[id number] [facility] 2020-02-09 00:00:00 2020-02-09 00:00:00 Orders Only Doctor Unassigned, [place] [facility] 1.2.840.114 350.1.13.10 4.2.7.2.686 [id number] [id number] 2020-02-04 15:18:35 2020-02-04 19:14:00 Emergency Ja C[facility] 1.2.840.114 350.1.13.10 4.2.7.2.[id number] [facility] 2020-02-04 15:18:35 2020-02-04 19:14:00 Emergency Ja Camarena [facility] 1.2.840.114 350.1.13.10 4.2.7.2.686 [id number] 084 [id number] 2020-02-04 00:00:00 2020-02-04 00:00:00 Nurse Triage [facility] 1.2.840.114 350.1.13.10 4.2.7.2.[id number] [facility] 2020-02-04 00:00:00 2020-02-04 00:00:00 Nurse Triage [facility] 1.2.840.114 350.1.13.10 4.2.7.2.686 [id number] 019 [id number] 2019-11-21 10:33:00 2019-11-21 10:33:00 Outpatient Raju_P [facility] [id number] [facility] 2019-10-02 00:00:00 2019-10-02 00:00:00 Telephone Pamela [facility] 1.2.840.114 350.1.13.10 4.2.7.2.[id number] [facility] 2019-10-02 00:00:00 2019-10-02 00:00:00 Telephone Pamela [facility] 1.2.840.114 350.1.13.10 4.2.7.2.686 [id number] 2019-09-25 09:08:48 2019-09-25 23:59:00 Outpatient R REYNA SABA [facility] [id number] [facility] 2019-09-25 09:00:00 2019-09-25 23:59:00 Hospital Encounter Reyna Saba [facility] 1.2.840.114 350.1.13.10 4.2.7.2.[id number] [facility] 2019-09-25 12:36:36 2019-09-25 13:51:54 Office Visit Pamela [facility] 1.2.840.114 350.1.13.10 4.2.7.2.[id number] [facility] 2019-09-25 00:00:00 2019-09-25 00:00:00 Letter (Out) Pamela [facility] 1.2.840.114 350.1.13.10 4.2.7.2.[id number] [facility] 2019-09-05 08:39:59 2019-09-05 09:09:59 Office Visit Reyna Saba [facility] [employer] [facility]. 1.2840.114 350.1.13.10 4.2.7.2.[id number] [facility] 2019-09-05 00:00:00 2019-09-05 00:00:00 Telephone Reyna Saba [facility] [employer]. 1.2.840.114 350.1.13.10 4.2.7.2.[id number] [facility] 2019-09-03 22:21:49 2019-09-04 01:58:00 Emergency Miriam [facility] 1..840.114 350.1.13.10 4.2.7.2.[id number] [facility] Results Test Description Test Time Test Comments Results Result Comments Source CT ABDOMEN PELVIS WO CONTRAST 04:52:08 CT ABDOMEN PELVIS WO CONTRAST Indication: Flank pain, kidney stone suspected ? Comparison: None. RL: Ordering Clinician: GATITO COPPOLA Technique: Axial CT images of the abdomen and pelvis were performed withoutIV contrast. Sagittal and coronal reformats were created. Dose reductiontechniques were used (ALARA). Technical Quality: Adequate Discussion:Lines/Device s: None. Chest/Vessels: Normal lung bases. ?No acute abnormality of the aorta. Organs: Fatty liver. ?No gallbladder inflammation. ?The pancreas is normal. No splenic masses. The adrenal glands are normal. : No renal stones or hydronephrosis. The bladder is normal. GI: No inflammation of the colon. ?No small bowel obstruction. ?Normalappendix. Misc.: Subcentimeter lymph nodes are below size criteria. ?No free air orfree fluid. Skeleton: Bilateral L5 pars defects with 4 mm of anterolisthesis. [facility] (NA, K, CL, CO2, GLUCOSE, BUN, CREATININE, CA)2023-10-09 01:58:41* Test Item Value Reference Range Interpretation Comme nts NA (test code = 5689986279) 138 mmol/L 135-145 K (test code = 7125130090) 3.6 mmol/L 3.5-5.0 CL (test code = 1699139693) 106 mmol/L 98-108 CO2 TOTAL (test code = 6874852249) 28 mmol/L 23-31 AGAP (test code = 7176046265) 4 2-16 BUN (test code = 5767011004) 15 mg/dL 7-23 GLUCOSE (test code = 5039399394) 151 mg/dL 70-110 H CREATININE (test code = 2160-0) 0.81 mg/dL 0.60-1.25 CALCIUM (test code = 3358093538) 8.5 mg/dL 8.6-10.6 L eGFR (test code = 60818-8) 105.4 mL/min/1.73m2 CKD-EPI eGFR (2020). Assuming creatinine has been stable day-to-day for at least three months, the eGFR indicates Category G1 (>= 90 mL/min/1.73 m2) Lab Interpretation (test code = 49492-1) [facility]:58[facility]* Test Item Value Reference Range Interpretation Comme nts LIPASE (test code = 9941784760) 130 U/L 0-220 Lab Interpretation (test cod e = 65172-6) [facility] [id number] 01:42:23* Test Item Value Reference Range Interpretation Comme nts WBC (test code = 6690-2) 5.13 4.20-10.70 RBC (test code = 789-8) 4.72 4.26-5.52 HGB (test code = 718-7) 13.4 g/dL 12.2-16.4 HCT (test code = 4544-3) 41.4 % 38.4-49.3 MCV (test code = 787-2) 87.7 fL 81.7-95.6 MCH (test code = 785-6) 28.4 pg 26.1-32.7 MCHC (test code = 786-4) 32.4 g/dL 31.2-35.0 RDW-SD (test code = 56509-8) 41.1 fL 38.5-51.6 RDW-CV (test code = 788-0) 12.8 % 12.1-15.4 PLT (test code = 777-3) 237 150-328 MPV (test code = 31751-6) 9.6 fL 9.8-13.0 L NRBC/100 WBC (test code = 1316506506) 0.0 0.0-10.0 NRBC x10^3 (test code = 5803545866) See_Comment [Automated messa ge] The system which generated this result transmitted reference range: 10*3/?L. The reference range was not used to interpret this result as normal/abnormal. GRAN MAT (NEUT) % (test code = 770-8) 51.4 % IMM GRAN % (test code = 1037211503) 0.40 % LYMPH % (test code = 736-9) 38.4 % MONO % (test code = 5905-5) 7.4 % EOS % (test code = 713-8) 1.8 % BASO % (test code = 706-2) 0.6 % GRAN MAT x10^3(ANC) (test code = 4182729858) 2.64 10*3/uL 1.99-6.95 IMM GRAN x10^3 (test code = 6712524031) 0.00-0.06 LYMPH x10^3 (test code = 731-0) 1.97 10*3/uL 1.09-3.23 MONO x10^3 (test code = 742-7) 0.38 10*3/uL 0.36-1.02 EOS x10^3 (test code = 711-2) 0.09 10*3/uL 0.06-0.53 BASO x10^3 (test code = 704-7) 0.03 10*3/uL 0.01-0.09 Lab Interpretation (test code = 16782-6) [facility] [id number] 19:00:22XR ANKLE 3+ VW RIGHT, XR FOOT 3+ VW RIGHT HISTORY: ?foot/gout? COMPARISON: Radiographs dated 08/11/2023 and 09/03/2019. Findings:The osseous structures are intact. There is fusion of the fifth mid anddistal phalanges. Mild subchondral sclerosis and hook-like osteophytosisaffect the great toe distal interphalangeal joint, unchanged. ?Mildwidening the ankle syndesmosis. Mild first MTP degenerative changes.Mild to moderate soft tissue edema. ?No abnormal soft tissue calcification.[facility] 2023-08-24 19:00:22XR ANKLE 3+ VW RIGHT, XR FOOT 3+ VW RIGHT HISTORY: ?foot/gout? COMPARISON: Radiographs dated 08/11/2023 and 09/03/2019. Findings:The osseous structures are intact. There is fusion of the fifth mid anddistal phalanges. Mild subchondral sclerosis and hook-like osteophytosisaffect the great toe distal interphalangeal joint, unchanged. ?Mildwidening the ankle syndesmosis. Mild first MTP degenerative changes.Mild to moderate soft tissue edema. ?No abnormal soft tissue calcification.[facility] XR FOOT 3+ VW [id number] 22:08:48HISTORY: ?Pain in right second, third, fourth and fifth metatarsal bones. FINDINGS: Comparison has been made with 09/04/2021 study. AP, lateral,oblique views of right foot showed no acute fracture or dislocation. Noaggressive bone lesions seen. No heel spur. Mild degenerative changes notedin first MTP joint. CONCLUSIONS: No acute fracture or dislocation in right foot.[facility], THIRD [id number] 06:30:17* Test Item Value Reference Range Interpretation Comme [facility] TSH, THIRD GENERATION (test code = 2821) 1.270 UIU/ML 0.400-4.100 UNLESS OTHERWISE INDICATED, ALL TESTING PERFORMED [facility] [address] [place] [address] QUALITY CONTROL ASSESSOR: ESTELLE PILLAI M.D. CLIA NUMBER [id number] [facility] [place]. [id number] HEMOGLOBIN [id number] 06:05:11* Test Item Value Reference Range Interpretation Comme [facility] HEMOGLOBIN A1c (test code = 98374) 7.3 % 4.2-5.6 H [employer] [place] GUIDELINES FOR HGB A1C: PREDIABETES/INCREASED RISK . . . . . . . 5.7-6.4% DIAGNOSIS OF DIABETES . . . . . . . . . >=6.5% WITH CONFIRMATION OR APPROPRIATE SYMPTOMS NOTE: ASSAY MAY BE AFFECTED BY HEMOGLOBINOPATHIES (SICKLE CELL ANEMIA, S-C DISEASE, OTHERS) OR ARTIFICIALLY LOWERED BY DECREASED RED CELL SURVIVAL (HEMOLYTIC ANEMIAS, BLOOD LOSS, ETC.). CONSIDER ALTERNATE TESTING OR LABORATORY CONSULTATION. COMPREHENSIVE METABOLIC [id number] 05:26:05* Test Item Value Reference Range Interpretation Comme nts GLUCOSE (test code = 7) 181 MG/DL 70-99 H BUN (test code = 2207) 24 MG/DL 6-20 H CREATININE (test code = 2213) 0.89 MG/DL 0.80-1.40 eGFR (2020 CKD-EPI) (test code = 19959) 104 ML/MIN/1.73 >60 CALC BUN/CREAT (test code = 2234) 27 RATIO 6-28 SODIUM (test code = 223) 136 MEQ/L 133-146 POTASSIUM (test code = 2227) 4.8 MEQ/L 3.5-5.4 CHLORIDE (test code = 2214) 100 MEQ/L 95-107 CARBON DIOXIDE (test code = 2205) 26 MEQ/L 19-31 CALCIUM (test code = 2208) 9.5 MG/DL 8.5-10.5 PROTEIN, TOTAL (test code = 2228) 6.7 G/DL 6.1-8.3 ALBUMIN (test code = 2200) 3.8 G/DL 3.5-5.2 CALC GLOBULIN (test code = 2240) 2.9 G/DL 1.9-3.7 CALC A/G RATIO (test code = 2233) 1.3 RATIO 1.0-2.6 BILIRUBIN, TOTAL (test code = 2206) 0.3 MG/DL See_Comment [Automated me ssage] The system which generated this result transmitted reference range: <=1.2. The reference range was not used to interpret this result as normal/abnormal. ALKALINE PHOSPHATASE (test code = 2203) 91 U/L 40-121 AST (test code = 2218) 33 U/L 9-50 ALT (test code = 2219) 96 U/L 5-50 H LIPID [id number] 05:26:05* Test Item Value Reference Range Interpretation Comme nts CHOLESTEROL (test code = 2210) 261 MG/DL <200 H TRIGLYCERIDES (test code = 2232) 661 MG/DL <150 H HDL CHOLESTEROL (test code = 2220) 31 MG/DL >39 L CALC LDL CHOL (test code = 2237) (NOTE) MG/DL <100 UNABLE TO CALCUL ATE A VALID LDL CHOLESTEROL WHEN THE TRIGLYCERIDEVALUE IS GREATER THAN 400 MG/DL. NOTE: CALCULATED LDL IS BASED ON KARMA-GUILLEN METHOD WHICHINCLUDES ADJUSTABLE TRIGLYCERIDE:VLDL CHOLESTEROL RATIO.THIS FACTOR VARIES BY MEASURED TRIGLYCERIDE AND NON-HDLCHOLESTEROL CONCENTRATIONS WITH INCREASED CALCULATED LDL SEENIN HIGHER TRIGLYCERIDE OR LOWER NON-HDL SPECIMENS. FOR MOREINFORMATION, SEE CLIENT ANNOUNCEMENT AT [email or web address] CalcLDL-C RISK RATIO LDL/HDL (test code = 2238) 4.23 RATIO <3.55 H UNABLE TO JULIUS CULATE CBC W/AUTO DIFF WITH [id number] 05:12:51* Test Item Value Reference Range Interpretation Comme nts WBC (test code = 1001) 8.3 K/UL 3.5-11.0 RBC (test code = 1002) 5.48 M/UL 4.50-6.10 HEMOGLOBIN (test code = 1003) 15.0 G/DL 13.5-17.0 HEMATOCRIT (test code = 1004) 44.3 % 40.0-51.0 MCV (test code = 1005) 80.8 fL 80.0-99.0 MCH (test code = 1006) 27.4 PG 25.0-33.0 MCHC (test code = 1007) 33.9 G/DL 31.0-36.0 RDW (test code = 1038) 12.5 % 11.5-15.0 NEUTROPHILS (test code = 1008) 55.3 % LYMPHOCYTES (test code = 1010) 34.3 % MONOCYTES (test code = 1011) 7.6 % EOSINOPHILS (test code = 1012) 1.6 % BASOPHILS (test code = 1013) 0.5 % IMMATURE GRANULOCYTES (test code = 1036) 0.7 % NUCLEATED RBCS (test code = 1065) 0.0 /100 WBC'S See_Comment [Automated [employer]] The system which generated this result transmitted reference range: 0.0. The reference range was not used to interpret this result as normal/abnormal. PLATELET COUNT (test code = 1015) 265 K/UL 130-400 ABSOLUTE NEUTROPHILS (test code = 1066) 4.59 K/UL 1.50-7.50 ABSOLUTE LYMPHOCYTES (test code = 1067) 2.85 K/UL 1.00-4.00 ABSOLUTE MONOCYTES (test code = 1068) 0.63 K/UL 0.20-1.00 ABSOLUTE EOSINOPHILS (test code = 1040) 0.13 K/UL 0.00-0.50 ABSOLUTE BASOPHILS (test code = 1069) 0.04 K/UL 0.00-0.20 ABS IMMATURE GRANULOCYTES (test code = 1020) 0.06 K/UL 0.00-0.10 ABS NUCLEATED RBCS (test code = 41726) 0.00 K/UL 0.00-0.11 SEDIMENTATION [id number] 03:14:49* Test Item Value Reference Range Interpretation Comme nts ESR (test code = 8021061864) See_Comment [Automated messa ge] The system which generated this result transmitted reference range: 0 - 10 mm/HR. The reference range was not used to interpret this result as normal/abnormal. Lab Interpretation (test code = 44912-0) Normal [facility] METABOLIC PANEL (NA, K, CL, CO2, GLUCOSE, BUN, CREATININE, CA)2021-09-05 02:38:36* Test Item Value Reference Range Interpretation Comme nts NA (test code = 5839334674) 134 mmol/L 135-145 L K (test code = 8566795863) 4.7 mmol/L 3.5-5.0 CL (test code = 3655554519) 101 mmol/L 98-108 CO2 TOTAL (test code = 7385246044) 24 mmol/L 23-31 AGAP (test code = 6781480487) 2-16 BUN (test code = 4127371681) 19 mg/dL 7-23 GLUCOSE (test code = 1768517821) 112 mg/dL 70-110 H CREATININE (test code = 5373101177) 0.94 mg/dL 0.60-1.25 CALCIUM (test code = 2760030756) 8.7 mg/dL 8.6-10.6 eGFR (test code = 4376535695) mL/min/1.73m2 ROCÍO (test code = ROCÍO) Association of Glomerular Filtration Rate (GFR) and Staging of Kidney Disease* + --+ --+ ------+| GFR (mL/min/1.73 m2) ?| With Kidney Damage ?| ?Without Kidney Damage+ --------+ --------+ +| ?>90 ?| ?Stage one ?| ? Normal ?+ ---+ ---+ -------+| ?60-89 ?| ?Stage two ?| ? Decreased GFR ? + --+ --+ ------+| ?30-59 ?| ?Stage three ?| ? Stage three ? + --+ --+ ------+| ?15-29 ?| ?Stage four ? | ? Stage four ?+ ---+ ---+ -------+| ?<15 (or dialysis) ? ?| ?Stage five ? | ? Stage five ?+ ---+ ---+ -------+ *Each stage assumes the associated GFR level has been in effect for at least three months. ?Stages 1 to 5, with or without kidney disease, indicate chronic kidney disease. Notes: Determination of stages one and two (with eGFR >59mL/min/1.73 m2) requires estimation of kidney damage for at least three months as defined by structural or functional abnormalities of the kidney, manifested by either:Pathological abnormalities or Markers of kidney damage (including abnormalities in the composition of the blood or urine or abnormalities in imaging tests). Lab Interpretation (test code = 03727-2) [facility]normal [facility] [id number] 02:38:16* Test Item Value Reference Range Interpretation Comme nts URIC ACID (test code = 4321470282) 2.7 mg/dL 3.6-8.0 L Lab Interpretation (test cod e = 11150-6) Abnormal [facility] WITH [id number] 02:26:17* Test Item Value Reference Range Interpretation Comme nts WBC (test code = 6690-2) See_Comment [Automated [employer]] The system which generated this result transmitted reference range: 4.20 - 10.70 10*3/?L. The reference range was not used to interpret this result as normal/abnormal. RBC (test code = 789-8) See_Comment H [Automated [employer]] The system which generated this result transmitted reference range: 4.26 - 5.52 10*6/?L. The reference range was not used to interpret this result as normal/abnormal. HGB (test code = 718-7) 15.6 g/dL 12.2-16.4 HCT (test code = 4544-3) 48.3 % 38.4-49.3 MCV (test code = 787-2) 85.2 fL 81.7-95.6 MCH (test code = 785-6) 27.5 pg 26.1-32.7 MCHC (test code = 786-4) 32.3 g/dL 31.2-35.0 RDW-SD (test code = 41516-6) 40.1 fL 38.5-51.6 RDW-CV (test code = 788-0) 12.8 % 12.1-15.4 PLT (test code = 777-3) See_Comment [Automated messa ge] The system which generated this result transmitted reference range: 150 - 328 10*3/?L. The reference range was not used to interpret this result as normal/abnormal. MPV (test code = 52447-2) 10.3 fL 9.8-13.0 NRBC/100 WBC (test code = 3786835431) See_Comment [Automated [employer] ssage] The system which generated this result transmitted reference range: 0.0 - 10.0 /100 WBCs. The reference range was not used to interpret this result as normal/abnormal. NRBC x10^3 (test code = 7052643522) <0.01 See_Comment [Automated messa ge] The system which generated this result transmitted reference range: 10*3/?L. The reference range was not used to interpret this result as normal/abnormal. GRAN MAT (NEUT) % (test code = 770-8) 56.1 % IMM GRAN % (test code = 4530347614) 0.50 % LYMPH % (test code = 736-9) 30.9 % MONO % (test code = 5905-5) 10.2 % EOS % (test code = 713-8) 1.7 % BASO % (test code = 706-2) 0.6 % GRAN MAT x10^3(ANC) (test code = 6259443187) 4.60 10*3/uL 1.99-6.95 IMM GRAN x10^3 (test code = 3115516486) 0.04 10*3/uL 0.00-0.06 LYMPH x10^3 (test code = 731-0) 2.54 10*3/uL 1.09-3.23 MONO x10^3 (test code = 742-7) 0.84 10*3/uL 0.36-1.02 EOS x10^3 (test code = 711-2) 0.14 10*3/uL 0.06-0.53 BASO x10^3 (test code = 704-7) 0.05 10*3/uL 0.01-0.09 Lab Interpretation (test code = 00071-2) [facility] [id number] 04:42:06* Test Item Value Reference Range Interpretation Comments TROPONIN I (test code = 5711492832) 0.005 ng/mL See_Comment [Automated message] The system which generated this result transmitted reference range: <=0.034. The reference range was not used to interpret this result as normal/abnormal. ROCÍO (test code = ROCÍO) Reference (Normal) Range (defined by the 99th percentile reference limit): <= 0.034 ng/mL Note: Cardiac troponin begins to rise 3-4 hours after the onset of ischemia. Repeat in 4-6 hours if the sample was drawn within 3-4 hours of the onset of the symptom and found normal. Diagnosis of myocardial injury is made with acute changes in cTn concentrations with at least one serial sample above the 99th percentile upper reference limit (URL), taken together with the patient's clinical presentation. Biotin has been reported to cause a negative bias, interpret results relative to patient's use of biotin. Lab Interpretation (test code = 09890-6) [facility] (81434)2021-02-18 04:41:36* Test Item Value Reference Range Interpretation Comme nts NA (test code = 2169009134) 135 mmol/L 135-145 K (test code = 9099646538) 4.0 mmol/L 3.5-5.0 CL (test code = 1850366611) 102 mmol/L 98-108 CO2 TOTAL (test code = 0148580411) 27 mmol/L 23-31 AGAP (test code = 7873665131) 2-16 BUN (test code = 6983279666) 17 mg/dL 7-23 GLUCOSE (test code = 5231308117) 206 mg/dL 70-110 H CREATININE (test code = 9770507579) 0.92 mg/dL 0.60-1.25 TOTAL BILI (test code = 6731254747) 0.5 mg/dL 0.1-1.1 CALCIUM (test code = 2962943625) 9.2 mg/dL 8.6-10.6 T PROTEIN (test code = 5463530331) 7.6 g/dL 6.3-8.2 ALBUMIN (test code = 7270203347) 4.3 g/dL 3.5-5.0 ALK PHOS (test code = 2867583768) 63 U/L 34-122 ALTv (test code = 1742-6) 57 U/L 5-50 H AST(SGOT) (test code = 2487301086) 41 U/L 13-40 H eGFR (test code = 3501753580) mL/min/1.73m2 ROCÍO (test code = ROCÍO) Association of Glomerular Filtration Rate (GFR) and Staging of Kidney Disease* + --+ --+ ------+| GFR (mL/min/1.73 m2) ?| With Kidney Damage ?| ?Without Kidney Damage+ --------+ --------+ +| ?>90 ?| ?Stage one ?| ? Normal ?+ ---+ ---+ -------+| ?60-89 ?| ?Stage two ?| ? Decreased GFR ? + --+ --+ ------+| ?30-59 ?| ?Stage three ?| ? Stage three ? + --+ --+ ------+| ?15-29 ?| ?Stage four ? | ? Stage four ?+ ---+ ---+ -------+| ?<15 (or dialysis) ? ?| ?Stage five ? | ? Stage five ?+ ---+ ---+ -------+ *Each stage assumes the associated GFR level has been in effect for at least three months. ?Stages 1 to 5, with or without kidney disease, indicate chronic kidney disease. Notes: Determination of stages one and two (with eGFR >59mL/min/1.73 m2) requires estimation of kidney damage for at least three months as defined by structural or functional abnormalities of the kidney, manifested by either:Pathological abnormalities or Markers of kidney damage (including abnormalities in the composition of the blood or urine or abnormalities in imaging tests). Lab Interpretation (test code = 84475-6) [facility]normal [facility] [id number] 04:39:05* Test Item Value Reference Range Interpretation Comme nts NT-proBNP (test code = 7653711119) 77 pg/mL See_Comment [Automated message] The system which generated this result transmitted reference range: <=125. The reference range was not used to interpret this result as normal/abnormal. ROCÍO (test code = ROCÍO) Biotin has been reported to cause a negative bias, interpret results relative to patient's use of biotin. Lab Interpretation (test code = 09039-5) Normal [facility] WITH [id number] 04:19:03* Test Item Value Reference Range Interpretation Comme nts WBC (test code = 6690-2) See_Comment [Automated messa ge] The system which generated this result transmitted reference range: 4.20 - 10.70 10*3/?L. The reference range was not used to interpret this result as normal/abnormal. RBC (test code = 789-8) See_Comment [Automated messa ge] The system which generated this result transmitted reference range: 4.26 - 5.52 10*6/?L. The reference range was not used to interpret this result as normal/abnormal. HGB (test code = 718-7) 14.7 g/dL 12.2-16.4 HCT (test code = 4544-3) 45.3 % 38.4-49.3 MCV (test code = 787-2) 84.8 fL 81.7-95.6 MCH (test code = 785-6) 27.5 pg 26.1-32.7 MCHC (test code = 786-4) 32.5 g/dL 31.2-35.0 RDW-SD (test code = 74752-0) 38.7 fL 38.5-51.6 RDW-CV (test code = 788-0) 12.7 % 12.1-15.4 PLT (test code = 777-3) See_Comment [Automated messa ge] The system which generated this result transmitted reference range: 150 - 328 10*3/?L. The reference range was not used to interpret this result as normal/abnormal. MPV (test code = 63741-0) 10.1 fL 9.8-13.0 NRBC/100 WBC (test code = [id number]) See_Comment [Automated me ssage] The system which generated this result transmitted reference range: 0.0 - 10.0 /100 WBCs. The reference range was not used to interpret this result as normal/abnormal. NRBC x10^3 (test code = [id number]) <0.01 See_Comment [Automated me ssage] The system which generated this result transmitted reference range: 10*3/?L. The reference range was not used to interpret this result as normal/abnormal. GRAN MAT (NEUT) % (test code = 770-8) 66.8 % IMM GRAN % (test code = [id number]) 0.40 % LYMPH % (test code = 736-9) 25.4 % MONO % (test code = 5905-5) 5.7 % EOS % (test code = 713-8) 1.1 % BASO % (test code = 706-2) 0.6 % GRAN MAT x10^3(ANC) (test code = 0515639730) 4.77 10*3/uL 1.99-6.95 IMM GRAN x10^3 (test code = 7026206791) 0.03 10*3/uL 0.00-0.06 LYMPH x10^3 (test code = 731-0) 1.81 10*3/uL 1.09-3.23 MONO x10^3 (test code = 742-7) 0.41 10*3/uL 0.36-1.02 EOS x10^3 (test code = 711-2) 0.08 10*3/uL 0.06-0.53 BASO x10^3 (test code = 704-7) 0.04 10*3/uL 0.01-0.09 [facility] [id number] 04:04:57* Test Item Value Reference Range Interpretation Comme nts TROPONIN I (test code = 5651821572) 0.005 ng/mL See_Comment [Automated message] The system which generated this result transmitted reference range: <=0.034. The reference range was not used to interpret this result as normal/abnormal. ROCÍO (test code = ROCÍO) Equal or Less than 0.034 ng/ml---Normal ?Note: Cardiac troponin begins to rise 3-4 hours after the onset of ischemia. Repeat in 4-6 hours if the sample was drawn within 3-4 hours of the onset of the symptom and found normal. Between 0.035 and 0.120 ng/mL--- Borderline. Questionable myocardial injury or necrosis ? ?Note: Serial measurement may be necessary to confirm or exclude the diagnosis of myocardial injury or necrosis; Clinical correlation (symptoms, EKGs, imaging studies, and others) required; Repeat in 4-6 hours if clinically indicated. ? Equal or Higher than 0.121 ng/mL---Abnormal. Myocardial Injury or Necrosis Likely ? Biotin has been reported to cause a negative bias, interpret results relative to patient's use of biotin. ? Lab Interpretation (test code = 56442-8) [id number] 02:54:24* Test Item Value Reference Range Interpretation Comme nts TROPONIN I (test code = 2763860878) 0.004 ng/mL See_Comment [Automated message] The system which generated this result transmitted reference range: <=0.034. The reference range was not used to interpret this result as normal/abnormal. ROCÍO (test code = ROCÍO) Equal or Less than 0.034 ng/ml---Normal ?Note: Cardiac troponin begins to rise 3-4 hours after the onset of ischemia. Repeat in 4-6 hours if the sample was drawn within 3-4 hours of the onset of the symptom and found normal. Between 0.035 and 0.120 ng/mL--- Borderline. Questionable myocardial injury or necrosis ? ?Note: Serial measurement may be necessary to confirm or exclude the diagnosis of myocardial injury or necrosis; Clinical correlation (symptoms, EKGs, imaging studies, and others) required; Repeat in 4-6 hours if clinically indicated. ? Equal or Higher than 0.121 ng/mL---Abnormal. Myocardial Injury or Necrosis Likely ? Biotin has been reported to cause a negative bias, interpret results relative to patient's use of biotin. ? Lab Interpretation (test code = 45711-5) Normal [facility]. METABOLIC PANEL (02607)2020-12-02 02:42:04* Test Item Value Reference Range Interpretation Comme nts NA (test code = 0226172734) 137 mmol/L 135-145 K (test code = 2949773672) 4.1 mmol/L 3.5-5.0 CL (test code = 5920679147) 101 mmol/L 98-108 CO2 TOTAL (test code = 2201218403) 26 mmol/L 23-31 AGAP (test code = 8553640133) 2-16 BUN (test code = 5185793610) 18 mg/dL 7-23 GLUCOSE (test code = 2986064999) 115 mg/dL 70-110 H CREATININE (test code = 5422757217) 0.92 mg/dL 0.60-1.25 TOTAL BILI (test code = 0228241484) 0.6 mg/dL 0.1-1.1 CALCIUM (test code = 7087979750) 9.4 mg/dL 8.6-10.6 T PROTEIN (test code = 1304710346) 7.5 g/dL 6.3-8.2 ALBUMIN (test code = 0690401062) 4.4 g/dL 3.5-5.0 ALK PHOS (test code = 6626866596) 67 U/L 34-122 ALTv (test code = 1742-6) 44 U/L 5-50 AST(SGOT) (test code = 9634404481) 33 U/L 13-40 eGFR (test code = 3181721751) mL/min/1.73m2 ROCÍO (test code = ROCÍO) Association of Glomerular Filtration Rate (GFR) and Staging of Kidney Disease* + --+ --+ ------+| GFR (mL/min/1.73 m2) ?| With Kidney Damage ?| ?Without Kidney Damage+ --------+ --------+ +| ?>90 ?| ?Stage one ?| ? Normal ?+ ---+ ---+ -------+| ?60-89 ?| ?Stage two ?| ? Decreased GFR ? + --+ --+ ------+| ?30-59 ?| ?Stage three ?| ? Stage three ? + --+ --+ ------+| ?15-29 ?| ?Stage four ? | ? Stage four ?+ ---+ ---+ -------+| ?<15 (or dialysis) ? ?| ?Stage five ? | ? Stage five ?+ ---+ ---+ -------+ *Each stage assumes the associated GFR level has been in effect for at least three months. ?Stages 1 to 5, with or without kidney disease, indicate chronic kidney disease. Notes: Determination of stages one and two (with eGFR >59mL/min/1.73 m2) requires estimation of kidney damage for at least three months as defined by structural or functional abnormalities of the kidney, manifested by either:Pathological abnormalities or Markers of kidney damage (including abnormalities in the composition of the blood or urine or abnormalities in imaging tests). Lab Interpretation (test code = 17932-0) [facility]:14:40* Test Item Value Reference Range Interpretation Comme [facility] APTT Patient (test code = 3173-2) See_Comment [Automated message] The system which generated this result transmitted reference range: 23 - 38 Seconds. The reference range was not used to interpret this result as normal/abnormal. ROCÍO (test code = ROCÍO) The [facility] patient population mean normal value for aPTT is 30 seconds. Lab Interpretation (test code = 55394-9) Normal [facility] / [id number] 02:12:38* Test Item Value Reference Range Interpretation Comme [facility] PROTIME PATIENT (test code = 5964-2) See_Comment [Automated [employer]] The system which generated this result transmitted reference range: 12.0 - 14.7 Seconds. The reference range was not used to interpret this result as normal/abnormal. INR (test code = 6301-6) Normal INR <1.1; Warfarin Therapeutic range 2.0 to 3.0 or 2.5 to 3.5, depending upon the indications. Lab Interpretation (test code = 07827-5) Normal [facility], [id number] 02:04:56* Test Item Value Reference Range Interpretation Comme nts LIPASE (test code = 4840556865) 119 U/L 0-220 Lab Interpretation (test cod e = 04972-7) Normal [facility] WITH [id number] 01:56:13* Test Item Value Reference Range Interpretation Comme nts WBC (test code = 6690-2) See_Comment [Automated messa ge] The system which generated this result transmitted reference range: 4.20 - 10.70 10*3/?L. The reference range was not used to interpret this result as normal/abnormal. RBC (test code = 789-8) See_Comment H [Automated messa ge] The system which generated this result transmitted reference range: 4.26 - 5.52 10*6/?L. The reference range was not used to interpret this result as normal/abnormal. HGB (test code = 718-7) 15.5 g/dL 12.2-16.4 HCT (test code = 4544-3) 47.8 % 38.4-49.3 MCV (test code = 787-2) 84.8 fL 81.7-95.6 MCH (test code = 785-6) 27.5 pg 26.1-32.7 MCHC (test code = 786-4) 32.4 g/dL 31.2-35.0 RDW-SD (test code = 98248-4) 37.4 fL 38.5-51.6 L RDW-CV (test code = 788-0) 12.2 % 12.1-15.4 PLT (test code = 777-3) See_Comment [Automated messa ge] The system which generated this result transmitted reference range: 150 - 328 10*3/?L. The reference range was not used to interpret this result as normal/abnormal. MPV (test code = 15027-0) 10.0 fL 9.8-13.0 NRBC/100 WBC (test code = 4536589276) See_Comment [Automated [employer] ssage] The system which generated this result transmitted reference range: 0.0 - 10.0 /100 WBCs. The reference range was not used to interpret this result as normal/abnormal. NRBC x10^3 (test code = 5009360220) <0.01 See_Comment [Automated messa ge] The system which generated this result transmitted reference range: 10*3/?L. The reference range was not used to interpret this result as normal/abnormal. GRAN MAT (NEUT) % (test code = 770-8) 56.9 % IMM GRAN % (test code = 5669279549) 0.50 % LYMPH % (test code = 736-9) 32.5 % MONO % (test code = 5905-5) 8.5 % EOS % (test code = 713-8) 1.1 % BASO % (test code = 706-2) 0.5 % GRAN MAT x10^3(ANC) (test code = 1231234553) 3.13 10*3/uL 1.99-6.95 IMM GRAN x10^3 (test code = 7194172155) 0.03 10*3/uL 0.00-0.06 LYMPH x10^3 (test code = 731-0) 1.79 10*3/uL 1.09-3.23 MONO x10^3 (test code = 742-7) 0.47 10*3/uL 0.36-1.02 EOS x10^3 (test code = 711-2) 0.06 10*3/uL 0.06-0.53 BASO x10^3 (test code = 704-7) 0.03 10*3/uL 0.01-0.09 Lab Interpretation (test code = 27582-8) Abnormal [facility] Metabolic Panel (NA, K, CL, CO2, GLUCOSE, BUN, CREATININE, CA)2020-05-18 11:10:00* Test Item Value Reference Range Interpretation Comme nts NA (test code = 0260036493) 136 mmol/L 135-145 K (test code = 0253714214) 4.3 mmol/L 3.5-5 CL (test code = 0220726709) 100 mmol/L 98-108 CO2 TOTAL (test code = 9949413782) 28 mmol/L 23-31 AGAP (test code = 2916132464) 2-16 BUN (test code = 6839876937) 16 mg/dL 7-23 GLUCOSE (test code = 9530150030) 230 mg/dL 70-110 H CREATININE (test code = 5324578406) 0.77 mg/dL 0.6-1.25 CALCIUM (test code = 6211235428) 8.8 mg/dL 8.6-10.6 eGFR Calculation (Non-) (test code = 4887543082) mL/min/1.73m2 eGFR Calculation () (test code = 8590625025) mL/min/1.73m2 ROCÍO (test code = ROCÍO) Association of Glomerular Filtration Rate (GFR) and Staging of Kidney Disease* + --+ --+ ------+| GFR (mL/min/1.73 m2) ?| With Kidney Damage ?| ?Without Kidney Damage+ --------+ --------+ +| ?>90 ?| ?Stage one ?| ? Normal ?+ ---+ ---+ -------+| ?60-89 ?| ?Stage two ?| ? Decreased GFR ? + --+ --+ ------+| ?30-59 ?| ?Stage three ?| ? Stage three ? + --+ --+ ------+| ?15-29 ?| ?Stage four ? | ? Stage four ?+ ---+ ---+ -------+| ?<15 (or dialysis) ? ?| ?Stage five ? | ? Stage five ?+ ---+ ---+ -------+ *Each stage assumes the associated GFR level has been in effect for at least three months. ?Stages 1 to 5, with or without kidney disease, indicate chronic kidney disease. Notes: Determination of stages one and two (with eGFR >59mL/min/1.73 m2) requires estimation of kidney damage for at least three months as defined by structural or functional abnormalities of the kidney, manifested by either:Pathological abnormalities or Markers of kidney damage (including abnormalities in the composition of the blood or urine or abnormalities in imaging tests). Lab Interpretation (test code = 09191-6) Abnormal [facility] with [id number] 08:59:00* Test Item Value Reference Range Interpretation Comme nts WBC (test code = 6690-2) See_Comment [Automated [employer]] The system which generated this result transmitted reference range: 4.20 - 10.70 10*3/?L. The reference range was not used to interpret this result as normal/abnormal. RBC (test code = 789-8) See_Comment [Automated [employer]] The system which generated this result transmitted reference range: 4.26 - 5.52 10*6/?L. The reference range was not used to interpret this result as normal/abnormal. HGB (test code = 718-7) 12.9 g/dL 12.2-16.4 HCT (test code = 4544-3) 38.6 % 38.4-49.3 MCV (test code = 787-2) 84.5 fL 81.7-95.6 MCH (test code = 785-6) 28.2 pg 26.1-32.7 MCHC (test code = 786-4) 33.4 g/dL 31.2-35 RDW-SD (test code = 43091-7) 37.1 fL 38.5-51.6 L RDW-CV (test code = 788-0) 12.2 % 12.1-15.4 PLT (test code = 777-3) See_Comment [Automated [employer]] The system which generated this result transmitted reference range: 150 - 328 10*3/?L. The reference range was not used to interpret this result as normal/abnormal. MPV (test code = 80811-9) 10.5 fL 9.8-13 NRBC/100 WBC (test code = 3166914626) See_Comment [Automated [employer] ssage] The system which generated this result transmitted reference range: 0.0 - 10.0 /100 WBCs. The reference range was not used to interpret this result as normal/abnormal. NRBC x10^3 (test code = 8461722466) <0.01 See_Comment [Automated [employer]] The system which generated this result transmitted reference range: 10*3/?L. The reference range was not used to interpret this result as normal/abnormal. GRAN MAT (NEUT) % (test code = 770-8) 62.9 % IMM GRAN % (test code = 2109457532) 2.30 % LYMPH % (test code = 736-9) 27.8 % MONO % (test code = 5905-5) 6.8 % EOS % (test code = 713-8) 0.0 % BASO % (test code = 706-2) 0.2 % GRAN MAT x10^3(ANC) (test code = 4310355517) 2.79 10*3/uL 1.99-6.95 IMM GRAN x10^3 (test code = 0109939839) 0.10 10*3/uL 0-0.06 H LYMPH x10^3 (test code = 731-0) 1.23 10*3/uL 1.09-3.23 MONO x10^3 (test code = 742-7) 0.30 10*3/uL 0.36-1.02 L EOS x10^3 (test code = 711-2) <0.03 0.06-0.53 L BASO x10^3 (test code = 704-7) <0.03 0.01-0.09 Lab Interpretation (test code = 74401-0) [facility]normal [facility]NE[facility]CCAL [id number] 03:05:00* Test Item Value Reference Range Interpretation Comme nts S. pneumoniae antigen (test code = 9070820940) Negative Negative Lab Interpretation (test cod e = 75671-4) Normal [facility] HospitalLEGIONELLA URINARY ANTIGEN [id number] 03:05:00* Test Item Value Reference Range Interpretation Comme nts Legionella Urinary Antigen (test code = 5944185990) Negative Negative ROCÍO (test code = ROCÍO) Negative for L. pneumophilia serogroup I antigen in urine suggesting no recent or current infection. Infection due to Legionella cannot be ruled out since other serogroups and species may cause disease. Furthermore, antigens may not be present in urine during early stage of infection, or the level of antigen present in urine may be below the detection limit of the test. Lab Interpretation (test code = 15214-1) Normal [facility] [id number] 00:34:42No acute pulmonary embolism to the segmental level. Bilateral multifocal airspace opacities concerning for atypical/viralinfection including Covid-19 pneumonia. Correlate clinically. Bilateral trace pleural effusions with associated atelectasis. Small hiatal hernia and distal esophageal wall thicken ing, which can beseen with esophagitis. Severe hepatic steatosis. Splenomegaly. Preliminary Report Dictated by Resident: César Beavers ?MD Harini., havereviewed this study and agree with theabove report.PROCEDURE: CT ANGIO CHEST WITH CONTRAST - PE PROTOCOL CLINICAL INDICATION: PE suspected, intermediate prob, positive D-dimerCOVID pneumonia ? COMPARISON: Same day chest radiograph TECHNIQUE: ?Helical CT was performed and reconstructed at 1.25 mm slicethickness from lung base to apices after the administration of 114 mLOmnipaque-350 intravenous contrast, without complication. ?Display field ofview: 40 cm. FINDINGS: PULMONARY ARTERIESEnhancement is adequate, however respiratory motion limits evaluationbeyond the segmental level.. Within these limitations, no acute pulmonaryembolus is seen. The pulmonary trunk is normal in caliber. CHEST:Lower neck/thyroid: Normal thyroid gland. The visualized lower neck isunremarkable. Lungs/Pleura: Trace bilateral pleural effusions with adjacent atelectasis.Bilateral multifocal consolidative and groundglass opacities involvingupper and lower lobes. Central airway: The central airways are patent. Thoracic aorta and great vessels: Normal in diameter. Heart and pericardium: No detectable coronary arterial calcification.Unremarkable cardiac morphology and pericardium. Mediastinum and lymph nodes: Scattered mildly enlarged mediastinal andhilar lymph nodes, likely reactive. Mildly prominent prevascularlymph nodemeasuring 6 mm in short axis (5:78). Prominent right hilar lymph nodemeasuring 1.8 cm in short axis. Thoracic spine and chest wall: No suspicious or aggressive osseous lesion. Other Lines/Tubes/Devices/Hardware: None Visualized upper abdomen: Severely steatotic liver with relative sparingatthe gallbladder fossa. Splenomegaly measuring approximately 14 cm incraniocaudal dimension. [facility], Radiant Results Inft User - 05/17/2020 7:35 PM CDTPROCEDURE: CT ANGIO CHEST WITH CONTRAST - PE PROTOCOLCLINICAL INDICATION: PE suspected, intermediate prob, positive D-d imerCOVID pneumonia COMPARISON: Same day chest radiographTECHNIQUE: Helical CT was performed and reconstructed at 1.25 mm slicethickness from lung base to apices after the administration of 114 mLOmnipaque-350 intravenous contrast, without complication. Display field ofview: 40 cm.FINDINGS:PULMONARY ARTERIESEnhancement is adequate, however respiratory motion limits evaluationbeyond the segmentallevel.. Within these limitations, no acute pulmonaryembolus is seen. The pulmonary trunk is normal in caliber.CHEST:Lower neck/thyroid: Normal thyroid gland. The visualized lower neck isunremarkable.L ungs/Pleura: Trace bilateral pleural effusions with adjacent atelectasis.Bilateral multifocal consolidative and groundglass opacities involvingupper and lower lobes. Central airway: The central airways are patent.Thoracic aorta and great vessels: Normal in diameter.Heart and pericardium: No detectable coronary arterial calcification.Unremarkable cardiac morphology and pericardium.Mediastinum and lymph nodes: Scattered mildly enlarged mediastinal andhilar lymph nodes, likely reactive. Mildly prominent prevascular lymph nodemeasuring 6 mm in short axis (5:78). Prominent right hilar lymph nodemeasuring 1.8 cm in short axis.Thoracic spine and chest wall: No suspicious or aggressive osseous lesion. Other Lines/Tubes/Devices/Hardware: NoneVisualized upper abdomen: Severely steatotic liver with relative sparing atthe gallbladder fossa. Splenomegaly measuring approximately 14 cm incraniocaudal dimension. IMPRESSIONNo acute pulmonary embolism to the segmental level.Bilateral multifocal airspace opacities concerning for atypical/viralinfection including Covid-19 pneumonia. Correlate clinically.Bilateral trace pleural effusions with associated atelectasis.Small hiatal hernia and distal esophageal wall thickening, which can beseen with esophagitis. Severe hepatic steatosis. Splenomegaly. Preliminary Report Dictated by Resident: César George MD., have reviewed this study and agree with theabove report.[facility] HospitalPROCALCITONIN 2020-05-17 20:08:00* Test Item Value Reference Range Interpretation Comme nts Procalcitonin (test code = 1899964203) 0.04 ng/mL <0.07 ROCÍO (test code = ROCÍO) INTERPRETATION OF PROCALCITONIN RESULTS IN ADULTS >= 18 YEARS OF AGE Initiation and discontinuation of antibiotics on patients with suspected or confirmed Lower Respiratory Tract Infection in Adults >= 18 years of age. + +-------- --------+ + -----+|Procalcitonin |Interpretation ?|Antibiotic ? ? |Considerations ? |ng/mL ? | ?|recommendation | ? + +-------- --------+ + -----+| <0.1 ? | Bacterial ? ? ?| Strongly ? ? ?| ? | ?| infection very | discouraged ? | Overruling: ? | ?| unlikely ? ? ? | ? | ? Clinically unstable ? ? ? + +-------- --------+ + ? High risk for adverse ? ? | <0.25 ?| Bacterial ? ? ?| Discouraged ? | ? outcome ? | ?| infection ? ? ?| ? | ? SEE IMPORTANT NOTE ?| ?| unlikely ? ? ? | ? | ? + +-------- --------+ + -----+| >=0.25 ? ? ? | Bacterial ? ? ?| Encouraged ? ?| ? | ?| infection ? ? ?| ? | ? | ?| likely ? | ? | Consider treatment failure ?+ +------- ---------+ -+ if levels does not decrease | >0.5 ? | Bacterial ? ? ?| Strongly ? ? ?| appropriately ? | ?| infection very | encouraged ? ?| ? | ?| likely ? | ? | ? + +-------- --------+ + -----+ Discontinuation of antibiotics in high-acuity patients with suspected or confirmed sepsis in Adults >= 18 years of age. + +-------- --------+ + -----+|Procalcitonin |Interpretation ?|Antibiotic ? ? |Considerations ? |ng/mL ? | ?|recommendation | ? + +-------- --------+ + -----+| <0.25 ?| Bacterial ? ? ?| Strongly ? ? ?| ? | ?| infection very | discouraged ? | Overruling: ? | ?| unlikely ? ? ? | ? | ? Clinically unstable ? ? ? + +-------- --------+ + ? High risk for adverse ? ? | <0.5 or drop | Bacterial ? ? ?| Discouraged ? | ? outcome ? | >80% from ? ?| infection ? ? ?| ? | ? SEE IMPORTANT NOTE ?| highest PCT ?| unlikely ? ? ? | ? | ? | level ?| ?| ? | ? + +-------- --------+ + -----+| >=0.5 ?| Bacterial ? ? ?| Encouraged ? ?| ? | ?| infection ? ? ?| ? | ? | ?| likely ? | ? | Consider treatment failure ?+ +------- ---------+ -+ if levels does not decrease | >1.0 ? | Bacterial ? ? ?| Strongly ? ? ?| appropriately ? | ?| infection very | encouraged ? ?| ? | ?| likely ? | ? | ? + +-------- --------+ + -----+ Percentage of drop of Procalcitonin calculation for Discontinuation of antibiotics in high-acuity patients with suspected or confirmed sepsis in Adults >= 18 years of age. ? Procalcitonin highest{}-Procalcitonin current{}Delta Procalcitonin = x100% ? Procalcitonin current {} IMPORTANT NOTE: Procalcitonin may be elevated without bacterial infection by physiologic stress related to trauma, garay, chronic dialysis, metastatic cancer, surgery in the past seven days, malaria, some fungal infections, and some forms of vasculitis. The interpretation algorithm may not apply to patients with immunosuppression (equivalent of >10 mg of prednisone daily), HIV with CD4 cell count < 350 cells/mm3, active malignancy on systemic chemotherapy, solid organ transplant or hematopoietic stem cell transplantation, or hospital acquired pneumonia. Additionally, some clinical trials of procalcitonin have excluded patients with shock requiring vasopressor use, acute respiratory failure requiring mechanical ventilation, or those with known lung abscess/empyema. For further information please refer to:[email or web address] Lab Interpretation (test code = 26005-2) Normal [facility] HospitalD-[id number] 15:48:00* Test Item Value Reference Range Interpretation Comments D-DIMER (test code = 9829088049) See_Comment H [Automated message] The system which generated this result transmitted reference range: <0.41 ?g/mL (FEU). The reference range was not used to interpret this result as normal/abnormal. ROCÍO (test code = ROCÍO) This test may be used in conjunction with a clinical pretest probability (PTP) assessment model to exclude venous thromboembolism (VTE) in patients suspected of deep venous thrombosis (DVT) and pulmonary embolism (PE) A D-Dimer value less than 0.50 ?g/ml (FEU) has a negative predicative value of 96 to 100% (95% CI)and 97 to 100% (95% CI) as an aid in the diagnosis of deep vein thrombosis (DVT) and pulmonary embolism when there is low or moderate pretest probability of PE or DVT. D-Dimer values are expressed in initial fibrinogen equivalent units (FEU)" The assay results should be used with other information, including the clinical context, in forming a diagnosis. Lab Interpretation (test code = 02068-3) Abnormal [facility] HospitalCREATINE [id number] 15:43:00* Test Item Value Reference Range Interpretation Comme nts CK (test code = 2113698728) 53 U/L 33-194 Lab Interpretation (test cod e = 35819-9) Normal [facility] HospitalADC,CLC OR [facility] ONLY - INFLUENZA A & B DIRECT [id number] 14:12:00* Test Item Value Reference Range Interpretation Comme nts Influenza A (test code = 87829-2) Negative Negative Influenza B (test code = 48466-4) Negative Negative Lab Interpretation (test cod e = 95159-4) Normal [facility] HospitalCOVID-[facility] (ID NOW RAPID TESTING)2020-05-17 14:07:00* Test Item Value Reference Range Interpretation Comme nts SARS-CoV-2 Rapid ID NOW (test code = 66255-9) Positive Not Detected A ROCÍO (test code = ROCÍO) ID NOW COVID-19 As say is an isothermal nucleic acid amplification test intended for the qualitative detection of nucleic acid from SARS-CoV-2 viral RNA in nasopharyngeal ([facility]LE[employer] FLOOR) specimens. It is used under Emergency Use Authorization (EUA) by FDA. The limit of detection (LOD) of the assay is 125 Genome Equivalents/mL. A positive result is indicative of the presence of SARS-CoV-2 RNA. ?Clinical correlation with patient history and other diagnostic information is necessary to determine patient infection status. A negative (Not Detected) result does not preclude SARS-CoV-2 infection. In patients with clinical symptoms and other tests that are consistent with SARS-CoV-2 infection, negative results should be treated as presumptive negative and a new specimen should be tested with alternative PCR molecular test. Invalid: Please collect a new specimen for repeat patient testing if clinically indicated. Lab Interpretation (test code = 89597-1) [facility]normal [facility] [id number] 14:05:00* Test Item Value Reference Range Interpretation Comme [facility] TROPONIN I (test code = 1949022912) <0.012 See_Comment [Automated message] The system which generated this result transmitted reference range: <=0.034 ng/mL. The reference range was not used to interpret this result as normal/abnormal. ROCÍO (test code = ROCÍO) Equal or Less than 0.034 ng/ml---Normal ?Note: Cardiac troponin begins to rise 3-4 hours after the onset of ischemia. Repeat in 4-6 hours if the sample was drawn within 3-4 hours of the onset of the symptom and found normal. Between 0.035 and 0.120 ng/mL--- Borderline. Questionable myocardial injury or necrosis ? ?Note: Serial measurement may be necessary to confirm or exclude the diagnosis of myocardial injury or necrosis; Clinical correlation (symptoms, EKGs, imaging studies, and others) required; Repeat in 4-6 hours if clinically indicated. ? Equal or Higher than 0.121 ng/mL---Abnormal. Myocardial Injury or Necrosis Likely ? Biotin has been reported to cause a negative bias, interpret results relative to patient's use of biotin. ? Lab Interpretation (test code = 52503-8) Normal [facility] TVJ-DGO2171-09-03 14:02:00* Test Item Value Reference Range Interpretation Comme nts NT-proBNP (test code = 8499049124) 102 pg/mL See_Comment [Automated message] The system which generated this result transmitted reference range: <=125. The reference range was not used to interpret this result as normal/abnormal. ROCÍO (test code = ROCÍO) Biotin has been reported to cause a negative bias, interpret results relative to patient's use of biotin. Lab Interpretation (test code = 53674-0) Normal [facility] 1 Nvki7113-65-20 14:00:13Impression: Streaky opacities left greater than right which may representatypical infection including Covid 19. Disclaimer: Generally, the findings on chest imaging in COVID-19 are notspecific, and overlap with other infections, including influenza, H1N1,SARS and MERS.According to the Centers for Disease Control (CDC) and recent statement ofthe [employer], viral testing remains the only specificmethod of diagnosis. Confirmation with the viral test is required, even ifradiologic findings are suggestive of COVID-[address] Exam: XR CHEST 1 05/17/2020 8:37 AM Clinical History: dyspnea Comparison: None Technique: AP view of the chest Findings:There are streaky opacities greater in the left mid and lower lung zone. Nopleural effusion. ?No pneumothorax. The cardiomediastinal silhouetteappears unchanged. No acute osseous abnormality. [facility], Radiant Results Inft User -05/17/2020 9:01 AM CDTExam: XR CHEST 1 VW 05/17/2020 8:37 AMClinical History: dyspnea Comparison: NoneTechnique: AP view of the chestFindings:There are streaky opacities greater in the left mid and lower lung zone. Nopleural effusion. No pneumothorax. The cardiomediastinal silhouetteappears unchanged. No acute osseous abnormality. IMPRESSIONImpression: Streaky opacities left greater than right which may representatypical infection including Covid 19.Disclaimer: Generally, the findings on chest imaging in COVID-19 are notspecific, and overlap with other infections, including influenza, H1N1,SARS and MERS.According to the Centers for Disease Control (CDC) and recent statement ofthe [employer], viral testing remains the only specificmethod of diagnosis. Confirmation with the viral test is required, even ifradiologic findings are suggestive of COVID-[address] [facility] (NA, K, CL, CO2, GLUCOSE, BUN, CREATININE, CA)2020-05-17 13:53:00* Test Item Value Reference Range Interpretation Comme nts NA (test code = 8822390446) 135 mmol/L 135-145 K (test code = 8323902892) 4.0 mmol/L 3.5-5 CL (test code = 1031838083) 97 mmol/L 98-108 L CO2 TOTAL (test code = 0882672494) 29 mmol/L 23-31 AGAP (test code = 2830111142) 2-16 BUN (test code = 4650964229) 16 mg/dL 7-23 GLUCOSE (test code = 4264879983) 124 mg/dL 70-110 H CREATININE (test code = 8821170046) 0.85 mg/dL 0.6-1.25 CALCIUM (test code = 6199809877) 8.9 mg/dL 8.6-10.6 eGFR Calculation (Non-) (test code = 0776101153) mL/min/1.73m2 eGFR Calculation () (test code = 3379070129) mL/min/1.73m2 ROCÍO (test code = ROCÍO) Association of Glomerular Filtration Rate (GFR) and Staging of Kidney Disease* + --+ --+ ------+| GFR (mL/min/1.73 m2) ?| With Kidney Damage ?| ?Without Kidney Damage+ --------+ --------+ +| ?>90 ?| ?Stage one ?| ? Normal ?+ ---+ ---+ -------+| ?60-89 ?| ?Stage two ?| ? Decreased GFR ? + --+ --+ ------+| ?30-59 ?| ?Stage three ?| ? Stage three ? + --+ --+ ------+| ?15-29 ?| ?Stage four ? | ? Stage four ?+ ---+ ---+ -------+| ?<15 (or dialysis) ? ?| ?Stage five ? | ? Stage five ?+ ---+ ---+ -------+ *Each stage assumes the associated GFR level has been in effect for at least three months. ?Stages 1 to 5, with or without kidney disease, indicate chronic kidney disease. Notes: Determination of stages one and two (with eGFR >59mL/min/1.73 m2) requires estimation of kidney damage for at least three months as defined by structural or functional abnormalities of the kidney, manifested by either:Pathological abnormalities or Markers of kidney damage (including abnormalities in the composition of the blood or urine or abnormalities in imaging tests). Lab Interpretation (test code = 61330-3) [facility]normal [facility] (ALB, T.PRO, BILI T, BU/BC, ALT, AST, ALK PHOS)2020-05-17 13:53:00* Test Item Value Reference Range Interpretation Comme [facility] TOTAL BILI (test code = 8653812143) 0.5 mg/dL 0.1-1.1 BILI UNCON (test code = 9467304308) 0.5 mg/dL 0.1-1.1 BILI CONJ (test code = 2885432390) 0.0 mg/dL 0-0.3 T PROTEIN (test code = 7798036259) 7.3 g/dL 6.3-8.2 ALBUMIN (test code = 2034084393) 3.6 g/dL 3.5-5 ALK PHOS (test code = 2521259780) 101 U/L 34-122 ALTv (test code = 1742-6) 77 U/L 5-50 H AST(SGOT) (test code = 9190971231) 67 U/L 13-40 H Lab Interpretation (test cod e = 89425-3) Abnormal [facility] HospitalaPTT2020-10-03 13:51:00* Test Item Value Reference Range Interpretation Comme nts APTT Patient (test code = 3173-2) See_Comment [Automated message] The system which generated this result transmitted reference range: 23 - 38 Seconds. The reference range was not used to interpret this result as normal/abnormal. ROCÍO (test code = ROCÍO) The [facility] patient population mean normal value for aPTT is 30 seconds. Lab Interpretation (test code = 91293-1) Normal [facility] HospitalProthrombin Time (PT) / BLE0063-15-15 13:49:00 * Test Item Value Reference Range Interpretation Comme [facility] PROTIME PATIENT (test code = 5964-2) See_Comment [Automated Culture Jama ge] The system which generated this result transmitted reference range: 12.0 - 14.7 Seconds. The reference range was not used to interpret this result as normal/abnormal. INR (test code = 6301-6) Normal INR <1.1; Warfarin Therapeutic range 2.0 to 3.0 or 2.5 to 3.5, depending upon the indications. Lab Interpretation (test code = 50957-0) Normal [facility] HospitalCBC with Tnwrfkrcwkxb7023-66-50 13:41:00* Test Item Value Reference Range Interpretation Comme [facility] WBC (test code = 6690-2) See_Comment [Automated messa ge] The system which generated this result transmitted reference range: 4.20 - 10.70 10*3/?L. The reference range was not used to interpret this result as normal/abnormal. RBC (test code = 789-8) See_Comment [Automated Culture [employer]] The system which generated this result transmitted reference range: 4.26 - 5.52 10*6/?L. The reference range was not used to interpret this result as normal/abnormal. HGB (test code = 718-7) 12.8 g/dL 12.2-16.4 HCT (test code = 4544-3) 40.2 % 38.4-49.3 MCV (test code = 787-2) 86.1 fL 81.7-95.6 MCH (test code = 785-6) 27.4 pg 26.1-32.7 MCHC (test code = 786-4) 31.8 g/dL 31.2-35 RDW-SD (test code = 02765-9) 39.0 fL 38.5-51.6 RDW-CV (test code = 788-0) 12.3 % 12.1-15.4 PLT (test code = 777-3) See_Comment [Automated Culture Jama ge] The system which generated this result transmitted reference range: 150 - 328 10*3/?L. The reference range was not used to interpret this result as normal/abnormal. MPV (test code = 79007-9) 9.4 fL 9.8-13 L NRBC/100 WBC (test code = 4269690116) See_Comment [Automated Unipl[employer] ssage] The system which generated this result transmitted reference range: 0.0 - 10.0 /100 WBCs. The reference range was not used to interpret this result as normal/abnormal. NRBC x10^3 (test code = 2225809345) <0.01 See_Comment [Automated Culture Jama ge] The system which generated this result transmitted reference range: 10*3/?L. The reference range was not used to interpret this result as normal/abnormal. GRAN MAT (NEUT) % (test code = 770-8) 56.0 % IMM GRAN % (test code = 3510076641) 1.40 % LYMPH % (test code = 736-9) 32.1 % MONO % (test code = 5905-5) 9.0 % EOS % (test code = 713-8) 1.0 % BASO % (test code = 706-2) 0.5 % GRAN MAT x10^3(ANC) (test code = 5117286494) 3.25 10*3/uL 1.99-6.95 IMM GRAN x10^3 (test code = 0581127367) 0.08 10*3/uL 0-0.06 H LYMPH x10^3 (test code = 731-0) 1.86 10*3/uL 1.09-3.23 MONO x10^3 (test code = 742-7) 0.52 10*3/uL 0.36-1.02 EOS x10^3 (test code = 711-2) 0.06 10*3/uL 0.06-0.53 BASO x10^3 (test code = 704-7) 0.03 10*3/uL 0.01-0.09 Lab Interpretation (test code = 00079-0) Abnormal [facility] HospitalCT [facility]MARK SINUS WO KLGDPMRX8861-49-55 22:54:13Post-surgical changes of FESS with left maxillary uncinectomy. A polypoid mass centered in the posterior nasal cavity extending into thenasopharynx. 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 A coarse calcification centeredin the right olfactory groove has also beenpresent since 2007 Large right mastoid effusion, probably secondary to the above- describedinflammatory process. Trace scattered mucosal thickening within the maxillary sinuses and ethmoidair cells. Otherwise, essentially clear paranasal sinuses and patent sinusoutflow tracts. Preliminary Report Dictated by Resident: Leonel Gross I, Thong Soria MD., have reviewed this study and agree with theabove report.* * * * * * * * ORIGINAL REPORT * * * * * * * *CT LANDMARK SINUS WO CONTRAST HISTORY: nasal obstruction, hx of nasal papillomas COMPARISON: Non-contrast CT dated 09/03/2019, brain MRI dated 11/16/2018 TECHNIQUE: CT images of the paranasal sinuses obtained without IV contrast.Multiplanar reformats submitted for review. FINDINGS: Postsurgical changes of left uncinectomy are noted. The frontal sinuses are clear. The frontal recesses are patent. The anterior ethmoidal air cells are clear.Osseous thickening of the maxillary sinus grissom are noted in keeping withchronic osteitis. Minimal mucoperiosteal thickening is noted bilaterally.The right ostiomeatal unit and left maxillary antrostomy remain patent. The lamina papyracea are intact. The roof of the left ethmoid is cephaladto the right. There is a 4 mm coarse calcification in the right olfactorygroove which has been unchanged from at least the CT sinus dating back [id number]. Thesphenoid septum is rightward deviated. The sphenoid sinuses are clear. Mildly mucoperiosteal thickening narrowsthe right sphenoethmoidal recess. The left sphenoethmoidal recess ispatent.The posteriorethmoidal air cells are clear. Moderate focal leftward deviation of the cartilaginous nasal septum isnoted. Trace leftward deviation of the posterior bony nasal septum with 2mm leftward directed osseous spur. The turbinate morphology isunremarkable. Soft tissue opacification of the visualized nasoph arynx and nasal cavity.Suggestion of underlying polypoid lesions in this region with lineargaseous foci tracking about ovoid regions of soft tissue. No osseousdestructive changes are seen. Appearanceis suggestive forinflammatory/anterochoanal polyps. Suggestion of superimposed layeringfluid withinthe nasal cavity probably reflects retained secretions.Findings appear moderately progressed from most recent prior on 09/03/2019which demonstrated opacification limited to the nasopharynx and posteriornasal cavity. Subtotal opacification of the right mastoid air cells noted, probablysecondary to the above-described inflammatory process. [facility], Radiant Results Inft User - 09/25/2019 4:55 PM SAMPLER PICKUP* * * * * * * * ORIGINAL REPORT * * * * * * * *CT LANDMARK SINUS WO CONTRASTHISTORY: nasal obstruction, hx of nasal papillomas COMPARISON: Non-contrast CT dated 09/03/2019, brain MRI dated 11/16/2018 TECHNIQUE: CT images of the paranasal sinuses obtained without IV contrast.Multiplanar reformats submitted for review.FINDINGS:Postsurgical changes of left uncinectomy are noted.The frontal sinuses are clear. The frontal recesses are patent. The anterior ethmoidal air cells are clear.Osseous thickening of the maxillary sinus grissom are noted in keeping withchronic osteitis. Minimal mucoperiosteal thickening is noted bilaterally.The right ostiomeatal unit and left maxillary antrostomy remain patent.The lamina papyracea are intact. The roof of the left ethmoid is cephaladto the right. There is a 4 mm coarse calcification in the right olfactorygroove which has been unchanged from at least the CT sinus dating back [id number]. The sphenoid septum is rightward deviated.The sphenoid sinuses are clear. Mildlymucoperiosteal thickening narrowsthe right sphenoethmoidal recess. The left sphenoethmoidal recess ispatent.The posterior ethmoidal air cells are clear.Moderate focal leftward deviation of the cartilaginous nasal septum isnoted. Trace leftward deviation of the posterior bony nasal septum with 2mm le ftward directed osseous spur. The turbinate morphology isunremarkable. Soft tissue opacification ofthe visualized nasopharynx and nasal cavity.Suggestion of underlying polypoid lesions in this region with lineargaseous foci tracking about ovoid regions of soft tissue. No osseousdestructive changesare seen. Appearance is suggestive forinflammatory/anterochoanal polyps. Suggestion of superimposedlayeringfluid within the nasal cavity probably reflects retained secretions.Findings appear moderately progressed from most recent prior on 09/03/2019which demonstrated opacification limited to the nasopharynx and posteriornasal cavity. Subtotal opacification of the right mastoid air cells noted, probablysecondary to the above-described inflammatory process.IMPRESSIONPost-surgical changes of FESS with left maxillary uncinectomy.A polypoid mass centered in the posterior nasal cavity extending into thenasopharynx. 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 Otherwise, essentially clear paranasal sinuses and patent sinusoutflow tracts.Preliminary Report Dictated by Resident: Leonel Garrison, Thong Soria MD., have reviewed this study and agree with theabove report.[facility] HospitalSEDIMENTATION [id number] 06:19:00* Test Item Value Reference Range Interpretation Comme nts ESR (test code = 1580637957) See_Comment H [Automated Culture Jama ge] The system which generated this result transmitted reference range: 0 - 10 mm/HR. The reference range was not used to interpret this result as normal/abnormal. Lab Interpretation (test code = 50620-0) Abnormal [facility] HospitalCOMP. METABOLIC PANEL (24506)2019-09-04 05:36:00* Test Item Value Reference Range Interpretation Comme nts NA (test code = 8066997445) 138 mmol/L 135-145 K (test code = 8447508649) 4.1 mmol/L 3.5-5 Slight hemolysis CL (test code = 0417569546) 105 mmol/L 98-108 CO2 TOTAL (test code = 6033906495) 23 mmol/L 23-31 AGAP (test code = 7074359267) 2-16 BUN (test code = 8038873416) 23 mg/dL 7-23 Slight hemolysis GLUCOSE (test code = 5362478658) 181 mg/dL 70-110 H CREATININE (test code = 3049016974) 1.05 mg/dL 0.6-1.25 TOTAL BILI (test code = 7878168032) 0.5 mg/dL 0.1-1.1 CALCIUM (test code = 7039544643) 8.8 mg/dL 8.6-10.6 T PROTEIN (test code = 1050746693) 7.5 g/dL 6.3-8.2 ALBUMIN (test code = 5693422819) 4.0 g/dL 3.5-5 ALK PHOS (test code = 0651390469) 86 U/L 34-122 Slight hemolysis ALTv (test code = 1742-6) 61 U/L 5-50 H AST(SGOT) (test code = 0829429146) 45 U/L 13-40 H Slight hemolysis eGFR Calculation (Non-) (test code = 1190034999) mL/min/1.73m2 eGFR Calculation () (test code = 2206351947) mL/min/1.73m2 ROCÍO (test code = ROCÍO) Association of Glomerular Filtration Rate (GFR) and Staging of Kidney Disease* + -----+ --------+ +| GFR (mL/min/1.73 m2) ?| With Kidney Damage ?| ?Without Kidney Damage+ +------- +---- --+| ?>90 ?| ?Stage one ?| ? Normal ?+ ------+ ---------+--------- +| ?60-89 ?| ?Stage two ?| ? Decreased GFR ? + -----+ --------+ +| ?30-59 ?| ?Stage three ?| ? Stage three ? + -----+ --------+ +| ?15-29 ?| ?Stage four ? | ? Stage four ?+ ------+ ---------+--------- +| ?<15 (or dialysis) ? ?| ?Stage five ? | ? Stage five ?+ ------+ ---------+--------- + *Each stage assumes the associated GFR level has been in effect for at least three months. ?Stages 1 to 5, with or without kidney disease, indicate chronic kidney disease. Notes: Determination of stages one and two (with eGFR >59mL/min/1.73 m2) requires estimation of kidney damage for at least three months as defined by structural or functional abnormalities of the kidney, manifested by either:Pathological abnormalities or Markers of kidney damage (including abnormalities in the composition of the blood or urine or abnormalities in imaging tests). Lab Interpretation (test code = 82572-9) Abnormal [facility] HospitalURIC [id number] 05:36:00* Test Item Value Reference Range Interpretation Comme nts URIC ACID (test code = 6443423825) 9.8 mg/dL 3.6-8 H Lab Interpretation (test cod e = 95214-5) Abnormal [facility] HospitalCBC WITH [id number] 04:46:00* Test Item Value Reference Range Interpretation Comme nts WBC (test code = 6690-2) See_Comment [Automated Culture [employer] Cloudability] The system which generated this result transmitted reference range: 4.20 - 10.70 10*3/?L. The reference range was not used to interpret this result as normal/abnormal. RBC (test code = 789-8) See_Comment [Automated Culture [employer]ability] The system which generated this result transmitted reference range: 4.26 - 5.52 10*6/?L. The reference range was not used to interpret this result as normal/abnormal. HGB (test code = 718-7) 15.3 g/dL 12.2-16.4 HCT (test code = 4544-3) 47.2 % 38.4-49.3 MCV (test code = 787-2) 87.6 fL 81.7-95.6 MCH (test code = 785-6) 28.4 pg 26.1-32.7 MCHC (test code = 786-4) 32.4 g/dL 31.2-35 RDW-SD (test code = 96747-8) 40.4 fL 38.5-51.6 RDW-CV (test code = 788-0) 12.7 % 12.1-15.4 PLT (test code = 777-3) See_Comment [Automated Culture [employer] Cloudability] The system which generated this result transmitted reference range: 150 - 328 10*3/?L. The reference range was not used to interpret this result as normal/abnormal. MPV (test code = 77559-1) 10.0 fL 9.8-13 NRBC/100 WBC (test code = 7481015842) See_Comment [Automated me ssage] The system which generated this result transmitted reference range: 0.0 - 10.0 /100 WBCs. The reference range was not used to interpret this result as normal/abnormal. NRBC x10^3 (test code = 0849115636) <0.01 See_Comment [Automated me ssage] The system which generated this result transmitted reference range: 10*3/?L. The reference range was not used to interpret this result as normal/abnormal. GRAN MAT (NEUT) % (test code = 770-8) 58.1 % IMM GRAN % (test code = 1927742973) 0.50 % LYMPH % (test code = 736-9) 31.2 % MONO % (test code = 5905-5) 8.2 % EOS % (test code = 713-8) 1.4 % BASO % (test code = 706-2) 0.6 % GRAN MAT x10^3(ANC) (test code = 7329495393) 4.85 10*3/uL 1.99-6.95 IMM GRAN x10^3 (test code = 3536837257) 0.04 10*3/uL 0-0.06 LYMPH x10^3 (test code = 731-0) 2.60 10*3/uL 1.09-3.23 MONO x10^3 (test code = 742-7) 0.68 10*3/uL 0.36-1.02 EOS x10^3 (test code = 711-2) 0.12 10*3/uL 0.06-0.53 BASO x10^3 (test code = 704-7) 0.05 10*3/uL 0.01-0.09 [facility] Notes Date/Time Note Provider Source 2023-10-08 23:53:14 0736-36-92J00:53:14 Pt given printed and verbal discharge instructions regarding acute flank pain and muscle strainPrescriptions providedcyclobenzaprine 10 mg tabletibuprofen 600 mg tabletlidocaine 5 % (700 mg/patch) patchDiscussed ibuprofen and to take with food to avoid GI distress.Pt verbalized understanding of instructions, pt awake alert oriented, resp reg unlabored, skin w/d, color appropriate for race, moves all ext well,pt encouraged to follow up with pcpAdvised to seek medical attention for new/prolonged/worsening of symptoms,No adverse reaction to meds given in ER noted upon dischargePIV d'cd, dressing to site, catheter in tact.Awake, alert oriented, resp reg unlabored, skin w/d, pt leaving amb with steady gait, in no apparent distress 74622-5Tyxsgqwkv department KvflLX1530-00-58S96:54:43[facility] department NoteTXT1.2.840.770285.1.13.104.2.7.2.727 879|[id number] for patient glza08438-9LdznVTDDTFLLHCBOysqtegdm C-CDA narrative [id number] E Tyler RN[address] Xd[id number] WAFAJXXGRFQYHUYRFB7275-86-31J82:54:431.2 .840.626680.1.72.3.15|1.2.840.755111.1.1 3.104.2.7.2.727879_[id number] Karen Hansen RN [facility] 2023-10-08 18:15:00 1817-13-73W95:15:00 Patient came in with complaints of right flank pain since an hour ago and burning pain on urination. 30582-1Uriqkiedu department Triage ilyjXK6403-82-75F37:24:37[facility] Triage noteTXT1.2.840.912012.1.13.104.2.7.2.727 879|[id number] for patient sscg05001-0Yyaqwdqtg department NoteLNNARRATIVEFormatted C-CDA narrative [id number] C Rosenthal RN[id number] FTDZYJAYGFXOJWYTBA2013-63-29Q07:24:371.2 .840.251716.1.72.3.15|1.2.840.448600.1.1 3.104.2.7.2.727879_[id number] Autumn Gloria Rosenthal RN [facility] 2023-08-24 10:12:22 5699-46-71L87:12:22 Pt c/o right leg pain, diagnosed here on 08/22 with sciatica, reports pain is not getting any better. Also c/o left foot pain. Denies injury/trauma. Has only taken Robaxin. 18335-1Uzqgwdrjm department Triage ihmdGR8350-81-10H74:14:04[facility] Triage noteTXT1.2.840.416490.1.13.104.2.7.2.727 879|[id number] for patient letg28120-5Vijtnanuj department NoteLNNARRATIVEFormatted C-CDA narrative [id number] N Dewoody RN[id number] HOEPUHIUCBZUKBSUMV9008-86-63R24:14:041.2 .840.246286.1.72.3.15|1.2.840.069682.1.1 3.104.2.7.2.727879_[id number] Shira Nick RN [facility] 2023-08-24 10:05:00 0754-09-01P46:05:00 [facility] Emergency Department NoteDemographicsPatient Name: Cathy Granados of : 1970 52 year oldTreatment Room: [facility]/CUXOWT91Yadlius Record Number: [id number] Care Physician: PATIENT DOES NOT HAVE A PCPPre Hospital CarePatient Escorted by: Family [5]Mode of Arrival: Personal means [1]EMS Treatment Prior to ED Arrival:SQL SERVER CONSULTANT treatment: Medication (comment)SQL SERVER CONSULTANT treatment comments: robaxinED EventsDate/Time Event User Rafyfymi97/10/24 1137 Medical Screening Begins PERCY RAMOS MD --08/24/23 1137 First Provider Evaluation PERCY RAMOS MD --Chief complaintChief ComplaintPatient presents withLeg PainED Triage Shira Johnson RN 08/24/2023 10:14Pt c/o right leg pain, diagnosed here on 08/22 with sciatica, reports pain is not getting any better. Also c/o left foot pain. Denies injury/trauma. Has only taken Robaxin.Chief ComplaintPatient presents withLeg PainHistory of present vetspgtDCZ31 yo man comes to the ED for evaluation of chronic right foot and ankle pain. Patient had been seen in the past and diagnosed with gout as well as sciatica. Pain is localized to ankle and foot. Denies back/hip/thigh pain. No recent injuries, pain is intense to even superficial tough of the foot worse in am when he awakes and tries to walk. No fever, chills, nausea or vomiting. Patient reports similar pain to left foot, ankle and knees as well.BP 132/87 | Pulse 97 | Temp 37 ?C (98.6 ?F) (Oral) | Resp 20 | Wt 95.3 kg (210 lb) | SpO2 98% | BMI 32.89 kg/m?Past Medical and Social HistoryPast Medical History:Diagnosis DateChronic sinusitisPapilloma of nasopharynxTetanus received in last 5 years: UnknownSocial HistoryTobacco UseSmoking status: NeverSmokeless tobacco: NeverSubstance Use TopicsAlcohol use: NoComment: one drink every 2-3 monthsDrug use: NoPast Surgical HistoryPast Surgical History:Procedure Laterality DateNASAL ENDOSCOPY WITH DEBRIDEMENT (SHX) 2007MedicationsMedicationsketorolac (TORADOL) injection 30 mg (30 mg Intramuscular Given 08/24/23 1243)AllergiesNo Known AllergiesReview of SystemsReview of SystemsConstitutional: Negative.HENT: Negative.Eyes: Negative.Respiratory: Negative.Breasts: Negative.Cardiovascular: Negative.Gastrointestinal: Negative.Genitourinary: Negative.Musculoskeletal: Positive for arthralgias, gait problem and joint swelling.Skin: Negative.Psychiatric/Behavioral: Negative.Endocrine: Endocrine negativePhysical ExamBP 132/87 | Pulse 97 | Temp 37 ?C (98.6 ?F) (Oral) | Resp 20 | Wt 95.3 kg (210 lb) | SpO2 98% | BMI 32.89 kg/m?Physical ExamVitals and nursing note reviewed.Constitutional:General: He is not in acute distress.Appearance: He is well-developed. He is not ill-appearing.HENT:Head: Normocephalic and atraumatic.Right Ear: Ear canal and external ear normal.Left Ear: Ear canal and external ear normal.Nose: Nose normal. No congestion or rhinorrhea.Mouth/Throat:Mouth: Mucous membranes are moist.Pharynx: Oropharynx is clear. No oropharyngeal exudate or posterior oropharyngeal erythema.Eyes:General:Right eye: No discharge.Left eye: No discharge.Conjunctiva/sclera: Conjunctivae normal.Pupils: Pupils are equal, round, and reactive to light.Cardiovascular:Rate and Rhythm: Normal rate and regular rhythm.Pulses: Normal pulses.Heart sounds: Normal heart sounds. No murmur heard.No friction rub.Pulmonary:Effort: Pulmonary effort is normal. No respiratory distress.Breath sounds: Normal breath sounds. No stridor. No wheezing or rhonchi.Abdominal:General: Bowel sounds are normal. There is no distension.Palpations: Abdomen is soft. There is no mass.Tenderness: There is no abdominal tenderness.Hernia: No hernia is present.Musculoskeletal:General: Swelling and tenderness (right ankle and foot) present. No deformity or signs of injury. Normal range of motion.Cervical back: Normal range of motion and neck supple. No rigidity or tenderness.Skin:General: Skin is warm and dry.Capillary Refill: Capillary refill takes less than 2 seconds.Coloration: Skin is not jaundiced or pale.Findings: No bruising or erythema.Neurological:General: No focal deficit present.Mental Status: He is alert and oriented to person, place, and time.Cranial Nerves: No cranial nerve deficit.Sensory: No sensory deficit.Motor: No weakness.Coordination: Coordination normal.Psychiatric:Mood and Affect: Mood normal.Behavior: Behavior normal.Thought Content: Thought content normal.Judgment: Judgment normal.Labs and StudiesLab ResultsCBC WITH DIFF - AbnormalResult Value Ref RangeWBC 7.28 4.20 - 10.70 10*3/?LRBC 5.59 (*) 4.26 - 5.52 10*6/?LHGB 15.7 12.2 - 16.4 g/dLHCT 47.1 38.4 - 49.3 %MCV 84.3 81.7 - 95.6 fLMCH 28.1 26.1 - 32.7 pgMCHC 33.3 31.2 - 35.0 g/dLRDW-SD 38.0 (*) 38.5 - 51.6 fLRDW-CV 12.6 12.1 - 15.4 %PLT 208 150 - 328 10*3/?LMPV 9.7 (*) 9.8 - 13.0 fLNRBC/100 WBC 0.0 0.0 - 10.0 /100 WBCsNRBC x10^3 <0.01 10*3/?LGRAN MAT (NEUT) % 62.1 %IMM GRAN % 0.40 %LYMPH % 25.8 %MONO % 9.9 %EOS % 1.1 %BASO % 0.7 %GRAN MAT x10^3(ANC) 4.52 1.99 - 6.95 10*3/uLIMM GRAN x10^3 0.03 0.00 - 0.06 10*3/uLLYMPH x10^3 1.88 1.09 - 3.23 10*3/uLMONO x10^3 0.72 0.36 - 1.02 10*3/uLEOS x10^3 0.08 0.06 - 0.53 10*3/uLBASO x10^3 0.05 0.01 - 0.09 10*3/uLBASIC METABOLIC PANEL (NA, K, CL, CO2, GLUCOSE, BUN, CREATININE, CA) - AbnormalNA 133 (*) 135 - 145 mmol/LK 4.9 3.5 - 5.0 mmol/LCL 98 98 - 108 mmol/LCO2 TOTAL 28 23 - 31 mmol/LAGAP 7 2 - 16BUN 26 (*) 7 - 23 mg/dLGLUCOSE 160 (*) 70 - 110 mg/dLCREATININE 1.12 0.60 - 1.25 mg/dLCALCIUM 9.3 8.6 - 10.6 mg/dLeGFR 78.6 mL/min/1.25p6BURC ACID - NormalURIC ACID 6.7 3.6 - 8.0 mg/dLXR ANKLE 3+ VW RIGHTFinal ResultXR ANKLE 3+ VW RIGHT, XR FOOT 3+ VW RIGHTHISTORY: foot/gout?COMPARISON: Radiographs dated 08/11/2023 and 09/03/2019.Findings:The osseous structures are intact. There is fusion of the fifth mid anddistal phalanges. Mild subchondral sclerosis and hook-like osteophytosisaffect the great toe distal interphalangeal joint, unchanged. Mildwidening the ankle syndesmosis. Mild first MTP degenerative changes.Mild to moderate soft tissue edema. No abnormal soft tissuecalcification.IMPRESSIONNo acute osseous abnormality.Mild widening the ankle syndesmosis, correlate for ligamentous injury.Mild to moderate soft tissue edema.XR FOOT 3+ VW RIGHTFinal ResultXR ANKLE 3+ VW RIGHT, XR FOOT 3+ VW RIGHTHISTORY: foot/gout?COMPARISON: Radiographs dated 08/11/2023 and 09/03/2019.Findings:The osseous structures are intact. There is fusion of the fifth mid anddistal phalanges. Mild subchondral sclerosis and hook-like osteophytosisaffect the great toe distal interphalangeal joint, unchanged. Mildwidening the ankle syndesmosis. Mild first MTP degenerative changes.Mild to moderate soft tissue edema. No abnormal soft tissuecalcification.IMPRESSIONNo acute osseous abnormality.Mild widening the ankle syndesmosis, correlate for ligamentous injury.Mild to moderate soft tissue edema.Orders and TreatmentsOrders Placed This EncounterProceduresXR ANKLE 3+ VW RIGHTXR FOOT 3+ VW RIGHTCbc with DiffBasic Metabolic Panel (NA, K, CL, CO2, GLUCOSE, BUN, CREATININE, CA)Uric AcidOrders Placed This EncounterMedicationsDISCONTD: ketorolac (TORADOL) injection 30 mgketorolac (TORADOL) injection 30 mgPatient's MedicationsSTART taking these medicationsNo medications on fileCONTINUE taking these medications which have NOT CHANGEDASPIRIN 81 MG CHEWABLE TABLET Take 1 tablet by mouth daily.INDOMETHACIN 50 MG CAPSULE Take 1 capsule by mouth 3 (three) times daily as needed for Pain for up to 15 doses.METHOCARBAMOL 750 MG TABLET Take 1 tablet by mouth every 6 (six) hours as needed for Pain (scale 1-3).START taking Modified Medications as PrescribedNo medications on fileSTOP taking these medicationsNo medications on fileProceduresProceduresEvidence CareMDM & NotesPatient was evaluated for an emergency medical condition related to Leg PainHistory and/or review of systems is limited by:History limited: None.Medical Decision Sxxjqf4 yo man comes to the ED for evaluation of right foot and ankle pain. Patient had been seen in the past and diagnosed with gout as well as sciatica. Pain is localized to ankle and foot. Denies back/hip/thigh pain. No recent injuries, pain is intense to even superficial tough of the foot worse in am when he awakes and tries to walk. No fever, chills, nausea or vomiting. Patient reports similar pain to left foot, ankle and knees as well.BP (!) 128/100 | Pulse 111 | Temp 36.6 ?C (97.9 ?F) (Oral) | Resp 18 | Wt 95.3 kg (210 lb) | SpO2 97% | BMI 32.89 kg/m?DDx arthropathy, sciatica, gout, infection, etc.AP: will check labs, cbc, basic and explore renal function, DM or electrolyte abnormalities, will add uric acid for evaluation of gout and x rays to r/o CPPD or injuries.Problems Addressed:Right foot pain: chronic illness or injury with exacerbation, progression, or side effects of treatmentAmount and/or Complexity of Data ReviewedLabs: ordered. Decision-making details documented in ED Course.Radiology: ordered and independent interpretation performed.Discussion of management or test interpretation with external provider(s): Pain is better after Toradol. Intermittent pain and swelling for months. 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 Additional MDM may be found in the ED course. Differential diagnosis considered and final disposition made based on information gathered during evaluation and may not be completely ruled out or specifically listed. Vital signs were rechecked before final disposition and determined to be stable.[id number]. Right foot pain M79.6712. Arthropathy M12.9Disposition and ConditionED DispositionED DispositionDisch - HomeConditionStableComment--Patient's MedicationsSTART taking these medicationsNo medications on fileCONTINUE taking these medications which have NOT CHANGEDASPIRIN 81 MG CHEWABLE TABLET Take 1 tablet by mouth daily.INDOMETHACIN 50 MG CAPSULE Take 1 capsule by mouth 3 (three) times daily as needed for Pain for up to 15 doses.METHOCARBAMOL 750 MG TABLET Take 1 tablet by mouth every 6 (six) hours as needed for Pain (scale 1-3).START taking Modified Medications as PrescribedNo medications on fileSTOP taking these medicationsNo medications on fileJulio C. MD Rachel, FACEP, FAAEMAssistant Professor of Emergency and Internal MedicineMisericordia Hospital#[id number] Ramos MD08/24/23 1345 42071-2[facility] department CbnfBL7749-81-22Z14:45:40Physician Emergency department NoteTXT1.2.840.588177.1.13.104.2.7.2.727 879|[id number] for patient xzui72160-0Csulijwsl department NoteLNNARRATIVEFormatted C-CDA narrative textUT34 Brown StreetCe[id number] JKLKXBGYNZSNTOXORJ8662-85-15U48:45:401.2 .840.962637.1.72.3.15|1.2.840.580826.1.1 3.104.2.7.2.727879_[id number] [facility] 2023-08-22 16:31:18 6443-96-29V25:31:18 Pt given printed and verbal discharge instructions regarding right lower extremity pain and sciatica of the right side, encouraged hydration.Prescriptions provided.Discussed ibuprofen and to take with food to avoid GI distress.Discussed robaxin side affects and to avoid driving/operating machinery/or engaging in activities requiring alertness while taking.Pt verbalized understanding of instructions, pt awake alert oriented, resp reg unlabored, skin w/d, color appropriate for race, moves all ext well, pt encouraged to follow up with pcp.Advised to seek medical attention for new/prolonged/worsening of symptoms.Symptoms addressed.No adverse reaction to meds given in ER noted upon discharge.Pt leaving amb with steady gait, in no apparent distress. Left with family. 84582-8Lryhogjzh department UlxyZR8594-77-37J70:32:26[facility] department NoteTXT1.2.840.550353.1.13.104.2.7.2.727 879|[id number] for patient uiqd23966-3KwmdTVGOTLLFHIAHxfdiwthg C-CDA narrative [id number] M Rivera RNUT[address] Russell [id number] SSICAWGAIJEHOKQBMG8608-17-75Y18:32:261.2 .840.165862.1.72.3.15|1.2.840.999827.1.1 3.104.2.7.2.727879_[id number] Lexie Parsons RN [facility] 2023-08-22 14:23:58 4127-00-36B37:23:58 Pt to ED CO RLE pain and lower back pain x 1 week. Recently seen in ED and DC with medications for gout/pain. States pain is on back of RLE and describes as a burning sensation. Denies injury/trauma. 30515-0Bctgjzjkt department Triage zjuwXL1935-25-89S67:33:46[facility] department Triage noteTXT1.2.840.893741.1.13.104.2.7.2.727 879|[id number] for patient monm30137-5Urirxzyvv department NoteLNNARRATIVEFormatted C-CDA narrative [id number] Mcgill RN[address] [id number] MWLRKSHCCLCSGMKLBC5398-53-75O32:33:461.2 .840.274887.1.72.3.15|1.2.840.111927.1.1 3.104.2.7.2.727879_[id number] Veronique Mcgill RN [facility] 2023-08-22 14:17:00 4871-21-37V53:17:00 [facility] Emergency Department NotePatient Name: Cathy Granados of : 1970 52 year old maleTreatment Room: [facility] Record Number: [id number] Care Physician: PATIENT DOES NOT HAVE A PCPPatient Escorted by: Family [5]Mode of Arrival: Personal means [1]EMS Treatment Prior to ED Arrival:SQL SERVER CONSULTANT treatment: Medication (comment)SQL SERVER CONSULTANT treatment comments: meds for gout/pain per ptTravel and Exposure Screening:SymptomsDoes patient have any of these symptoms?: (not recorded)Exposure ScreeningHas patient had contact with someone with a communicable disease in the last month?: (not recorded)Diseases exposed to:: (not recorded)Is Patient ?: (not recorded)Exposure Date: (not recorded)Chief Complaint:Chief ComplaintPatient presents withLeg PainBack PainHistory of Present Illness:The patient presents from home for evaluation for right leg pain for the past 1 week. He denies any injury or trauma. He states the leg feels swollen to him and feels like his ankle wants to dislocate. He was seen here on August 11 and prescribed both allopurinol and colchicine as well as indomethacin for suspected gout. He reports he has been taking his medications and they are not helping. He states the pain seems to start in his back and goes down his entire leg. No loss of bowel or bladder function. No dysuria or hematuria. He is now using crutches to get around as the pain in his leg is so severe yet he did drive himself here.Here for evaluation.Past Medical History/Immunizations:Past Medical History:Diagnosis DateChronic sinusitisPapilloma of nasopharynxTetanus received in last 5 years: UnknownChildhood immunizations: Wo-kz-fugmMlxopkagq:No Known AllergiesPast Social History:Tobacco UseNever smoked or used smokeless tobacco.Alcohol UseNo.Comments: one drink every 2-3 monthsDrug UseNo.Past Surgical History:Past Surgical History:Procedure Laterality DateNASAL ENDOSCOPY WITH DEBRIDEMENT (SHX) 2008Review of Systems:Review of SystemsConstitutional: Negative for chills and fever.Respiratory: Negative for cough and shortness of breath.Cardiovascular: Negative for chest pain.Gastrointestinal: Negative for abdominal pain and vomiting.Genitourinary: Negative for dysuria.Musculoskeletal: Positive for arthralgias. Negative for neck pain and neck stiffness.Skin: Negative for wound.Neurological: Negative for dizziness.Psychiatric/Behavioral: Negative for agitation.Endocrine: Negative for goiter.Physical Exam:ED Triage Vitals [08/22/23 1427]Weight 95.3 kg (210 lb)Actual or estimated Estimated by patient/family reportHeight 1.702 m (5' 7")BP (!) 156/108Pulse 84Resp 19Temp 36.5 ?C (97.7 ?F)Temp source OralSpO2 99 %Measured on Room airPhysical ExamVitals and nursing note reviewed.Constitutional:Appearance: Normal appearance. He is obese.HENT:Head: Normocephalic and atraumatic.Cardiovascular:Rate and Rhythm: Normal rate and regular rhythm.Pulses: Normal pulses.Pulmonary:Effort: Pulmonary effort is normal. No respiratory distress.Breath sounds: No stridor. No wheezing or rhonchi.Abdominal:General: There is no distension.Palpations: Abdomen is soft. There is no mass.Tenderness: There is no abdominal tenderness. There is no guarding.Musculoskeletal:General: Normal range of motion.Cervical back: Normal range of motion and neck supple.Comments: No vertebral body tenderness to his lumbar spine.He has right-sided paraspinal muscle tenderness to the lumbar area but none on the left.Positive seated leg raise on the right side at about 20 degrees.Decreased range of motion of his right knee and right ankle due to pain. No deformity is noted.There is no erythema or warmth noted to his right leg and his right calf appears the same size as his left 1.Skin:General: Skin is warm and dry.Neurological:General: No focal deficit present.Mental Status: He is alert and oriented to person, place, and time.Radiology:No orders to displayLab Results:Lab Results - No data to displayEKG:If EKG completed, see Procedure Note.Orders and Treatments:No orders of the defined types were placed in this encounter.Orders Placed This EncounterMedicationsHYDROcodone-acetamin ophen (NORCO 5) 5-325 mg tablet 1 tabletmethocarbamoL (ROBAXIN) tablet 1,000 mgmethocarbamoL 750 mg tabletFirst Provider Eval:ED EventsDate/Time Event User Srvexfxu34/08/24 1425 Medical Screening Begins KIMBERLY SORENSON DO --08/22/23 1425 First Provider Evaluation KIMBERLY SORENSON DO --ED COURSEDiagnosis/Impression as of 08/22/23 1606Pain of right lower extremitySciatica of right sideProcedures:ProceduresMDM:Medical Decision MakingThe patient presents from home for evaluation for right leg pain for the past 1 week. Denies any injury or trauma. He was seen here on August 11 and prescribed indomethacin as well as colchicine and allopurinol for gout. He reports is not helping him. He reports the pain is worse when he bends and moves and feels like his leg is trying to dislocate itself. No recent trips or travel over 2 or 3 hours and no recent surgeries. No loss of bowel or bladder function.Vital signs are stable in the ER.He has no vertebral body tenderness to his lumbar spine.He has right-sided paraspinal muscle tenderness to the lumbar area.Decreased range of motion of the right knee and ankle due to pain.There is no swelling, erythema or warmth to his right leg.No concern for fracture or cellulitis based on his presentation.Differential initial includes sciatica, DVT, muscle skeletal pain.Will give the patient pain medication here in the ER and obtain a DVT ultrasound.Anticipate discharge home later.1606 - the patient is doing well here in the ER.His DVT study is negative.His pain has resolved with the medications given here in the ER.Will discharge patient home in stable condition.Advised him to stop the colchicine and allopurinol.PCP follow-up in 1 week.Problems Addressed:Pain of right lower extremity: acute illness or injurySciatica of right side: acute illness or injuryRiskOTC drugs.Prescription drug management.Flowsheet Documentation:Scoring Tools:No data recordedDisposition/Condition:ED DispositionED DispositionDisch - HomeConditionStableComment--Discharge Medications:Patient's MedicationsSTART taking these medicationsMETHOCARBAMOL 750 MG TABLET Take 1 tablet by mouth every 6 (six) hours as needed for Pain (scale 1-3).CONTINUE taking these medications which have NOT CHANGEDASPIRIN 81 MG CHEWABLE TABLET Take 1 tablet by mouth daily.INDOMETHACIN 50 MG CAPSULE Take 1 capsule by mouth 3 (three) times daily as needed for Pain for up to 15 doses.START taking Modified Medications as PrescribedNo medications on fileSTOP taking these medicationsALLOPURINOL 100 MG TABLET Take 1 tablet by mouth in the morning for 30 days.COLCHICINE 0.6 MG TABLET Colchicine 0.6 mg x 1 dose after picking up your medication todayFollow-up:Electronically signed by:Kimberly Sorenson DO08/22/23 1606 41091-1Mcvbnktcn Emergency department YtftSH0956-76-85V16:06:57Physician Emergency department NoteTXT1.2.840.929851.1.13.104.2.7.2.727 879|[id number] for patient fmfg29150-8Xbjogmqvc department NoteLNNARRATIVEFormatted C-CDA narrative textUTMBUT - [address] StreetBwz[id number] JPCMINNGPTCFSJYFEA0123-50-57P96:06:571.2 .840.907908.1.72.3.15|1.2.840.501894.1.1 3.104.2.7.2.727879_[id number] [facility] 2023-08-11 17:12:34 1885-01-66L39:12:34 PT D/C home. GCS15, VS stable. Given D/C paperwork. Pt ambulatory at time of discharge. Pt educated on med usage, follow up care, s/s worsening condition, need for hydration. Pt verbalized understanding. Pt ambulated from ED with crutches in NAD. 73568-8Gvqpmjueo department JiivKP2503-97-40B90:12:52[facility] department NoteTXT1.2.840.677366.1.13.104.2.7.2.727 879|[id number] for patient ntsl33723-2GhxgQLOBVOEAADFOdrxgeiae C-CDA narrative [id number] E Linkes RN[address]Lc[id number] YEBNQVFQNBZSBNLPDV3878-59-58N49:12:521.2 .840.749627.1.72.3.15|1.2.840.542055.1.1 3.104.2.7.2.727879_[id number] Valerei Almonte RN [facility] 2023-08-11 15:33:15 8142-64-38X68:33:15 Previous gout in right first toe. Yesterday morning toe began to hurt again. 85223-9Syhqdisdt department Triage teoaKR9439-82-87V82:33:32[facility] Triage noteTXT1.2.840.646976.1.13.104.2.7.2.727 879|[id number] for patient dsse06939-2Pzvotyajl department NoteLNNARRATIVEFormatted C-CDA narrative [id number] Elijah GIL[id number] TOWNSENDDQWCFORBBKHUGYHUGF2064-97-75X79:33:321.2 .840.756164.1.72.3.15|1.2.840.150299.1.1 3.104.2.7.2.727879_[id number] Mary Lou Nava RN [facility] 2023-04-06 15:12:24 7218-61-53X05:12:24 Pt discharged with diagnosis of acute idiopathic gout of left ankle. Printed and verbal instructions reviewed with and given to patient. Prescriptions given x 2. Pt verbalized understanding of teaching, medications, and recommended follow-up. Denies questions or concerns at this time. Pt ambulatory with crutches at discharge. Appears in no apparent distress. No ataxia noted. 61344-7Zxowrcdxn department AfgdAZ4392-62-87Y94:13:06[facility] department NoteTXT1.2.840.286413.1.13.104.2.7.2.727 879|[id number] for patient vocj92516-2JerqMLQIOJQZGA[address] [id number] TOWNSENDTRGTUHXFOMCKMSDBUV1029-69-69A95:13:061.2 .840.342648.1.72.3.15|1.2.840.499821.1.1 3.104.2.7.2.727879_[id number] [facility] 2023-04-06 13:57:47 1127-02-47E56:57:47 Pt c/o pain to left foot x1 week. Thinks it's gout, states "one time they gave me some little purple pills for gout". 89870-5Gpvdqkuvn department Triage ubvtWO1083-41-41T41:58:29[facility] department Triage noteTXT1.2.840.705680.1.13.104.2.7.2.727 879|[id number] for patient dgvj85108-7Qtspkjesl department [id number] N Dewoody RN[id number] NPFKYCJPCONZPVPKSG1807-30-61K69:58:291.2 .840.857047.1.72.3.15|1.2.840.551637.1.1 3.104.2.7.2.727879_[id number] Shiar Nick RN [facility] 2023-04-06 13:54:00 1500-75-10Y00:54:00 [facility] Emergency Department NotePatient Name: Cathy Granados of : 1970 52 year old maleTreatment Room: [place] [address]Medical Record Number: [id number] Care Physician: PATIENT DOES NOT HAVE A PCPPatient Escorted by: Self [9]Mode of Arrival: Personal means [1]EMS Treatment Prior to ED Arrival: Travel and Exposure Screening:SymptomsDoes patient have any of these symptoms?: (not recorded)Exposure ScreeningHas patient had contact with someone with a communicable disease in the last month?: (not recorded)Diseases exposed to:: (not recorded)Is Patient ?: (not recorded)Exposure Date: (not recorded)Chief Complaint:Chief Complaint Patient presents with Foot Pain Left History of Present Illness:52-year-old male presenting for evaluation of left ankle pain likely secondary to gout attack. Patient is not on preventative medications. He states that he does not drink however engages in eating red meat. States that symptoms started last day or 2 and is now localized to left ankle pain without trauma. Mild erythema. Painful to touch.Past Medical History/Immunizations:Past Medical History: Diagnosis Date Chronic sinusitis Papilloma of nasopharynx Tetanus received in last 5 years: Unknown Allergies:No Known AllergiesPast Social History:Tobacco Use Never smoked or used smokeless tobacco. Alcohol Use No. Comments: one drink every 2-3 months Drug Use No. Past Surgical History:Past Surgical History: Procedure Laterality Date NASAL ENDOSCOPY WITH DEBRIDEMENT (SHX) 2007 Review of Systems: Review of Systems Constitutional: Negative for fever. Respiratory: Negative for chest tightness and shortness of breath. Cardiovascular: Negative for chest pain. Gastrointestinal: Negative for nausea and vomiting. Musculoskeletal: Positive for joint swelling and myalgias. Skin: Positive for color change. Neurological: Negative for dizziness and numbness. Physical Exam: ED Triage Vitals [04/06/23 1358] Weight 95.3 kg (210 lb) Actual or estimated Estimated by patient/family report Height 1.702 m (5' 7") BP (!) 140/98 Pulse 96 Resp 18 Temp 36.8 ?C (98.2 ?F) Temp source Oral SpO2 98 % Measured on Room air Physical ExamVitals and nursing note reviewed. Constitutional: Appearance: He is well-developed. HENT: Head: Normocephalic and atraumatic. Eyes: General: No scleral icterus. Conjunctiva/sclera: Conjunctivae normal. Pupils: Pupils are equal, round, and reactive to light. Neck: Vascular: No JVD. Cardiovascular: Rate and Rhythm: Normal rate and regular rhythm. Heart sounds: Normal heart sounds. Pulmonary: Effort: Pulmonary effort is normal. Breath sounds: Normal breath sounds. No stridor. Abdominal: General: Bowel sounds are normal. Palpations: Abdomen is soft. Musculoskeletal: General: Swelling and tenderness present. No deformity or signs of injury. Normal range of motion. Cervical back: Normal range of motion and neck supple. Comments: Left ankle, appears consistent with known history of gout. Skin: General: Skin is warm and dry. Neurological: Mental Status: He is alert and oriented to person, place, and time. Psychiatric: Behavior: Behavior normal. Thought Content: Thought content normal. Radiology:No orders to display Lab Results:Lab Results - No data to displayEKG:If EKG completed, see Procedure Note. Orders and Treatments:No orders of the defined types were placed in this encounter.Orders Placed This Encounter Medications colchicine (COLCRYS) tablet 1.2 mg indomethacin 50 mg capsule allopurinoL 100 mg tablet First Provider Eval:ED Events Date/Time Event User Comments 04/06/231429 Medical Screening Begins EDDI SAHA -- 04/06/23 143 First Provider Evaluation EDDI SAHA -- No notes of EC Admission Criteria type on file.ED COURSEDiagnosis/Impression as of 04/06/23 1507 Acute idiopathic gout of left ankle Procedures: ProceduresMDM:Medical Decision MakingCathy Gomez is a 52 year old male with suspected gout attack. History of the same. No fever. Start colcrys in ED. Home with indomethacin and start allopurinal in 3 days. Diet restrictions. Unlikely cellulitis. No history of trauma. No risk factors for DVT. Return precautions given if symptoms worsen as documented in the discharge instructions.Problems Addressed:Acute idiopathic gout of left ankle: acute illness or injuryRiskPrescription drug management. Flowsheet Documentation: Scoring Tools: No data recorded Disposition/Condition:ED Disposition ED Disposition Disch - Home Condition Stable Comment -- Discharge Medications:Patient's Medications START taking these medications ALLOPURINOL 100 MG TABLET Take 1 tablet by mouth in the morning. INDOMETHACIN 50 MG CAPSULE Take 1 capsule by mouth in the morning and 1 capsule at noon and 1 capsule in the evening. Take with meals. Do all this for 5 days. CONTINUE taking these medications which have NOT CHANGED ASPIRIN 81 MG CHEWABLE TABLET Take 1 tablet by mouth daily. CEFDINIR 300 MG CAPSULE Take 1 capsule by mouth 2 (two) times daily. IBUPROFEN 600 MG TABLET Take 1 tablet by mouth every 6 (six) hours as needed for Pain (scale 4-6). PREDNISONE 20 MG TABLET Take 2 tablets by mouth daily. TRAMADOL 50 MG TABLET Take 1 tablet by mouth every 8 (eight) hours as needed for Pain (scale 7-10). Indications: acute pain START taking Modified Medications as Prescribed No medications on file STOP taking these medications No medications on file Follow-up:Contact information for follow-up [facility] [address], [address] [place] [id number] Instructions: for follow up of your emergency visit. [facility]-Emergency Department Specialty: Emergency Medicine [address] [facility] [address] Instructions: If symptoms worsen as documented in the discharge Electronically signed by: Eddi Saha DO04/06/23 1507 [id number] Emergency department [id number] Emergency department [id number] for patient [id number] department NoteLNUT[address] [id number] [id number] [facility]
[2024-02-16] MEDS ORDERED: TDAP (DIPHTH,PERTUSS(ACELL),TET VAC) 0.5 ML VIAL IMVAC ONE (22:38)
[2024-02-16] MEDS ORDERED: MORPHINE 4 MG/ML SYR ONE (22:38)
[2024-02-16] MEDS ORDERED: TETRACAINE HCL 0.5% 4ML OPTH ONE (22:38)
--- NOTE | 2024-02-16 22:57 | RAD REPORT ---
EXAM DESCRIPTION: CT - Head Brain Wo Cont - 02/16/2024 10:52 pm CLINICAL HISTORY: TRAUMA COMPARISON: HEAD BRAIN W O CONTRAST dated 03/13/2012; HEAD BRAIN W O CONTRAST dated 07/07/2000 TECHNIQUE: All CT scans are performed using dose optimization technique as appropriate and may inclu de automated exposure control or mA/KV adjustment according to patient size. FINDINGS: No intracranial hemorrhage, hydrocephalus or extra-axial fluid collection.No areas of brai n edema or evidence of midline shift. Partially empty sella, typically a normal variant. Right mastoid effusion. The calvarium is intact. IMPRESSION: No acute intracranial abnormality. Right mastoid effusion.
[2024-02-16 22:58] LABS: Absolute Eosinophils 0.1 K/uL (0-0.5); Absolute Lymphocytes (CBC) 2.6 K/uL (0.7-4.9); Absolute Monocytes 0.5 K/uL (0.1-1.3); Absolute Neutrophil 3.3 K/uL (1.8-8.0); Basophils % 0.6 % (0-1.3); Eosinophils % 1.3 % (0-4.4); Hematocrit 48.5 % (39.6-49.0); Hemoglobin 15.4 g/dL (13.6-17.9); Lymphocytes % 39.6 % (15.3-44.8); MCH 27.2 pg (27.0-35.0); MCHC 31.8 g/dL (32.0-36.0); MCV 85.3 fL (80-100); MPV 8.6 fL (7.6-11.3); Monocytes % 7.3 % (3.3-12.3); Neutrophils % 51.2 % (41.7-73.7); Nucleated Red Blood Cells % 0.1 % (0-0); Platelets 250 thou/uL (152-406); RBC Red Blood Cell Count 5.68 M/uL (4.33-5.43); Red Cell Distribution Width 13.6 % (12.1-15.2)
--- NOTE | 2024-02-16 23:00 | RAD REPORT ---
EXAM DESCRIPTION: CT - CTFB CLINICAL HISTORY: FACIAL PAIN COMPARISON: No comparisons TECHNIQUE: Axial 2 mm thick images of the face were obtained with sagittal and coronal reconstructio n images. All CT scans are performed using dose optimization technique as appropriate and may include automated exposure control or mA/KV adjustment according to patient size. FINDINGS: No acute facial bone fracture is seen.The mandible is intact. Periosteal thickening at the maxillary sinuses likely reflecting chronic sinusitis. Left third maxillary molar has a periapical l ucency and is fractured, both of which are likely chronic findings. The globes and orbital contents are grossly unremarkable.The paranasal sinuses and mastoids are clear . Right mastoid fluid. Trace left mastoid fluid. IMPRESSION: Negative for facial bone fracture.Mastoid effusions, right greater than left.
[2024-02-16] MEDS ORDERED: FLUORESCEIN SODIUM 1 MG/WRAP ONE ×2 (23:06→23:07)
[2024-02-16 23:24] LABS: Anion Gap 12.9 mEq/L (5.0-15.0)
[2024-02-16 23:39] LABS: Potassium 3.9 mEq/L (3.5-5.1)
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
[2024-02-16] MEDS ORDERED: AMOX/K CLAV 875 MG TAB ONE (23:47)
[2024-02-16] MEDS ORDERED: GENTAMICIN 0.3% OPTH DROP 5ML ONE (23:47)
[2024-02-17] MEDS ORDERED: NA CHLORIDE 0.9% 1,000 ML ONE (00:16)
[2024-02-17 00:46] LABS: PT Prothrombin Time 11.6 SECONDS (9.4-12.5); Protime INR 1.06
[2024-02-17 00:57] LABS: ALT/SGPT 43 U/L (16-61); Albumin 3.5 g/dL (3.4-5.0); Albumin/Globulin Ratio 0.9 (1.1-1.8); Alkaline Phosphatase 64 U/L (45-117); Bilirubin Total 0.5 mg/dL (0.2-1.0); Creatine Phosphokinase 391 U/L (39-308); Globulin 3.9 g/dL (2.3-3.5); Protein, Total 7.4 g/dL (6.4-8.2)
[2024-02-17 01:13] LABS: AST/SGOT 31 U/L (15-37); Bilirubin Direct < 0.2 mg/dL (0-0.2); Bilirubin Indirect, Calculated 0.3 mg/dL (0.2-0.8); Magnesium 2.5 mg/dL (1.6-2.4)
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
[2024-02-17] MEDS ORDERED: HYDRALAZINE HCL 20 MG/ML VIAL IV PRN (01:54)
[2024-02-17] MEDS ORDERED: MELATONIN 5 MG TABLET PO PRN (01:54)
[2024-02-17] MEDS ORDERED: ONDANSETRON 4 MG/2 ML VIAL IV PRN (01:58)
[2024-02-17] MEDS: NA CHLORIDE 0.9% 1,000 ML IV SCH (05:15)
[2024-02-17 05:20] VITALS: BMI 32.8
[2024-02-17] MEDS: KETOROLAC 30 MG/ML INJ IV PRN (05:26)
[2024-02-17] MEDS: INSULIN REGULAR (HUMAN) 100 UNIT/ML SQ SCH (06:00)
[2024-02-17 07:43] LABS: Anion Gap 8.8 mEq/L (5.0-15.0); Potassium 3.8 mEq/L (3.5-5.1)
[2024-02-17] MEDS ORDERED: FAMOTIDINE 20 MG TAB PO SCH (09:00)
[2024-02-17] MEDS ORDERED: CEFEPIME 1 GM in NA CHLORIDE 0.9% 100 ML IV SCH (09:00)
[2024-02-17] MEDS: FAMOTIDINE 20 MG TAB PO SCH (09:00)
[2024-02-17] MEDS: ZINC SULFATE 220 MG CAP PO SCH (09:00)
[2024-02-17] MEDS: ENOXAPARIN 40 MG/0.4 ML SQ SCH (10:03)
[2024-02-17] MEDS: CEFEPIME 1 GM in NA CHLORIDE 0.9% 100 ML IV SCH (10:04)
[2024-02-17] MEDS: ASPIRIN EC 81 MG TAB PO SCH (10:04)
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
--- NOTE | 2024-02-17 11:12 | EKG ---
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
--- NOTE | 2024-02-17 11:46 | RAD REPORT ---
EXAM DESCRIPTION: Chest Single View CLINICAL HISTORY: 53 years Male CHEST PAIN COMPARISON: October 15, 2020 TECHNIQUE: AP view of the chest was obtained. FINDINGS: Cardiac size is within normal limits. Central vessels are not increased. No infiltrates or effusions seen. No consolidation. No pneumothorax. IMPRESSION: No active disease. Electronically signed by: Suellen Vazquez MD 02/17/2024 12:42 AM CDT RP Due to temporary technical issues with the PACS/Fluency reporting system, reports are being signed by the in house radiologist without review as a courtesy to ensure prompt reporting. The interpreting r adiologist is fully responsible for the content of the report.
--- NOTE | 2024-02-17 20:16 | RAD REPORT ---
EXAM DESCRIPTION: US - Renal Ultrasound-Complete - 02/17/2024 8:01 pm CLINICAL HISTORY: Acute renal failure COMPARISON: None. FINDINGS: The right kidney measures 11 cm with a normal echotexture The left kidney measures 11 cm with a mildly increased echotexture Hydronephrosis is not seen. No gross abnormality of bladder is noted Fatty liver present IMPRESSION: Mildly increased left renal echotexture may indicate parenchymal disease
[2024-02-17 21:39] VITALS: O2SAT 95
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
[2024-02-18 02:00] LABS: Specific Gravity 1.017 (1.005-1.030); Sqamous Epithelial None Seen /HPF (None Seen); Urine Bacteria None Seen /HPF (<20); Urine Bilirubin NEGATIVE (Negative); Urine Blood Negative (Negative); Urine Clarity Clear (Clear); Urine Color Colorless (Yellow); Urine Culture Reflex Order NOT NEEDED; Urine Glucose NEGATIVE (Negative); Urine Ketones NEGATIVE (Negative); Urine Microscopic Reflex YN ORDER UMIC; Urine Mucus Slight /HPF (None Seen); Urine Nitrite NEGATIVE (Negative); Urine Protein TRACE (Negative); Urine RBC <5 /HPF (None Seen); Urine Urobilinogen Normal (Normal); Urine WBC <5 /HPF (<5)
[2024-02-18 07:41] LABS: Absolute Eosinophils 0.1 K/uL (0-0.5); Absolute Lymphocytes (CBC) 2.4 K/uL (0.7-4.9); Absolute Monocytes 0.5 K/uL (0.1-1.3); Absolute Neutrophil 2.1 K/uL (1.8-8.0); Basophils % 0.9 % (0-1.3); Eosinophils % 2.8 % (0-4.4); Hematocrit 41.4 % (39.6-49.0); Hemoglobin 13.6 g/dL (13.6-17.9); Lymphocytes % 46.2 % (15.3-44.8); MPV 7.9 fL (7.6-11.3); Neutrophils % 41.1 % (41.7-73.7); Nucleated Red Blood Cells % 0.1 % (0-0); Platelets 191 thou/uL (152-406); RBC Red Blood Cell Count 4.86 M/uL (4.33-5.43)
[2024-02-18 07:55] LABS: ALT/SGPT 36 U/L (16-61); Albumin 2.8 g/dL (3.4-5.0); Albumin/Globulin Ratio 0.8 (1.1-1.8); Alkaline Phosphatase 56 U/L (45-117); Anion Gap 6.6 mEq/L (5.0-15.0); BUN Blood Urea Nitrogen 20 mg/dL (7-18); Bicarbonate 28 mEq/L (21-32); Bilirubin Total 0.3 mg/dL (0.2-1.0); Globulin 3.4 g/dL (2.3-3.5); Glomerular Filtration Rate 93 ml/min (=/>90); Glucose Level 113 mg/dL (74-106); HDL Cholesterol 29 mg/dL (40-60); Protein, Total 6.2 g/dL (6.4-8.2); Sodium Level 140 mEq/L (136-145)
[2024-02-18 07:56] LABS: AST/SGOT 23 U/L (15-37); Potassium 4.6 mEq/L (3.5-5.1)
[2024-02-18 08:07] LABS: LDL, Direct 70 mg/dL (100-129)
[2024-02-18] MEDS: INSULIN GLARGINE 100 UNIT/ML SQ SCH (09:07)
[2024-02-18] MEDS: MORPHINE 4 MG/ML SYR IV PRN (11:58)
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
[2024-02-18 17:11] VITALS: BP 144/91; TEMP 97.5
[2024-02-18] MEDS ORDERED: carvediloL 6.25 MG TAB PO SCH (21:00)
== END 2024-02-18 17:28 | disposition home or self-care (01) | DRG 935 ==
LOC: ER 22:17 → ERHOLD 02-17 01:58 → 2ND 02-17 03:32
PROVIDERS: ADMIT Internal Medicine; ATTEND Hospitalist
DX: T20.27XA Burn of second degree of neck, initial encounter (principal); N17.9 Acute kidney failure, unspecified; E87.0 Hyperosmolality and hypernatremia; S05.01XA Injury of conjunctiva and corneal abrasion without foreign body, right eye, initial encounter; T21.21XA Burn of second degree of chest wall, initial encounter; I10 Essential (primary) hypertension; E86.0 Dehydration; H10.9 Unspecified conjunctivitis; E11.65 Type 2 diabetes mellitus with hyperglycemia; M10.9 Gout, unspecified; E86.9 Volume depletion, unspecified; J32.0 Chronic maxillary sinusitis; R00.0 Tachycardia, unspecified; Z56.0 Unemployment, unspecified; Z79.82 Long term (current) use of aspirin; Z79.84 Long term (current) use of oral hypoglycemic drugs; Z79.899 Other long term (current) drug therapy; Z87.891 Personal history of nicotine dependence; W39.XXXA Discharge of firework, initial encounter; Y99.9 Unspecified external cause status; Y93.9 Activity, unspecified; Y92.9 Unspecified place or not applicable
CPT/HCPCS: 36415; 70450; 70486; 71045; 76377; 76770; 80048; 80053; 80061; 80076; 81001; 82550; 82570; 82947; 83036; 83735; 84300; 84443; 84484; 85025; 85610; 86850; 86900; 86901; 93005; 96361; 96372; 96374; 99285; J0692; J1650; J7030

== ENCOUNTER 2024-04-16 13:00 | Emergency (ER) | payer OTHER ==
--- OUTSIDE RECORDS SUMMARY | 2024-04-16 13:13 | XMS REPORT | Continuity of Care Document ---
Author Name Unknown Address [address] [facility] [address] [place] [address] [facility] Address [address] [facility] [address] [place] [address] Care Team Providers Care Production Broacher Name Role Phone PCP, PATIENT DOES NOT HAVE A Primary Care Physic minerva Unavailable JUAN LUIS ARELLANO Attending Clinician Unavailable GATITO COPPOLA Attending Clinician Unavailable Gatito Mccartney Attending Clinician +[phone] Doctor Unassigned, [place] Attending Clinician U PERCY Del Valle Attending Clinician Unavailable Percy Ramos MD Attending Clinician [phone] KIMBERLY SORENSON Attending Clinician UnavailKimberly Wagner DO Attending Clinician +[phone] RIAN MEREDITH Attending Clinician Unavailable EDDI SAHA Attending Clinician Unavailable Eddi Saha DO Attending Clinician [phone] TERESA JOSEPH Attending Clinician UnaFELI Ruiz Attending Clinician Unavailable Feli Hatfield Attending Clinician [phone] Ana Mello Attending Clinician [phone] Denise Ramirez NP Attending Clinician + [phone] Shira Gallego Attending Clinician [phone] Anthony Browne DO Attending Clinician [phone] José Miguel GIL, Jeannette Turk Attending Clinician Unavailab janice Arellano MD, Juan Luis Attending Clinician [phone] Joseph Salcido MD Attending Clinician [phone] Geovanni RODNEY, Kuldeep Attending Clinician +[phone] Wanda Cortez RN Attending Clinician Unavailable GLORIA LIRIANO Attending Clinician Unavailable Ja Sena Attending Clinician +[phone] Grey GIL, Martha Toledo Attending Clinician Unavailab janice Mishra Attending Clinician Unavailable REYNA SABA Attending Clinician Christin vailable Tom ACEVEDO, Reyna Salcido Attending Clinician Miriam Hairston MD Attending Clinician [phone] JUAN LUIS ARELLANO Admitting Clinician Unavailable GATITO COPOPLA Admitting Clinician Unavailable PERCY RAMOS Admitting Clinician Unavailable KIMBERLY SORENSON Admitting Clinician Unavailab RINA Damon Admitting Clinician Unavailable FELI LAYNE Admitting Clinician Unavailable Geovanni RODNEY, Kuldeep Admitting Clinician [phone] Tad Admitting Clinician Unavailable REYNA SABA Admitting Clinician Christin vailable Payers Payer Name Policy Type Policy Number Effective Date Expirati on Date Source MARLOW RULE [id number] 2019 00:00:00 [employer] [id number] 2023 00:00:00 [employer] [id number] 2023 00:00:00 Problems Condition Name Condition Details Condition Category Status Onset Date Resolution Date Last Treatment Date Treating Clinician Comments Source Essential hypertensi on Essential hypertensi on Disease Active 03-03 00:00: 00 [facility] Mixed hyperlipid emia Mixed hyperlipid emia Disease Active 03-03 00:00: 00 [facility] Type 2 diabetes mellitus without complicati on, without long-term current use of insulin Type 2 diabetes mellitus without complicati on, without long-term current use of insulin Disease Active 03-03 00:00: 00 [facility] Chest pain Chest pain Disease Active 03-02 00:00: 00 [facility] COVID-19 virus infection COVID-19 virus infection Disease Active 2019-08 0 00:00: 00 [facility] Cerebral venous sinus thrombosis , acute Cerebral venous sinus thrombosis , acute Disease Active 11-16 00:00: 00 [facility] Obesity (BMI 30-39.9) Obesity (BMI 30-39.9) Disease Active 11-16 00:00: 00 [facility] Respirator y abnormalit y Respirator y abnormalit y Disease Active 11-30 00:00: 00 Overview: Formattin g of this note might be different from the original. "Hard time breathing ."ICD10 Diagnosis Term Line Ordering Clinician Utility [facility] Headache Headache Disease Active 11-30 00:00: 00 Overview: Formattin g of this note might be different from the original. ICD10 Diagnosis Term Line Ordering Clinician Utility [facility] Allergies, Adverse Reactions, Alerts Allergy Name Allergy Type Status Severity Reaction(s) Onset Date Inactive Date Treating Clinician Comments Source NO KNOWN ALLERGIE S Drug Class Active [facility] Social History Social Habit Start Date Stop Date Quantity Comments Source Exposure to SARS-CoV-2 (event) Not sure [facility] History SDOH Alcohol Frequency [facility] History SDOH Alcohol Std Drinks [facility] History SDOH Alcohol Binge [facility] Gender identity [facility] Alcohol intake 2023-08-11 00:00:00 2023-08-11 00:00:00 Current non-drinker of alcohol (finding) [facility] History of Social function 2020-03-18 00:00:00 2020-03-18 00:00:00 [facility] Tobacco use and exposure 2018-11-16 00:00:00 2018-11-16 00:00:00 Smokeless tobacco non-user [facility] Alcohol Comment 2018-11-16 00:00:00 2018-11-16 00:00:00 one drink every 2-3 months [facility] Sex Assigned At 1970 00:00:00 1970 00:00:00 [facility] Smoking Status Start Date Stop Date Source Never smoked tobacco [facility] Medications Ordered Medication Name Filled Medication Name Start Date Stop Date Current Medication? Ordering Clinician Indication Dosage Frequency Signature (SIG) Comments Components Source cyclobenzap rine (FLEXERIL) tablet 10 mg 10-09 05:05: 00 10-09 05:15 :00 No 10mg 10 mg, Oral, ONCE, 1 dose, On 10/08/23 at 2315, [facility] FENTanyl PF (SUBLIMAZE (PF)) injection 50 mcg 10-09 02:10: 00 10-09 02:39 :00 No 50ug 50 mcg, Slow IV Push, ONCE, 1 dose, On 10/08/23 at 2015, [facility] ketorolac (TORADOL) injection 30 mg 10-09 00:43: 00 10-09 01:36 :00 No 30mg 30 mg, Slow IV Push, ONCE, 1 dose, On 10/08/23 at 1845, [facility] NaCl 0.9% (NS) IV infusion 1,000 mL 10-09 00:30: 00 10-09 02:42 :00 No 1000mL at 999 mL/hr, Intravenou s, ONCE, 1 dose, On 10/08/23 at 1845, [facility] ibuprofen 600 mg tablet 10-08 00:00: 00 Yes [id number] 600mg Take 1 tablet by mouth every 8 (eight) hours as needed for Pain (scale 4-6). [facility] cyclobenzap rine 10 mg tablet 10-08 00:00: 00 Yes [id number] 10mg Take 1 tablet by mouth 2 (two) times daily as needed for Muscle Spasms. [facility] lidocaine 5 % (700 mg/patch) patch 10-08 00:00: 00 Yes [id number] 1{patch } Apply 1 Patch to area(s) in the morning. [facility] ketorolac (TORADOL) injection 30 mg 08-24 19:30: 00 08-24 18:43 :00 No 30mg 30 mg, Intramuscu lar, ONCE, 1 dose, On Tue08/24/23 at 1330, Routine [facility] methocarbam oL (ROBAXIN) tablet 1,000 mg 08-22 20:45: 00 08-22 20:38 :00 No 1000mg 1,000 mg, Oral, ONCE, 1 dose, On Tue08/22/23 at 1445, [facility] HYDROcodone -acetaminop hen (NORCO 5) 5-325 mg tablet 1 tablet 08-22 20:45: 00 08-22 20:39 :00 No 1{tbl} 1 tablet, Oral, ONCE, 1 dose, On Tue08/22/23 at 1445, [facility] methocarbam oL 750 mg tablet 08-22 00:00: 00 Yes [id number] 750mg Take 1 tablet by mouth every 6 (six) hours as needed for Pain (scale 1-3). [facility] indomethaci n (INDOCIN) capsule 50 mg 2022-08 23:15: 00 08-11 22:55 :00 No 50mg 50 mg, Oral, ONCE, 1 dose, On Tue08/11/23 at 1715, Routine [facility] colchicine (COLCRYS) tablet 1.2 mg 2022-08 23:15: 00 08-11 22:55 :00 No 1.2mg 1.2 mg, Oral, ONCE, 1 dose, On Tue08/11/23 at 1715, Routine [facility] traMADoL (ULTRAM) tablet 50 mg 2022-08 22:30: 00 08-11 22:00 :00 No 50mg 50 mg, Oral, ONCE, 1 dose, On Tue08/11/23 at 1630, Routine [facility] colchicine 0.6 mg tablet 2022-08 00:00: 00 Yes [id number] Colchicine 0.6 mg x 1 dose after picking up your medication today [facility] indomethaci n 50 mg capsule 2022-08 00:00: 00 Yes [id number] 50mg Take 1 capsule by mouth 3 (three) times daily as needed for Pain for up to 15 doses. [facility] allopurinoL 100 mg tablet 2022-08 00:00: 00 09-11 05:59 :00 No [id number] 100mg Take 1 tablet by mouth in the morning for 30 days. [facility] allopurinoL 100 mg tablet 04-09 00:00: 00 08-11 00:00 :00 No [id number] 100mg Take 1 tablet by mouth in the morning. [facility] colchicine (COLCRYS) tablet 1.2 mg 04-07 14:00: 00 Yes 1.2mg 1.2 mg, Oral, DAILY, First dose on Tue04/07/23 at 0900, Until Discontinu ed, Routine [facility] indomethaci n 50 mg capsule 04-06 00:00: 00 04-12 04:59 :00 No [id number] 50mg Take 1 capsule by mouth in the morning and 1 capsule at noon and 1 capsule in the evening. Take with meals. Do all this for 5 days. [facility] HYDROcodone -acetaminop hen (NORCO 5) 5-325 mg tablet 1 tablet 09-05 05:00: 00 09-05 04:02 :00 No 1{tbl} 1 tablet, Oral, ONCE, 1 dose, On Tue09/04/21 at 2300, [facility] dexamethaso ne (DECADRON PHOSPHATE) injection 10 mg 09-05 05:00: 00 09-05 04:00 :00 No 10mg 10 mg, Oral, ONCE, 1 dose, On Tue09/04/21 at 2300, [facility] cefdinir (OMNICEF) capsule 300 mg 09-05 05:00: 00 09-05 04:02 :00 No 300mg 300 mg, Oral, ONCE, 1 dose, On Tue09/04/21 at 2300, [facility]
Re ason for Anti-Infec tive: Documented Infection< br>Documen chet Infection Site: Skin / Soft Tissue
Duration of Therapy: Other (see Comments) [facility] FENTanyl PF (SUBLIMAZE (PF)) injection 25 mcg 09-05 02:45: 00 09-05 01:50 :00 No 25ug 25 mcg, Slow IV Push, ONCE, 1 dose, On Tue09/04/21 at 2045, STAT [facility] ketorolac (TORADOL) injection 30 mg 09-05 02:45: 00 09-05 01:50 :00 No 30mg 30 mg, Slow IV Push, ONCE, 1 dose, On Tue09/04/21 at 2045, [facility] predniSONE 20 mg tablet 09-05 00:00: 00 08-11 00:00 :00 No [id number] 40mg Take 2 tablets by mouth daily. [facility] cefdinir 300 mg capsule 09-04 00:00: 00 08-11 00:00 :00 No [id number] 300mg Take 1 capsule by mouth 2 (two) times daily. [facility] ibuprofen 600 mg tablet 09-04 00:00: 00 08-11 00:00 :00 No [id number] 600mg Take 1 tablet by mouth every 6 (six) hours as needed for Pain (scale 4-6). [facility] traMADoL 50 mg tablet 09-04 00:00: 00 08-11 00:00 :00 No [id number] 50mg Take 1 tablet by mouth every 8 (eight) hours as needed for Pain (scale 7-10). Indication s: acute pain [facility] aspirin 81 mg chewable tablet 03-05 00:00: 00 Yes [id number] 81mg Take 1 tablet by mouth daily. [facility] fenofibrate micronized 134 mg capsule 03-05 00:00: 00 04-05 04:59 :00 No [id number] 134mg Take 1 capsule by mouth daily for 30 days. [facility] lisinopriL 20 mg tablet 03-05 00:00: 00 04-05 04:59 :00 No [id number] 20mg Take 1 tablet by mouth daily for 30 days. [facility] atorvastati n 40 mg tablet 03-04 00:00: 00 04-04 04:59 :00 No [id number] 40mg Take 1 tablet by mouth at bedtime for 30 days. [facility] metoprolol tartrate 25 mg tablet 03-04 00:00: 00 04-04 04:59 :00 No [id number] 25mg Take 1 tablet by mouth 2 (two) times daily for 30 days. [facility] aspirin tablet 325 mg 02-18 05:00: 00 02-18 04:12 :00 No 325mg 325 mg, Oral, ONCE, 1 dose, Tue02/18/21 at 0000, STAT [facility] aspirin chewable tablet 324 mg 12-02 14:00: 00 Yes 324mg 324 mg, Oral, DAILY, First dose on Tue12/02/20 at 0900, Until Discontinu ed, Routine [facility] hydralAZINE (APRESOLINE ) injection 10 mg 12-02 04:15: 00 12-02 03:14 :00 No 10mg 10 mg, Slow IV Push, ONCE, 1 dose, Tue12/01/20 at 2315, STAT
In dication: Hypertensi ve Emergency [facility] metoprolol (LOPRESSOR) injection 5 mg 12-02 03:00: 00 12-02 02:06 :00 No 5mg 5 mg, Slow IV Push, ONCE, 1 dose, Tue12/01/20 at 2200, [facility] ergocalcife rol, vitamin d2, 1,250 mcg (50,000 unit) capsule 2019-08 011 00:00: 00 Yes [id number] Take 1 capsule by mouth weekly. [facility] dexAMETHaso ne 6 mg tablet 2019-08 0-05 00:00: 00 05-28 04:59 :00 No [id number] 6mg Take 1 tablet by mouth daily for 8 days. [facility] HYDROCODONE -ACETAMINOP HEN 7.5-325 MG/15 ML ORAL SOLN 2019-08 0 16:43: 46 05-18 00:00 :00 No 1-2 tabs PRN [facility] ergocalcife rol (vitamin d2) (CALCIFEROL ) capsule 50,000 Units 2019-08 0 14:00: 00 Yes [id number] 50,000 Units, Oral, QWEEKLY, First dose on 05/18/20 at 0900, Until Discontinu ed, Routine [facility] ascorbic acid, vitamin C, 500 mg tablet 2019-08 0 00:00: 00 Yes [id number] 500mg Take 1 tablet by mouth daily. [facility] zinc sulfate 220 (50) mg capsule 2019-08 00:00: 00 Yes [id number] 220mg Take 1 capsule by mouth 2 (two) times daily. [facility] codeine-gua ifenesin 10-100 mg/5 mL solution 2019-08 0 00:00: 00 05-26 04:59 :00 No 10mL Take 10 mL by mouth every 4 (four) hours as needed for Cough for up to 7 days. Indication s: cough [facility] enoxaparin (LOVENOX) injection 40 mg 2019-08 0 22:00: 00 Yes 40mg 40 mg, Subcutaneo us, DAILY, First dose on 05/17/20 at 1700, Until Discontinu ed, Routine [facility] iohexol (OMNIPAQUE 350 BULK-100 mL) injection 114 mL 2019-08 0 18:45: 00 05-17 18:33 :00 No 114mL 114 mL, Intravenou s, ONCE, 1 dose, 05/17/20 at 1345, Routine [facility] zinc sulfate (ORAZINC) capsule 220 mg 2019-08 15:00: 00 Yes 220mg 220 mg, Oral, BID, First dose on 05/17/20 at 1000, Until Discontinu ed, Routine [facility] ascorbic acid (vitamin C) (VITAMIN C) tablet 500 mg 2019-08 15:00: 00 Yes 500mg 500 mg, Oral, BID, First dose on 05/17/20 at 1000, Until Discontinu ed, Routine [facility] dexAMETHaso ne (DECADRON) tablet 6 mg 2019-08 15:00: 00 Yes 6mg 6 mg, Oral, DAILY, First dose on 05/17/20 at 1000, Until Discontinu ed, Routine [facility] codeine-gua ifenesin (ROBITUSSIN AC) 10-100 mg/5 mL solution 10 mL 2019-08 14:54: 58 Yes 10mL 10 mL, Oral, Q4HPRN, Starting 05/17/20 at 0954, Until Discontinu ed, Routine, Cough [facility] traMADoL (ULTRAM) tablet 50 mg 2019-08 14:54: 37 05-19 14:53 :37 No 50mg 50 mg, Oral, Q6HPRN, Starting 05/17/20 at 0954, Until 05/19/20 at 0953, Routine, Pain (scale 4-6) [facility] acetaminoph en (TYLENOL) tablet 650 mg 2019-08 14:54: 31 Yes 650mg 650 mg, Oral, Q6HPRN, Starting 05/17/20 at 0954, Until Discontinu ed, Routine, Pain (scale 1-3) [facility] NaCl 0.9% (NS) bolus infusion 1,000 mL 2019-08 14:30: 00 05-17 14:44 :00 No 1000mL at 999 mL/hr, 1,000 mL, IV Piggyback, ONCE, 1 dose, 05/17/20 at 0930, STAT [facility] HYDROcodone -acetaminop hen (NORCO) 10-325 mg tablet 1 tablet 02-04 01:00: 02-04 00:06 :00 No 1{tbl} 1 tablet, Oral, ONCE, 1 dose, 02/04/20 at 2000, Routine [facility] clindamycin (CLEOCIN HCL) capsule 300 mg 02-04 01:00: 00 02-04 00:06 :00 No 300mg 300 mg, Oral, ONCE, 1 dose, 02/04/20 at 2000, [facility]
Re ason for Anti-Infec tive: Empiric Therapy for Suspected Infection< br>Empiric Therapy Site: Skin / Soft tissue
Duration of therapy: 7 days
Re stricted use approved by: ADC PROVIDER [facility] predniSONE (DELTASONE) tablet 40 mg 02-04 01:00: 02-04 00:06 :00 No 40mg 40 mg, Oral, ONCE, 1 dose, Tue02/04/20 at 2000, [facility] ketorolac (TORADOL) injection 60 mg 02-03 22:30: 00 02-03 22:30 :00 No 60mg 60 mg, Intramuscu lar, ONCE, 1 dose, Tue02/04/20 at 1730, [facility]
Fa culty member approving Restricted medication : Ja CAMARENA [facility] clindamycin 150 mg capsule 02-03 00:00: 00 02-14 04:59 :00 No [id number] 300mg Take 2 capsules by mouth 4 (four) times daily for 10 days. [facility] predniSONE 10 mg tablet 02-03 00:00: 02-12 04:59 :00 No [id number] Take 2 tablets by mouth 2 (two) times daily for 2 days, THEN 1 tablet 2 (two) times daily for 3 days, THEN 1 tablet daily for 3 days. [facility] cefdinir 300 mg capsule 09-06 00:00: 05-18 00:00 :00 No [id number] 300mg Take 1 capsule by mouth 2 (two) times daily. [facility] doxycycline 100 mg tablet 09-05 00:00: 00 09-20 05:59 :00 No [id number] 100mg Take 1 tablet by mouth 2 (two) times daily for 14 days. [facility] indomethaci n (INDOCIN) capsule 50 mg 09-04 08:00: 09-04 07:57 :00 No 50mg 50 mg, Oral, ONCE, 1 dose, 09/04/19 at 0200, Routine [facility] colchicine (COLCRYS) tablet 1.2 mg 09-04 07:00: 00 09-04 06:06 :00 No 1.2mg 1.2 mg, Oral, ONCE, 1 dose, 09/04/19 at 0100, Routine [facility] dexamethaso ne (DECADRON PHOSPHATE) injection 10 mg 09-04 07:00: 09-04 06:06 :00 No 10mg 10 mg, IV Push, ONCE, 1 dose, 09/04/19 at 0100, STAT [facility] ketorolac (TORADOL) injection 30 mg 09-04 07:00: 00 09-04 06:06 :00 No 30mg 30 mg, Slow IV Push, ONCE, 1 dose, 09/04/19 at 0100, Routine
nutrition faculty member approving Restricted medication : EMERGENCY ROOM, [facility] ondansetron (ZOFRAN (PF)) injection 4 mg 09-04 06:45: 00 09-04 05:46 :00 No 4mg 4 mg, Slow IV Push, ONCE, 1 dose, 09/04/19 at 0045, [facility] morpHINE injection 4 mg 09-04 06:45: 00 09-04 05:47 :00 No 4mg 4 mg, Slow IV Push, ONCE, 1 dose, 09/04/19 at 0045, STAT [facility] acetaminoph en (TYLENOL) tablet 1,000 mg 09-04 05:30: 00 09-04 04:37 :00 No 1000mg 1,000 mg, Oral, ONCE, 1 dose, 09/03/19 at 2330, Routine [facility] diphenhydrA MINE (BENADRYL) injection 25 mg 09-04 05:30: 00 09-04 04:37 :00 No 25mg 25 mg, Slow IV Push, ONCE, 1 dose, 09/03/19 at 2330, STAT [facility] metoclopram nayana HCl (REGLAN) injection 10 mg 09-04 05:30: 00 09-04 04:36 :00 No 10mg 10 mg, Slow IV Push, ONCE, 1 dose, 09/03/19 at 2330, RO[facility] AMRIE [facility] NaCl 0.9% (NS) bolus infusion 1,000 mL 09-04 05:30: 00 09-04 06:05 :00 No 1000mL at 999 mL/hr, 1,000 mL, IV Infusion, ONCE, 1 dose, 09/03/19 at 2330, STAT [facility] colchicine 0.6 mg tablet 09-04 00:00: 00 Yes [id number] 105 .6mg Take 1 tablet by mouth daily. [facility] indomethaci n 50 mg capsule 09-04 00:00: 00 05-18 00:00 :00 No [id number] 105 50mg Take 1 capsule by mouth 3 (three) times daily with meals. [facility] acetaminoph en-codeine 300-30 mg tablet 09-04 00:00: 00 05-18 00:00 :00 No [id number] 105 1{tbl} Take 1-2 tablets by mouth every 6 (six) hours as needed for Pain (scale 1-3). [facility] amLODIPine 5 mg tablet 11-18 00:00: 00 Yes [id number] 5mg Take 1 tablet by mouth daily. [facility] HYDROCODONE -ACETAMINOP HEN 7.5-325 MG/15 ML ORAL SOLN 11-17 22:26: 04 Yes 1-2 tabs PRN [facility] valACYclovi r 500 mg tablet 11-17 00:00: 00 Yes [id number] 1g Take 2 tablets by mouth 3 (three) times daily. [facility] artificial tears,hypro mellose, 0.5 % ophthalmic drops 11-17 00:00: 00 Yes [id number] 1[drp] Place 1 Drop in both eyes 4 (four) times daily as needed for Dry eyes. [facility] white petrolatum- mineral oil (PURALUBE) 85-15 % ophthalmic ointment 11-17 00:00: 00 Yes [id number] .5[in_u s] Place 0.5 Inches in both eyes at bedtime. [facility] bacitracin 500 unit/gram ointment 11-17 00:00: 00 05-18 00:00 :00 No [id number] Apply to area(s) 2 (two) times daily. [facility] traMADOL (ULTRAM) 50 mg tablet 2016-08 030 00:00: 00 Yes 50mg Take 1 tablet by mouth every 6 (six) hours as needed for Pain (scale 7-10). [facility] acetaminoph en-codeine (TYLENOL-CO DEINE #3) 300-30 mg tablet 12 00:00: 00 05-18 00:00 :00 No 1{tbl} Take 1 Tab by mouth every 4 (four) hours as needed for Pain (scale 4-6). [facility] Vital Signs Vital Name Observation Time Observation Value Comments S ource Systolic blood pressure 2023-10-09 05:00:00 148 mm[Hg] [facility] Diastolic blood pressure 2023-10-09 05:00:00 96 mm[Hg] [facility] Heart rate 2023-10-09 05:00:00 50 /min [facility] Respiratory rate 2023-10-09 05:00:00 17 /min [facility] Oxygen saturation in Arterial blood by Pulse oximetry 2023-10-09 05:00:00 95 /min [facility] Body temperature 2023-10-09 03:00:00 36.78 Kerri [facility] Body height 2023-10-09 00:15:00 170.2 cm [facility] Body weight 2023-10-09 00:15:00 95.255 kg [facility] BMI 2023-10-09 00:15:00 32.89 kg/m2 [facility] Systolic blood pressure 2023-08-24 19:38:53 132 mm[Hg] [facility] Diastolic blood pressure 2023-08-24 19:38:53 87 mm[Hg] [facility] Heart rate 2023-08-24 19:38:53 97 /min [facility] Body temperature 2023-08-24 19:38:53 37 Kerri [facility] Respiratory rate 2023-08-24 19:38:53 20 /min [facility] Oxygen saturation in Arterial blood by Pulse oximetry 2023-08-24 19:38:53 98 /min [facility] Body weight 2023-08-24 16:11:00 95.255 kg [facility] BMI 2023-08-24 16:11:00 32.89 kg/m2 [facility] Systolic blood pressure 2023-08-22 20:27:00 156 mm[Hg] [facility] Diastolic blood pressure 2023-08-22 20:27:00 108 mm[Hg] [facility] Heart rate 2023-08-22 20:27:00 84 /min [facility] Body temperature 2023-08-22 20:27:00 36.5 Kerri [facility] Respiratory rate 2023-08-22 20:27:00 19 /min [facility] Body height 2023-08-22 20:27:00 170.2 cm [facility] Body weight 2023-08-22 20:27:00 95.255 kg [facility] BMI 2023-08-22 20:27:00 32.89 kg/m2 [facility] Oxygen saturation in Arterial blood by Pulse oximetry 2023-08-22 20:27:00 99 /min [facility] Systolic blood pressure 2023-08-11 21:33:00 154 mm[Hg] [facility] Diastolic blood pressure 2023-08-11 21:33:00 99 mm[Hg] [facility] Heart rate 2023-08-11 21:33:00 94 /min [facility] Body temperature 2023-08-11 21:33:00 36.39 Kerri [facility] Respiratory rate 2023-08-11 21:33:00 18 /min [facility] Body height 2023-08-11 21:33:00 170.2 cm [facility] Body weight 2023-08-11 21:33:00 97.523 kg [facility] BMI 2023-08-11 21:33:00 33.67 kg/m2 [facility] Oxygen saturation in Arterial blood by Pulse oximetry 2023-08-11 21:33:00 99 /min [facility] Systolic blood pressure 2023-04-06 18:58:00 140 mm[Hg] [facility] Diastolic blood pressure 2023-04-06 18:58:00 98 mm[Hg] [facility] Heart rate 2023-04-06 18:58:00 96 /min [facility] Body temperature 2023-04-06 18:58:00 36.78 Kerri [facility] Respiratory rate 2023-04-06 18:58:00 18 /min [facility] Body height 2023-04-06 18:58:00 170.2 cm [facility] Body weight 2023-04-06 18:58:00 95.255 kg [facility] BMI 2023-04-06 18:58:00 32.89 kg/m2 [facility] Oxygen saturation in Arterial blood by Pulse oximetry 2023-04-06 18:58:00 98 /min [facility] Systolic blood pressure 2021-09-05 04:03:51 130 mm[Hg] [facility] Diastolic blood pressure 2021-09-05 04:03:51 82 mm[Hg] [facility] Heart rate 2021-09-05 04:03:51 85 /min [facility] [facility] Respiratory rate 2021-09-05 04:03:51 20 /min [facility] Oxygen saturation in Arterial blood by Pulse oximetry 2021-09-05 04:03:51 97 /min [facility] Body temperature 2021-09-05 01:31:00 37.33 Kerri [facility] Body height 2021-09-05 01:31:00 170.2 cm [facility] Body weight 2021-09-05 01:31:00 97.342 kg [facility] BMI 2021-09-05 01:31:00 33.61 kg/m2 [facility] Systolic blood pressure 2021-02-18 05:42:00 130 mm[Hg] [facility] Diastolic blood pressure 2021-02-18 05:42:00 83 mm[Hg] [facility] Heart rate 2021-02-18 05:42:00 91 /min Unive [facility] Respiratory rate 2021-02-18 05:42:00 19 /min [facility] Oxygen saturation in Arterial blood by Pulse oximetry 2021-02-18 05:42:00 94 /min [facility] Body temperature 2021-02-18 03:46:00 36.89 Kerri [facility] Body height 2021-02-18 03:46:00 170.2 cm [facility] Body weight 2021-02-18 03:46:00 97.523 kg [facility] BMI 2021-02-18 03:46:00 33.67 kg/m2 [facility] Systolic blood pressure 2020-12-02 04:10:00 108 mm[Hg] [facility] Diastolic blood pressure 2020-12-02 04:10:00 80 mm[Hg] [facility] Heart rate 2020-12-02 04:10:00 77 /min Un[facility] Respiratory rate 2020-12-02 04:10:00 20 /min [facility] Oxygen saturation in Arterial blood by Pulse oximetry 2020-12-02 04:10:00 96 /min [facility] Body temperature 2020-12-02 01:13:00 36.72 Kerri [facility] Body height 2020-12-02 01:13:00 170.2 cm [facility] Body weight 2020-12-02 01:13:00 95.255 kg [facility] BMI 2020-12-02 01:13:00 32.89 kg/m2 [facility] Systolic blood pressure 2020-12-02 04:10:00 108 mm[Hg] [facility] Diastolic blood pressure 2020-12-02 04:10:00 80 mm[Hg] [facility] Heart rate 2020-12-02 04:10:00 77 /min Unive [facility] Respiratory rate 2020-12-02 04:10:00 20 /min [facility] Oxygen saturation in Arterial blood by Pulse oximetry 2020-12-02 04:10:00 96 /min [facility] Body temperature 2020-12-02 01:13:00 36.72 Kerri [facility] Body height 2020-12-02 01:13:00 170.2 cm [facility] Body weight 2020-12-02 01:13:00 95.255 kg [facility] BMI 2020-12-02 01:13:00 32.89 kg/m2 [facility] Systolic blood pressure 2020-05-18 17:26:00 117 mm[Hg] [facility] Diastolic blood pressure 2020-05-18 17:26:00 97 mm[Hg] [facility] Heart rate 2020-05-18 17:26:00 81 /min Unive [facility] Respiratory rate 2020-05-18 17:26:00 21 /min [facility] Oxygen saturation in Arterial blood by Pulse oximetry 2020-05-18 17:26:00 95 /min [facility] Body temperature 2020-05-18 17:00:00 36.33 Kerri [facility] Body weight 2020-05-18 08:05:00 93.486 kg [facility] BMI 2020-05-18 08:05:00 32.28 kg/m2 [facility] Body height 2020-05-17 15:00:00 170.2 cm [facility] Systolic blood pressure 2020-05-18 17:26:00 117 mm[Hg] [facility] Diastolic blood pressure 2020-05-18 17:26:00 97 mm[Hg] [facility] Heart rate 2020-05-18 17:26:00 81 /min Unive [facility] Respiratory rate 2020-05-18 17:26:00 21 /min [facility] Oxygen saturation in Arterial blood by Pulse oximetry 2020-05-18 17:26:00 95 /min [facility] Body temperature 2020-05-18 17:00:00 36.33 Kerri [facility] Body weight 2020-05-18 08:05:00 93.486 kg [facility] BMI 2020-05-18 08:05:00 32.28 kg/m2 [facility] Body height 2020-05-17 15:00:00 170.2 cm [facility] Systolic blood pressure 2020-02-09 04:41:00 145 mm[Hg] [facility] Diastolic blood pressure 2020-02-09 04:41:00 85 mm[Hg] [facility] Heart rate 2020-02-09 04:41:00 97 /min Unive [facility] Body temperature 2020-02-09 04:41:00 35.72 Kerri [facility] Respiratory rate 2020-02-09 04:41:00 20 /min [facility] Body weight 2020-02-09 04:41:00 95.255 kg [facility] BMI 2020-02-09 04:41:00 32.89 kg/m2 [facility] Oxygen saturation in Arterial blood by Pulse oximetry 2020-02-09 04:41:00 99 /min [facility] Systolic blood pressure 2020-02-09 04:41:00 145 mm[Hg] [facility] Diastolic blood pressure 2020-02-09 04:41:00 85 mm[Hg] [facility] Heart rate 2020-02-09 04:41:00 97 /min Un[facility] Body temperature 2020-02-09 04:41:00 35.72 Kerri [facility] Respiratory rate 2020-02-09 04:41:00 20 /min [facility] Body weight 2020-02-09 04:41:00 95.255 kg [facility] BMI 2020-02-09 04:41:00 32.89 kg/m2 [facility] Oxygen saturation in Arterial blood by Pulse oximetry 2020-02-09 04:41:00 99 /min [facility] Systolic blood pressure 2020-02-05 00:03:00 150 mm[Hg] [facility] Diastolic blood pressure 2020-02-05 00:03:00 99 mm[Hg] [facility] Heart rate 2020-02-05 00:03:00 84 /min Unive [facility] Respiratory rate 2020-02-05 00:03:00 20 /min [facility] Oxygen saturation in Arterial blood by Pulse oximetry 2020-02-05 00:03:00 95 /min [facility] Body temperature 2020-02-04 20:16:00 36.83 Kerri [facility] Body height 2020-02-04 20:16:00 170.2 cm [facility] Body weight 2020-02-04 20:16:00 95.255 kg [facility] BMI 2020-02-04 20:16:00 32.89 kg/m2 [facility] Systolic blood pressure 2020-02-05 00:03:00 150 mm[Hg] [facility] Diastolic blood pressure 2020-02-05 00:03:00 99 mm[Hg] [facility] Heart rate 2020-02-05 00:03:00 84 /min Un[facility] Respiratory rate 2020-02-05 00:03:00 20 /min [facility] Oxygen saturation in Arterial blood by Pulse oximetry 2020-02-05 00:03:00 95 /min [facility] Body temperature 2020-02-04 20:16:00 36.83 Kerri [facility] Body height 2020-02-04 20:16:00 170.2 cm [facility] Body weight 2020-02-04 20:16:00 95.255 kg [facility] BMI 2020-02-04 20:16:00 32.89 kg/m2 [facility] Body temperature 2019-09-25 19:00:00 36.06 Kerri [facility] Body height 2019-09-25 19:00:00 170.2 cm [facility] Body weight 2019-09-25 19:00:00 100.018 kg [facility] BMI 2019-09-25 19:00:00 34.54 kg/m2 [facility] Body temperature 2019-09-05 14:53:00 36 Kerri [facility] Body height 2019-09-05 14:53:00 170.2 cm [facility] Body weight 2019-09-05 14:53:00 100.018 kg [facility] BMI 2019-09-05 14:53:00 34.54 kg/m2 [facility] Systolic blood pressure 2019-09-04 06:23:45 117 mm[Hg] [facility] Diastolic blood pressure 2019-09-04 06:23:45 88 mm[Hg] [facility] Heart rate 2019-09-04 06:23:45 94 /min [facility] Body temperature 2019-09-04 06:23:45 36.5 Kerri [facility] Respiratory rate 2019-09-04 06:23:45 18 /min [facility] Oxygen saturation in Arterial blood by Pulse oximetry 2019-09-04 06:23:45 97 /min [facility] BMI 2019-09-04 04:39:48 33.67 kg/m2 [facility] Body height 2019-09-04 04:39:48 170.2 cm [facility] Body weight 2019-09-04 04:39:48 97.523 kg [facility] Procedures Procedure Date / Time Performed Performing Clinician Source CT ABDOMEN PELVIS WO CONTRAST 2023-10-09 03:45:35 Gatito Coppola [facility] URINALYSIS 2023-10-09 02:10:00 Gatito Coppola [facility] LIPASE 2023-10-09 01:30:00 Gatito Coppola [facility] HEPATIC FUNCTION PANEL (64232) (ALB,T.PRO,BILI T,BU/BC,ALT,AST,ALK PHOS) 2023-10-09 01:30:00 Gatito Coppola [facility] BASIC METABOLIC PANEL (NA, K, CL, CO2, GLUCOSE, BUN, CREATININE, CA) 2023-10-09 01:30:00 Gatito Coppola [facility] CBC WITH DIFF 2023-10-09 01:30:00 Gatito Coppola [facility] ASSIGNMENT OF BENEFITS 2023-10-09 00:54:53 Docto r Unassigned, [place] NOTICE OF PRIVACY PRACTICES 2023-10-09 00:12:46 Doctor Unassigned, [place]bster [facility] CONSENT/REFUSAL FOR DIAGNOSIS AND TREATMENT 2023-10-09 00:11:33 Doctor Unassigned, [place]bster [facility] URIC ACID 2023-08-24 18:14:00 [facility] BASIC METABOLIC PANEL (NA, K, CL, CO2, GLUCOSE, BUN, CREATININE, CA) 2023-08-24 18:14:00 Percy Ramos [facility] CBC WITH DIFF 2023-08-24 18:14:00 [facility] XR ANKLE 3+ VW RIGHT 2023-08-24 18:11:40 Percy Ramos [facility] XR FOOT 3+ VW RIGHT 2023-08-24 18:11:40 Percy Ramos [facility] CONSENT/REFUSAL FOR DIAGNOSIS AND TREATMENT 2023-08-24 16:05:19 Doctor Unassigned, [place] [facility] ASSIGNMENT OF BENEFITS 2023-08-22 20:44:26 Docto r Unassigned, [place]bster [facility] CONSENT/REFUSAL FOR DIAGNOSIS AND TREATMENT 2023-08-22 20:17:42 Doctor Unassigned, [place]bster [facility] RAPID INFLUENZA A/B 2023-08-11 21:59:00 Keturah Meredith [facility] COVID-19 (ID NOW RAPID TESTING) 2023-08-11 21:59:00 Rina Meredith [facility] XR FOOT 3+ VW RIGHT 2023-08-11 21:58:33 Keturah Meredith [facility] CONSENT/REFUSAL FOR DIAGNOSIS AND TREATMENT 2023-08-11 21:32:58 Doctor Unassigned, [place] [facility] DISABILITY/FMLA 2023-05-05 05:01:00 Doctor Unass igned, Herbster [facility] ASSIGNMENT OF BENEFITS 2023-04-06 20:20:21 Docto r Unassigned, Herbster [facility] CONSENT/REFUSAL FOR DIAGNOSIS AND TREATMENT 2023-04-06 18:55:16 Doctor Unassigned, [place]bster [facility] DUPLEX VENOUS LEGS BILATERAL - BY VASCULAR LAB 2021-09-05 03:43:24 Feli Layne [facility] URIC ACID 2021-09-05 01:48:00 [facility] BASIC METABOLIC PANEL (NA, K, CL, CO2, GLUCOSE, BUN, CREATININE, CA) 2021-09-05 01:48:00 Feli Layne [facility] SEDIMENTATION RATE 2021-09-05 01:48:00 Feli Layne [facility] CBC WITH DIFF 2021-09-05 01:48:00 Feli Layne [facility] XR FOOT 3+ VW RIGHT 2021-09-05 01:43:09 Feli Layne [facility] NOTICE OF PRIVACY PRACTICES 2021-09-05 01:07:38 Doctor Unassigned, [place]ster [facility] CONSENT/REFUSAL FOR DIAGNOSIS AND TREATMENT 2021-09-05 01:07:20 Doctor Unassigned, [place]bster [facility] EXTERNAL PROVIDER RECORDS 2021-03-23 05:01:00 Doctor Unassigned, [place]bster [facility] XR CHEST 1 VW 2021-02-18 04:45:53 Ana Samuel [facility] TROPONIN I 2021-02-18 04:08:00 Samuel[facility] COMP. METABOLIC PANEL (91483) 2021-02-18 04:08:00 Ana Samuel [facility] CBC WITH DIFF 2021-02-18 04:08:00 Ana Samuel [facility] N-TERMINAL PRO-BNP 2021-02-18 04:08:00 Ana Samuel [facility] NOTICE OF PRIVACY PRACTICES 2021-02-18 03:31:56 Doctor Unassigned, [place] [facility] CONSENT/REFUSAL FOR DIAGNOSIS AND TREATMENT 2021-02-18 03:31:41 Doctor Unassigned, [place]bster [facility] TROPONIN I 2020-12-02 03:16:00 Denise Ramirez [facility] XR CHEST 1 VW 2020-12-02 02:56:58 Denise Ramirez [facility] LIPASE 2020-12-02 01:45:00 Denise Ramirez [facility] TROPONIN I 2020-12-02 01:45:00 Denise Ramirez [facility] COMP. METABOLIC PANEL ([id number]) 2020-12-02 01:45:00 Denise Ramirez [facility] CBC WITH DIFF 2020-12-02 01:45:00 Denise Ramirez [facility] PROTHROMBIN TIME / INR 2020-12-02 01:45:00 Nuria Ramirez ala [facility] ACTIVATED PARTIAL THRMPLAS MERY 2020-12-02 01:45:00 Denise Ramirez [facility] CONSENT/REFUSAL FOR DIAGNOSIS AND TREATMENT 2020-12-02 00:57:56 Doctor Unassigned, [place] [facility] BASIC METABOLIC PANEL (NA, K, CL, CO2, GLUCOSE, BUN, CREATININE, CA) 2020-05-18 09:35:00 Kuldeep Galarza [facility] CBC WITH DIFF 2020-05-18 08:14:00 Kudleep Galarza [facility] LEGIONELLA URINARY ANTIGEN TST 2020-05-17 21:33:00 Kuldeep Galarza [facility] PNEUMOCOCCAL ANTIGEN 2020-05-17 21:32:00 Shahrzad Galarza [facility] CT CHEST PULMONARY ANGIOGRAM 2020-05-17 18:36:13 Kuldeep Galarza [facility] PROCALCITONIN 2020-05-17 15:35:00 Kuldeep Galarza [facility] XR CHEST 1 VW 2020-05-17 13:46:07 Joseph Salcido [facility] CREATINE KINASE 2020-05-17 13:26:00 [facility] 2020-05-17 13:26:00 Joseph Salcido [facility] HEPATIC FUNCTION PANEL ([id number]) (ALB,T.PRO,BILI T,BU/BC,ALT,AST,ALK PHOS) 2020-05-17 13:26:00 Omari [facility] BASIC METABOLIC PANEL (NA, K, CL, CO2, GLUCOSE, BUN, CREATININE, CA) 2020-05-17 [facility]:26[facility] 2020-05-17 13:26:00 Joseph Salcido [facility] PROTHROMBIN TIME / INR 2020-05-17 13:26:00 Gen Salcido [facility] D-DIMER 2020-05-17 13:26:00 [facility] ACTIVATED PARTIAL THRMPLAS MERY 2020-05-17 13:26:00 Omari [facility] N-TERMINAL PRO-BNP 2020-05-17 13:26:00 [facility]CLC OR LCC ONLY - INFLUENZA A & B DIRECT ANTIGEN 2020-05-17 13:25:00 [facility] COVID-19 (ID NOW RAPID TESTING) 2020-05-17 13:25:00 [facility] LEAD 2020-05-17 13:19:38 [facility] EKG-12 LEAD 2020-05-17 13:10:25 [facility] CONSENT/REFUSAL FOR DIAGNOSIS AND TREATMENT 2020-05-17 12:50:12 Doctor Unassigned, [place] [facility] NOTICE OF PRIVACY PRACTICES 2020-02-09 05:16:38 Doctor Unassigned, [place] [facility] CONSENT/REFUSAL FOR DIAGNOSIS AND TREATMENT 2020-02-09 05:16:28 Doctor Unassigned, [place] [facility] NOTICE OF PRIVACY PRACTICES 2020-02-09 04:29:20 Doctor Unassigned, [place] [facility] CONSENT/REFUSAL FOR DIAGNOSIS AND TREATMENT 2020-02-09 04:29:07 Doctor Unassigned, [place]bster [facility] CONSENT/REFUSAL FOR DIAGNOSIS AND TREATMENT 2020-02-04 19:58:54 Doctor Unassigned, [place] [facility] CT LANDMARK SINUS WO CONTRAST 2019-09-25 15:25:47 Reyna Saba [facility] URIC ACID 2019-09-04 05:17:00 Miriam Hairston [facility] COMP. METABOLIC PANEL ([id number]) 2019-09-04 05:17:00 Miriam Hairston [facility] CT HEAD WO CONTRAST 2019-09-04 05:04:32 Humberto Hairston [facility] XR ANKLE <3 VW RIGHT 2019-09-04 05:04:21 Mika Hairston [facility] SEDIMENTATION RATE 2019-09-04 04:38:00 Lizandro Hairston [facility] CBC WITH DIFFERENTIAL 2019-09-04 04:38:00 Ja Hairston [facility] Encounters Start Date/Time End Date/Time Encounter Type Admission Type Attending [facility] Care Facility Care Department Encounter ID Source 2021-06-15 09:16:16 Emergency [facility] [id number] [facility] 2021-06-15 06:25:48 Emergency [facility] [id number] [facility] 2021-06-14 13:56:42 Emergency [facility] [id number] [facility] 2021-06-12 20:52:31 Emergency [facility] [id number] [facility] 2021-06-12 03:13:29 Emergency [facility] [id number] [facility] 2021-06-12 02:13:36 Emergency [facility] [id number] [facility] 2021-06-11 10:38:23 Outpatient R PAMELA JUAN LUIS [facility] DSU [id number] [facility] 2023-10-08 18:28:00 2023-10-08 23:55:00 Emergency X GATITO COPPOLA [facility] ERT [id number] [facility] 2023-10-08 18:28:00 2023-10-08 23:55:00 Emergency Gatito Coppola [facility] 1.2.840.114 350.1.13.10 4.2.7.2.686 [id number] [facility] 2023-08-29 00:00:00 2023-08-29 00:00:00 Patient Secure Msg Doctor Unassigned, [place] 1.2.840.114 350.1.13.10 4.2.7.2.686 [id number] [facility] 2023-08-24 10:14:00 2023-08-24 13:50:00 Emergency X PERCY RAMOS [facility] ERT [id number] [facility] 2023-08-24 10:14:00 2023-08-24 13:50:00 Emergency Percy Ramos [facility] 1.2.840.114 350.1.13.10 4.2.7.2.686 [id number] [facility] 2023-08-22 14:34:00 2023-08-22 16:32:00 Emergency X KIMBERLY SORENSON [facility] ERT [id number] [facility] 2023-08-22 14:34:00 2023-08-22 16:32:00 Emergency Kimberly Sorenson [facility] 1.2.840.114 350.1.13.10 4.2.7.2.686 [id number] [facility] 2023-08-11 15:34:00 2023-08-11 17:13:00 Emergency X RINA MEREDITH [facility] ERT [id number] [facility] 2023-08-11 15:34:00 2023-08-11 17:13:00 Emergency Rina Meredith [facility] 1.2.840.114 350.1.13.10 4.2.7.2.686 [id number] [facility] 2023-05-05 00:00:00 2023-05-05 00:00:00 Orders Only Doctor Unassigned, [place] 1.2.840.114 350.1.13.10 4.2.7.2.686 [id number] [facility] 2023-04-06 13:59:00 2023-04-06 15:26:00 Emergency X EDDI SAHA [facility] ERT [id number] [facility] 2023-04-06 13:59:00 2023-04-06 15:26:00 Emergency Eddi Saha [facility] 1..840.114 350.1.13.10 4.2.7.2.686 [id number] [facility] 2022-07-02 16:59:59 2022-07-02 16:59:59 Outpatient [facility] [id number] Vinod Paredes 2022-06-26 10:08:00 2022-06-26 10:08:00 Outpatient [facility] [id number] Vinod Paredes 2021-09-07 10:00:00 2021-09-07 10:00:00 Outpatient TERESA JOSEPH [id number] [facility] 2021-09-04 19:33:00 2021-09-04 22:27:00 Emergency X FELI LAYNE [facility] ERT [id number] [facility] 2021-09-04 19:33:00 2021-09-04 22:27:00 Emergency Feli Layne R [facility] 1.2.840.114 350.1.13.10 4.2.7.2.686 [id number] [facility] 2021-03-23 00:00:00 2021-03-23 00:00:00 Orders Only Doctor Unassigned, [place] [facility] 1.2.840.114 350.1.13.10 4.2.7.2.686 [id number] [facility] 2021-02-17 22:56:00 2021-02-18 00:56:00 Emergency Ana Samuel S [facility] 1.2.840.114 350.1.13.10 4.2.7.2.686 [id number] [facility] 2020-12-01 20:15:00 2020-12-01 23:30:00 Emergency Denise [facility] 1.2.840.114 350.1.13.10 4.2.7.2.686 [id number] [facility] 2020-12-01 20:15:00 2020-12-01 23:30:00 Emergency MartinhumbertoDenise [facility] 1.2.840.114 350.1.13.10 4.2.7.2.686 [id number] 2020-10-28 00:00:00 2020-10-28 00:00:00 Patient Outreach Anthony Browne [facility] 1.2.840.114 350.1.13.10 4.2.7.2.686 [id number] [facility] 2020-10-28 00:00:00 2020-10-28 00:00:00 Patient Outreach Anthony Browne [facility] 1.2.840.114 350.1.13.10 4.2.7.2.686 [id number] 2020-05-27 16:15:00 2020-05-27 16:15:00 Outpatient Yandy ARELLANO [facility] [id number] [facility] 2020-05-23 00:00:00 2020-05-23 00:00:00 Nurse Triage [facility] 1.2.840.114 350.1.13.10 4.2.7.2.686 [id number] [facility] 2020-05-23 00:00:00 2020-05-23 00:00:00 Nurse Triage [facility] 1.2.840.114 350.1.13.10 4.2.7.2.686 [id number] 2020-05-19 11:15:00 2020-05-19 11:15:00 Outpatient Yandy PAMELA [facility] [id number] [facility] 2020-05-19 09:12:55 2020-05-19 09:27:55 Telemedici ne Visit Pamela [facility]. 1.2.840.114 350.1.13.10 4.2.7.2.686 [id number] [facility] 2020-05-19 09:12:55 2020-05-19 09:27:55 Telemedici ne Visit Pamela [facility]. 1.2.840.114 350.1.13.10 4.2.7.2.686 [id number] 2020-05-17 07:55:00 2020-05-18 13:15:00 Emergency Joseph Salcido Yaman [facility] 1.2.840.114 350.1.13.10 4.2.7.2.686 [id number] [facility] 2020-05-17 07:55:00 2020-05-18 13:15:00 Emergency Joseph Salcido Kuldeep [facility] 1.2.840.114 350.1.13.10 4.2.7.2.686 [id number] 2020-05-17 00:00:00 2020-05-17 00:00:00 Nurse Triage [facility] 1.2.840.114 350.1.13.10 4.2.7.2.686 [id number] [facility] 2020-05-17 00:00:00 2020-05-17 00:00:00 [facility] 1.2.840.114 350.1.13.10 4.2.7.2.686 [id number] 2020-05-12 14:20:00 2020-05-12 14:20:00 Outpatient R [facility] [id number] [facility] 2020-04-28 18:00:00 2020-04-28 18:00:00 Outpatient R GLORIA LIRIANO [facility] [id number] [facility] 2020-03-18 00:00:00 2020-03-18 00:00:00 Nurse Triage [facility] 1.2.840.114 350.1.13.10 4.2.7.2.686 [id number] [facility] 2020-03-18 00:00:00 2020-03-18 00:00:00 Nurse Triage [facility] 1.2.840.114 350.1.13.10 4.2.7.2.686 [id number] 2020-02-09 00:28:27 2020-02-09 01:06:00 Emergency Epifanio Vargascl Kebede [facility] 1.2.840.114 350.1.13.10 4.2.7.2.686 [id number] [facility] 2020-02-09 00:28:27 2020-02-09 01:06:00 Emergency Shira Vargas [facility] 1.2.840.114 350.1.13.10 4.2.7.2.686 [id number] 2020-02-09 00:00:00 2020-02-09 00:00:00 Orders Only Doctor Unassigned, [place] [facility] 1.2.840.114 350.1.13.10 4.2.7.2.686 [id number] [facility] 2020-02-09 00:00:00 2020-02-09 00:00:00 Orders Only Doctor Unassigned, [place] [facility] 1.2.840.114 350.1.13.10 4.2.7.2.686 [id number] 2020-02-04 15:18:35 2020-02-04 19:14:00 Emergency Ja Camarena [facility] 1.2.840.114 350.1.13.10 4.2.7.2.686 [id number] [facility] 2020-02-04 15:18:35 2020-02-04 19:14:00 Emergency Caleb, [facility] 1.2.840.114 350.1.13.10 4.2.7.2.686 [id number] 2020-02-04 00:00:00 2020-02-04 00:00:00 Nurse Triage [facility] 1.2.840.114 350.1.13.10 4.2.7.2.686 [id number] [facility] 2020-02-04 00:00:00 2020-02-04 00:00:00 Nurse Triage [facility] 1.2.840.114 350.1.13.10 4.2.7.2.686 [id number] 2019-11-21 10:33:00 2019-11-21 10:33:00 [facility]patient [facility] [id number] [facility] 2019-10-02 00:00:00 2019-10-02 00:00:00 [facility] 1.2.840.114 350.1.13.10 4.2.7.2.686 [id number] [facility] 2019-10-02 00:00:00 2019-10-02 00:00:00 Telephone [facility] 1.2.840.114 350.1.13.10 4.2.7.2.686 [id number] 2019-09-25 09:08:48 2019-09-25 23:59:00 Outpatient R REYNA SABA [facility] [id number] [facility] 2019-09-25 09:00:00 2019-09-25 23:59:00 Hospital Encounter Reyna Saba [facility] 1.2840.114 350.1.13.10 4.2.7.2.686 [id number] [facility] 2019-09-25 12:36:36 2019-09-25 13:51:54 [facility] 1.2840.114 350.1.13.10 4.2.7.2.686 [id number] [facility] 2019-09-25 00:00:00 2019-09-25 00:00:00 Letter (Out) [facility] 1.2840.114 350.1.13.10 4.2.7.2.686 [id number] [facility] 2019-09-05 08:39:59 2019-09-05 09:09:59 Office Visit Reyna Saba [facility] [employer] [facility]. 1.2840.114 350.1.13.10 4.2.7.2.686 [id number] [facility] 2019-09-05 00:00:00 2019-09-05 00:00:00 Telephone Reyna Saba [facility] [employer] BLDG. 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 [facility] (NA, K, CL, CO2, GLUCOSE, BUN, CREATININE, CA)2023-10-09 01:58:41* Test Item Value Reference Range Interpretation Comme nts NA (test code = 8397466429) 138 mmol/L 135-145 K (test code = 7002542832) 3.6 mmol/L 3.5-5.0 CL (test code = 2278888200) 106 mmol/L 98-108 CO2 TOTAL (test code = 2697693109) 28 mmol/L 23-31 AGAP (test code = 4069780689) 4 2-16 BUN (test code = 4770656223) 15 mg/dL 7-23 GLUCOSE (test code = 3847008594) 151 mg/dL 70-110 H CREATININE (test code = 2160-0) 0.81 mg/dL 0.60-1.25 CALCIUM (test code = 5316327550) 8.5 mg/dL 8.6-10.6 L eGFR (test code = 41003-8) 105.4 mL/min/1.73m2 CKD-EPI eGFR (2020). Assuming creatinine has been stable day-to-day for at least three months, the eGFR indicates Category G1 (>= 90 mL/min/1.73 m2) Lab Interpretation (test code = 79628-3) [facility] 01[facility]58:41* Test Item Value Reference Range Interpretation Comme nts LIPASE (test code = 3662115817) 130 U/L 0-220 Lab Interpretation (test cod e = 73343-1) Normal [facility] WITH [id number] 01:42:23* Test Item Value Reference Range Interpretation [...] 32.4 g/dL 31.2-35.0 RDW-SD (test code = 79649-9) 41.1 fL 38.5-51.6 RDW-CV (test code = 788-0) 12.8 % 12.1-15.4 PLT (test code = 777-3) 237 150-328 MPV (test code = 21803-8) 9.6 fL 9.8-13.0 L NRBC/100 WBC (test code = 2132411047) 0.0 0.0-10.0 NRBC x10^3 (test code = 0816558467) See_Comment [Automated messa ge] The system which generated this result transmitted reference range: 10*3/?L. The reference range was not used to interpret this result as normal/abnormal. GRAN MAT (NEUT) % (test code = 770-8) 51.4 % IMM GRAN % (test code = 6085401341) 0.40 % LYMPH % (test code = 736-9) 38.4 % MONO % (test code = 5905-5) 7.4 % EOS % (test code = 713-8) 1.8 % BASO % (test code = 706-2) 0.6 % GRAN MAT x10^3(ANC) (test code = 6826015379) 2.64 10*3/uL 1.99-6.95 IMM GRAN x10^3 (test code = 0509363610) 0.00-0.06 LYMPH x10^3 (test code = 731-0) 1.97 10*3/uL 1.09-3.23 MONO x10^3 (test code = 742-7) 0.38 10*3/uL 0.36-1.02 EOS x10^3 (test code = 711-2) 0.09 10*3/uL 0.06-0.53 BASO x10^3 (test code = 704-7) 0.03 10*3/uL 0.01-0.09 Lab Interpretation (test code = 66483-9) [facility] VW [id number] 19:00:22XR ANKLE 3+ VW RIGHT, XR FOOT 3+ VW RIGHT HISTORY: ?foot/gout? COMPARISON: Radiographs dated 08/11/2023 and 09/03/2019. Findings:The osseous structures are intact. There is fusion of the fifth mid anddistal phalanges. Mild subchondral sclerosis and hook-like osteophytosisaffect the great toe distal interphalangeal joint, unchanged. ?Mildwidening the ankle syndesmosis. Mild first MTP degenerative changes.Mild to moderate soft tissue edema. ?No abnormal soft tissue calcification.[facility] RIGHT 2023-08-24 19:00:22XR [...] soft tissue edema. ?No abnormal soft tissue calcification.[facility] XR FOOT 3+ VW [id number] 22:08:48HISTORY: ?Pain in right second, third, fourth and fifth metatarsal bones. FINDINGS: Comparison has been made with 09/04/2021 study. AP, lateral,oblique views of right foot showed no acute fracture or dislocation. Noaggressive bone lesions seen. No heel spur. Mild degenerative changes notedin first MTP joint. CONCLUSIONS: No acute fracture or dislocation in right foot.[facility], THIRD [id number] 06:30:17* Test Item Value Reference Range Interpretation Comme [facility] TSH, THIRD GENERATION (test code = 2821) 1.270 UIU/ML 0.400-4.100 UNLESS OTHERWISE INDICATED, ALL TESTING PERFORMED [facility] [address] [place] [address] CANDY FEEDER: ESTELLE PILLAI M.D. [facility] NUMBER [id number] [place]. [id number] HEMOGLOBIN [id number] 06:05:11* Test Item Value Reference Range Interpretation Comme [facility] HEMOGLOBIN A1c (test code = 73375) 7.3 % 4.2-5.6 H [employer] GUIDELINES FOR HGB A1C: [...] ALTERNATE TESTING OR LABORATORY CONSULTATION. COMPREHENSIVE METABOLIC [id number] 05:26:05* Test Item Value Reference Range Interpretation Comme nts GLUCOSE (test code = 2216) 181 MG/DL 70-99 H BUN (test code = 2207) 24 MG/DL 6-20 H CREATININE (test code = 2213) 0.89 MG/DL 0.80-1.40 eGFR (2020 CKD-EPI) (test code = ) 104 ML/MIN/1.73 >60 CALC BUN/CREAT (test code = 2234) 27 RATIO 6-28 SODIUM (test code = 2230) 136 MEQ/L 133-146 POTASSIUM (test code = [...] 91 U/L 40-121 AST (test code = 8) 33 U/L 9-50 ALT (test code = 2219) 96 U/L 5-50 H LIPID [id number] 05:26:05* Test Item Value Reference Range Interpretation Comme nts CHOLESTEROL (test code = 2210) 261 MG/DL <200 H TRIGLYCERIDES (test code = 2232) 661 MG/DL <150 H HDL CHOLESTEROL (test code = 0) 31 MG/DL >39 L CALC LDL CHOL (test code = 2236) (NOTE) MG/DL <100 UNABLE TO CALCUL ATE A VALID LDL CHOLESTEROL WHEN THE TRIGLYCERIDEVALUE IS GREATER THAN 400 MG/DL. NOTE: CALCULATED LDL IS BASED ON KARMA-GUILLEN METHOD WHICHINCLUDES ADJUSTABLE TRIGLYCERIDE:VLDL CHOLESTEROL RATIO.THIS FACTOR VARIES BY MEASURED TRIGLYCERIDE AND NON-HDLCHOLESTEROL CONCENTRATIONS WITH INCREASED CALCULATED LDL SEENIN HIGHER TRIGLYCERIDE OR LOWER NON-HDL SPECIMENS. FOR MOREINFORMATION, SEE CLIENT ANNOUNCEMENT AT [email or web address] CalcLDL-C RISK RATIO LDL/HDL (test code = 2238) 4.23 RATIO <3.55 H UNABLE TO JULIUS CULATE CBC W/AUTO DIFF WITH [id number] 05:12:51* Test Item Value Reference Range Interpretation [...] = 1065) 0.0 /100 WBC'S See_Comment [Automated [employer] ge] The system which generated this result [...] 0.00-0.10 ABS NUCLEATED RBCS (test code = 70031) 0.00 K/UL 0.00-0.11 SEDIMENTATION [id number] 03:14:49* Test Item Value Reference Range Interpretation Comme nts ESR (test code = 0826456637) See_Comment [Automated messa ge] The system which generated this result transmitted reference range: 0 - 10 mm/HR. The reference range was not used to interpret this result as normal/abnormal. Lab Interpretation (test code = 63031-4) Normal [facility] METABOLIC PANEL (NA, K, CL, CO2, GLUCOSE, BUN, CREATININE, CA)2021-09-05 02:38:36* Test Item Value Reference Range Interpretation Comme nts NA (test code = 0739494243) 134 mmol/L 135-145 L K (test code = 9141502885) 4.7 mmol/L 3.5-5.0 CL (test code = 9216088242) 101 mmol/L 98-108 CO2 TOTAL (test code = 1335913905) 24 mmol/L 23-31 AGAP (test code = 7635626179) 2-16 BUN (test code = 4802811530) 19 mg/dL 7-23 GLUCOSE (test code = 7108879134) 112 mg/dL 70-110 H CREATININE (test code = 4859000058) 0.94 mg/dL 0.60-1.25 CALCIUM (test code = 6999590692) 8.7 mg/dL 8.6-10.6 eGFR (test code = 8369578937) mL/min/1.73m2 ROCÍO (test code = ROCÍO) Association [...] imaging tests). Lab Interpretation (test code = 04174-6) Abnormal [facility] HospitalURIC [id number] 02:38:16* Test Item Value Reference Range Interpretation Comme nts URIC ACID (test code = 6858334140) 2.7 mg/dL 3.6-8.0 L Lab Interpretation (test cod e = 63766-1) Abnormal [facility] WITH [id number] 02:26:17* Test Item Value Reference Range Interpretation Comme nts WBC (test code = 6690-2) See_Comment [Automated [email or web address]] The system which generated this result transmitted reference range: 4.20 - 10.70 10*3/?L. The reference range was not used to interpret this result as normal/abnormal. RBC (test code = 789-8) See_Comment H [Automated [email or web address]] The system which generated this result transmitted [...] 32.3 g/dL 31.2-35.0 RDW-SD (test code = 19319-0) 40.1 fL 38.5-51.6 RDW-CV (test code = 788-0) 12.8 % 12.1-15.4 PLT (test code = 777-3) See_Comment [Automated [employer] ge] The system which generated this result transmitted reference range: 150 - 328 10*3/?L. The reference range was not used to interpret this result as normal/abnormal. MPV (test code = 21390-1) 10.3 fL 9.8-13.0 NRBC/100 WBC (test code = 7171799985) See_Comment [Automated [employer] ssage] The system which generated this result transmitted reference range: 0.0 - 10.0 /100 WBCs. The reference range was not used to interpret this result as normal/abnormal. NRBC x10^3 (test code = 2614106770) <0.01 See_Comment [Automated [employer] ge] The system which generated this result transmitted reference range: 10*3/?L. The reference range was not used to interpret this result as normal/abnormal. GRAN MAT (NEUT) % (test code = 770-8) 56.1 % IMM GRAN % (test code = 1501792042) 0.50 % LYMPH % (test code = 736-9) 30.9 % MONO % (test code = 5905-5) 10.2 % EOS % (test code = 713-8) 1.7 % BASO % (test code = 706-2) 0.6 % GRAN MAT x10^3(ANC) (test code = 7903781101) 4.60 10*3/uL 1.99-6.95 IMM GRAN x10^3 (test code = 7456335014) 0.04 10*3/uL 0.00-0.06 LYMPH x10^3 (test code = 731-0) 2.54 10*3/uL 1.09-3.23 MONO x10^3 (test code = 742-7) 0.84 10*3/uL 0.36-1.02 EOS x10^3 (test code = 711-2) 0.14 10*3/uL 0.06-0.53 BASO x10^3 (test code = 704-7) 0.05 10*3/uL 0.01-0.09 Lab Interpretation (test code = 51916-5) Abnormal [facility] [id number] 04:42:06* Test Item Value Reference Range Interpretation Comments TROPONIN I (test code = 2691933907) 0.005 ng/mL See_Comment [Automated message] The system [...] of biotin. Lab Interpretation (test code = 96882-8) Normal [facility] MET[facility]OLIC PAN[facility] (36042)2021-02-18 04:41:36* Test Item Value Reference Range Interpretation Comme nts NA (test code = 8483136569) 135 mmol/L 135-145 K (test code = 9599343276) 4.0 mmol/L 3.5-5.0 CL (test code = 3192440994) 102 mmol/L 98-108 CO2 TOTAL (test code = 8424724887) 27 mmol/L 23-31 AGAP (test code = 1196366857) 2-16 BUN (test code = 4076176016) 17 mg/dL 7-23 GLUCOSE (test code = 7474232053) 206 mg/dL 70-110 H CREATININE (test code = 1484980693) 0.92 mg/dL 0.60-1.25 TOTAL BILI (test code = 2587184853) 0.5 mg/dL 0.1-1.1 CALCIUM (test code = 2508578392) 9.2 mg/dL 8.6-10.6 T PROTEIN (test code = 1474040245) 7.6 g/dL 6.3-8.2 ALBUMIN (test code = 6495627409) 4.3 g/dL 3.5-5.0 ALK PHOS (test code = 0516128261) 63 U/L 34-122 ALTv (test code = 1742-6) 57 U/L 5-50 H AST(SGOT) (test code = 5656216747) 41 U/L 13-40 H eGFR (test code = 7471668458) mL/min/1.73m2 ROCÍO (test code = ROCÍO) Association [...] imaging tests). Lab Interpretation (test code = 40867-7) Abnormal [facility]-TERMINAL [id number] 04:39:05* Test Item Value Reference Range Interpretation Comme nts NT-proBNP (test code = 5177451634) 77 pg/mL See_Comment [Automated message] The system which generated this result transmitted reference range: <=125. The reference range was not used to interpret this result as normal/abnormal. ROCÍO (test code = ROCÍO) Biotin has been reported to cause a negative bias, interpret results relative to patient's use of biotin. Lab Interpretation (test code = 37837-2) Normal [facility] WITH [id number] 04:19:03* Test Item Value Reference Range Interpretation Comme nts WBC (test code = 6690-2) See_Comment [Automated [employer]] The system which generated this result transmitted reference range: 4.20 - 10.70 10*3/?L. The reference range was not used to interpret this result as normal/abnormal. RBC (test code = 789-8) See_Comment [Automated [employer] ge] The system which generated this result [...] 32.5 g/dL 31.2-35.0 RDW-SD (test code = 08805-2) 38.7 fL 38.5-51.6 RDW-CV (test code = 788-0) 12.7 % 12.1-15.4 PLT (test code = 777-3) See_Comment [Automated [employer] ge] The system which generated this result transmitted reference range: 150 - 328 10*3/?L. The reference range was not used to interpret this result as normal/abnormal. MPV (test code = 98010-7) 10.1 fL 9.8-13.0 NRBC/100 WBC (test code = 2552434272) See_Comment [Automated me ssage] The system which generated this result transmitted reference range: 0.0 - 10.0 /100 WBCs. The reference range was not used to interpret this result as normal/abnormal. NRBC x10^3 (test code = 6296632228) <0.01 See_Comment [Automated me ssage] The system which generated this result transmitted reference range: 10*3/?L. The reference range was not used to interpret this result as normal/abnormal. GRAN MAT (NEUT) % (test code = 770-8) 66.8 % IMM GRAN % (test code = 6422564714) 0.40 % LYMPH % (test code = 736-9) 25.4 % MONO % (test code = 5905-5) 5.7 % EOS % (test code = 713-8) 1.1 % BASO % (test code = 706-2) 0.6 % GRAN MAT x10^3(ANC) (test code = 7961059037) 4.77 10*3/uL 1.99-6.95 IMM GRAN x10^3 (test code = 4899781069) 0.03 10*3/uL 0.00-0.06 LYMPH x10^3 (test code = 731-0) 1.81 10*3/uL 1.09-3.23 MONO x10^3 (test code = 742-7) 0.41 10*3/uL 0.36-1.02 EOS x10^3 (test code = 711-2) 0.08 10*3/uL 0.06-0.53 BASO x10^3 (test code = 704-7) 0.04 10*3/uL 0.01-0.09 [facility] [id number] 04:04:57* Test Item Value Reference Range Interpretation Comme nts TROPONIN I (test code = 4325216756) 0.005 ng/mL See_Comment [Automated message] The system [...] biotin. ? Lab Interpretation (test code = 96055-0) Normal [facility] [id number] 02:54:24* Test Item Value Reference Range Interpretation Comme nts TROPONIN I (test code = 7274019595) 0.004 ng/mL See_Comment [Automated message] The system [...] biotin. ? Lab Interpretation (test code = 21014-7) Normal [facility]. METABOLIC PANEL (34084)2020-12-02 02:42:04* Test Item Value Reference Range Interpretation Comme nts NA (test code = 0001955190) 137 mmol/L 135-145 K (test code = 0288236179) 4.1 mmol/L 3.5-5.0 CL (test code = 8370559483) 101 mmol/L 98-108 CO2 TOTAL (test code = 1208293284) 26 mmol/L 23-31 AGAP (test code = 2114537125) 2-16 BUN (test code = 2851079152) 18 mg/dL 7-23 GLUCOSE (test code = 9209174021) 115 mg/dL 70-110 H CREATININE (test code = 6021311599) 0.92 mg/dL 0.60-1.25 TOTAL BILI (test code = 3133133852) 0.6 mg/dL 0.1-1.1 CALCIUM (test code = 4587689414) 9.4 mg/dL 8.6-10.6 T PROTEIN (test code = 0111551524) 7.5 g/dL 6.3-8.2 ALBUMIN (test code = 7531190232) 4.4 g/dL 3.5-5.0 ALK PHOS (test code = 6169487740) 67 U/L 34-122 ALTv (test code = 1742-6) 44 U/L 5-50 AST(SGOT) (test code = 1636487485) 33 U/L 13-40 eGFR (test code = 9293674603) mL/min/1.73m2 ROCÍO (test code = ROCÍO) Association [...] imaging tests). Lab Interpretation (test code = 86244-7) Abnormal [facility] HospitalaPTT2021-04-20 02:14:40* Test Item Value Reference Range Interpretation Comme [facility] APTT Patient (test code = 3173-2) See_Comment [Automated message] The system which generated this result transmitted reference range: 23 - 38 Seconds. The reference range was not used to interpret this result as normal/abnormal. ROCÍO (test code = ROCÍO) The [facility] patient population mean normal value for aPTT is 30 seconds. Lab Interpretation (test code = 74888-7) Normal [facility] HospitalPROTHROMBIN TIME / [id number] 02:12:38* Test Item Value Reference Range Interpretation Comme [facility] PROTIME PATIENT (test code = 5964-2) See_Comment [Automated [employer])] The system which generated this result transmitted reference range: 12.0 - 14.7 Seconds. The reference range was not used to interpret this result as normal/abnormal. INR (test code = 6301-6) Normal INR <1.1; Warfarin Therapeutic range 2.0 to 3.0 or 2.5 to 3.5, depending upon the indications. Lab Interpretation (test code = 68080-8) Normal [facility], [id number] 02:04:56* Test Item Value Reference Range Interpretation Comme nts LIPASE (test code = 1341669770) 119 U/L 0-220 Lab Interpretation (test cod e = 84933-7) Normal [facility] WITH [id number] 01:56:13* Test Item Value Reference Range Interpretation [...] 32.4 g/dL 31.2-35.0 RDW-SD (test code = 98715-9) 37.4 fL 38.5-51.6 L RDW-CV (test code = 788-0) 12.2 % 12.1-15.4 PLT (test code = 777-3) See_Comment [Automated messa ge] The system which generated this result transmitted reference range: 150 - 328 10*3/?L. The reference range was not used to interpret this result as normal/abnormal. MPV (test code = 50943-6) 10.0 fL 9.8-13.0 NRBC/100 WBC (test code = 6182495058) See_Comment [Automated [employer] ssage] The system which generated this result transmitted reference range: 0.0 - 10.0 /100 WBCs. The reference range was not used to interpret this result as normal/abnormal. NRBC x10^3 (test code = 3198644185) <0.01 See_Comment [Automated messa ge] The system which generated this result transmitted reference range: 10*3/?L. The reference range was not used to interpret this result as normal/abnormal. GRAN MAT (NEUT) % (test code = 770-8) 56.9 % IMM GRAN % (test code = 1841829286) 0.50 % LYMPH % (test code = 736-9) 32.5 % MONO % (test code = 5905-5) 8.5 % EOS % (test code = 713-8) 1.1 % BASO % (test code = 706-2) 0.5 % GRAN MAT x10^3(ANC) (test code = 6449090823) 3.13 10*3/uL 1.99-6.95 IMM GRAN x10^3 (test code = 8353404338) 0.03 10*3/uL 0.00-0.06 LYMPH x10^3 (test code = 731-0) 1.79 10*3/uL 1.09-3.23 MONO x10^3 (test code = 742-7) 0.47 10*3/uL 0.36-1.02 EOS x10^3 (test code = 711-2) 0.06 10*3/uL 0.06-0.53 BASO x10^3 (test code = 704-7) 0.03 10*3/uL 0.01-0.09 Lab Interpretation (test code = 86579-8) Abnormal [facility] Metabolic Panel (NA, K, CL, CO2, GLUCOSE, BUN, CREATININE, CA)2020-05-18 11:10:00* Test Item Value Reference Range Interpretation Comme nts NA (test code = 0511848569) 136 mmol/L 135-145 K (test code = 7151470447) 4.3 mmol/L 3.5-5 CL (test code = 8055975347) 100 mmol/L 98-108 CO2 TOTAL (test code = 7654510126) 28 mmol/L 23-31 AGAP (test code = 2973532245) 2-16 BUN (test code = 1242711481) 16 mg/dL 7-23 GLUCOSE (test code = 2800095392) 230 mg/dL 70-110 H CREATININE (test code = 1631067746) 0.77 mg/dL 0.6-1.25 CALCIUM (test code = 3442289056) 8.8 mg/dL 8.6-10.6 eGFR Calculation (Non-) (test code = 5739337709) mL/min/1.73m2 eGFR Calculation () (test code = 9075975808) mL/min/1.73m2 ROCÍO (test code = ROCÍO) Association [...] imaging tests). Lab Interpretation (test code = 33685-1) Abnormal [facility] with Xptpglvujxqw7963-11-10 08:59:00* Test Item Value Reference Range Interpretation Comme nts WBC (test code = 6690-2) See_Comment [Automated [employer] ([employer])] The system which generated this result transmitted reference range: 4.20 - 10.70 10*3/?L. The reference range was not used to interpret this result as normal/abnormal. RBC (test code = 789-8) See_Comment [Automated [employer] ge] The system which generated this result [...] 33.4 g/dL 31.2-35 RDW-SD (test code = 79658-6) 37.1 fL 38.5-51.6 L RDW-CV (test code = 788-0) 12.2 % 12.1-15.4 PLT (test code = 777-3) See_Comment [Automated [employer] ge] The system which generated this result transmitted reference range: 150 - 328 10*3/?L. The reference range was not used to interpret this result as normal/abnormal. MPV (test code = 90844-4) 10.5 fL 9.8-13 NRBC/100 WBC (test code = 4052505998) See_Comment [Automated [employer] ssage] The system which generated this result transmitted reference range: 0.0 - 10.0 /100 WBCs. The reference range was not used to interpret this result as normal/abnormal. NRBC x10^3 (test code = 8515414537) <0.01 See_Comment [Automated [employer] ge] The system which generated this result transmitted reference range: 10*3/?L. The reference range was not used to interpret this result as normal/abnormal. GRAN MAT (NEUT) % (test code = 770-8) 62.9 % IMM GRAN % (test code = 9903295655) 2.30 % LYMPH % (test code = 736-9) 27.8 % MONO % (test code = 5905-5) 6.8 % EOS % (test code = 713-8) 0.0 % BASO % (test code = 706-2) 0.2 % GRAN MAT x10^3(ANC) (test code = 5542784164) 2.79 10*3/uL 1.99-6.95 IMM GRAN x10^3 (test code = 5635368812) 0.10 10*3/uL 0-0.06 H LYMPH x10^3 (test code = 731-0) 1.23 10*3/uL 1.09-3.23 MONO x10^3 (test code = 742-7) 0.30 10*3/uL 0.36-1.02 L EOS x10^3 (test code = 711-2) <0.03 0.06-0.53 L BASO x10^3 (test code = 704-7) <0.03 0.01-0.09 Lab Interpretation (test code = 00365-4) [facility]normal [facility] HospitalPNEUMOCOCCAL [id number] 03:05:00* Test Item Value Reference Range Interpretation Comme nts S. pneumoniae antigen (test code = 6009444354) Negative Negative Lab Interpretation (test cod e = 57769-2) Normal [facility] HospitalLEGIONELLA URINARY ANTIGEN [id number] 03:05:00* Test Item Value Reference Range Interpretation Comme nts Legionella Urinary Antigen (test code = 1055277901) Negative Negative ROCÍO (test code = ROCÍO) [...] the test. Lab Interpretation (test code = 53638-1) [facility] [id number] 00:34:42No acute pulmonary embolism to the segmental [...] Normal thyroid gland. The visualized lower neck isunremarkable.Lashae ngs/Pleura: Trace bilateral pleural effusions with adjacent atelectasis.Bilateral [...] Splenomegaly. Preliminary Report Dictated by Resident: César Georeg MD., have reviewed this study and agree with theabove report.[facility]PROCAL[facility]IN 2020-05-17 20:08:00* Test Item Value Reference Range Interpretation Comme nts Procalcitonin (test code = 0642801686) 0.04 ng/mL <0.07 ROCÍO (test code = [...] lung abscess/empyema. For further information please refer to:[email or web address] Lab Interpretation (test code = 81638-8) Normal [facility] HospitalD-[id number] 15:48:00* Test Item Value Reference Range Interpretation Comments D-DIMER (test code = 6159501776) See_Comment H [Automated message] The system which [...] a diagnosis. Lab Interpretation (test code = 51787-7) [facility]normal [facility] HospitalCREATINE [id number] 15:43:00* Test Item Value Reference Range Interpretation Comme nts CK (test code = 4383445620) 53 U/L 33-194 Lab Interpretation (test cod e = 47179-8) [facility]ADC,CLC OR [facility] ONLY - INFLUENZA A & B DIRECT [id number] 14:12:00* Test Item Value Reference Range Interpretation Comme nts Influenza A (test code = 70281-8) Negative Negative Influenza B (test code = 03993-3) Negative Negative Lab Interpretation (test cod e = 13590-7) [facility] NOW RAPID TESTING)2020-05-17 14:07:00* Test Item Value Reference Range Interpretation Comme nts SARS-CoV-2 Rapid ID NOW (test code = 10801-9) Positive Not Detected A ROCOÍ (test code = ROCÍO) ID NOW COVID-19 As say is an isothermal nucleic acid amplification test intended for the qualitative detection of nucleic acid from SARS-CoV-2 viral RNA in nasopharyngeal (ACCOUNTING TEACHER) specimens. It is used under Emergency Use [...] clinically indicated. Lab Interpretation (test code = 72593-3) Abnormal [facility] HospitalTrop[facility] [id number] 14:05:00* Test Item Value Reference Range Interpretation Comme [facility] TROPONIN I (test code = 9365770163) <0.012 See_Comment [Automated message] The system which [...] biotin. ? Lab Interpretation (test code = 74490-3) Normal [facility] HospitalN-TERMINAL [id number] 14:02:00* Test Item Value Reference Range Interpretation Comme nts NT-proBNP (test code = 6042111810) 102 pg/mL See_Comment [Automated message] The system which generated this result transmitted reference range: <=125. The reference range was not used to interpret this result as normal/abnormal. ROCÍO (test code = ROCÍO) Biotin has been reported to cause a negative bias, interpret results relative to patient's use of biotin. Lab Interpretation (test code = 02150-7) Normal [facility] 1 [id number] 14:00:13Impression: Streaky opacities left greater than right which may representatypical infection including Covid 19. Disclaimer: Generally, the findings on chest imaging in COVID-19 are notspecific, and overlap with other infections, including influenza, H1N1,SARS and MERS.According to the Centers for Disease Control (CDC) and recent statement ofthe [employer], viral testing remains the [...] Disease Control (CDC) and recent statement ofthe [employer], viral testing remains the only specificmethod of diagnosis. Confirmation with the viral test is required, even ifradiologic findings are suggestive of COVID-[address] [facility] (NA, K, CL, CO2, GLUCOSE, BUN, CREATININE, CA)2020-05-17 13:53:00* Test Item Value Reference Range Interpretation Comme nts NA (test code = 3640256139) 135 mmol/L 135-145 K (test code = 0108026466) 4.0 mmol/L 3.5-5 CL (test code = 6823936488) 97 mmol/L 98-108 L CO2 TOTAL (test code = 7663879088) 29 mmol/L 23-31 AGAP (test code = 9766689827) 2-16 BUN (test code = 2644290636) 16 mg/dL 7-23 GLUCOSE (test code = 9523164571) 124 mg/dL 70-110 H CREATININE (test code = 2834036215) 0.85 mg/dL 0.6-1.25 CALCIUM (test code = 6710402768) 8.9 mg/dL 8.6-10.6 eGFR Calculation (Non-) (test code = 5963218489) mL/min/1.73m2 eGFR Calculation () (test code = 5686965859) mL/min/1.73m2 ROCÍO (test code = ROCÍO) Association [...] imaging tests). Lab Interpretation (test code = 05865-6) Abnormal [facility] (ALB, T.PRO, BILI T, BU/BC, ALT, AST, ALK PHOS)2020-05-17 13:53:00* Test Item Value Reference Range Interpretation Comme nts TOTAL BILI (test code = 1776023947) 0.5 mg/dL 0.1-1.1 BILI UNCON (test code = 6333457098) 0.5 mg/dL 0.1-1.1 BILI CONJ (test code = 6904486083) 0.0 mg/dL 0-0.3 T PROTEIN (test code = 9165832131) 7.3 g/dL 6.3-8.2 ALBUMIN (test code = 0425023295) 3.6 g/dL 3.5-5 ALK PHOS (test code = 8685687558) 101 U/L 34-122 ALTv (test code = 1742-6) 77 U/L 5-50 H AST(SGOT) (test code = 6217637594) 67 U/L 13-40 H Lab Interpretation (test cod e = 58289-7) Abnormal [facility] HospitalaPTT2020-10-03 13:51:00* Test Item Value Reference Range Interpretation Comme nts APTT Patient (test code = 3173-2) See_Comment [Automated message] The system which generated this result transmitted reference range: 23 - 38 Seconds. The reference range was not used to interpret this result as normal/abnormal. ROCÍO (test code = ROCÍO) The [facility] patient population mean normal value for aPTT is 30 seconds. Lab Interpretation (test code = 40304-2) Normal [facility] HospitalProthrombin Time (PT) / [id number] 13:49:00 * Test Item Value Reference Range Interpretation Comme [facility] PROTIME PATIENT (test code = 5964-2) See_Comment [Automated [employer] ge] The system which generated this result transmitted reference range: 12.0 - 14.7 Seconds. The reference range was not used to interpret this result as normal/abnormal. INR (test code = 6301-6) Normal INR <1.1; Warfarin Therapeutic range 2.0 to 3.0 or 2.5 to 3.5, depending upon the indications. Lab Interpretation (test code = 99058-8) Normal [facility] HospitalCBC with [id number] 13:41:00* Test Item Value Reference Range Interpretation Comme [facility] WBC (test code = 6690-2) See_Comment [Automated messa ge] The system which generated this result transmitted reference range: 4.20 - 10.70 10*3/?L. The reference range was not used to interpret this result as normal/abnormal. RBC (test code = 789-8) See_Comment [Automated [employer] ge] The system which generated this result [...] 31.8 g/dL 31.2-35 RDW-SD (test code = 11794-9) 39.0 fL 38.5-51.6 RDW-CV (test code = 788-0) 12.3 % 12.1-15.4 PLT (test code = 777-3) See_Comment [Automated messa ge] The system which generated this result transmitted reference range: 150 - 328 10*3/?L. The reference range was not used to interpret this result as normal/abnormal. MPV (test code = 07712-7) 9.4 fL 9.8-13 L NRBC/100 WBC (test code = 2656097806) See_Comment [Automated [employer] ssage] The system which generated this result transmitted reference range: 0.0 - 10.0 /100 WBCs. The reference range was not used to interpret this result as normal/abnormal. NRBC x10^3 (test code = 8913355323) <0.01 See_Comment [Automated [employer] ge] The system which generated this result transmitted reference range: 10*3/?L. The reference range was not used to interpret this result as normal/abnormal. GRAN MAT (NEUT) % (test code = 770-8) 56.0 % IMM GRAN % (test code = 9522000819) 1.40 % LYMPH % (test code = 736-9) 32.1 % MONO % (test code = 5905-5) 9.0 % EOS % (test code = 713-8) 1.0 % BASO % (test code = 706-2) 0.5 % GRAN MAT x10^3(ANC) (test code = 8726556651) 3.25 10*3/uL 1.99-6.95 IMM GRAN x10^3 (test code = 5308862643) 0.08 10*3/uL 0-0.06 H LYMPH x10^3 (test code = 731-0) 1.86 10*3/uL 1.09-3.23 MONO x10^3 (test code = 742-7) 0.52 10*3/uL 0.36-1.02 EOS x10^3 (test code = 711-2) 0.06 10*3/uL 0.06-0.53 BASO x10^3 (test code = 704-7) 0.03 10*3/uL 0.01-0.09 Lab Interpretation (test code = 65683-7) Abnormal [facility] HospitalCT LANDMARK SINUS WO [id number] 22:54: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 Thesphenoid septum is rightward deviated. The sphenoid [...] noted, probablysecondary to the above-described inflammatory process. 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 The sphenoid septum is rightward deviated.The sphenoid [...] reviewed this study and agree with theabove report.[facility] HospitalSEDIMENTATION [id number] 06:19:00* Test Item Value Reference Range Interpretation Comme nts ESR (test code = 9267152931) See_Comment H [Automated messa ge] The system which generated this result transmitted reference range: 0 - 10 mm/HR. The reference range was not used to interpret this result as normal/abnormal. Lab Interpretation (test code = 54211-4) Abnormal [facility] HospitalCOMP. METABOLIC PANEL (73445)2019-09-04 05:36:00* Test Item Value Reference Range Interpretation Comme nts NA (test code = 8693858328) 138 mmol/L 135-145 K (test code = 0235210087) 4.1 mmol/L 3.5-5 Slight hemolysis CL (test code = 4890599999) 105 mmol/L 98-108 CO2 TOTAL (test code = 7407456344) 23 mmol/L 23-31 AGAP (test code = 5968487901) 2-16 BUN (test code = 0443918998) 23 mg/dL 7-23 Slight hemolysis GLUCOSE (test code = 6324219081) 181 mg/dL 70-110 H CREATININE (test code = 8148801433) 1.05 mg/dL 0.6-1.25 TOTAL BILI (test code = 1036666512) 0.5 mg/dL 0.1-1.1 CALCIUM (test code = 9797893692) 8.8 mg/dL 8.6-10.6 T PROTEIN (test code = 6287027346) 7.5 g/dL 6.3-8.2 ALBUMIN (test code = 0930675562) 4.0 g/dL 3.5-5 ALK PHOS (test code = 3191710301) 86 U/L 34-122 Slight hemolysis ALTv (test code = 1742-6) 61 U/L 5-50 H AST(SGOT) (test code = 4422728070) 45 U/L 13-40 H Slight hemolysis eGFR Calculation (Non-) (test code = 1144065644) mL/min/1.73m2 eGFR Calculation () (test code = 4018176263) mL/min/1.73m2 ROCÍO (test code = ROCÍO) Association [...] imaging tests). Lab Interpretation (test code = 71986-3) Abnormal [facility] HospitalURIC [id number] 05:36:00* Test Item Value Reference Range Interpretation Comme nts URIC ACID (test code = 6620144115) 9.8 mg/dL 3.6-8 H Lab Interpretation (test cod e = 99475-3) Abnormal [facility] HospitalCBC WITH [id number] 04:46:00* Test Item Value Reference Range Interpretation Comme nts WBC (test code = 6690-2) See_Comment [Automated [email or web address]] The system which generated this result transmitted reference range: 4.20 - 10.70 10*3/?L. The reference range was not used to interpret this result as normal/abnormal. RBC (test code = 789-8) See_Comment [Automated [email or web address]] The system which generated this result transmitted [...] 32.4 g/dL 31.2-35 RDW-SD (test code = 99025-6) 40.4 fL 38.5-51.6 RDW-CV (test code = 788-0) 12.7 % 12.1-15.4 PLT (test code = 777-3) See_Comment [Automated [email or web address]] The system which generated this result transmitted reference range: 150 - 328 10*3/?L. The reference range was not used to interpret this result as normal/abnormal. MPV (test code = 91241-9) 10.0 fL 9.8-13 NRBC/100 WBC (test code = 3584988754) See_Comment [Automated me ssage] The system which generated this result transmitted reference range: 0.0 - 10.0 /100 WBCs. The reference range was not used to interpret this result as normal/abnormal. NRBC x10^3 (test code = 6470244432) <0.01 See_Comment [Automated me ssage] The system which generated this result transmitted reference range: 10*3/?L. The reference range was not used to interpret this result as normal/abnormal. GRAN MAT (NEUT) % (test code = 770-8) 58.1 % IMM GRAN % (test code = 6551694989) 0.50 % LYMPH % (test code = 736-9) 31.2 % MONO % (test code = 5905-5) 8.2 % EOS % (test code = 713-8) 1.4 % BASO % (test code = 706-2) 0.6 % GRAN MAT x10^3(ANC) (test code = 5473746762) 4.85 10*3/uL 1.99-6.95 IMM GRAN x10^3 (test code = 7442571719) 0.04 10*3/uL 0-0.06 LYMPH x10^3 (test code = 731-0) 2.60 10*3/uL 1.09-3.23 MONO x10^3 (test code = 742-7) 0.68 10*3/uL 0.36-1.02 EOS x10^3 (test code = 711-2) 0.12 10*3/uL 0.06-0.53 BASO x10^3 (test code = 704-7) 0.05 10*3/uL 0.01-0.09 [facility] Notes Date/Time Note Provider Source 2023-10-08 23:53:14 Pt given printed and verbal discharge instructions regarding acute flank pain and muscle strain Prescriptions provided cyclobenzaprine 10 mg tablet ibuprofen 600 mg tablet lidocaine 5 % (700 mg/patch) patch Discussed ibuprofen and to take with food to avoid GI distress. Pt verbalized understanding of instructions, pt awake alert oriented, resp reg unlabored, skin w/d, color appropriate for race, moves all ext well,pt encouraged to follow up with pcp Advised to seek medical attention for new/prolonged/worsening of symptoms, No adverse reaction to meds given in ER noted upon discharge PIV d'cd, dressing to site, catheter in tact. Awake, alert oriented, resp reg unlabored, skin w/d, pt leaving amb with steady gait, in no apparent distress F CUSTOMER OFFICER Karen [facility] 2023-10-08 18:15:00 Patient came in with complaints of right flank pain since an hour ago and burning pain on urination. EEN Rosenthal RN [facility] 2023-08-24 10:12:22 Pt c/o right leg pain, diagnosed here on 08/22 with sciatica, reports pain is not getting any better. Also c/o left foot pain. Denies injury/trauma. Has only taken Robaxin. EEN Nick RN [facility] 2023-08-24 10:05:00 [facility] Emergency Department Note Demographics Patient Name: Cathy Gomez Date of : 1970 52 year old Treatment Room: [facility] [id number] Primary Care Physician: PATIENT DOES NOT HAVE A PCP Pre Hospital Care Patient Escorted by: Family [5] Mode of Arrival: Personal means [1] EMS Treatment Prior to ED Arrival: HEALTH PHYSICS TECHNICIAN treatment: Medication (comment) HEALTH PHYSICS TECHNICIAN treatment comments: robaxin ED Events Date/Time Event User Comments 08/24/23 1137 Medical Screening Begins PERCY RAMOS MD -- 08/24/23 1137 First Provider Evaluation PERCY RAMOS MD -- Chief complaint Chief Complaint Patient presents with Leg Pain ED Triage Notes Shira Nick RN 08/24/2023 10:14 Pt c/o right leg pain, diagnosed here on 08/22 with sciatica, reports pain is not getting any better. Also c/o left foot pain. Denies injury/trauma. Has only taken Robaxin. Chief Complaint Patient presents with Leg Pain History of present illness HPI 52 yo man comes to the ED for [...] to left foot, ankle and knees as well. BP 132/87 | Pulse 97 | Temp 37 ?C (98.6 ?F) (Oral) | Resp 20 | Wt 95.3 kg (210 lb) | SpO2 98% | BMI 32.89 kg/m? Past Medical and Social History Past Medical History: Diagnosis Date Chronic sinusitis Papilloma of nasopharynx Tetanus received in last 5 years: Unknown Social History Tobacco Use Smoking status: Never Smokeless tobacco: Never Substance Use Topics Alcohol use: No Comment: one drink every 2-3 months Drug use: No Past Surgical History Past Surgical History: Procedure Laterality Date NASAL ENDOSCOPY WITH DEBRIDEMENT (SHX) 2007 Medications Medications ketorolac (TORADOL) injection 30 mg (30 mg Intramuscular Given 08/24/23 1243) Allergies No Known Allergies Review of Systems Review of Systems Constitutional: Negative. HENT: Negative. Eyes: Negative. Respiratory: Negative. Breasts: Negative. Cardiovascular: Negative. Gastrointestinal: Negative. Genitourinary: Negative. Musculoskeletal: Positive for arthralgias, gait problem and joint swelling. Skin: Negative. Psychiatric/Behavioral: Negative. Endocrine: Endocrine negative Physical Exam BP 132/87 | Pulse 97 | Temp 37 ?C (98.6 ?F) (Oral) | Resp 20 | Wt 95.3 kg (210 lb) | SpO2 98% | BMI 32.89 kg/m? Physical Exam Vitals and nursing note reviewed. Constitutional: General: He is not in acute distress. Appearance: He is well-developed. He is not ill-appearing. HENT: Head: Normocephalic and atraumatic. Right Ear: Ear canal and external ear normal. Left Ear: Ear canal and external ear normal. Nose: Nose normal. No congestion or rhinorrhea. Mouth/Throat: Mouth: Mucous membranes are moist. Pharynx: Oropharynx is clear. No oropharyngeal exudate or posterior oropharyngeal erythema. Eyes: General: Right eye: No discharge. Left eye: No discharge. Conjunctiva/sclera: Conjunctivae normal. Pupils: Pupils are equal, round, and reactive to light. Cardiovascular: Rate and Rhythm: Normal rate and regular rhythm. Pulses: Normal pulses. Heart sounds: Normal heart sounds. No murmur heard. No friction rub. Pulmonary: Effort: Pulmonary effort is normal. No respiratory distress. Breath sounds: Normal breath sounds. No stridor. No wheezing or rhonchi. Abdominal: General: Bowel sounds are normal. There is no distension. Palpations: Abdomen is soft. There is no mass. Tenderness: There is no abdominal tenderness. Hernia: No hernia is present. Musculoskeletal: General: Swelling and tenderness (right ankle and foot) present. No deformity or signs of injury. Normal range of motion. Cervical back: Normal range of motion and neck supple. No rigidity or tenderness. Skin: General: Skin is warm and dry. Capillary Refill: Capillary refill takes less than 2 seconds. Coloration: Skin is not jaundiced or pale. Findings: No bruising or erythema. Neurological: General: No focal deficit present. Mental Status: He is alert and oriented to person, place, and time. Cranial Nerves: No cranial nerve deficit. Sensory: No sensory deficit. Motor: No weakness. Coordination: Coordination normal. Psychiatric: Mood and Affect: Mood normal. Behavior: Behavior normal. Thought Content: Thought content normal. Judgment: Judgment normal. Labs and Studies Lab Results CBC WITH DIFF - Abnormal Result Value Ref Range WBC 7.28 4.20 - 10.70 10*3/?L RBC 5.59 (*) 4.26 - 5.52 10*6/?L HGB 15.7 12.2 - 16.4 g/dL HCT 47.1 38.4 - 49.3 % MCV 84.3 81.7 - 95.6 fL MCH 28.1 26.1 - 32.7 pg MCHC 33.3 31.2 - 35.0 g/dL RDW-SD 38.0 (*) 38.5 - 51.6 fL RDW-CV 12.6 12.1 - 15.4 % PLT 208 150 - 328 10*3/?L MPV 9.7 (*) 9.8 - 13.0 fL NRBC/100 WBC 0.0 0.0 - 10.0 /100 WBCs NRBC x10 3 <0.01 10*3/?L GRAN MAT (NEUT) % 62.1 % IMM GRAN % 0.40 % LYMPH % 25.8 % MONO % 9.9 % EOS % 1.1 % BASO % 0.7 % GRAN MAT x10 3 (ANC) 4.52 1.99 - 6.95 10*3/uL IMM GRAN x10 3 0.03 0.00 - 0.06 10*3/uL LYMPH x10 3 1.88 1.09 - 3.23 10*3/uL MONO x10 3 0.72 0.36 - 1.02 10*3/uL EOS x10 3 0.08 0.06 - 0.53 10*3/uL BASO x10 3 0.05 0.01 - 0.09 10*3/uL BASIC METABOLIC PANEL (NA, K, CL, CO2, GLUCOSE, BUN, CREATININE, CA) - Abnormal NA 133 (*) 135 - 145 mmol/L K 4.9 3.5 - 5.0 mmol/L CL 98 98 - 108 mmol/L CO2 TOTAL 28 23 - 31 mmol/L AGAP 7 2 - 16 BUN 26 (*) 7 - 23 mg/dL GLUCOSE 160 (*) 70 - 110 mg/dL CREATININE 1.12 0.60 - 1.25 mg/dL CALCIUM 9.3 8.6 - 10.6 mg/dL eGFR 78.6 mL/min/1.73m2 URIC ACID - Normal URIC ACID 6.7 3.6 - 8.0 mg/dL XR ANKLE 3+ VW RIGHT Final Result XR ANKLE 3+ VW RIGHT, XR FOOT 3+ VW RIGHT HISTORY: foot/gout? COMPARISON: Radiographs dated 08/11/2023 and 09/03/2019. Findings: The osseous structures are intact. There is fusion of the fifth mid and distal phalanges. Mild subchondral sclerosis and hook-like osteophytosis affect the great toe distal interphalangeal joint, unchanged. Mild widening the ankle syndesmosis. Mild first MTP degenerative changes. Mild to moderate soft tissue edema. No abnormal soft tissue calcification. IMPRESSION No acute osseous abnormality. Mild widening the ankle syndesmosis, correlate for ligamentous injury. Mild to moderate soft tissue edema. XR FOOT 3+ VW RIGHT Final Result XR ANKLE 3+ VW RIGHT, XR FOOT 3+ VW RIGHT HISTORY: foot/gout? COMPARISON: Radiographs dated 08/11/2023 and 09/03/2019. Findings: The osseous structures are intact. There is fusion of the fifth mid and distal phalanges. Mild subchondral sclerosis and hook-like osteophytosis affect the great toe distal interphalangeal joint, unchanged. Mild widening the ankle syndesmosis. Mild first MTP degenerative changes. Mild to moderate soft tissue edema. No abnormal soft tissue calcification. IMPRESSION No acute osseous abnormality. Mild widening the ankle syndesmosis, correlate for ligamentous injury. Mild to moderate soft tissue edema. Orders and Treatments Orders Placed This Encounter Procedures XR ANKLE 3+ VW RIGHT XR FOOT 3+ VW RIGHT Cbc with Diff Basic Metabolic Panel (NA, K, CL, CO2, GLUCOSE, BUN, CREATININE, CA) Uric Acid Orders Placed This Encounter Medications DISCONTD: ketorolac (TORADOL) injection 30 mg ketorolac (TORADOL) injection 30 mg Patient's Medications START taking these medications No medications on file CONTINUE taking these medications which have NOT CHANGED ASPIRIN 81 MG CHEWABLE TABLET Take 1 tablet by mouth daily. INDOMETHACIN 50 MG CAPSULE Take 1 capsule by mouth 3 (three) times daily as needed for Pain for up to 15 doses. METHOCARBAMOL 750 MG TABLET Take 1 tablet by mouth every 6 (six) hours as needed for Pain (scale 1-3). START taking Modified Medications as Prescribed No medications on file STOP taking these medications No medications on file Procedures Procedures Evidence Care MDM & Notes Patient was evaluated for an emergency medical condition related to Leg Pain History and/or review of systems is limited by:History limited: None. Medical Decision Making 52 yo man comes to the ED for [...] to left foot, ankle and knees as well. BP (!) 128/100 | Pulse 111 | Temp 36.6 ?C (97.9 ?F) (Oral) | Resp 18 | Wt 95.3 kg (210 lb) | SpO2 97% | BMI 32.89 kg/m? DDx arthropathy, sciatica, gout, infection, etc. AP: will check labs, cbc, basic and explore renal function, DM or electrolyte abnormalities, will add uric acid for evaluation of gout and x rays to r/o CPPD or injuries. Problems Addressed: Right foot pain: chronic illness or injury with exacerbation, progression, or side effects of treatment Amount and/or Complexity of Data Reviewed Labs: ordered. Decision-making details documented in ED Course. Radiology: ordered and independent interpretation performed. Discussion of management or test interpretation with external provider(s): Pain is better after Toradol. Intermittent pain and swelling for months. Patient has not been able to f/u with PCP or rheumatology. 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 Advised to continue NSAIDs, f/u with PCP and Rheumatology and return to the ED if worsening of symptoms. Risk Prescription drug management. Diagnosis/Impression as of 08/24/23 1345 Right foot pain Arthropathy Case discussed with: Barriers & Social Determinants of Healthcare: none Limitations to patient care and compliance: none. History, physical exam findings, results of visit, differential diagnosis, medication regimens and plan of future care have been considered. Additional MDM may be found in the ED course. Differential diagnosis considered and final disposition made based on information gathered during evaluation and may not be completely ruled out or specifically listed. Vital signs were rechecked before final disposition and determined to be stable. Diagnoses ICD-10-CM 1. Right foot pain M79.671 2. Arthropathy M12.9 Disposition and Condition ED Disposition ED Disposition Disch - Home Condition Stable Comment -- Patient's Medications START taking these medications No medications on file CONTINUE taking these medications which have NOT CHANGED ASPIRIN 81 MG CHEWABLE TABLET Take 1 tablet by mouth daily. INDOMETHACIN 50 MG CAPSULE Take 1 capsule by mouth 3 (three) times daily as needed for Pain for up to 15 doses. METHOCARBAMOL 750 MG TABLET Take 1 tablet by mouth every 6 (six) hours as needed for Pain (scale 1-3). START taking Modified Medications as Prescribed No medications on file STOP taking these medications No medications on file Percy Ramos MD, F[facility], [facility] Coordinator of Emergency and Internal Medicine [facility], [facility] #[id number] Percy Ramos MD 08/24/23 1345 [facility] 2023-08-22 16:31:18 Pt given printed and verbal discharge instructions regarding right lower extremity pain and sciatica of the right side, encouraged hydration. Prescriptions provided. Discussed ibuprofen and to take with food to avoid GI distress. Discussed robaxin side affects and to avoid driving/operating machinery/or engaging in activities requiring alertness while taking. Pt verbalized understanding of instructions, pt awake alert oriented, resp reg unlabored, skin w/d, color appropriate for race, moves all ext well, pt encouraged to follow up with pcp. Advised to seek medical attention for new/prolonged/worsening of symptoms. Symptoms addressed. No adverse reaction to meds given in ER noted upon discharge. Pt leaving amb with steady gait, in no apparent distress. Left with family. F CUSTOMER OFFICER Lexie Parsons RN [facility] 2023-08-22 14:23:58 Pt to ED CO RLE pain and lower back pain x 1 week. Recently seen in ED and DC with medications for gout/pain. States pain is on back of RLE and describes as a burning sensation. Denies injury/trauma. F CUSTOMER OFFICER Veronique Mcgill RN [facility] 2023-08-22 14:17:00 [facility] Emergency Department Note Patient Name: Cathy Gomez Date of : 1970 52 year old male Treatment Room: [facility] ED RTA BRYON/AMISAH Primary Care Physician: PATIENT DOES NOT HAVE A PCP Patient Escorted by: Family [5] Mode of Arrival: Personal means [1] EMS Treatment Prior to ED Arrival: HEALTH PHYSICS TECHNICIAN treatment: Medication (comment) HEALTH PHYSICS TECHNICIAN treatment comments: meds for gout/pain per pt Travel and Exposure Screening: Symptoms Does patient have any of these symptoms?: (not recorded) Exposure Screening Has patient had contact with someone with a communicable disease in the last month?: (not recorded) Diseases exposed to:: (not recorded) Is Patient ?: (not recorded) Exposure Date: (not recorded) Chief Complaint: Chief Complaint Patient presents with Leg Pain Back Pain History of Present Illness: The patient presents from home for evaluation for [...] so severe yet he did drive himself here. Here for evaluation. Past Medical History/Immunizations: Past Medical History: Diagnosis Date Chronic sinusitis Papilloma of nasopharynx Tetanus received in last 5 years: Unknown Childhood immunizations: Up-to-date Allergies: No Known Allergies Past Social History: Tobacco Use Never smoked or used smokeless tobacco. Alcohol Use No. Comments: one drink every 2-3 months Drug Use No. Past Surgical History: Past Surgical History: Procedure Laterality Date NASAL ENDOSCOPY WITH DEBRIDEMENT (SHX) 2007 Review of Systems: Review of Systems Constitutional: Negative for chills and fever. Respiratory: Negative for cough and shortness of breath. Cardiovascular: Negative for chest pain. Gastrointestinal: Negative for abdominal pain and vomiting. Genitourinary: Negative for dysuria. Musculoskeletal: Positive for arthralgias. Negative for neck pain and neck stiffness. Skin: Negative for wound. Neurological: Negative for dizziness. Psychiatric/Behavioral: Negative for agitation. Endocrine: Negative for goiter. Physical Exam: ED Triage Vitals [08/22/23 1427] Weight 95.3 kg (210 lb) Actual or estimated Estimated by patient/family report Height 1.702 m (5' 7") BP (!) 156/108 Pulse 84 Resp 19 Temp 36.5 ?C (97.7 ?F) Temp source Oral SpO2 99 % Measured on Room air Physical Exam Vitals and nursing note reviewed. Constitutional: Appearance: Normal appearance. He is obese. HENT: Head: Normocephalic and atraumatic. Cardiovascular: Rate and Rhythm: Normal rate and regular rhythm. Pulses: Normal pulses. Pulmonary: Effort: Pulmonary effort is normal. No respiratory distress. Breath sounds: No stridor. No wheezing or rhonchi. Abdominal: General: There is no distension. Palpations: Abdomen is soft. There is no mass. Tenderness: There is no abdominal tenderness. There is no guarding. Musculoskeletal: General: Normal range of motion. Cervical back: Normal range of motion and neck supple. Comments: No vertebral body tenderness to his lumbar spine. He has right-sided paraspinal muscle tenderness to the lumbar area but none on the left. Positive seated leg raise on the right side at about 20 degrees. Decreased range of motion of his right knee and right ankle due to pain. No deformity is noted. There is no erythema or warmth noted to his right leg and his right calf appears the same size as his left 1. Skin: General: Skin is warm and dry. Neurological: General: No focal deficit present. Mental Status: He is alert and oriented to person, place, and time. Radiology: No orders to display Lab Results: Lab Results - No data to display EKG: If EKG completed, see Procedure Note. Orders and Treatments: No orders of the defined types were placed in this encounter. Orders Placed This Encounter Medications HYDROcodone-acetaminophen (NORCO 5) 5-325 mg tablet 1 tablet methocarbamoL (ROBAXIN) tablet 1,000 mg methocarbamoL 750 mg tablet First Provider Eval: ED Events Date/Time Event User Comments 08/22/23 1425 Medical Screening Begins KIMBERLY SORENSON DO -- 08/22/23 1425 First Provider Evaluation KIMBERLY SORENSON DO -- ED COURSE Diagnosis/Impression as of 08/22/23 1606 Pain of right lower extremity Sciatica of right side Procedures: Procedures MDM: Medical Decision Making The patient presents from home for evaluation for [...] surgeries. No loss of bowel or bladder function. Vital signs are stable in the ER. He has no vertebral body tenderness to his lumbar spine. He has right-sided paraspinal muscle tenderness to the lumbar area. Decreased range of motion of the right knee and ankle due to pain. There is no swelling, erythema or warmth to his right leg. No concern for fracture or cellulitis based on his presentation. Differential initial includes sciatica, DVT, muscle skeletal pain. Will give the patient pain medication here in the ER and obtain a DVT ultrasound. Anticipate discharge home later. 1606 - the patient is doing well here in the ER. His DVT study is negative. His pain has resolved with the medications given here in the ER. Will discharge patient home in stable condition. Advised him to stop the colchicine and allopurinol. PCP follow-up in 1 week. Problems Addressed: Pain of right lower extremity: acute illness or injury Sciatica of right side: acute illness or injury Risk OTC drugs. Prescription drug management. Flowsheet Documentation: Scoring Tools: No data recorded Disposition/Condition: ED Disposition ED Disposition Disch - Home Condition Stable Comment -- Discharge Medications: Patient's Medications START taking these medications METHOCARBAMOL 750 MG TABLET Take 1 tablet by mouth every 6 (six) hours as needed for Pain (scale 1-3). CONTINUE taking these medications which have NOT CHANGED ASPIRIN 81 MG CHEWABLE TABLET Take 1 tablet by mouth daily. INDOMETHACIN 50 MG CAPSULE Take 1 capsule by mouth 3 (three) times daily as needed for Pain for up to 15 doses. START taking Modified Medications as Prescribed No medications on file STOP taking these medications ALLOPURINOL 100 MG TABLET Take 1 tablet by mouth in the morning for 30 days. COLCHICINE 0.6 MG TABLET Colchicine 0.6 mg x 1 dose after picking up your medication today Follow-up: Electronically signed by: Kimberly Sorenson DO 08/22/23 1606 [facility] 2023-08-11 17:12:34 PT D/C home. GCS15, VS stable. Given D/C paperwork. Pt ambulatory at time of discharge. Pt educated on med usage, follow up care, s/s worsening condition, need for hydration. Pt verbalized understanding. Pt ambulated from ED with crutches in NAD. F CUSTOMER OFFICER Valerie Almonte RN [facility] 2023-08-11 15:33:15 Previous gout in right first toe. Yesterday morning toe began to hurt again. F CUSTOMER OFFICER Mary Lou Nava RN [facility] 2023-04-06 15:12:24 Formatting of this n ote might be different from the original. Pt discharged with diagnosis of acute idiopathic gout of left ankle. Printed and verbal instructions reviewed with and given to patient. Prescriptions given x 2. Pt verbalized understanding of teaching, medications, and recommended follow-up. Denies questions or concerns at this time. Pt ambulatory with crutches at discharge. Appears in no apparent distress. No ataxia noted. [facility] 2023-04-06 13:57:47 Formatting of this n ote might be different from the original. Pt c/o pain to left foot x1 week. Thinks it's gout, states "one time they gave me some little purple pills for gout". Shira Nick RN [facility] 2023-04-06 13:54:00 Formatting of this n ote is different from the original. [facility] Emergency Department Note Patient Name: Cathy Gomez Date of : 1970 52 year old male Treatment [id number] Primary Care Physician: PATIENT DOES NOT HAVE A PCP Patient Escorted by: Self [9] Mode of Arrival: Personal means [1] EMS Treatment Prior to ED Arrival: Travel and Exposure Screening: Symptoms Does patient have any of these symptoms?: (not recorded) Exposure Screening Has patient had contact with someone with a communicable disease in the last month?: (not recorded) Diseases exposed to:: (not recorded) Is Patient ?: (not recorded) Exposure Date: (not recorded) Chief Complaint: Chief Complaint Patient presents with Foot Pain Left History of Present Illness: 52-year-old male presenting for evaluation of left ankle pain likely secondary to gout attack. Patient is not on preventative medications. He states that he does not drink however engages in eating red meat. States that symptoms started last day or 2 and is now localized to left ankle pain without trauma. Mild erythema. Painful to touch. Past Medical History/Immunizations: Past Medical History: Diagnosis Date Chronic sinusitis Papilloma of nasopharynx Tetanus received in last 5 years: Unknown Allergies: No Known Allergies Past Social History: Tobacco Use Never smoked or used smokeless tobacco. Alcohol Use No. Comments: one drink every 2-3 months Drug Use No. Past Surgical History: Past Surgical History: Procedure Laterality Date NASAL ENDOSCOPY [...] 98 % Measured on Room air Physical Exam Vitals and nursing note reviewed. Constitutional: Appearance: He [...] Behavior normal. Thought Content: Thought content normal. Radiology: No orders to display Lab Results: Lab Results - No data to display EKG: If EKG completed, see Procedure Note. Orders and Treatments: No orders of the defined types were placed in this encounter. Orders Placed This Encounter Medications colchicine (COLCRYS) tablet 1.2 mg indomethacin 50 mg capsule allopurinoL 100 mg tablet First Provider Eval: ED Events Date/Time Event User Comments 04/06/231429 Medical Screening Begins EDDI SAHA -- 04/06/231429 First Provider Evaluation EDDI SAHA -- No notes of EC Admission Criteria type on file. ED COURSE Diagnosis/Impression as of 04/06/23 1507 Acute idiopathic gout of left ankle Procedures: Procedures MDM: Medical Decision Making Cathy Gomez is a 52 year old male with suspected gout attack. History of the same. No fever. Start colcrys in ED. Home with indomethacin and start allopurinal in 3 days. Diet restrictions. Unlikely cellulitis. No history of trauma. No risk factors for DVT. Return precautions given if symptoms worsen as documented in the discharge instructions. Problems Addressed: Acute idiopathic gout of left ankle: acute illness or injury Risk Prescription drug management. Flowsheet Documentation: Scoring Tools: No data recorded Disposition/Condition: ED Disposition ED Disposition Disch - Home Condition Stable Comment -- Discharge Medications: Patient's Medications START taking these medications ALLOPURINOL 100 [...] taking these medications No medications on file Follow-up: Contact information for follow-up [facility], [place] Specialty: Internal Medicine [address], [address] [facility] [id number] Instructions: for follow up of your emergency visit. [facility] Specialty: Emergency Medicine [address] [id number] Instructions: If symptoms worsen as documented in the discharge Electronically signed by: Eddi Saha DO 04/06/23 1507 [facility]
[2024-04-16] MEDS ORDERED: HYDROCODONE/APAP 7.5/325 MG TAB ONE (13:37)
--- NOTE | 2024-04-16 14:59 | RAD REPORT ---
EXAM DESCRIPTION: RAD - Knee Right 3 View - 04/16/2024 2:22 pm CLINICAL HISTORY: PAIN COMPARISON: No comparisons FINDINGS/IMPRESSION: No acute fracture. No malalignment. No significant focal degenerative changes.
--- NOTE | 2024-04-16 15:06 | ER ---
Nurse's Notes [facility] Name: Randolph Javier Age: 53 yrs Sex: Male : 1970 Arrival Date: 04/16/2024 Time: 13:00 Bed 11 Private MD: Diagnosis: Pain in right knee Presentation: 04/16 13:16 Chief complaint: Patient states: RIGHT KNEE PAIN STATES TWISTED RIGHT KNEE OUT WHILE db STEPPING ON STEP STOOL. PAIN GRADUALLY INCREASE WHEN AMBULATING RADIATES UP RIGHT HIP AND DOWN TO FOOT. Coronavirus screen: Client denies travel out of the [place] in the last 14 days. At this time, the client does not indicate any symptoms associated with coronavirus-19. Ebola Screen: Patient negative for fever greater than or equal to 101.5 degrees Fahrenheit, and additional compatible Ebola Virus Disease symptoms Patient denies exposure to infectious person. Patient denies travel to an Ebola-affected area in the 21 days before illness onset. No symptoms or risks identified at this time. Initial Sepsis Screen: Does the patient meet any 2 criteria? No. Patient's initial sepsis screen is negative. Does the patient have a suspected source of infection? No. Patient's initial sepsis screen is negative. Risk Assessment: Do you want to hurt yourself or someone else? Patient reports no desire to harm self or others. Onset of symptoms was April 14, 2024. 13:16 Acuity: SHILPI 4 db 13:16 Method Of Arrival: Ambulatory db Triage Assessment: 13:19 General: Appears in no apparent distress. comfortable, Behavior is calm, cooperative. db Pain: Complains of pain in right leg. Neuro: Level of Consciousness is awake, alert, obeys commands, Oriented to person, place, time, situation. Musculoskeletal: Range of motion: limited in right knee. Historical: - Allergies: 13:19 No Known Allergies; db - Home Meds: 13:48 Allopurinol Oral [Active]; Metformin Oral [Active]; tl4 - PMHx: 13:48 Diabetes mellitus; Gout; tl4 - PSHx: 13:48 None; tl4 - Immunization history:: Adult Immunizations unknown. - Infectious Disease History:: Denies. - Social history:: Smoking status: Patient denies any tobacco usage or history of. - Family history:: not pertinent. Screenin:47 [facility] ED Fall Risk Assessment (Adult) History of falling in the last 3 months, tl4 including since admission Yes- single mechanical fall (1 pt) Confusion or Disorientation No (0 pts) Intoxicated or Sedated No (0 pts) Impaired Gait No (0 pts) Mobility Assist Device Used No (0 pt) Altered Elimination No (0 pt) Score/Fall Risk Level 0 - 2 = Low Risk Oriented to surroundings, Maintained a safe environment, Educated pt \T\ family on fall prevention, incl call for assistance when getting out of bed, Assessed \T\ reinforced patient's understanding of fall precautions. Abuse screen: Denies threats or abuse. Denies injuries from another. Nutritional screening: No deficits noted. Tuberculosis screening: No symptoms or risk factors identified. Assessment: 13:45 General: Appears uncomfortable, Behavior is calm, cooperative. Pain: Complains of pain tl4 in lateral aspect of right knee, right hamstring and posterior aspect of right knee Pain at worst was 8 out of 10 on a pain scale. Neuro: Level of Consciousness is awake, alert, obeys commands, Oriented to person, place, time, situation, Moves all extremities. Full function. Cardiovascular: Capillary refill < 3 seconds Patient's skin is warm and dry. Respiratory: Airway is patent Respiratory effort is even, unlabored, Respiratory pattern is regular, symmetrical. GI: No signs and/or symptoms were reported involving the gastrointestinal system. : No signs and/or symptoms were reported regarding the genitourinary system. EENT: No signs and/or symptoms were reported regarding the EENT system. Derm: No signs and/or symptoms reported regarding the dermatologic system. Musculoskeletal: Reports pain in lateral aspect of right knee, right hamstring and posterior aspect of right knee. 14:50 Reassessment: Patient and/or family updated on plan of care and expected duration. Pain tl4 level reassessed. Patient is alert, oriented x 3, equal unlabored respirations, skin warm/dry/pink. Pt denies any needs. Call ortiz at bedside. Pt updated on status. Will continue to monitor. Vital Signs: 13:16 BP 145 / 99; Pulse 84; Resp 16; Temp 98.3; Pulse Ox 96% ; Weight 95.25 kg; Height 5 ft. db 7 in. ; Pain 8/10; 15:26 BP 139 / 86; Pulse 75; Resp 16; Temp 97.3(TE); Pulse Ox 99% on R/A; tl4 13:16 Body Mass Index 32.89 (95.25 kg, 170.18 cm) db 13:16 Pain Scale: Adult db ED Course: 13:04 Patient arrived in ED. mr 13:05 Roberto Oconenll MD is Attending Physician. rt 13:19 Triage completed. db 13:19 Arm band placed on left wrist. Patient placed in an exam room. db 13:37 Xiang Bullard, LOUISE is Primary Nurse. tl4 13:47 Patient has correct armband on for positive identification. Placed in gown. Bed in low tl4 position. Call light in reach. Side rails up X 1. Provided Education on: call ortiz, ed process. Door closed. Noise minimized. Lights dimmed. Moved to private room. Warm blanket given. 13:48 No provider procedures requiring assistance completed. Patient did not have IV access tl4 during this emergency room visit. 14:24 Knee Right 3 View XRAY In Process Unspecified. EDMS 15:26 Crutch training done. Knee immobilizer applied on right knee. tl4 Administered Medications: 13:43 Drug: Hydrocodone-Acetaminophen PO (7.5 mg-325 mg) 1 tabs PO once Route: PO; tl4 14:48 Follow up: Response: No adverse reaction; Pain is decreased tl4 Medication: 13:47 VIS not applicable for this client. tl4 Outcome: 15:06 Discharge ordered by . rt 15:26 Discharged to home ambulatory, with crutches, tl4 15:26 Condition: stable 15:26 Discharge instructions given to patient, Instructed on discharge instructions, follow up and referral plans. medication usage, crutch walking, splint use Demonstrated understanding of instructions, follow-up care, medications, crutch walking, splint care, Prescriptions given X 1, 15:37 Patient left the ED. tl4 Signatures: Dispatcher [employer] EDCT Helena Parsons, Hugo Reg Elsie Johnson, RN RN Roberto Centeno MD MD rt Xiang Bullard RN RN tl4 Corrections: (The following items were deleted from the chart) 13:51 13:19 PMHx: None; db tl4
--- NOTE | 2024-04-16 15:06 | EDPHYS ---
Physician Documentation [facility] Name: Randolph Javier Age: 53 yrs Sex: Male : 1970 Arrival Date: 04/16/2024 Time: 13:00 Bed 11 Private MD: ED Physician Roberot Oconnell HPI: 04/16 13:36 This 53 yrs old Male presents to ER via Ambulatory with complaints of Knee rt Pain. 13:36 Patient presents to the ED with 2 days of right knee pain. Patient states that he rt twisted it, hyperflexing it when getting up on a stool to get to his truck. Reports mild swelling. Denies other injury, acute complaints, symptoms are aching nature, moderate in severity, no other aggravating relieving factors.. Historical: - Allergies: 13:19 No Known Allergies; db - Home Meds: 13:48 Allopurinol Oral [Active]; Metformin Oral [Active]; tl4 - PMHx: 13:48 Diabetes mellitus; Gout; tl4 - PSHx: 13:48 None; tl4 - Immunization history:: Adult Immunizations unknown. - Infectious Disease History:: Denies. - Social history:: Smoking status: Patient denies any tobacco usage or history of. - Family history:: not pertinent. ROS: 13:36 Constitutional: Negative for fever, chills, and weight loss, Cardiovascular: Negative rt for chest pain, palpitations, and edema, Respiratory: Negative for shortness of breath, cough, wheezing, and pleuritic chest pain, Abdomen/GI: Negative for abdominal pain, nausea, vomiting, diarrhea, and constipation, Skin: Negative for injury, rash, and discoloration, Neuro: Negative for headache, weakness, numbness, tingling, and seizure, 13:36 MS/extremity: Positive for pain, swelling, Exam: 13:36 Constitutional: This is a well developed, well nourished patient who is awake, alert, rt and in no acute distress. Head/Face: Normocephalic, atraumatic. Skin: Warm, dry with normal turgor. Normal color with no rashes, no lesions, and no evidence of cellulitis. Neuro: Awake and alert, GCS 15, oriented to person, place, time, and situation. Cranial nerves II-XII grossly intact. Motor strength 5/5 in all extremities. Sensory grossly intact. Cerebellar exam normal. Normal gait. Psych: Awake, alert, with orientation to person, place and time. Behavior, mood, and affect are within normal limits. 13:36 Musculoskeletal/extremity: Mild swelling, tenderness to the right knee, full range of motion, pulses, motor, sensation. Vital Signs: 13:16 BP 145 / 99; Pulse 84; Resp 16; Temp 98.3; Pulse Ox 96% ; Weight 95.25 kg; Height 5 ft. db 7 in. ; Pain 8/10; 15:26 BP 139 / 86; Pulse 75; Resp 16; Temp 97.3(TE); Pulse Ox 99% on R/A; tl4 13:16 Body Mass Index 32.89 (95.25 kg, 170.18 cm) db 13:16 Pain Scale: Adult db MDM: 13:16 Patient medically screened. rt 15:07 Differential Diagnosis Fracture, contusion, sprain. Data reviewed: vital signs, nurses rt notes, radiologic studies. Independent interpretation of the following test(s) in the Emergency Department X-Ray: My interpretation is No fracture seen on my interpretation of x-ray. Care significantly affected by the following chronic conditions: Diabetes. Counseling: I had a detailed discussion with the patient and/or guardian regarding the historical points, exam findings, and any diagnostic results supporting the discharge/admit diagnosis, radiology results. Response to treatment: the patient's symptoms have mildly improved after treatment. 04/16 13:26 Order name: Knee Right 3 View XRAY; Complete Time: 15:00 rt 04/16 15:05 Order name: Crutches; Complete Time: 15:19 rt 04/16 15:05 Order name: Knee Immobilizer; Complete Time: 15:19 rt Administered Medications: 13:43 Drug: Hydrocodone-Acetaminophen PO (7.5 mg-325 mg) 1 tabs PO once Route: PO; tl4 14:48 Follow up: Response: No adverse reaction; Pain is decreased tl4 Disposition Summary: 04/16/24 15:06 Discharge Ordered Notes: Location: Home rt Problem: new rt Symptoms: have improved rt Condition: Stable rt Diagnosis - Pain in right knee rt Followup: rt - With: Private Physician - When: 2 - 3 days - Reason: Discharge Instructions: - Discharge Summary Sheet rt - Acute Knee Pain, Adult rt Forms: - Medication Reconciliation Form rt - Antibiotic Education rt - Prescription Opioid Use rt - Patient Portal Instructions rt - Leadership Thank You Letter rt Prescriptions: - Tramadol 50 mg Oral Tablet - take 1 tablet ORAL route every 8 hours as needed; 12 tablet; Refills: 0, rt Product Selection Permitted Signatures: Dispatcher [employer] Elsie Admaes RN RN Roberto Centeno MD MD rt Xiang Bullard RN RN tl4 Corrections: (The following items were deleted from the chart) 13:51 13:19 PMHx: None; jamie tl4
[2024-04-16 15:52] VITALS: BP 139/86; TEMP 97.3; O2SAT 99
== END 2024-04-16 15:37 | disposition home or self-care (01) ==
LOC: ER 13:00
DX: M25.561 Pain in right knee (principal)
CPT/HCPCS: 99284

== ENCOUNTER 2024-09-07 16:45 | Emergency (ER) | payer OTHER ==
--- OUTSIDE RECORDS SUMMARY | 2024-09-07 16:51 | XMS REPORT | Continuity of Care Document ---
Author Name Unknown Address [address] [facility] [address] [place] [address] [facility] Address [address] [facility] [address] [place] [address] Care Team Providers Care Oyster Grader Name Role Phone PCP, PATIENT DOES NOT HAVE A Primary Care Physic minerva Unavailable JUAN LUIS ARELLANO Attending Clinician Unavailable GATITO COPPOLA Attending Clinician Unavailable Gatito Mccartney Attending Clinician [phone] Doctor Unassigned, [place] Attending Clinician U PERCY DelV alle Attending Clinician Unavailable Percy Ramos MD Attending Clinician [phone] KIMBERLY SORENSON Attending Clinician UnavailKimberly Wagner DO Attending Clinician [phone] RINA MEREDITH Attending Clinician Unavailable EDDI SAHA Attending Clinician Unavailable Eddi Saha DO Attending Clinician [phone] TERESA JOSEPH Attending Clinician UnaFELI Ruiz Attending Clinician Unavailable Feli Hatfield Attending Clinician [phone] Ana Mello Attending Clinician [phone] Denise Ramirez NP Attending Clinician [phone] Shira Gallego Attending Clinician [phone] Anthony Browne DO Attending Clinician [phone] José Miguel GIL, Jeannette Turk Attending Clinician Unavailab janice Arellano MD, Juan Luis Attending Clinician [phone] Joseph Salcido MD Attending Clinician [phone] Geovanni RODNEY, Kuldeep Attending Clinician [phone] Wanda Cortez RN Attending Clinician Unavailable GLORIA LIRIANO Attending Clinician Unavailable Ja Sena Attending Clinician +[phone] Grey GIL, Martha [place] Attending Clinician Unavailab janice Mishra Attending Clinician Unavailable REYNA SABA Attending Clinician Christin vailable Tom ACEVEDO, Reyna Salcido Attending Clinician Miriam Hairston MD Attending Clinician [phone] JUAN LUIS ARELLANO Admitting Clinician Unavailable GATITO COPPOLA Admitting Clinician Unavailable PERCY RAMOS Admitting Clinician Unavailable KIMBERLY SORENSON Admitting Clinician Unavailab RINA Damon Admitting Clinician Unavailable FELI LAYNE Admitting Clinician Unavailable Geovanni RODNEY, Kuldeep Admitting Clinician [phone] Tad Admitting Clinician Unavailable REYNA SABA Admitting Clinician Christin vailable Payers Payer Name Policy Type Policy Number Effective Date Expirati on Date Source MARLOW RULE [id number] 2019 00:00:00 [employer] [id number] 2023 00:00:00 [facility] [id number] 2023 00:00:00 Problems Condition Name Condition Details Condition Category Status Onset Date Resolution Date Last Treatment Date Treating Clinician Comments Source Essential hypertensi on Essential hypertensi on Disease Active 03-03 00:00: 00 [facility] Mixed hyperlipid emia Mixed hyperlipid emia Disease Active 03-03 00:00: 00 [facility] Type 2 diabetes mellitus without complicati on, without long-term current use of insulin Type 2 diabetes mellitus without complicati on, without long-term current use of insulin Disease Active 03-03 00:00: 00 [facility] Chest pain Chest pain Disease Active 03-02 00:00: 00 [facility] COVID-19 virus infection COVID-19 virus infection Disease Active 2019-08 0 00:00: 00 [facility] Cerebral venous sinus thrombosis , acute Cerebral venous sinus thrombosis , acute Disease Active 11-16 00:00: 00 [facility] Obesity (BMI 30-39.9) Obesity (BMI 30-39.9) Disease Active 11-16 00:00: 00 [facility] Respirator y abnormalit y Respirator y abnormalit y Disease Active 11-30 00:00: 00 Overview: Formattin g of this note might be different from the original. 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 ICD10 Diagnosis Term Public Events [employer]ental [employer] [facility] Allergies, Adverse Reactions, Alerts Allergy Name Allergy Type Status Severity Reaction(s) Onset Date Inactive Date Treating Clinician Comments Source NO KNOWN ALLERGIE S Drug Class Active [facility] Social History Social Habit Start Date Stop Date Quantity Comments Source Exposure to SARS-CoV-2 (event) Not sure [facility] History SDOH Alcohol Frequency [facility] History SDOH Alcohol Std Drinks [facility] History SDOH Alcohol Binge [facility] Gender identity [facility] Alcohol intake 2023-08-11 00:00:00 2023-08-11 00:00:00 Current non-drinker of alcohol (finding) [facility] History of Social function 2020-03-18 00:00:00 2020-03-18 00:00:00 [facility] Tobacco use and exposure 2018-11-16 00:00:00 2018-11-16 00:00:00 Smokeless tobacco non-user [facility] Alcohol Comment 2018-11-16 00:00:00 2018-11-16 00:00:00 one drink every 2-3 months [facility] Sex Assigned At 1970 00:00:00 1970 00:00:00 [facility] Smoking Status Start Date Stop Date Source Never smoked tobacco [facility] Medications Ordered Medication Name Filled Medication Name Start Date Stop Date Current Medication? Ordering Clinician Indication Dosage Frequency Signature (SIG) Comments Components Source cyclobenzap rine (FLEXERIL) tablet 10 mg 10-09 05:05: 00 10-09 05:15 :00 No 10mg 10 mg, Oral, ONCE, 1 dose, On 10/08/23 at 2315, [facility] FENTanyl PF (SUBLIMAZE (PF)) injection 50 mcg 10-09 02:10: 00 10-09 02:39 :00 No 50ug 50 mcg, Slow IV Push, ONCE, 1 dose, On 10/08/23 at 2015, [facility] ketorolac (TORADOL) injection 30 mg 10-09 00:43: 00 10-09 01:36 :00 No 30mg 30 mg, Slow IV Push, ONCE, 1 dose, On 10/08/23 at 1845, [facility] NaCl 0.9% (NS) IV infusion 1,000 mL 10-09 00:30: 00 10-09 02:42 :00 No 1000mL at 999 mL/hr, Intravenou s, ONCE, 1 dose, On 10/08/23 at 1845, [facility] ibuprofen 600 mg tablet 10-08 00:00: 00 Yes [id number] 600mg Take 1 tablet by mouth every 8 (eight) hours as needed for Pain (scale 4-6). [facility] cyclobenzap rine 10 mg tablet 10-08 00:00: 00 Yes [id number] 10mg Take 1 tablet by mouth 2 (two) times daily as needed for Muscle Spasms. [facility] lidocaine 5 % (700 mg/patch) patch 10-08 00:00: 00 Yes [id number] 1{patch } Apply 1 Patch to area(s) in the morning. [facility] ketorolac (TORADOL) injection 30 mg 08-24 19:30: 00 08-24 18:43 :00 No 30mg 30 mg, Intramuscu lar, ONCE, 1 dose, On Tue08/24/23 at 1330, Routine [facility] methocarbam oL (ROBAXIN) tablet 1,000 mg 08-22 20:45: 00 08-22 20:38 :00 No 1000mg 1,000 mg, Oral, ONCE, 1 dose, On Tue08/22/23 at 1445, [facility] HYDROcodone -acetaminop hen (NORCO 5) 5-325 mg tablet 1 tablet 08-22 20:45: 00 08-22 20:39 :00 No 1{tbl} 1 tablet, Oral, ONCE, 1 dose, On Tue08/22/23 at 1445, [facility] methocarbam oL 750 mg tablet 08-22 00:00: 00 Yes [id number] 750mg Take 1 tablet by mouth every 6 (six) hours as needed for Pain (scale 1-3). [facility] indomethaci n (INDOCIN) capsule 50 mg 2022-08 23:15: 00 08-11 22:55 :00 No 50mg 50 mg, Oral, ONCE, 1 dose, On Tue08/11/23 at 1715, Routine [facility] colchicine (COLCRYS) tablet 1.2 mg 2022-08 23:15: 00 08-11 22:55 :00 No 1.2mg 1.2 mg, Oral, ONCE, 1 dose, On Tue08/11/23 at 1715, Routine [facility] traMADoL (ULTRAM) tablet 50 mg 2022-08 22:30: 00 08-11 22:00 :00 No 50mg 50 mg, Oral, ONCE, 1 dose, On Tue08/11/23 at 1630, Routine [facility] colchicine 0.6 mg tablet 2022-08 00:00: 00 Yes [id number] Colchicine 0.6 mg x 1 dose after picking up your medication today [facility] indomethaci n 50 mg capsule 2022-08 00:00: 00 Yes [id number] 50mg Take 1 capsule by mouth 3 (three) times daily as needed for Pain for up to 15 doses. [facility] allopurinoL 100 mg tablet 2022-08 00:00: 00 09-11 05:59 :00 No [id number] 100mg Take 1 tablet by mouth in the morning for 30 days. [facility] allopurinoL 100 mg tablet 04-09 00:00: 00 08-11 00:00 :00 No [id number] 100mg Take 1 tablet by mouth in the morning. [facility] colchicine (COLCRYS) tablet 1.2 mg 04-07 14:00: 00 Yes 1.2mg 1.2 mg, Oral, DAILY, First dose on Tue04/07/23 at 0900, Until Discontinu ed, Routine [facility] indomethaci n 50 mg capsule 04-06 00:00: 00 04-12 04:59 :00 No [id number] 50mg Take 1 capsule by mouth in the morning and 1 capsule at noon and 1 capsule in the evening. Take with meals. Do all this for 5 days. [facility] HYDROcodone -acetaminop hen (NORCO 5) 5-325 mg tablet 1 tablet 09-05 05:00: 00 09-05 04:02 :00 No 1{tbl} 1 tablet, Oral, ONCE, 1 dose, On Tue09/04/21 at 2300, [facility] dexamethaso ne (DECADRON PHOSPHATE) injection 10 mg 09-05 05:00: 00 09-05 04:00 :00 No 10mg 10 mg, Oral, ONCE, 1 dose, On Tue09/04/21 at 2300, [facility] cefdinir (OMNICEF) capsule 300 mg 09-05 05:00: 00 09-05 04:02 :00 No 300mg 300 mg, Oral, ONCE, 1 dose, On Tue09/04/21 at 2300, [facility]
Re ason for Anti-Infec tive: Documented Infection< br>Documen chet Infection Site: Skin / Soft Tissue
Duration of Therapy: Other (see Comments) [facility] FENTanyl PF (SUBLIMAZE (PF)) injection 25 mcg 09-05 02:45: 00 09-05 01:50 :00 No 25ug 25 mcg, Slow IV Push, ONCE, 1 dose, On Tue09/04/21 at 2045, STAT [facility] ketorolac (TORADOL) injection 30 mg 09-05 02:45: 00 09-05 01:50 :00 No 30mg 30 mg, Slow IV Push, ONCE, 1 dose, On Tue09/04/21 at 2045, [facility] predniSONE 20 mg tablet 09-05 00:00: 00 08-11 00:00 :00 No [id number] 40mg Take 2 tablets by mouth daily. [facility] cefdinir 300 mg capsule 09-04 00:00: 00 08-11 00:00 :00 No [id number] 300mg Take 1 capsule by mouth 2 (two) times daily. [facility] ibuprofen 600 mg tablet 09-04 00:00: 00 08-11 00:00 :00 No [id number] 600mg Take 1 tablet by mouth every 6 (six) hours as needed for Pain (scale 4-6). [facility] traMADoL 50 mg tablet 09-04 00:00: 00 08-11 00:00 :00 No [id number] 50mg Take 1 tablet by mouth every 8 (eight) hours as needed for Pain (scale 7-10). Indication s: acute pain [facility] aspirin 81 mg chewable tablet 03-05 00:00: 00 Yes [id number] 81mg Take 1 tablet by mouth daily. [facility] fenofibrate micronized 134 mg capsule 03-05 00:00: 00 04-05 04:59 :00 No [id number] 134mg Take 1 capsule by mouth daily for 30 days. [facility] lisinopriL 20 mg tablet 03-05 00:00: 00 04-05 04:59 :00 No [id number] 20mg Take 1 tablet by mouth daily for 30 days. [facility] atorvastati n 40 mg tablet 03-04 00:00: 00 04-04 04:59 :00 No [id number] 40mg Take 1 tablet by mouth at bedtime for 30 days. [facility] metoprolol tartrate 25 mg tablet 03-04 00:00: 00 04-04 04:59 :00 No [id number] 25mg Take 1 tablet by mouth 2 (two) times daily for 30 days. [facility] aspirin tablet 325 mg 02-18 05:00: 00 02-18 04:12 :00 No 325mg 325 mg, Oral, ONCE, 1 dose, Tue02/18/21 at 0000, STAT [facility] aspirin chewable tablet 324 mg 12-02 14:00: 00 Yes 324mg 324 mg, Oral, DAILY, First dose on Tue12/02/20 at 0900, Until Discontinu ed, Routine [facility] hydralAZINE (APRESOLINE ) injection 10 mg 12-02 04:15: 00 12-02 03:14 :00 No 10mg 10 mg, Slow IV Push, ONCE, 1 dose, Tue12/01/20 at 2315, STAT
In dication: Hypertensi ve Emergency [facility] metoprolol (LOPRESSOR) injection 5 mg 12-02 03:00: 00 12-02 02:06 :00 No 5mg 5 mg, Slow IV Push, ONCE, 1 dose, Tue12/01/20 at 2200, [facility] ergocalcife rol, vitamin d2, 1,250 mcg (50,000 unit) capsule 2019-08 011 00:00: 00 Yes [id number] 22425P Take 1 capsule by mouth weekly. [facility] dexAMETHaso ne 6 mg tablet 2019-08 0-05 00:00: 00 05-28 04:59 :00 No [id number] 6mg Take 1 tablet by mouth daily for 8 days. [facility] HYDROCODONE -ACETAMINOP HEN 7.5-325 MG/15 ML ORAL SOLN 2019-08 0 16:43: 46 05-18 00:00 :00 No 1-2 tabs PRN [facility] ergocalcife rol (vitamin d2) (CALCIFEROL ) capsule 50,000 Units 2019-08 0 14:00: 00 Yes [id number] 50,000 Units, Oral, QWEEKLY, First dose on 05/18/20 at 0900, Until Discontinu ed, Routine [facility] ascorbic acid, vitamin C, 500 mg tablet 2019-08 0 00:00: 00 Yes [id number] 500mg Take 1 tablet by mouth daily. [facility] zinc sulfate 220 (50) mg capsule 2019-08 00:00: 00 Yes [id number] 220mg Take 1 capsule by mouth 2 (two) times daily. [facility] codeine-gua ifenesin 10-100 mg/5 mL solution 2019-08 0 00:00: 00 05-26 04:59 :00 No 10mL Take 10 mL by mouth every 4 (four) hours as needed for Cough for up to 7 days. Indication s: cough [facility] enoxaparin (LOVENOX) injection 40 mg 2019-08 0 22:00: 00 Yes 40mg 40 mg, Subcutaneo us, DAILY, First dose on 05/17/20 at 1700, Until Discontinu ed, Routine [facility] iohexol (OMNIPAQUE 350 BULK-100 mL) injection 114 mL 2019-08 0 18:45: 00 05-17 18:33 :00 No 114mL 114 mL, Intravenou s, ONCE, 1 dose, 05/17/20 at 1345, Routine [facility] zinc sulfate (ORAZINC) capsule 220 mg 2019-08 15:00: 00 Yes 220mg 220 mg, Oral, BID, First dose on 05/17/20 at 1000, Until Discontinu ed, Routine [facility] ascorbic acid (vitamin C) (VITAMIN C) tablet 500 mg 2019-08 15:00: 00 Yes 500mg 500 mg, Oral, BID, First dose on 05/17/20 at 1000, Until Discontinu ed, Routine [facility] dexAMETHaso ne (DECADRON) tablet 6 mg 2019-08 15:00: 00 Yes 6mg 6 mg, Oral, DAILY, First dose on 05/17/20 at 1000, Until Discontinu ed, Routine [facility] codeine-gua ifenesin (ROBITUSSIN AC) 10-100 mg/5 mL solution 10 mL 2019-08 14:54: 58 Yes 10mL 10 mL, Oral, Q4HPRN, Starting 05/17/20 at 0954, Until Discontinu ed, Routine, Cough [facility] traMADoL (ULTRAM) tablet 50 mg 2019-08 14:54: 37 05-19 14:53 :37 No 50mg 50 mg, Oral, Q6HPRN, Starting 05/17/20 at 0954, Until 05/19/20 at 0953, Routine, Pain (scale 4-6) [facility] acetaminoph en (TYLENOL) tablet 650 mg 2019-08 14:54: 31 Yes 650mg 650 mg, Oral, Q6HPRN, Starting 05/17/20 at 0954, Until Discontinu ed, Routine, Pain (scale 1-3) [facility] NaCl 0.9% (NS) bolus infusion 1,000 mL 2019-08 14:30: 00 05-17 14:44 :00 No 1000mL at 999 mL/hr, 1,000 mL, IV Piggyback, ONCE, 1 dose, 05/17/20 at 0930, STAT [facility] HYDROcodone -acetaminop hen (NORCO) 10-325 mg tablet 1 tablet 02-04 01:00: 02-04 00:06 :00 No 1{tbl} 1 tablet, Oral, ONCE, 1 dose, 02/04/20 at 2000, Routine [facility] clindamycin (CLEOCIN HCL) capsule 300 mg 02-04 01:00: 00 02-04 00:06 :00 No 300mg 300 mg, Oral, ONCE, 1 dose, 02/04/20 at 2000, [facility]
Re ason for Anti-Infec tive: Empiric Therapy for Suspected Infection< br>Empiric Therapy Site: Skin / Soft tissue
Duration of therapy: 7 days
Re stricted use approved by: ADC PROVIDER [facility] predniSONE (DELTASONE) tablet 40 mg 02-04 01:00: 02-04 00:06 :00 No 40mg 40 mg, Oral, ONCE, 1 dose, Tue02/04/20 at 2000, [facility] ketorolac (TORADOL) injection 60 mg 02-03 22:30: 00 02-03 22:30 :00 No 60mg 60 mg, Intramuscu lar, ONCE, 1 dose, Tue02/04/20 at 1730, [facility]
Fa culty member approving Restricted medication : Ja CAMARENA [facility] clindamycin 150 mg capsule 02-03 00:00: 00 02-14 04:59 :00 No [id number] 300mg Take 2 capsules by mouth 4 (four) times daily for 10 days. [facility] predniSONE 10 mg tablet 02-03 00:00: 02-12 04:59 :00 No [id number] Take 2 tablets by mouth 2 (two) times daily for 2 days, THEN 1 tablet 2 (two) times daily for 3 days, THEN 1 tablet daily for 3 days. [facility] cefdinir 300 mg capsule 09-06 00:00: 05-18 00:00 :00 No [id number] 300mg Take 1 capsule by mouth 2 (two) times daily. [facility] doxycycline 100 mg tablet 09-05 00:00: 00 09-20 05:59 :00 No [id number] 100mg Take 1 tablet by mouth 2 (two) times daily for 14 days. [facility] indomethaci n (INDOCIN) capsule 50 mg 09-04 08:00: 09-04 07:57 :00 No 50mg 50 mg, Oral, ONCE, 1 dose, 09/04/19 at 0200, Routine [facility] colchicine (COLCRYS) tablet 1.2 mg 09-04 07:00: 00 09-04 06:06 :00 No 1.2mg 1.2 mg, Oral, ONCE, 1 dose, 09/04/19 at 0100, Routine [facility] dexamethaso ne (DECADRON PHOSPHATE) injection 10 mg 09-04 07:00: 09-04 06:06 :00 No 10mg 10 mg, IV Push, ONCE, 1 dose, 09/04/19 at 0100, STAT [facility] ketorolac (TORADOL) injection 30 mg 09-04 07:00: 00 09-04 06:06 :00 No 30mg 30 mg, Slow IV Push, ONCE, 1 dose, 09/04/19 at 0100, Routine
membership correspondent approving Restricted medication : EMERGENCY ROOM, [facility] ondansetron (ZOFRAN (PF)) injection 4 mg 09-04 06:45: 00 09-04 05:46 :00 No 4mg 4 mg, Slow IV Push, ONCE, 1 dose, 09/04/19 at 0045, [facility] morpHINE injection 4 mg 09-04 06:45: 00 09-04 05:47 :00 No 4mg 4 mg, Slow IV Push, ONCE, 1 dose, 09/04/19 at 0045, STAT [facility] acetaminoph en (TYLENOL) tablet 1,000 mg 09-04 05:30: 00 09-04 04:37 :00 No 1000mg 1,000 mg, Oral, ONCE, 1 dose, 09/03/19 at 2330, Routine [facility] diphenhydrA MINE (BENADRYL) injection 25 mg 09-04 05:30: 00 09-04 04:37 :00 No 25mg 25 mg, Slow IV Push, ONCE, 1 dose, 09/03/19 at 2330, STAT [facility] metoclopram nayana HCl (REGLAN) injection 10 mg 09-04 05:30: 00 09-04 04:36 :00 No 10mg 10 mg, Slow IV Push, ONCE, 1 dose, 09/03/19 at 2330, [facility] NaCl 0.9% (NS) bolus infusion 1,000 mL 09-04 05:30: 00 09-04 06:05 :00 No 1000mL at 999 mL/hr, 1,000 mL, IV Infusion, ONCE, 1 dose, 09/03/19 at 2330, STAT [facility] colchicine 0.6 mg tablet 09-04 00:00: 00 Yes [id number] 105 .6mg Take 1 tablet by mouth daily. [facility] indomethaci n 50 mg capsule 09-04 00:00: 00 05-18 00:00 :00 No [id number] 105 50mg Take 1 capsule by mouth 3 (three) times daily with meals. [facility] acetaminoph en-codeine 300-30 mg tablet 09-04 00:00: 00 05-18 00:00 :00 No [id number] 105 1{tbl} Take 1-2 tablets by mouth every 6 (six) hours as needed for Pain (scale 1-3). [facility] amLODIPine 5 mg tablet 11-18 00:00: 00 Yes [id number] 5mg Take 1 tablet by mouth daily. [facility] HYDROCODONE -ACETAMINOP HEN 7.5-325 MG/15 ML ORAL SOLN 11-17 22:26: 04 Yes 1-2 tabs PRN [facility] valACYclovi r 500 mg tablet 11-17 00:00: 00 Yes [id number] 1g Take 2 tablets by mouth 3 (three) times daily. [facility] artificial tears,hypro mellose, 0.5 % ophthalmic drops 11-17 00:00: 00 Yes [id number] 1[drp] Place 1 Drop in both eyes 4 (four) times daily as needed for Dry eyes. [facility] white petrolatum- mineral oil (PURALUBE) 85-15 % ophthalmic ointment 11-17 00:00: 00 Yes [id number] .5[in_u s] Place 0.5 Inches in both eyes at bedtime. [facility] bacitracin 500 unit/gram ointment 11-17 00:00: 00 05-18 00:00 :00 No [id number] Apply to area(s) 2 (two) times daily. [facility] traMADOL (ULTRAM) 50 mg tablet 2016-08 030 00:00: 00 Yes 50mg Take 1 tablet by mouth every 6 (six) hours as needed for Pain (scale 7-10). [facility] acetaminoph en-codeine (TYLENOL-CO DEINE #3) 300-30 mg tablet 12 00:00: 00 05-18 00:00 :00 No 1{tbl} Take 1 Tab by mouth every 4 (four) hours as needed for Pain (scale 4-6). [facility] Vital Signs Vital Name Observation Time Observation Value Comments S ource Systolic blood pressure 2023-10-09 05:00:00 148 mm[Hg] [facility] Diastolic blood pressure 2023-10-09 05:00:00 96 mm[Hg] [facility] Heart rate 2023-10-09 05:00:00 50 /min [facility] Respiratory rate 2023-10-09 05:00:00 17 /min [facility] Oxygen saturation in Arterial blood by Pulse oximetry 2023-10-09 05:00:00 95 /min [facility] Body temperature 2023-10-09 03:00:00 36.78 Kerri [facility] Body height 2023-10-09 00:15:00 170.2 cm [facility] Body weight 2023-10-09 00:15:00 95.255 kg [facility] BMI 2023-10-09 00:15:00 32.89 kg/m2 [facility] Systolic blood pressure 2023-08-24 19:38:53 132 mm[Hg] [facility] Diastolic blood pressure 2023-08-24 19:38:53 87 mm[Hg] [facility] Heart rate 2023-08-24 19:38:53 97 /min [facility] Body temperature 2023-08-24 19:38:53 37 Kerri [facility] Respiratory rate 2023-08-24 19:38:53 20 /min [facility] Oxygen saturation in Arterial blood by Pulse oximetry 2023-08-24 19:38:53 98 /min [facility] Body weight 2023-08-24 16:11:00 95.255 kg [facility] BMI 2023-08-24 16:11:00 32.89 kg/m2 [facility] Systolic blood pressure 2023-08-22 20:27:00 156 mm[Hg] [facility] Diastolic blood pressure 2023-08-22 20:27:00 108 mm[Hg] [facility] Heart rate 2023-08-22 20:27:00 84 /min [facility] Body temperature 2023-08-22 20:27:00 36.5 Kerri [facility] Respiratory rate 2023-08-22 20:27:00 19 /min [facility] Body height 2023-08-22 20:27:00 170.2 cm [facility] Body weight 2023-08-22 20:27:00 95.255 kg [facility] BMI 2023-08-22 20:27:00 32.89 kg/m2 [facility] Oxygen saturation in Arterial blood by Pulse oximetry 2023-08-22 20:27:00 99 /min [facility] Systolic blood pressure 2023-08-11 21:33:00 154 mm[Hg] [facility] Diastolic blood pressure 2023-08-11 21:33:00 99 mm[Hg] [facility] Heart rate 2023-08-11 21:33:00 94 /min [facility] Body temperature 2023-08-11 21:33:00 36.39 Kerri [facility] Respiratory rate 2023-08-11 21:33:00 18 /min [facility] Body height 2023-08-11 21:33:00 170.2 cm [facility] Body weight 2023-08-11 21:33:00 97.523 kg [facility] BMI 2023-08-11 21:33:00 33.67 kg/m2 [facility] Oxygen saturation in Arterial blood by Pulse oximetry 2023-08-11 21:33:00 99 /min [facility] Systolic blood pressure 2023-04-06 18:58:00 140 mm[Hg] [facility] Diastolic blood pressure 2023-04-06 18:58:00 98 mm[Hg] [facility] Heart rate 2023-04-06 18:58:00 96 /min [facility] Body temperature 2023-04-06 18:58:00 36.78 Kerri [facility] Respiratory rate 2023-04-06 18:58:00 18 /min [facility] Body height 2023-04-06 18:58:00 170.2 cm [facility] Body weight 2023-04-06 18:58:00 95.255 kg [facility] BMI 2023-04-06 18:58:00 32.89 kg/m2 [facility] Oxygen saturation in Arterial blood by Pulse oximetry 2023-04-06 18:58:00 98 /min [facility] Systolic blood pressure 2021-09-05 04:03:51 130 mm[Hg] [facility] Diastolic blood pressure 2021-09-05 04:03:51 82 mm[Hg] [facility] Heart rate 2021-09-05 04:03:51 85 /min [facility] Respiratory rate 2021-09-05 04:03:51 20 /min [facility] Oxygen saturation in Arterial blood by Pulse oximetry 2021-09-05 04:03:51 97 /min [facility] Body temperature 2021-09-05 01:31:00 37.33 Kerri [facility] Body height 2021-09-05 01:31:00 170.2 cm [facility] Body weight 2021-09-05 01:31:00 97.342 kg [facility] BMI 2021-09-05 01:31:00 33.61 kg/m2 [facility] Systolic blood pressure 2021-02-18 05:42:00 130 mm[Hg] [facility] Diastolic blood pressure 2021-02-18 05:42:00 83 mm[Hg] [facility] Heart rate 2021-02-18 05:42:00 91 /min [facility] Respiratory rate 2021-02-18 05:42:00 19 /min [facility] Oxygen saturation in Arterial blood by Pulse oximetry 2021-02-18 05:42:00 94 /min [facility] Body temperature 2021-02-18 03:46:00 36.89 Kerri [facility] Body height 2021-02-18 03:46:00 170.2 cm [facility] Body weight 2021-02-18 03:46:00 97.523 kg [facility] BMI 2021-02-18 03:46:00 33.67 kg/m2 [facility] Systolic blood pressure 2020-12-02 04:10:00 108 mm[Hg] [facility] Diastolic blood pressure 2020-12-02 04:10:00 80 mm[Hg] [facility] Heart rate 2020-12-02 04:10:00 77 /min [facility] Respiratory rate 2020-12-02 04:10:00 20 /min [facility] Oxygen saturation in Arterial blood by Pulse oximetry 2020-12-02 04:10:00 96 /min [facility] Body temperature 2020-12-02 01:13:00 36.72 Kerri [facility] Body height 2020-12-02 01:13:00 170.2 cm [facility] Body weight 2020-12-02 01:13:00 95.255 kg [facility] BMI 2020-12-02 01:13:00 32.89 kg/m2 [facility] Systolic blood pressure 2020-12-02 04:10:00 108 mm[Hg] [facility] Diastolic blood pressure 2020-12-02 04:10:00 80 mm[Hg] [facility] Heart rate 2020-12-02 04:10:00 77 /min [facility] Respiratory rate 2020-12-02 04:10:00 20 /min [facility] Oxygen saturation in Arterial blood by Pulse oximetry 2020-12-02 04:10:00 96 /min [facility] Body temperature 2020-12-02 01:13:00 36.72 Kerri [facility] Body height 2020-12-02 01:13:00 170.2 cm [facility] Body weight 2020-12-02 01:13:00 95.255 kg [facility] BMI 2020-12-02 01:13:00 32.89 kg/m2 [facility] Systolic blood pressure 2020-05-18 17:26:00 117 mm[Hg] [facility] Diastolic blood pressure 2020-05-18 17:26:00 97 mm[Hg] [facility] Heart rate 2020-05-18 17:26:00 81 /min [facility] Respiratory rate 2020-05-18 17:26:00 21 /min [facility] Oxygen saturation in Arterial blood by Pulse oximetry 2020-05-18 17:26:00 95 /min [facility] Body temperature 2020-05-18 17:00:00 36.33 Kerri [facility] Body weight 2020-05-18 08:05:00 93.486 kg [facility] BMI 2020-05-18 08:05:00 32.28 kg/m2 [facility] Body height 2020-05-17 15:00:00 170.2 cm [facility] Systolic blood pressure 2020-05-18 17:26:00 117 mm[Hg] [facility] Diastolic blood pressure 2020-05-18 17:26:00 97 mm[Hg] [facility] Heart rate 2020-05-18 17:26:00 81 /min [facility] Respiratory rate 2020-05-18 17:26:00 21 /min [facility] Oxygen saturation in Arterial blood by Pulse oximetry 2020-05-18 17:26:00 95 /min [facility] Body temperature 2020-05-18 17:00:00 36.33 Kerri [facility] Body weight 2020-05-18 08:05:00 93.486 kg [facility] BMI 2020-05-18 08:05:00 32.28 kg/m2 [facility] Body height 2020-05-17 15:00:00 170.2 cm [facility] Systolic blood pressure 2020-02-09 04:41:00 145 mm[Hg] [facility] Diastolic blood pressure 2020-02-09 04:41:00 85 mm[Hg] [facility] Heart rate 2020-02-09 04:41:00 97 /min [facility] Body temperature 2020-02-09 04:41:00 35.72 Kerri [facility] Respiratory rate 2020-02-09 04:41:00 20 /min [facility] Body weight 2020-02-09 04:41:00 95.255 kg [facility] BMI 2020-02-09 04:41:00 32.89 kg/m2 [facility] Oxygen saturation in Arterial blood by Pulse oximetry 2020-02-09 04:41:00 99 /min [facility] Systolic blood pressure 2020-02-09 04:41:00 145 mm[Hg] [facility] Diastolic blood pressure 2020-02-09 04:41:00 85 mm[Hg] [facility] Heart rate 2020-02-09 04:41:00 97 /min [facility] Body temperature 2020-02-09 04:41:00 35.72 Kerri [facility] Respiratory rate 2020-02-09 04:41:00 20 /min [facility] Body weight 2020-02-09 04:41:00 95.255 kg [facility] BMI 2020-02-09 04:41:00 32.89 kg/m2 [facility] Oxygen saturation in Arterial blood by Pulse oximetry 2020-02-09 04:41:00 99 /min [facility] Systolic blood pressure 2020-02-05 00:03:00 150 mm[Hg] [facility] Diastolic blood pressure 2020-02-05 00:03:00 99 mm[Hg] [facility] Heart rate 2020-02-05 00:03:00 84 /min [facility] Respiratory rate 2020-02-05 00:03:00 20 /min [facility] Oxygen saturation in Arterial blood by Pulse oximetry 2020-02-05 00:03:00 95 /min [facility] Body temperature 2020-02-04 20:16:00 36.83 Kerri [facility] Body height 2020-02-04 20:16:00 170.2 cm [facility] Body weight 2020-02-04 20:16:00 95.255 kg [facility] BMI 2020-02-04 20:16:00 32.89 kg/m2 [facility] Systolic blood pressure 2020-02-05 00:03:00 150 mm[Hg] [facility] Diastolic blood pressure 2020-02-05 00:03:00 99 mm[Hg] [facility] Heart rate 2020-02-05 00:03:00 84 /min [facility] Respiratory rate 2020-02-05 00:03:00 20 /min [facility] Oxygen saturation in Arterial blood by Pulse oximetry 2020-02-05 00:03:00 95 /min [facility] Body temperature 2020-02-04 20:16:00 36.83 Kerri [facility] Body height 2020-02-04 20:16:00 170.2 cm [facility] Body weight 2020-02-04 20:16:00 95.255 kg [facility] BMI 2020-02-04 20:16:00 32.89 kg/m2 [facility] Body temperature 2019-09-25 19:00:00 36.06 Kerri [facility] Body height 2019-09-25 19:00:00 170.2 cm [facility] Body weight 2019-09-25 19:00:00 100.018 kg [facility] BMI 2019-09-25 19:00:00 34.54 kg/m2 [facility] Body temperature 2019-09-05 14:53:00 36 Kerri [facility] Body height 2019-09-05 14:53:00 170.2 cm [facility] Body weight 2019-09-05 14:53:00 100.018 kg [facility] BMI 2019-09-05 14:53:00 34.54 kg/m2 [facility] Systolic blood pressure 2019-09-04 06:23:45 117 mm[Hg] [facility] Diastolic blood pressure 2019-09-04 06:23:45 88 mm[Hg] [facility] Heart rate 2019-09-04 06:23:45 94 /min [facility] Body temperature 2019-09-04 06:23:45 36.5 Kerri [facility] Respiratory rate 2019-09-04 06:23:45 18 /min [facility] Oxygen saturation in Arterial blood by Pulse oximetry 2019-09-04 06:23:45 97 /min [facility] BMI 2019-09-04 04:39:48 33.67 kg/m2 [facility] Body height 2019-09-04 04:39:48 170.2 cm [facility] Body weight 2019-09-04 04:39:48 97.523 kg [facility] Procedures Procedure Date / Time Performed Performing Clinician Source CT ABDOMEN PELVIS WO CONTRAST 2023-10-09 03:45:35 Gatito Coppola [facility] URINALYSIS 2023-10-09 02:10:00 Gatito Coppola [facility] LIPASE 2023-10-09 01:30:00 Gatito Coppola [facility] HEPATIC FUNCTION PANEL (62697) (ALB,T.PRO,BILI T,BU/BC,ALT,AST,ALK PHOS) 2023-10-09 01:30:00 Gatito Coppola [facility] BASIC METABOLIC PANEL (NA, K, CL, CO2, GLUCOSE, BUN, CREATININE, CA) 2023-10-09 01:30:00 Gatito Coppola [facility] CBC WITH DIFF 2023-10-09 01:30:00 Gatito Coppola [facility] ASSIGNMENT OF BENEFITS 2023-10-09 00:54:53 Docto r Unassigned, [place] [facility] NOTICE OF PRIVACY PRACTICES 2023-10-09 00:12:46 Doctor Unassigned, [place] [facility] CONSENT/REFUSAL FOR DIAGNOSIS AND TREATMENT 2023-10-09 00:11:33 Doctor Unassigned, [place] [facility] URIC ACID 2023-08-24 18:14:00 [facility] BASIC METABOLIC PANEL (NA, K, CL, CO2, GLUCOSE, BUN, CREATININE, CA) 2023-08-24 18:14:00 Percy Ramos [facility] CBC WITH DIFF 2023-08-24 18:14:00 [facility] XR ANKLE 3+ VW RIGHT 2023-08-24 18:11:40 Percy Ramos [facility] XR FOOT 3+ VW RIGHT 2023-08-24 18:11:40 Percy Ramos [facility] CONSENT/REFUSAL FOR DIAGNOSIS AND TREATMENT 2023-08-24 16:05:19 Doctor Unassigned, [facility] ASSIGNMENT OF BENEFITS 2023-08-22 20:44:26 Docto r Unassigned, [facility] CONSENT/REFUSAL FOR DIAGNOSIS AND TREATMENT 2023-08-22 20:17:42 Doctor Unassigned, [facility] RAPID INFLUENZA A/B 2023-08-11 21:59:00 Keturah Meredith [facility] COVID-19 (ID NOW RAPID TESTING) 2023-08-11 21:59:00 Rina Meredith [facility] XR FOOT 3+ VW RIGHT 2023-08-11 21:58:33 Keturah Meredith [facility] CONSENT/REFUSAL FOR DIAGNOSIS AND TREATMENT 2023-08-11 21:32:58 Doctor Unassigned, [facility] DISABILITY/FMLA 2023-05-05 05:01:00 Doctor Unass igned, [facility] ASSIGNMENT OF BENEFITS 2023-04-06 20:20:21 Docto r Unassigned, [facility] CONSENT/REFUSAL FOR DIAGNOSIS AND TREATMENT 2023-04-06 18:55:16 Doctor Unassigned, [facility] DUPLEX VENOUS LEGS BILATERAL - BY VASCULAR LAB 2021-09-05 03:43:24 Feli Layne [facility] URIC ACID 2021-09-05 01:48:00 [facility] BASIC METABOLIC PANEL (NA, K, CL, CO2, GLUCOSE, BUN, CREATININE, CA) 2021-09-05 01:48:00 Feli Layne [facility] SEDIMENTATION RATE 2021-09-05 01:48:00 Feli Layne [facility] CBC WITH DIFF 2021-09-05 01:48:00 Feli Layne [facility] XR FOOT 3+ VW RIGHT 2021-09-05 01:43:09 Feli Layne [facility] NOTICE OF PRIVACY PRACTICES 2021-09-05 01:07:38 Doctor Unassigned, [facility] CONSENT/REFUSAL FOR DIAGNOSIS AND TREATMENT 2021-09-05 01:07:20 Doctor Unassigned, [facility] EXTERNAL PROVIDER RECORDS 2021-03-23 05:01:00 Doctor Unassigned, [facility] XR CHEST 1 VW 2021-02-18 04:45:53 Ana Samuel [facility] TROPONIN I 2021-02-18 04:08:00 Samuel, Ana S [facility] COMP. METABOLIC PANEL ([id number]) 2021-02-18 04:08:00 Ana Samuel [facility] CBC WITH DIFF 2021-02-18 04:08:00 Ana Samuel [facility] N-TERMINAL PRO-BNP 2021-02-18 04:08:00 Ana Samuel [facility] NOTICE OF PRIVACY PRACTICES 2021-02-18 03:31:56 Doctor Unassigned, [facility] CONSENT/REFUSAL FOR DIAGNOSIS AND TREATMENT 2021-02-18 03:31:41 Doctor Unassigned, [place] [facility] TROPONIN I 2020-12-02 03:16:00 Denise Ramirez [facility] XR CHEST 1 VW 2020-12-02 02:56:58 Denise Ramirez [facility] LIPASE 2020-12-02 01:45:00 Denise Ramirez [facility] TROPONIN I 2020-12-02 01:45:00 Denise Ramirez [facility] COMP. METABOLIC PANEL (17068) 2020-12-02 01:45:00 Denise Ramirez [facility] CBC WITH DIFF 2020-12-02 01:45:00 Denise Ramirez [facility] PROTHROMBIN TIME / INR 2020-12-02 01:45:00 Nuria Ramirez ala [facility] ACTIVATED PARTIAL THRMPLAS MERY 2020-12-02 01:45:00 Denise Ramirez [facility] CONSENT/REFUSAL FOR DIAGNOSIS AND TREATMENT 2020-12-02 00:57:56 Doctor Unassigned, [place] BASIC METABOLIC PANEL (NA, K, CL, CO2, GLUCOSE, BUN, CREATININE, CA) 2020-05-18 09:35:00 Kuldeep Galarza [facility] CBC WITH DIFF 2020-05-18 08:14:00 Kuldeep Galarza [facility] LEGIONELLA URINARY ANTIGEN TST 2020-05-17 21:33:00 Kuldeep Galarza [facility] PNEUMOCOCCAL ANTIGEN 2020-05-17 21:32:00 Shahrzad Galarza [facility] CT CHEST PULMONARY ANGIOGRAM 2020-05-17 18:36:13 Kuldeep Galarza [facility] PROCALCITONIN 2020-05-17 15:35:00 Kuldeep Galarza [facility] XR CHEST 1 VW 2020-05-17 13:46:07 Joseph Salcido [facility] CREATINE KINASE 2020-05-17 13:26:00 [facility] 2020-05-17 13:26:00 Joseph Salcido [facility] HEPATIC FUNCTION PANEL ([id number]) (ALB,T.PRO,BILI T,BU/BC,ALT,AST,ALK PHOS) 2020-05-17 13:26:00 Omari [facility] BASIC METABOLIC PANEL (NA, K, CL, CO2, GLUCOSE, BUN, CREATININE, CA) 2020-05-17 13:26[facility]00 [facility] 2020-05-17 13:26:00 Joseph Salcido [facility] PROTHROMBIN TIME / INR 2020-05-17 13:26:00 Gen Salcido [facility] D-DIMER 2020-05-17 13:26:00 [facility] ACTIVATED PARTIAL THRMPLAS MERY 2020-05-17 13:26:00 Omari [facility] N-TERMINAL PRO-BNP 2020-05-17 13:26:00 [facility] ONLY - INFLUENZA A & B DIRECT ANTIGEN 2020-05-17 13:25:00 [facility] COVID-19 (ID NOW RAPID TESTING) 2020-05-17 13:25:00 [facility] 2020-05-17 13:19:38 [facility] EKG-12 LEAD 2020-05-17 13:10:25 [facility] CONSENT/REFUSAL FOR DIAGNOSIS AND TREATMENT 2020-05-17 12:50:12 Doctor Unassigned, [facility] NOTICE OF PRIVACY PRACTICES 2020-02-09 05:16:38 Doctor Unassigned, [place] [facility] CONSENT/REFUSAL FOR DIAGNOSIS AND TREATMENT 2020-02-09 05:16:28 Doctor Unassigned, [facility] NOTICE OF PRIVACY PRACTICES 2020-02-09 04:29:20 Doctor Unassigned, [place] [facility] CONSENT/REFUSAL FOR DIAGNOSIS AND TREATMENT 2020-02-09 04:29:07 Doctor Unassigned, [place] [facility] CONSENT/REFUSAL FOR DIAGNOSIS AND TREATMENT 2020-02-04 19:58:54 Doctor Unassigned, [facility] CT LANDMARK SINUS WO CONTRAST 2019-09-25 15:25:47 Reyna Saba [facility] URIC ACID 2019-09-04 05:17:00 Miriam Hairston [facility] COMP. METABOLIC PANEL ([id number]) 2019-09-04 05:17:00 Miriam Hairston [facility] CT HEAD WO CONTRAST 2019-09-04 05:04:32 Humberto Hairston [facility] XR ANKLE <3 VW RIGHT 2019-09-04 05:04:21 Mika Hairston [facility] SEDIMENTATION RATE 2019-09-04 04:38:00 Lizandro Hairston [facility] CBC WITH DIFFERENTIAL 2019-09-04 04:38:00 Ja Hairston [facility] Encounters Start Date/Time End Date/Time Encounter Type Admission Type Attending [facility] Care Facility Care Department Encounter ID Source 2021-06-15 09:16:16 Emergency [facility] [id number] [facility] 2021-06-15 06:25:48 Emergency [facility] [id number] [facility] 2021-06-14 13:56:42 Emergency [facility] [id number] [facility] 2021-06-12 20:52:31 Emergency [facility] [id number] [facility] 2021-06-12 03:13:29 Emergency [facility] [id number] [facility] 2021-06-12 02:13:36 Emergency [facility] [id number] [facility] 2021-06-11 10:38:23 Outpatient R PAMELA JUAN LUIS [facility] [id number] [facility] 2023-10-08 18:28:00 2023-10-08 23:55:00 Emergency X GATITO COPPOLA [facility] ERT [id number] [facility] 2023-10-08 18:28:00 2023-10-08 23:55:00 Emergency Gatito Coppola [facility] 1.2.840.114 350.1.13.10 4.2.7.2.686 [id number] [facility] 2023-08-29 00:00:00 2023-08-29 00:00:00 Patient Secure Msg Doctor Unassigned, [facility] 1.2.840.114 350.1.13.10 4.2.7.2.686 [id number] [facility] 2023-08-24 10:14:00 2023-08-24 13:50:00 Emergency X PERCY RAMOS [facility] E[facility] [id number] [facility] 2023-08-24 10:14:00 2023-08-24 13:50:00 Emergency Percy Ramos [facility] 1.2.840.114 350.1.13.10 4.2.7.2.686 [id number] [facility] 2023-08-22 14:34:00 2023-08-22 16:32:00 Emergency X KIMBERLY SORENSON [facility] E[facility] [id number] [facility] 2023-08-22 14:34:00 2023-08-22 16:32:00 Emergency Kimberly Sorenson [facility] 1.2.840.114 350.1.13.10 4.2.7.2.686 [id number] [facility] 2023-08-11 15:34:00 2023-08-11 17:13:00 Emergency X RINA MEREDITH [facility] E[facility] [id number] [facility] 2023-08-11 15:34:00 2023-08-11 17:13:00 Emergency Rina Meredith [facility] 1.2.840.114 350.1.13.10 4.2.7.2.686 [id number] [facility] 2023-05-05 00:00:00 2023-05-05 00:00:00 Orders Only Doctor Unassigned, [facility] 1.2.840.114 350.1.13.10 4.2.7.2.686 [id number] [facility] 2023-04-06 13:59:00 2023-04-06 15:26:00 Emergency X EDDI SAHA [facility] E[facility] [id number] [facility] 2023-04-06 13:59:00 2023-04-06 15:26:00 Emergency Eddi Saha [facility] 1..840.114 350.1.13.10 4.2.7.2.686 [id number] [facility] 2022-07-02 16:59:59 2022-07-02 16:59:59 Outpatient [facility] [id number] Vinod Paredes 2022-06-26 10:08:00 2022-06-26 10:08:00 Outpatient [facility] [id number] Vinod Paredes 2021-09-07 10:00:00 2021-09-07 10:00:00 Outpatient TERESA JOSEPH [id number] Barbara Lyon 2021-09-04 19:33:00 2021-09-04 22:27:00 Emergency X FELI LAYNE [facility] ERT [id number] [facility] 2021-09-04 19:33:00 2021-09-04 22:27:00 Emergency Feli Layne R [facility] 1.2.840.114 350.1.13.10 4.2.7.2.686 [id number] [facility] 2021-03-23 00:00:00 2021-03-23 00:00:00 Orders Only Doctor Unassigned, [place] [facility] 1.2.840.114 350.1.13.10 4.2.7.2.686 [id number] [facility] 2021-02-17 22:56:00 2021-02-18 00:56:00 Emergency Ana Samuel S [facility] 1.2.840.114 350.1.13.10 4.2.7.2.686 [id number] [facility] 2020-12-01 20:15:00 2020-12-01 23:30:00 Emergency Denise Ramirez Megan [facility] 1.2.840.114 350.1.13.10 4.2.7.2.686 [id number] [facility] 2020-12-01 20:15:00 2020-12-01 23:30:00 Emergency MartinhumbertoDenise Megan [facility] 1.2.840.114 350.1.13.10 4.2.7.2.686 [id number] 2020-10-28 00:00:00 2020-10-28 00:00:00 Patient Outreach Anthony Browne [facility] 1.2.840.114 350.1.13.10 4.2.7.2.686 [id number] [facility] 2020-10-28 00:00:00 2020-10-28 00:00:00 Patient Outreach Anthony Browne [facility] 1.2.840.114 350.1.13.10 4.2.7.2.686 [id number] 2020-05-27 16:15:00 2020-05-27 16:15:00 Outpatient Yandy ARELLANO [facility] [id number] [facility] 2020-05-23 00:00:00 2020-05-23 00:00:00 Nurse Triage [facility] 1.2.840.114 350.1.13.10 4.2.7.2.686 [id number] [facility] 2020-05-23 00:00:00 2020-05-23 00:00:00 Nurse Triage [facility] 1.2.840.114 350.1.13.10 4.2.7.2.686 [id number] 2020-05-19 11:15:00 2020-05-19 11:15:00 Outpatient Yandy PAMELA [facility] [id number] [facility] 2020-05-19 09:12:55 2020-05-19 09:27:55 Telemedici ne Visit Pamela [facility]. 1.2.840.114 350.1.13.10 4.2.7.2.686 [id number] [facility] 2020-05-19 09:12:55 2020-05-19 09:27:55 Telemedici ne Visit Pamela [facility] 1.2.840.114 350.1.13.10 4.2.7.2.686 [id number] 2020-05-17 07:55:00 2020-05-18 13:15:00 Emergency Joseph Salcido Yaman [facility] 1.2.840.114 350.1.13.10 4.2.7.2.686 [id number] [facility] 2020-05-17 07:55:00 2020-05-18 13:15:00 Emergency Joseph Salcido Kuldeep [facility] 1.2.840.114 350.1.13.10 4.2.7.2.686 [id number] 2020-05-17 00:00:00 2020-05-17 00:00:00 Nurse Triage [facility] 1.2.840.114 350.1.13.10 4.2.7.2.686 [id number] [facility] 2020-05-17 00:00:00 2020-05-17 00:00:00 [facility] 1.2.840.114 350.1.13.10 4.2.7.2.686 [id number] 2020-05-12 14:20:00 2020-05-12 14:20:00 Outpatient R [facility] [id number] [facility] 2020-04-28 18:00:00 2020-04-28 18:00:00 Outpatient R GLORIA LIRIANO [facility] [id number] [facility] 2020-03-18 00:00:00 2020-03-18 00:00:00 Nurse Triage [facility] 1.2.840.114 350.1.13.10 4.2.7.2.686 [id number] [facility] 2020-03-18 00:00:00 2020-03-18 00:00:00 Nurse Triage [facility] 1.2.840.114 350.1.13.10 4.2.7.2.686 [id number] 2020-02-09 00:28:27 2020-02-09 01:06:00 Emergency Epifanio Vargascl Kebede [facility] 1.2.840.114 350.1.13.10 4.2.7.2.686 [id number] [facility] 2020-02-09 00:28:27 2020-02-09 01:06:00 Emergency Shira Vargas [facility] 1.2.840.114 350.1.13.10 4.2.7.2.686 [id number] 2020-02-09 00:00:00 2020-02-09 00:00:00 Orders Only Doctor Unassigned, [place] [facility] 1.2.840.114 350.1.13.10 4.2.7.2.686 [id number] [facility] 2020-02-09 00:00:00 2020-02-09 00:00:00 Orders Only Doctor Unassigned, [place] [facility] 1.2.840.114 350.1.13.10 4.2.7.2.686 [id number] 2020-02-04 15:18:35 2020-02-04 19:14:00 Emergency Ja Camarena [facility] 1.2.840.114 350.1.13.10 4.2.7.2.686 [id number] [facility] 2020-02-04 15:18:35 2020-02-04 19:14:00 Emergency Caleb, [facility] 1.2.840.114 350.1.13.10 4.2.7.2.686 [id number] 2020-02-04 00:00:00 2020-02-04 00:00:00 Nurse Triage [facility] 1.2.840.114 350.1.13.10 4.2.7.2.686 [id number] [facility] 2020-02-04 00:00:00 2020-02-04 00:00:00 Nurse Triage [facility] [facility] 1.2.840.114 350.1.13.10 4.2.7.2.686 [id number] 2019-11-21 10:33:00 2019-11-21 10:33:00 [facility] [id number] [facility] 2019-10-02 00:00:00 2019-10-02 00:00:00 [facility] 1.2.840.114 350.1.13.10 4.2.7.2.686 [id number] [facility] 2019-10-02 00:00:00 2019-10-02 00:00:00 Telephone Pamela [facility] 1.2.840.114 350.1.13.10 4.2.7.2.686 [id number] 2019-09-25 09:08:48 2019-09-25 23:59:00 Outpatient R REYNA SABA [facility] [id number] [facility] 2019-09-25 09:00:00 2019-09-25 23:59:00 Hospital Encounter Reyna Saba [facility] 1.2840.114 350.1.13.10 4.2.7.2.686 [id number] [facility] 2019-09-25 12:36:36 2019-09-25 13:51:54 [facility] 1.2840.114 350.1.13.10 4.2.7.2.686 [id number] [facility] 2019-09-25 00:00:00 2019-09-25 00:00:00 Letter (Out) [facility] 1.2840.114 350.1.13.10 4.2.7.2.686 [id number] [facility] 2019-09-05 08:39:59 2019-09-05 09:09:59 Office Visit Reyna Saba [facility] Analyze Re [facility] BLDG. 1.2840.114 350.1.13.10 4.2.7.2.686 [id number] [facility] 2019-09-05 00:00:00 2019-09-05 00:00:00 Telephone Reyna Saba [facility] DiJiPOP BLDG. 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 (NA, K, CL, CO2, GLUCOSE, BUN, CREATININE, CA)2023-10-09 01:58:41* Test Item Value Reference Range Interpretation Comme nts NA (test code = 4197016486) 138 mmol/L 135-145 K (test code = 6375063596) 3.6 mmol/L 3.5-5.0 CL (test code = 1541617858) 106 mmol/L 98-108 CO2 TOTAL (test code = 8558601792) 28 mmol/L 23-31 AGAP (test code = 1152208989) 4 2-16 BUN (test code = 3666206596) 15 mg/dL 7-23 GLUCOSE (test code = 5463634821) 151 mg/dL 70-110 H CREATININE (test code = 2160-0) 0.81 mg/dL 0.60-1.25 CALCIUM (test code = 4021089680) 8.5 mg/dL 8.6-10.6 L eGFR (test code = 30983-8) 105.4 mL/min/1.73m2 CKD-EPI eGFR (2020). Assuming creatinine has been stable day-to-day for at least three months, the eGFR indicates Category G1 (>= 90 mL/min/1.73 m2) Lab Interpretation (test code = 96434-1) [facility] 01:58:41* Test Item Value Reference Range Interpretation Comme nts LIPASE (test code = 2277640167) 130 U/L 0-220 Lab Interpretation (test cod e = 20160-0) Normal [facility] WITH [id number] 01:42:23* Test Item Value Reference Range Interpretation [...] 32.4 g/dL 31.2-35.0 RDW-SD (test code = 17797-6) 41.1 fL 38.5-51.6 RDW-CV (test code = 788-0) 12.8 % 12.1-15.4 PLT (test code = 777-3) 237 150-328 MPV (test code = 30126-1) 9.6 fL 9.8-13.0 L NRBC/100 WBC (test code = 2794878492) 0.0 0.0-10.0 NRBC x10^3 (test code = 8655873737) See_Comment [Automated messa ge] The system which generated this result transmitted reference range: 10*3/?L. The reference range was not used to interpret this result as normal/abnormal. GRAN MAT (NEUT) % (test code = 770-8) 51.4 % IMM GRAN % (test code = 8578674988) 0.40 % LYMPH % (test code = 736-9) 38.4 % MONO % (test code = 5905-5) 7.4 % EOS % (test code = 713-8) 1.8 % BASO % (test code = 706-2) 0.6 % GRAN MAT x10^3(ANC) (test code = 7462250529) 2.64 10*3/uL 1.99-6.95 IMM GRAN x10^3 (test code = 6235138134) 0.00-0.06 LYMPH x10^3 (test code = 731-0) 1.97 10*3/uL 1.09-3.23 MONO x10^3 (test code = 742-7) 0.38 10*3/uL 0.36-1.02 EOS x10^3 (test code = 711-2) 0.09 10*3/uL 0.06-0.53 BASO x10^3 (test code = 704-7) 0.03 10*3/uL 0.01-0.09 Lab Interpretation (test code = 55036-9) Abnormal [facility] 3+ VW [id number] 19:00:22XR ANKLE 3+ VW RIGHT, XR FOOT 3+ VW RIGHT HISTORY: ?foot/gout? COMPARISON: Radiographs dated 08/11/2023 and 09/03/2019. Findings:The osseous structures are intact. There is fusion of the fifth mid anddistal phalanges. Mild subchondral sclerosis and hook-like osteophytosisaffect the great toe distal interphalangeal joint, unchanged. ?Mildwidening the ankle syndesmosis. Mild first MTP degenerative changes.Mild to moderate soft tissue edema. ?No abnormal soft tissue calcification.[facility] FO[facility] 3+ VW RIGHT 2023-08-24 19:00:22XR [...] soft tissue edema. ?No abnormal soft tissue calcification.[facility] XR FOOT 3+ VW [id number] 22:08:48HISTORY: ?Pain in right second, third, fourth and fifth metatarsal bones. FINDINGS: Comparison has been made with 09/04/2021 study. AP, lateral,oblique views of right foot showed no acute fracture or dislocation. Noaggressive bone lesions seen. No heel spur. Mild degenerative changes notedin first MTP joint. CONCLUSIONS: No acute fracture or dislocation in right foot.[facility], THIRD [id number] 06:30:17* Test Item Value Reference Range Interpretation Comme [facility] TSH, THIRD GENERATION (test code = 2821) 1.270 UIU/ML 0.400-4.100 UNLESS OTHERWISE INDICATED, ALL TESTING PERFORMED [facility] [address] [place] [address] CEMENT BREAKER: ESTELLE PILLAI M.D. [facility] NUMBER [id number] [facility] [place]. [id number] HEMOGLOBIN [id number] 06:05:11* Test Item Value Reference Range Interpretation Comme [facility] HEMOGLOBIN A1c (test code = 15868) 7.3 % 4.2-5.6 H EMIRATI DIABETE S ASSOCIATION GUIDELINES FOR HGB A1C: [...] ALTERNATE TESTING OR LABORATORY CONSULTATION. COMPREHENSIVE METABOLIC [id number] 05:26:05* Test Item Value Reference Range Interpretation [...] = 2219) 96 U/L 5-50 H LIPID [id number] 05:26:05* Test Item Value Reference Range Interpretation [...] SPECIMENS. FOR MOREINFORMATION, SEE CLIENT ANNOUNCEMENT AT [email or web address] CalcLDL-C RISK RATIO LDL/HDL (test code = 2238) 4.23 RATIO <3.55 H UNABLE TO JULIUS CULATE CBC W/AUTO DIFF WITH [id number] 05:12:51* Test Item Value Reference Range Interpretation [...] = 1065) 0.0 /100 WBC'S See_Comment [Automated Camstar Systemsa ge] The system which generated this [...] 0.00-0.10 ABS NUCLEATED RBCS (test code = 69776) 0.00 K/UL 0.00-0.11 SEDIMENTATION [id number] 03:14:49* Test Item Value Reference Range Interpretation Comme nts ESR (test code = 6326786830) See_Comment [Automated messa ge] The system which generated this result transmitted reference range: 0 - 10 mm/HR. The reference range was not used to interpret this result as normal/abnormal. Lab Interpretation (test code = 70859-4) Normal [facility] METABOLIC PANEL (NA, K, CL, CO2, GLUCOSE, BUN, CREATININE, CA)2021-09-05 02:38:36* Test Item Value Reference Range Interpretation Comme nts NA (test code = 2171533529) 134 mmol/L 135-145 L K (test code = 2573870780) 4.7 mmol/L 3.5-5.0 CL (test code = 0989808231) 101 mmol/L 98-108 CO2 TOTAL (test code = 3426026281) 24 mmol/L 23-31 AGAP (test code = 4594619366) 2-16 BUN (test code = 6446853791) 19 mg/dL 7-23 GLUCOSE (test code = 0767664689) 112 mg/dL 70-110 H CREATININE (test code = 8226820876) 0.94 mg/dL 0.60-1.25 CALCIUM (test code = 3219437152) 8.7 mg/dL 8.6-10.6 eGFR (test code = 2172167067) mL/min/1.73m2 ROCÍO (test code = ROCÍO) Association [...] imaging tests). Lab Interpretation (test code = 07273-4) Abnormal [facility] HospitalURIC [id number] 02:38:16* Test Item Value Reference Range Interpretation Comme nts URIC ACID (test code = 1601383020) 2.7 mg/dL 3.6-8.0 L Lab Interpretation (test cod e = 47419-2) Abnormal [facility] WITH [id number] 02:26:17* Test Item Value Reference Range Interpretation Comme nts WBC (test code = 6690-2) See_Comment [Automated Cam[employer] Systemsa Helishopter] The system which generated this result transmitted reference range: 4.20 - 10.70 10*3/?L. The reference range was not used to interpret this result as normal/abnormal. RBC (test code = 789-8) See_Comment H [Automated [employer] Systemsa Helishopter] The system which generated this result transmitted [...] 32.3 g/dL 31.2-35.0 RDW-SD (test code = 48017-7) 40.1 fL 38.5-51.6 RDW-CV (test code = 788-0) 12.8 % 12.1-15.4 PLT (test code = 777-3) See_Comment [Automated [employer] Systemsa ge] The system which generated this result transmitted reference range: 150 - 328 10*3/?L. The reference range was not used to interpret this result as normal/abnormal. MPV (test code = 54343-5) 10.3 fL 9.8-13.0 NRBC/100 WBC (test code = 5792131707) See_Comment [Automated Prim[employer]ision ssage] The system which generated this result transmitted reference range: 0.0 - 10.0 /100 WBCs. The reference range was not used to interpret this result as normal/abnormal. NRBC x10^3 (test code = 3667041518) <0.01 See_Comment [Automated [employer] Systemsa ge] The system which generated this result transmitted reference range: 10*3/?L. The reference range was not used to interpret this result as normal/abnormal. GRAN MAT (NEUT) % (test code = 770-8) 56.1 % IMM GRAN % (test code = 9653871437) 0.50 % LYMPH % (test code = 736-9) 30.9 % MONO % (test code = 5905-5) 10.2 % EOS % (test code = 713-8) 1.7 % BASO % (test code = 706-2) 0.6 % GRAN MAT x10^3(ANC) (test code = 5359698878) 4.60 10*3/uL 1.99-6.95 IMM GRAN x10^3 (test code = 7360600915) 0.04 10*3/uL 0.00-0.06 LYMPH x10^3 (test code = 731-0) 2.54 10*3/uL 1.09-3.23 MONO x10^3 (test code = 742-7) 0.84 10*3/uL 0.36-1.02 EOS x10^3 (test code = 711-2) 0.14 10*3/uL 0.06-0.53 BASO x10^3 (test code = 704-7) 0.05 10*3/uL 0.01-0.09 Lab Interpretation (test code = 40019-9) Abnormal [facility] HospitalTROPONIN [id number] 04:42:06* Test Item Value Reference Range Interpretation Comments TROPONIN I (test code = 6457186279) 0.005 ng/mL See_Comment [Automated message] The system [...] of biotin. Lab Interpretation (test code = 92327-0) Normal [facility]. METABOLIC PANEL (98348)2021-02-18 04:41:36* Test Item Value Reference Range Interpretation Comme nts NA (test code = 9719459035) 135 mmol/L 135-145 K (test code = 9333423904) 4.0 mmol/L 3.5-5.0 CL (test code = 8624252874) 102 mmol/L 98-108 CO2 TOTAL (test code = 4981199956) 27 mmol/L 23-31 AGAP (test code = 8493174850) 2-16 BUN (test code = 4572373433) 17 mg/dL 7-23 GLUCOSE (test code = 1495244725) 206 mg/dL 70-110 H CREATININE (test code = 9266151165) 0.92 mg/dL 0.60-1.25 TOTAL BILI (test code = 6984142499) 0.5 mg/dL 0.1-1.1 CALCIUM (test code = 2703579525) 9.2 mg/dL 8.6-10.6 T PROTEIN (test code = 1965230846) 7.6 g/dL 6.3-8.2 ALBUMIN (test code = 8797180405) 4.3 g/dL 3.5-5.0 ALK PHOS (test code = 0621398029) 63 U/L 34-122 ALTv (test code = 1742-6) 57 U/L 5-50 H AST(SGOT) (test code = 0873411919) 41 U/L 13-40 H eGFR (test code = 6334226976) mL/min/1.73m2 ROCÍO (test code = ROCÍO) Association [...] imaging tests). Lab Interpretation (test code = 66088-5) Abnormal [facility] HospitalN-TERMINAL [id number] 04:39:05* Test Item Value Reference Range Interpretation Comme nts NT-proBNP (test code = 4187861018) 77 pg/mL See_Comment [Automated message] The system which generated this result transmitted reference range: <=125. The reference range was not used to interpret this result as normal/abnormal. ROCÍO (test code = ROCÍO) Biotin has been reported to cause a negative bias, interpret results relative to patient's use of biotin. Lab Interpretation (test code = 47823-1) Normal [facility] WITH [id number] 04:19:03* Test Item Value Reference Range Interpretation Comme nts WBC (test code = 6690-2) See_Comment [Automated [employer] Systemsa ge] The system which generated this result transmitted reference range: 4.20 - 10.70 10*3/?L. The reference range was not used to interpret this result as normal/abnormal. RBC (test code = 789-8) See_Comment [Automated [employer] Systemsa ge] The system which generated this [...] 32.5 g/dL 31.2-35.0 RDW-SD (test code = 15173-4) 38.7 fL 38.5-51.6 RDW-CV (test code = 788-0) 12.7 % 12.1-15.4 PLT (test code = 777-3) See_Comment [Automated [employer] Systemsa ge] The system which generated this result transmitted reference range: 150 - 328 10*3/?L. The reference range was not used to interpret this result as normal/abnormal. MPV (test code = 73596-2) 10.1 fL 9.8-13.0 NRBC/100 WBC (test code = 9382232955) See_Comment [Automated me ssage] The system which generated this result transmitted reference range: 0.0 - 10.0 /100 WBCs. The reference range was not used to interpret this result as normal/abnormal. NRBC x10^3 (test code = 9081814565) <0.01 See_Comment [Automated me ssage] The system which generated this result transmitted reference range: 10*3/?L. The reference range was not used to interpret this result as normal/abnormal. GRAN MAT (NEUT) % (test code = 770-8) 66.8 % IMM GRAN % (test code = 9091834308) 0.40 % LYMPH % (test code = 736-9) 25.4 % MONO % (test code = 5905-5) 5.7 % EOS % (test code = 713-8) 1.1 % BASO % (test code = 706-2) 0.6 % GRAN MAT x10^3(ANC) (test code = 6211762028) 4.77 10*3/uL 1.99-6.95 IMM GRAN x10^3 (test code = 2630700964) 0.03 10*3/uL 0.00-0.06 LYMPH x10^3 (test code = 731-0) 1.81 10*3/uL 1.09-3.23 MONO x10^3 (test code = 742-7) 0.41 10*3/uL 0.36-1.02 EOS x10^3 (test code = 711-2) 0.08 10*3/uL 0.06-0.53 BASO x10^3 (test code = 704-7) 0.04 10*3/uL 0.01-0.09 [facility] [id number] 04:04:57* Test Item Value Reference Range Interpretation Comme nts TROPONIN I (test code = 8151048067) 0.005 ng/mL See_Comment [Automated message] The system [...] biotin. ? Lab Interpretation (test code = 28548-2) Normal [facility] HospitalTROP[facility] [id number] 02:54:24* Test Item Value Reference Range Interpretation Comme nts TROPONIN I (test code = 7840185795) 0.004 ng/mL See_Comment [Automated message] The system [...] biotin. ? Lab Interpretation (test code = 07303-1) Normal [facility] METABOLIC PANEL (74166)2020-12-02 02:42:04* Test Item Value Reference Range Interpretation Comme nts NA (test code = 5111228216) 137 mmol/L 135-145 K (test code = 5580219343) 4.1 mmol/L 3.5-5.0 CL (test code = 3030996144) 101 mmol/L 98-108 CO2 TOTAL (test code = 6785503251) 26 mmol/L 23-31 AGAP (test code = 5815139421) 2-16 BUN (test code = 9923681689) 18 mg/dL 7-23 GLUCOSE (test code = 6819551281) 115 mg/dL 70-110 H CREATININE (test code = 5080872791) 0.92 mg/dL 0.60-1.25 TOTAL BILI (test code = 1459752884) 0.6 mg/dL 0.1-1.1 CALCIUM (test code = 7800674809) 9.4 mg/dL 8.6-10.6 T PROTEIN (test code = 0539136083) 7.5 g/dL 6.3-8.2 ALBUMIN (test code = 8055295299) 4.4 g/dL 3.5-5.0 ALK PHOS (test code = 6216544838) 67 U/L 34-122 ALTv (test code = 1742-6) 44 U/L 5-50 AST(SGOT) (test code = 0401927523) 33 U/L 13-40 eGFR (test code = 9101072190) mL/min/1.73m2 ROCÍO (test code = ROCÍO) Association [...] imaging tests). Lab Interpretation (test code = 75621-4) Abnormal [facility] HospitalaPTT2021-04-20 02:14:40* Test Item Value Reference Range Interpretation Comme [facility] APTT Patient (test code = 3173-2) See_Comment [Automated message] The system which generated this result transmitted reference range: 23 - 38 Seconds. The reference range was not used to interpret this result as normal/abnormal. ROCÍO (test code = ROCÍO) The [facility] patient population mean normal value for aPTT is 30 seconds. Lab Interpretation (test code = 21273-0) Normal [facility] HospitalPROTHROMBIN TIME / [id number] 02:12:38* Test Item Value Reference Range Interpretation Comme [facility] PROTIME PATIENT (test code = 5964-2) See_Comment [Automated SocialGlimpz] The system which generated this result transmitted reference range: 12.0 - 14.7 Seconds. The reference range was not used to interpret this result as normal/abnormal. INR (test code = 6301-6) Normal INR <1.1; Warfarin Therapeutic range 2.0 to 3.0 or 2.5 to 3.5, depending upon the indications. Lab Interpretation (test code = 22481-1) Normal [facility] HospitalLIPASE, [id number] 02:04:56* Test Item Value Reference Range Interpretation Comme nts LIPASE (test code = 1023890589) 119 U/L 0-220 Lab Interpretation (test cod e = 10940-7) Normal [facility] WITH [id number] 01:56:13* Test Item Value Reference Range Interpretation [...] 32.4 g/dL 31.2-35.0 RDW-SD (test code = 96686-5) 37.4 fL 38.5-51.6 L RDW-CV (test code = 788-0) 12.2 % 12.1-15.4 PLT (test code = 777-3) See_Comment [Automated messa ge] The system which generated this result transmitted reference range: 150 - 328 10*3/?L. The reference range was not used to interpret this result as normal/abnormal. MPV (test code = 44307-7) 10.0 fL 9.8-13.0 NRBC/100 WBC (test code = 9206638200) See_Comment [Automated [employer] ssage] The system which generated this result transmitted reference range: 0.0 - 10.0 /100 WBCs. The reference range was not used to interpret this result as normal/abnormal. NRBC x10^3 (test code = 2710544742) <0.01 See_Comment [Automated messa ge] The system which generated this result transmitted reference range: 10*3/?L. The reference range was not used to interpret this result as normal/abnormal. GRAN MAT (NEUT) % (test code = 770-8) 56.9 % IMM GRAN % (test code = 6505893237) 0.50 % LYMPH % (test code = 736-9) 32.5 % MONO % (test code = 5905-5) 8.5 % EOS % (test code = 713-8) 1.1 % BASO % (test code = 706-2) 0.5 % GRAN MAT x10^3(ANC) (test code = 2719419004) 3.13 10*3/uL 1.99-6.95 IMM GRAN x10^3 (test code = 3633042007) 0.03 10*3/uL 0.00-0.06 LYMPH x10^3 (test code = 731-0) 1.79 10*3/uL 1.09-3.23 MONO x10^3 (test code = 742-7) 0.47 10*3/uL 0.36-1.02 EOS x10^3 (test code = 711-2) 0.06 10*3/uL 0.06-0.53 BASO x10^3 (test code = 704-7) 0.03 10*3/uL 0.01-0.09 Lab Interpretation (test code = 41606-4) Abnormal [facility] Metabolic Panel (NA, K, CL, CO2, GLUCOSE, BUN, CREATININE, CA)2020-05-18 11:10:00* Test Item Value Reference Range Interpretation Comme nts NA (test code = 9286629290) 136 mmol/L 135-145 K (test code = 7259285336) 4.3 mmol/L 3.5-5 CL (test code = 3787618454) 100 mmol/L 98-108 CO2 TOTAL (test code = 6411728617) 28 mmol/L 23-31 AGAP (test code = 7851353507) 2-16 BUN (test code = 1098988337) 16 mg/dL 7-23 GLUCOSE (test code = 0793385719) 230 mg/dL 70-110 H CREATININE (test code = 6807801755) 0.77 mg/dL 0.6-1.25 CALCIUM (test code = 4195772412) 8.8 mg/dL 8.6-10.6 eGFR Calculation (Non-) (test code = 2866091897) mL/min/1.73m2 eGFR Calculation () (test code = 2275255335) mL/min/1.73m2 ROCÍO (test code = ROCÍO) Association [...] imaging tests). Lab Interpretation (test code = 10940-4) Abnormal [facility] with Lhjcebycqzpg5230-51-24 08:59:00* Test Item Value Reference Range Interpretation Comme nts WBC (test code = 6690-2) See_Comment [Automated [employer]Glimpz] The system which generated this result transmitted reference range: 4.20 - 10.70 10*3/?L. The reference range was not used to interpret this result as normal/abnormal. RBC (test code = 789-8) See_Comment [Automated Cam[employer] Systemsa ge] The system which generated this [...] 33.4 g/dL 31.2-35 RDW-SD (test code = 97251-4) 37.1 fL 38.5-51.6 L RDW-CV (test code = 788-0) 12.2 % 12.1-15.4 PLT (test code = 777-3) See_Comment [Automated [employer] Systemsa ge] The system which generated this result transmitted reference range: 150 - 328 10*3/?L. The reference range was not used to interpret this result as normal/abnormal. MPV (test code = 83121-4) 10.5 fL 9.8-13 NRBC/100 WBC (test code = 0468947222) See_Comment [Automated Prim[employer]Vision ssage] The system which generated this result transmitted reference range: 0.0 - 10.0 /100 WBCs. The reference range was not used to interpret this result as normal/abnormal. NRBC x10^3 (test code = 3965072328) <0.01 See_Comment [Automated [employer] Systemsa ge] The system which generated this result transmitted reference range: 10*3/?L. The reference range was not used to interpret this result as normal/abnormal. GRAN MAT (NEUT) % (test code = 770-8) 62.9 % IMM GRAN % (test code = 5422591478) 2.30 % LYMPH % (test code = 736-9) 27.8 % MONO % (test code = 5905-5) 6.8 % EOS % (test code = 713-8) 0.0 % BASO % (test code = 706-2) 0.2 % GRAN MAT x10^3(ANC) (test code = 8363787556) 2.79 10*3/uL 1.99-6.95 IMM GRAN x10^3 (test code = 1446691965) 0.10 10*3/uL 0-0.06 H LYMPH x10^3 (test code = 731-0) 1.23 10*3/uL 1.09-3.23 MONO x10^3 (test code = 742-7) 0.30 10*3/uL 0.36-1.02 L EOS x10^3 (test code = 711-2) <0.03 0.06-0.53 L BASO x10^3 (test code = 704-7) <0.03 0.01-0.09 Lab Interpretation (test code = 31739-4) Abnormal [facility] HospitalPNEUMOCOCCAL [id number] 03:05:00* Test Item Value Reference Range Interpretation Comme nts S. pneumoniae antigen (test code = 0722666186) Negative Negative Lab Interpretation (test cod e = 08045-4) Normal [facility] HospitalLEGIONELLA URINARY ANTIGEN [id number] 03:05:00* Test Item Value Reference Range Interpretation Comme nts Legionella Urinary Antigen (test code = 3199614755) Negative Negative ROCÍO (test code = ROCÍO) [...] the test. Lab Interpretation (test code = 38069-6) Normal [facility] HospitalCT CHEST PULMONARY [id number] 00:34:42No acute pulmonary embolism to the segmental [...] reviewed this study and agree with theabove report.[facility] HospitalPROCALCITONIN 2020-05-17 20:08:00* Test Item Value Reference Range Interpretation Comme nts Procalcitonin (test code = 0759792635) 0.04 ng/mL <0.07 ROCÍO (test code = [...] lung abscess/empyema. For further information please refer to:[email or web address] Lab Interpretation (test code = 49368-5) Normal [facility] HospitalD-WQZNQ6655-81-91 15:48:00* Test Item Value Reference Range Interpretation Comments D-DIMER (test code = 8604175282) See_Comment H [Automated message] The system which [...] a diagnosis. Lab Interpretation (test code = 91531-1) Abnormal [facility] HospitalCREATINE [id number] 15:43:00* Test Item Value Reference Range Interpretation Comme nts CK (test code = 5894555981) 53 U/L 33-194 Lab Interpretation (test cod e = 25766-7) Normal [facility]ADC,CLC OR [facility] ONLY - INFLUENZA A & B DIRECT [id number] 14:12:00* Test Item Value Reference Range Interpretation Comme nts Influenza A (test code = 79080-5) Negative Negative Influenza B (test code = 54042-7) Negative Negative Lab Interpretation (test cod e = 74787-4) Normal [facility] HospitalCOVID[facility] (ID NOW RAPID TESTING)2020-05-17 14:07:00* Test Item Value Reference Range Interpretation Comme nts SARS-CoV-2 Rapid ID NOW (test code = 92701-7) Positive Not Detected A ROCÍO (test code = ROCÍO) ID NOW COVID-19 As say is an isothermal nucleic acid amplification test intended for the qualitative detection of nucleic acid from SARS-CoV-2 viral RNA in nasopharyngeal ([employer]) specimens. It is used under Emergency Use [...] clinically indicated. Lab Interpretation (test code = 54044-8) Abnormal [facility] HospitalTroponin [id number] 14:05:00* Test Item Value Reference Range Interpretation Comme [facility] TROPONIN I (test code = 0673371258) <0.012 See_Comment [Automated message] The system which [...] biotin. ? Lab Interpretation (test code = 84632-1) [facility] [id number] 14:02:00* Test Item Value Reference Range Interpretation Comme nts NT-proBNP (test code = 9994716865) 102 pg/mL See_Comment [Automated message] The system which generated this result transmitted reference range: <=125. The reference range was not used to interpret this result as normal/abnormal. ROCÍO (test code = ROCÍO) Biotin has been reported to cause a negative bias, interpret results relative to patient's use of biotin. Lab Interpretation (test code = 20313-8) Normal [facility] 1 [id number] 14:00:13Impression: Streaky opacities left greater than right which may representatypical infection including Covid 19. Disclaimer: Generally, the findings on chest imaging in COVID-19 are notspecific, and overlap with other infections, including influenza, H1N1,SARS and MERS.According to the Centers for Disease Control (CDC) and recent statement ofthe [employer], viral testing remains the [...] Disease Control (CDC) and recent statement ofthe [employer], viral testing remains the only specificmethod of diagnosis. Confirmation with the viral test is required, even ifradiologic findings are suggestive of COVID-[address] [facility] Met[facility] (NA, K, CL, CO2, GLUCOSE, BUN, CREATININE, CA)2020-05-17 13:53:00* Test Item Value Reference Range Interpretation Comme nts NA (test code = 4548980780) 135 mmol/L 135-145 K (test code = 0856107009) 4.0 mmol/L 3.5-5 CL (test code = 1520523526) 97 mmol/L 98-108 L CO2 TOTAL (test code = 5185363306) 29 mmol/L 23-31 AGAP (test code = 1751786269) 2-16 BUN (test code = 0501309313) 16 mg/dL 7-23 GLUCOSE (test code = 9431948481) 124 mg/dL 70-110 H CREATININE (test code = 6634882251) 0.85 mg/dL 0.6-1.25 CALCIUM (test code = 1060094093) 8.9 mg/dL 8.6-10.6 eGFR Calculation (Non-) (test code = 2745032535) mL/min/1.73m2 eGFR Calculation () (test code = 5972549208) mL/min/1.73m2 ROCÍO (test code = ROCÍO) Association [...] imaging tests). Lab Interpretation (test code = 95324-2) Abnormal [facility] (ALB, T.PRO, BILI T, BU/BC, ALT, AST, ALK PHOS)2020-05-17 13:53:00* Test Item Value Reference Range Interpretation Comme nts TOTAL BILI (test code = 1834149067) 0.5 mg/dL 0.1-1.1 BILI UNCON (test code = 1710656688) 0.5 mg/dL 0.1-1.1 BILI CONJ (test code = 2854503893) 0.0 mg/dL 0-0.3 T PROTEIN (test code = 7566936448) 7.3 g/dL 6.3-8.2 ALBUMIN (test code = 7223155553) 3.6 g/dL 3.5-5 ALK PHOS (test code = 1598354438) 101 U/L 34-122 ALTv (test code = 1742-6) 77 U/L 5-50 H AST(SGOT) (test code = 3292956138) 67 U/L 13-40 H Lab Interpretation (test cod e = 57396-4) Abnormal [facility] HospitalaPTT2020-10-03 13:51:00* Test Item Value Reference Range Interpretation Comme nts APTT Patient (test code = 3173-2) See_Comment [Automated message] The system which generated this result transmitted reference range: 23 - 38 Seconds. The reference range was not used to interpret this result as normal/abnormal. ROCÍO (test code = ROCÍO) The [facility] patient population mean normal value for aPTT is 30 seconds. Lab Interpretation (test code = 89044-1) Normal [facility] HospitalProthrombin Time (PT) / [id number] 13:49:00 * Test Item Value Reference Range Interpretation Comme [facility] PROTIME PATIENT (test code = 5964-2) See_Comment [Automated [employer] Systemsa ge] The system which generated this result transmitted reference range: 12.0 - 14.7 Seconds. The reference range was not used to interpret this result as normal/abnormal. INR (test code = 6301-6) Normal INR <1.1; Warfarin Therapeutic range 2.0 to 3.0 or 2.5 to 3.5, depending upon the indications. Lab Interpretation (test code = 38624-0) Normal [facility] HospitalCBC with [id number] 13:41:00* Test Item Value Reference Range Interpretation Comme [facility] WBC (test code = 6690-2) See_Comment [Automated messa ge] The system which generated this result transmitted reference range: 4.20 - 10.70 10*3/?L. The reference range was not used to interpret this result as normal/abnormal. RBC (test code = 789-8) See_Comment [Automated [employer] ge] The system which generated this [...] 31.8 g/dL 31.2-35 RDW-SD (test code = 12682-6) 39.0 fL 38.5-51.6 RDW-CV (test code = 788-0) 12.3 % 12.1-15.4 PLT (test code = 777-3) See_Comment [Automated messa ge] The system which generated this result transmitted reference range: 150 - 328 10*3/?L. The reference range was not used to interpret this result as normal/abnormal. MPV (test code = 55204-5) 9.4 fL 9.8-13 L NRBC/100 WBC (test code = 8210839397) See_Comment [Automated [employer] ssage] The system which generated this result transmitted reference range: 0.0 - 10.0 /100 WBCs. The reference range was not used to interpret this result as normal/abnormal. NRBC x10^3 (test code = 2414226302) <0.01 See_Comment [Automated [employer] ge] The system which generated this result transmitted reference range: 10*3/?L. The reference range was not used to interpret this result as normal/abnormal. GRAN MAT (NEUT) % (test code = 770-8) 56.0 % IMM GRAN % (test code = 7968500113) 1.40 % LYMPH % (test code = 736-9) 32.1 % MONO % (test code = 5905-5) 9.0 % EOS % (test code = 713-8) 1.0 % BASO % (test code = 706-2) 0.5 % GRAN MAT x10^3(ANC) (test code = 1823819091) 3.25 10*3/uL 1.99-6.95 IMM GRAN x10^3 (test code = 2370121116) 0.08 10*3/uL 0-0.06 H LYMPH x10^3 (test code = 731-0) 1.86 10*3/uL 1.09-3.23 MONO x10^3 (test code = 742-7) 0.52 10*3/uL 0.36-1.02 EOS x10^3 (test code = 711-2) 0.06 10*3/uL 0.06-0.53 BASO x10^3 (test code = 704-7) 0.03 10*3/uL 0.01-0.09 Lab Interpretation (test code = 41238-6) Abnormal [facility] HospitalCT LANDMARK SINUS WO [id number] 22:54: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 Thesphenoid septum is rightward deviated. The sphenoid [...] noted, probablysecondary to the above-described inflammatory process. [facility], Radiant Results Inft User - 09/25/2019 4:55 PM ORDER MANAGEMENT SPECIALIST* * * * * * * * [...] at least the CT sinus dating back [id number]. The sphenoid septum is rightward deviated.The sphenoid [...] reviewed this study and agree with theabove report.[facility] HospitalSEDIMENTATION [id number] 06:19:00* Test Item Value Reference Range Interpretation Comme nts ESR (test code = 1331693411) See_Comment H [Automated messa ge] The system which generated this result transmitted reference range: 0 - 10 mm/HR. The reference range was not used to interpret this result as normal/abnormal. Lab Interpretation (test code = 68249-2) Abnormal [facility] HospitalCOMP. METABOLIC PANEL ([id number])2019-09-04 05:36:00* Test Item Value Reference Range Interpretation Comme nts NA (test code = 0560390245) 138 mmol/L 135-145 K (test code = 6556913033) 4.1 mmol/L 3.5-5 Slight hemolysis CL (test code = 6127054864) 105 mmol/L 98-108 CO2 TOTAL (test code = 2677164515) 23 mmol/L 23-31 AGAP (test code = 6772920212) 2-16 BUN (test code = 4047514790) 23 mg/dL 7-23 Slight hemolysis GLUCOSE (test code = 8207542378) 181 mg/dL 70-110 H CREATININE (test code = 6530703049) 1.05 mg/dL 0.6-1.25 TOTAL BILI (test code = 8578153718) 0.5 mg/dL 0.1-1.1 CALCIUM (test code = 6677691215) 8.8 mg/dL 8.6-10.6 T PROTEIN (test code = 8568046113) 7.5 g/dL 6.3-8.2 ALBUMIN (test code = 8786265682) 4.0 g/dL 3.5-5 ALK PHOS (test code = 7488689837) 86 U/L 34-122 Slight hemolysis ALTv (test code = 1742-6) 61 U/L 5-50 H AST(SGOT) (test code = 8799935247) 45 U/L 13-40 H Slight hemolysis eGFR Calculation (Non-) (test code = 2820567424) mL/min/1.73m2 eGFR Calculation () (test code = 6254120186) mL/min/1.73m2 ROCÍO (test code = ROCÍO) Association [...] imaging tests). Lab Interpretation (test code = 47426-9) Abnormal [facility] HospitalURIC [id number] 05:36:00* Test Item Value Reference Range Interpretation Comme nts URIC ACID (test code = 3832365332) 9.8 mg/dL 3.6-8 H Lab Interpretation (test cod e = 61593-5) Abnormal [facility] HospitalCBC WITH [id number] 04:46:00* Test Item Value Reference Range Interpretation Comme nts WBC (test code = 6690-2) See_Comment [Automated [employer]sa Helishopter] The system which generated this result transmitted reference range: 4.20 - 10.70 10*3/?L. The reference range was not used to interpret this result as normal/abnormal. RBC (test code = 789-8) See_Comment [Automated [employer]sa Helishopter] The system which generated this result transmitted [...] 32.4 g/dL 31.2-35 RDW-SD (test code = 22972-9) 40.4 fL 38.5-51.6 RDW-CV (test code = 788-0) 12.7 % 12.1-15.4 PLT (test code = 777-3) See_Comment [Automated [employer] Helishopter] The system which generated this result transmitted reference range: 150 - 328 10*3/?L. The reference range was not used to interpret this result as normal/abnormal. MPV (test code = 73120-8) 10.0 fL 9.8-13 NRBC/100 WBC (test code = 7875892665) See_Comment [Automated me ssage] The system which generated this result transmitted reference range: 0.0 - 10.0 /100 WBCs. The reference range was not used to interpret this result as normal/abnormal. NRBC x10^3 (test code = 3211459094) <0.01 See_Comment [Automated me ssage] The system which generated this result transmitted reference range: 10*3/?L. The reference range was not used to interpret this result as normal/abnormal. GRAN MAT (NEUT) % (test code = 770-8) 58.1 % IMM GRAN % (test code = 6481164657) 0.50 % LYMPH % (test code = 736-9) 31.2 % MONO % (test code = 5905-5) 8.2 % EOS % (test code = 713-8) 1.4 % BASO % (test code = 706-2) 0.6 % GRAN MAT x10^3(ANC) (test code = 0680898150) 4.85 10*3/uL 1.99-6.95 IMM GRAN x10^3 (test code = 1372922662) 0.04 10*3/uL 0-0.06 LYMPH x10^3 (test code = 731-0) 2.60 10*3/uL 1.09-3.23 MONO x10^3 (test code = 742-7) 0.68 10*3/uL 0.36-1.02 EOS x10^3 (test code = 711-2) 0.12 10*3/uL 0.06-0.53 BASO x10^3 (test code = 704-7) 0.05 10*3/uL 0.01-0.09 [facility]
--- NOTE | 2024-09-07 17:40 | RAD REPORT ---
Exam:Foot Right 3 View CLINICAL HISTORY: Right foot pain FINDINGS: No fracture or dislocation seen Mild hallux valgus deformity
--- NOTE | 2024-09-07 17:47 | EDPHYS ---
Physician Documentation [facility] Name: Randolph Javier Age: 53 yrs Sex: Male : 1970 Arrival Date: 09/07/2024 Time: 16:45 Bed DX3 Private MD: ED Physician Roberto Oconnell HPI: 09/07 16:56 This 53 yrs old Male presents to ER via Unassigned with complaints of Foot kb Pain - right. 16:56 Pt is a 53 year old male who presents for right foot pain that started 2 days ago. kb History of gout and this feels similar. . Historical: - Allergies: 17:02 No Known Allergies; ap3 - PMHx: 17:02 diabetes mellitus; Gout; ap3 - Immunization history:: Client reports receiving the 2nd dose of the Covid vaccine, Flu vaccine is not up to date. - Infectious Disease History:: Denies. - Social history:: Smoking status: Patient denies any tobacco usage or history of. ROS: 16:58 Constitutional: As per HPI kb Exam: 16:58 Constitutional: This is a well developed, well nourished patient who is awake, alert, kb and in no acute distress. Head/Face: Normocephalic, atraumatic. ENT: Moist Mucous membranes Cardiovascular: Regular rate Respiratory: Respirations even and unlabored. No increased work of breathing. Talking in full sentences Skin: Warm, dry with normal turgor. Normal color. Neuro: Awake and alert, GCS 15, oriented to person, place, time, and situation. 16:58 Musculoskeletal/extremity: Extremities: grossly normal except: noted in the lateral side of right foot and lateral side of right heel: pain, tenderness, ROM: intact in all extremities, Circulation is intact in all extremities. Sensation intact. Weight bearing: able to fully bear weight, Vital Signs: 17:01 BP 154 / 99; Pulse 105; Resp 17; Temp 98.3; Pulse Ox 98% on R/A; Weight 95.25 kg; ap3 Height 5 ft. 7 in. ; Pain 10/10; 17:01 Body Mass Index 32.89 (95.25 kg, 170.18 cm) ap3 17:01 Pain Scale: Adult ap3 MDM: 16:54 Medical Screening Exam initiated kb 17:43 Differential diagnosis: closed fracture, contusion, gout. Data reviewed: vital signs, kb nurses notes. Counseling: I had a detailed discussion with the patient and/or guardian regarding the historical points, exam findings, and any diagnostic results supporting the discharge/admit diagnosis, radiology results, the need for outpatient follow up, a family practitioner, to return to the emergency department if symptoms worsen or persist or if there are any questions or concerns that arise at home. ED course: no erythema, swelling, warmth to area. 09/07 16:58 Order name: Foot Right 3 View XRAY; Complete Time: 17:42 kb Administered Medications: 18:03 Drug: Colcrys PO 1.2 mg PO once Route: PO; ap3 18:03 Drug: Ketorolac IM 30 mg IM once Route: IM; Site: right deltoid; ap3 18:03 Drug: HYDROcodone-acetaminophen PO 5 mg-325 mg 1 tabs PO once Route: PO; ap3 Disposition: 09/08 07:03 Co-signature as Attending Physician, Roberto Oconnell MD I reviewed the patient's care rt provided by the Advanced Practice Provider and agree with the diagnosis and treatment plan. Disposition Summary: 09/07/24 17:47 Discharge Ordered Notes: Location: Home kb Condition: Stable kb Diagnosis - Pain in right foot kb Followup: kb - With: Emergency Department - When: As needed - Reason: Worsening of condition Followup: kb - With: Private Physician - When: 2 - 3 days - Reason: Recheck today's complaints, Continuance of care, Re-evaluation by your physician Discharge Instructions: - Discharge Summary Sheet kb - Musculoskeletal Pain kb - Gout, [id number] kb Forms: - Medication Reconciliation Form kb - Antibiotic Education kb - Prescription Opioid Use kb - Patient Portal Instructions kb - Leadership Thank You Letter kb - Work release form ap3 Prescriptions: - Diclofenac Sodium 75 mg Oral tablet, delayed release (enteric coated) - take 1 tablet ORAL route 2 times per day As needed; 30 tablet; Refills: 0, kb Product Selection Permitted Signatures: Dispatcher [employer] Margarita Garcia FNP-C FNP-Ckb Prokisch, Amanda, RN RN ap3 Roberto Oconnell MD MD rt Corrections: (The following items were deleted from the chart) 09/07 16:58 16:58 Foot Right 3 View+RAD.RAD.BRZ ordered. EDMS EDMS
--- NOTE | 2024-09-07 17:47 | ER ---
Nurse's Notes [facility] Name: Randolph Javier Age: 53 yrs Sex: Male : 1970 Arrival Date: 09/07/2024 Time: 16:45 Bed DX3 Private MD: Diagnosis: Pain in right foot Presentation: 09/07 17:01 Chief complaint: Patient states: he has been having right sided foot pain. patient ap3 currently rates his pain as a 10/10 on the pain scale. Coronavirus screen: At this time, the client does not indicate any symptoms associated with coronavirus-19. Ebola Screen: No symptoms or risks identified at this time. Initial Sepsis Screen: Does the patient meet any 2 criteria? HR > 90 bpm. No. Patient's initial sepsis screen is negative. Does the patient have a suspected source of infection? No. Patient's initial sepsis screen is negative. Risk Assessment: Do you want to hurt yourself or someone else? Patient reports no desire to harm self or others. Onset of symptoms is unknown. 17:01 Method Of Arrival: Ambulatory ap3 17:01 Acuity: SHILPI 4 ap3 Triage Assessment: 17:03 General: Appears uncomfortable, Behavior is calm, cooperative, appropriate for age. ap3 Pain: Complains of pain in lateral side of right heel and lateral side of right foot Pain currently is 10 out of 10 on a pain scale. Neuro: Level of Consciousness is awake, alert, obeys commands, Oriented to person, place, time, situation, Appropriate for age Gait is steady, Speech is normal. Cardiovascular: Patient's skin is warm and dry. Respiratory: Airway is patent Respiratory effort is even, unlabored, Respiratory pattern is regular, symmetrical. Historical: - Allergies: 17:02 No Known Allergies; ap3 - PMHx: 17:02 diabetes mellitus; Gout; ap3 - Immunization history:: Client reports receiving the 2nd dose of the Covid vaccine, Flu vaccine is not up to date. - Infectious Disease History:: Denies. - Social history:: Smoking status: Patient denies any tobacco usage or history of. Screenin:03 [facility] ED Fall Risk Assessment (Adult) History of falling in the last 3 months, ap3 including since admission No falls in past 3 months (0 pts) Confusion or Disorientation No (0 pts) Intoxicated or Sedated No (0 pts) Impaired Gait No (0 pts) Mobility Assist Device Used No (0 pt) Altered Elimination No (0 pt) Score/Fall Risk Level 0 - 2 = Low Risk Oriented to surroundings, Maintained a safe environment, Educated pt \T\ family on fall prevention, incl call for assistance when getting out of bed, Assessed \T\ reinforced patient's understanding of fall precautions, Hourly rounding (assess needs \T\ fall precautionary measures) done, Used ambulatory aids as needed (educated on \T\ assisted with), Used gait belt as appropriate. Abuse screen: Denies threats or abuse. Nutritional screening: No deficits noted. Tuberculosis screening: No symptoms or risk factors identified. Vital Signs: 17:01 BP 154 / 99; Pulse 105; Resp 17; Temp 98.3; Pulse Ox 98% on R/A; Weight 95.25 kg; ap3 Height 5 ft. 7 in. ; Pain 10/10; 17:01 Body Mass Index 32.89 (95.25 kg, 170.18 cm) ap3 17:01 Pain Scale: Adult ap3 ED Course: 16:50 Patient arrived in ED. im 16:54 Margarita Aguirre F[facility]-C [facility] kb 16:54 Roberto Oconnell MD is Attending Physician. kb 17:02 Triage completed. ap3 17:03 Arm band placed on right wrist. ap3 17:32 Foot Right 3 View XRAY In Process Unspecified. EDMS Administered Medications: 18:03 Drug: Colcrys PO 1.2 mg PO once Route: PO; ap3 18:03 Drug: Ketorolac IM 30 mg IM once Route: IM; Site: right deltoid; ap3 18:03 Drug: HYDROcodone-acetaminophen PO 5 mg-325 mg 1 tabs PO once Route: PO; ap3 Outcome: 17:47 Discharge ordered by . kb 18:04 Patient left the ED. ap3 Signatures: Dispatcher [employer] EDMS Margarita Aguirre FNP-C FNP-Ckb Prokisch, Amanda RN RN ap3 Ema Resendez im
[2024-09-07] MEDS ORDERED: COLCHICINE 0.6 MG TAB ONE (17:58)
[2024-09-07] MEDS ORDERED: KETOROLAC 30 MG/ML INJ ONE (17:58)
[2024-09-07] MEDS ORDERED: HYDROCODONE/APAP 5/325 MG TAB ONE (17:59)
[2024-09-07 21:18] VITALS: BP 154/99; TEMP 98.3; O2SAT 98
== END 2024-09-07 18:04 | disposition home or self-care (01) ==
LOC: ER 16:45
DX: M79.671 Pain in right foot (principal)
CPT/HCPCS: 96372; 99284